=== PATIENT | male | born 1950 | race Caucasian/White ===

== ENCOUNTER 2022-06-19 08:26 | Outpatient (CLI) | payer OTHER, SELFPAY ==
[2022-06-19 09:09] LABS: Alanine Aminotransferase 31 U/L (6-50); Albumin Level 4.5 g/dL (3.5-5.1); Alkaline Phosphatase 69 U/L (38-126); Anion Gap 14 mmol/L (8-16); Aspartate Amino Transferase 33 U/L (17-59); Bilirubin,Total 0.8 mg/dL (0.2-1.3); Blood Urea Nitrogen 14 mg/dL (9-20); Calcium 8.9 mg/dL (8.4-10.2); Carbon Dioxide 23 mmol/L (22-30); Chloride 104 mmol/L (98-107); Estimated Glomerular Filt Rate > 60; Glucose 159 mg/dL (65-110); Potassium 3.8 mmol/L (3.4-5.0); Sodium 141 mmol/L (137-145)
[2022-06-19 10:06] LABS: Cholesterol 286 mg/dL (0-200); LDL Cholesterol Direct 67 mg/dL
[2022-06-19 10:10] LABS: Triglycerides 879 mg/dL (<150)
[2022-06-19 10:37] LABS: Vitamin D 25 Hydroxy 21.8 ng/mL
[2022-06-19 10:47] LABS: Hemoglobin A1C 7.2 % (<5.7)
== END 2022-06-19 08:27 | disposition home or self-care (01) ==
PROVIDERS: PCP Internal Medicine; Referring Provider Nurse Practitioner; Visit Provider Internal Medicine
DX: E78.1 Pure hyperglyceridemia (principal); E78.5 Hyperlipidemia, unspecified; E55.9 Vitamin D deficiency, unspecified; R73.01 Impaired fasting glucose; R97.20 Elevated prostate specific antigen [PSA]
CPT/HCPCS: 36415; 80053; 80061; 82306; 83036; 84153

== ENCOUNTER 2023-01-22 07:14 | Outpatient (CLI) | payer OTHER, SELFPAY ==
[2023-01-22 07:53] LABS: Cholesterol 263 mg/dL (0-200); LDL Cholesterol Direct < 30 mg/dL; Triglycerides 1533 mg/dL (<150)
[2023-01-26 16:39] LABS: Testosterone Free 65.3 pg/mL (30.0-135.0); Testosterone Total 371 ng/dL (250-1100)
== END 2023-01-22 07:15 | disposition home or self-care (01) ==
PROVIDERS: PCP Family Medicine; Visit Provider Family Medicine
DX: E03.9 Hypothyroidism, unspecified (principal); E11.9 Type 2 diabetes mellitus without complications; E55.9 Vitamin D deficiency, unspecified; E78.1 Pure hyperglyceridemia; E78.5 Hyperlipidemia, unspecified; I73.9 Peripheral vascular disease, unspecified; R97.20 Elevated prostate specific antigen [PSA]
CPT/HCPCS: 36415; 80061; 84402; 84403; 84443

== ENCOUNTER 2023-08-01 07:12 | Outpatient (CLI) | payer OTHER, SELFPAY ==
[2023-08-01 08:04] LABS: Basophils Absolute Auto 0.1 K/mm3 (0.0-0.1); Basophils Percent Auto 0.5 % (0.2-1.2); Eosinophils Absolute Auto 0.6 K/mm3 (0-0.3); Eosinophils Percent Auto 5.5 % (0-4.4); Hematocrit 45.9 % (42.0-52.0); Immature Granulocyte Absolute 0.04 K/mm3 (0.00-0.031); Immature Granulocyte Percent A 0.4 % (0-0.5); Lymphocytes Absolute Auto 4.39 K/mm3 (0.9-3.2); Lymphocytes Percent Auto 42.5 % (18.3-44.2); Mean Corpuscular HGB Conc 32.7 g/dl (32-36); Mean Corpuscular Hemoglobin 29.2 pg (26-34); Mean Corpuscular Volume 89.5 fl (80-100); Monocytes Absolute Auto 0.7 K/mm3 (0.1-0.6); Monocytes Percent Auto 6.4 % (2.6-8.5); Neutrophils Absolute Auto 4.6 K/mm3 (1.3-6.7); Neutrophils Percent Auto 44.7 % (45.5-73.1); Platelet Count Result 189 k/mm3 (150-375); Red Blood Count 5.13 M/mm3 (4.6-6.20); Red Cell Distribution Width 13.7 % (11.5-14.5); White Blood Count 10.3 K/mm3 (4.5-10.0)
[2023-08-01 08:36] LABS: LDL Cholesterol Direct 69 mg/dL
[2023-08-01 08:54] LABS: Alanine Aminotransferase 39 U/L (6-50); Albumin Level 4.3 g/dL (3.5-5.1); Alkaline Phosphatase 65 U/L (38-126); Anion Gap 8 mmol/L (8-16); Aspartate Amino Transferase 41 U/L (17-59); Bilirubin,Total 0.6 mg/dL (0.2-1.3); Blood Urea Nitrogen 16 mg/dL (9-20); Carbon Dioxide 28 mmol/L (22-30); Chloride 103 mmol/L (98-107); Cholesterol 213 mg/dL (0-200); Estimated Glomerular Filt Rate > 60; Glucose 196 mg/dL (65-110); Potassium 3.7 mmol/L (3.4-5.0); Sodium 139 mmol/L (137-145)
[2023-08-01 09:08] LABS: Triglycerides 731 mg/dL (<150)
[2023-08-01 12:06] LABS: Hemoglobin A1C 8.1 % (<5.7)
== END 2023-08-01 07:13 | disposition home or self-care (01) ==
PROVIDERS: PCP Family Medicine; Visit Provider Family Medicine
DX: E78.5 Hyperlipidemia, unspecified (principal); I10 Essential (primary) hypertension; E03.9 Hypothyroidism, unspecified; E11.9 Type 2 diabetes mellitus without complications; E55.9 Vitamin D deficiency, unspecified; E78.1 Pure hyperglyceridemia; I73.9 Peripheral vascular disease, unspecified; R53.83 Other fatigue; Z12.11 Encounter for screening for malignant neoplasm of colon
CPT/HCPCS: 36415; 80053; 80061; 83036; 84443; 85025

== ENCOUNTER 2024-08-06 08:59 | Outpatient (CLI) | payer OTHER, SELFPAY ==
[2024-08-06 09:32] LABS: Hematocrit 48.1 % (42.0-52.0); Mean Corpuscular HGB Conc 33.3 g/dl (32-36); Mean Corpuscular Volume 90.1 fl (80-100); Platelet Count Result 195 k/mm3 (150-375); Red Blood Count 5.34 M/mm3 (4.6-6.20); Red Cell Distribution Width 13.3 % (11.5-14.5); White Blood Count 13.6 K/mm3 (4.5-10.0)
[2024-08-06 09:48] LABS: Alanine Aminotransferase 31 U/L (6-50); Albumin Level 4.2 g/dL (3.5-5.1); Alkaline Phosphatase 80 U/L (38-126); Anion Gap 5 mmol/L (4-12); Aspartate Amino Transferase 32 U/L (17-59); Bilirubin,Total 0.7 mg/dL (0.2-1.3); Blood Urea Nitrogen 17 mg/dL (9-20); Calcium 9.8 mg/dL (8.4-10.2); Carbon Dioxide 27 mmol/L (22-30); Chloride 107 mmol/L (98-107); Estimated Glomerular Filt Rate > 60; Glucose 199 mg/dL (65-110); Potassium 4.4 mmol/L (3.4-5.0); Sodium 139 mmol/L (137-145)
[2024-08-06 09:50] LABS: Cholesterol 280 mg/dL (0-200)
[2024-08-06 09:53] LABS: LDL Cholesterol Direct 39 mg/dL
== END 2024-08-06 09:00 | disposition home or self-care (01) ==
PROVIDERS: PCP Family Medicine; Visit Provider Family Medicine
DX: I73.9 Peripheral vascular disease, unspecified (principal); I10 Essential (primary) hypertension; E11.9 Type 2 diabetes mellitus without complications; R97.20 Elevated prostate specific antigen [PSA]; R53.83 Other fatigue; Z79.899 Other long term (current) drug therapy
CPT/HCPCS: 36415; 80053; 80061; 83036; 84443; 85027

== ENCOUNTER 2024-10-09 12:22 | Outpatient (CLI) | payer OTHER, SELFPAY ==
--- NOTE | ~2024-10-09 | MR_ITS ---
EXAMINATION: MR lumbar spine wo con DATE: 10/09/2024 13:03 INDICATION: Radiculopathy, lumbar region. TECHNIQUE: Magnetic resonance imaging (MRI) of the lumbar spine was performed without intravenous con trast. COMPARISON: None FINDINGS: Alignment is normal. There is mild chronic anterior wedging of L1 vertebral body. There is mildly decreased disc height at L2-L3, moderately decreased disc height at L3-L4, and mildly decrease d disc height at L4-L5 and L5-S1. The distal spinal cord signal intensity is normal. The conus medull devaughn is at T12-L1. There is susceptibility artifact posterior to the L4-L5 spinous processes. The fol lowing disc levels are specifically discussed: L1-L2: The disc is bulging and has an annular fissure. There is mild right and moderate left facet gertrude int osteoarthritis. There is mild bilateral neural foraminal stenosis. There is mild central canal st enosis. L2-L3: The disc is bulging. There is mild bilateral facet joint osteoarthritis. There is mild bilater al neural foraminal stenosis. There is mild central canal stenosis. L3-L4: The disc is bulging and has an annular fissure. There is moderate bilateral facet joint osteoa rthritis. There is mild bilateral neural foraminal stenosis. There is mild central canal stenosis. L4-L5: The disc is bulging and has an annular fissure. There is severe bilateral facet joint osteoart hritis. There is moderate right and mild left neural foraminal stenosis. There is mild central canal stenosis. L5-S1: The disc is bulging and has an annular fissure. There is moderate bilateral facet joint osteoa rthritis. There is mild bilateral neural foraminal stenosis. There is mild central canal stenosis. IMPRESSION: 1. Moderate lumbar spondylosis. Reviewed, dictated and finalized at location L.
--- OUTSIDE RECORDS SUMMARY | 2024-10-09 12:30 | XMS_ITS | Encounter Summary ---
Author Name [facility] [place] Organization [facility] [place] Address [address] [place] [address] Care Team Providers Care Lead Ramp Service Man Name Role Phone ALLI CORNELIUS Primary Care Provider Unavailabl e Insurance Providers: All historical and current Section Date Range: From patient's date of to the date document was created. This section includes the names of all active insurance providers for the patient. Insurance Provider Type of Coverage Plan Name Start of Policy Coverage End of Policy Coverage Group Number Member ID Insurance Provider's Telephone Number Policy Meyer's Name Patient's Relationship to Policy Meyer MEDICARE (WNR) MEDICARE (M) PART B Dec 27, 2013 PART B [id number] LINH MERCEDES PATIENT MEDICARE (WNR) MEDICARE (M) PART A Dec 27, 2013 PART A [id number] MERCEDESLINH COLLINS PATIENT MEDICARE (WNR) MEDICARE (M) PART A Dec 27, 2013 PART A [id number] MERCEDESLINH COLLINS MMLewis PATIENT MEDICARE (WNR) MEDICARE (M) PART B Dec 27, 2013 PART B [id number] LINH MERCEDES THOMASLewis PATIENT Selected Encounter This section includes the information on record at [place] for the Encounter. 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 This section includes future appointments and future orders which are active, pending or scheduled. Future Appointments This section includes appointments that were scheduled to occur 6 months from the date of the Encounter, up to a maximum of 20 appointments. The data comes from all [facility]. Appointment Date/Time Appointment Type Appointme nt Facility Name Nov 10, 2024 10:00 AM AMBULATORY - REHAB MEDICIN E [facility] Feb 08, 2025 10:00 AM AMBULATORY - REHAB MEDICIN [facility] Active, Pending, and Scheduled Orders This section includes a listing of several types of active, pending, and scheduled orders, including clinic medications orders, diagnostic test orders, procedure orders and consult orders; where the start date of the order is 45 days before the date of the Encounter or 45 days after the date of theEncounter. The data comes from all [facility]. Test Date/Time Test Type Test Details Facility Name Aug 31, 2024 12:00 AM Laboratory - Chemi stry Order LIPID PANEL (STL) GREEN LI/HEP BLD/PLAS PLASMA SP ONCE [facility] Sep 29, 2024 12:00 AM Laboratory - Chemi stry Order BASIC METABOLIC PANEL GREEN LI/HEP BLD/PLAS PLASMA SP [facility] Sep 29, 2024 12:00 AM Laboratory - Chemi stry Order HGA1C BLOOD SP [facility] Sep 29, 2024 12:00 AM Laboratory - Chemi stry Order MICRAL/CREAT PROFILE (STL) URINE YELLOW SP [facility] Sep 29, 2024 12:00 AM Laboratory - Chemi stry Order LIPID PANEL (STL) GREEN LI/HEP BLD/PLAS PLASMA SP ONCE [facility] Vital Signs: All taken on the encounter date This section contains inpatient and outpatient Vital Signs collected on the date of the Encounter. Date/Time Temperature Pulse Blood Pressure Respiratory Rate SP02 Pain Height Weight Body Mass Index Source Sep 29, 2024 10:19 AM 104 118/74 [facility] Social History: Smoking Status (Most current) and Tobacco Use (All prior to encounter date) This section includes the most current, and the historical, smoking and tobacco- related health factors from the [place] facility where the Encounter took place. Current Smoking Status This section includes the most current smoking, or tobacco-related health factor, from the [place] facility where the Encounter took place. Date/Time Current Smoking Status Comment Alejandro ity Feb 11, 2024 10:00 AM VA-TOBACCO USER EVERY DAY [facility] Tobacco Use History This section includes a history of the smoking, or tobacco-related health factors, that were collected on or before the date of the Encounter. The data comes from the [place] facility where the Encounter took place. Date/Time Smoking Status/Tobacco Use Comment F acility Feb 11, 2024 10:00 AM VA-TOBACCO USE 30 YEARS OR MORE [facility] Feb 11, 2024 10:00 AM VA-TOBACCO USE ADVICE [facility] Feb 11, 2024 10:00 AM VA-TOBACCO USE TOOLROOM HELPER NO [facility] Feb 11, 2024 10:00 AM VA-TOBACCO USE MED NO [facility] Feb 11, 2024 10:00 AM VA-TOBACCO USER EVERY DAY [facility] Sep 26, 2022 09:30 AM VA-TOBACCO DOESNT USE WI 30 MIN WAKEUP [facility] Sep 26, 2022 09:30 AM VA-TOBACCO USE 30 YEARS OR MORE [facility] Sep 26, 2022 09:30 AM VA-TOBACCO USE ADVICE [facility] Sep 26, 2022 09:30 AM VA-TOBACCO USE TOOLROOM HELPER NO [facility] Sep 26, 2022 09:30 AM VA-TOBACCO USE MED NO [facility] Sep 26, 2022 09:30 AM VA-TOBACCO USER EVERY DAY [facility] May 05, 2021 01:00 PM VA-TOBACCO USE 30 YEARS OR MORE [facility] May 05, 2021 01:00 PM VA-TOBACCO USE ADVICE [facility] May 05, 2021 01:00 PM VA-TOBACCO USE TOOLROOM HELPER NO [facility] May 05, 2021 01:00 PM VA-TOBACCO USE MED NO [facility] May 05, 2021 01:00 PM VA-TOBACCO USE WI 30 MIN OF WAKEUP [facility] May 05, 2021 01:00 PM VA-TOBACCO USER EVERY DAY [facility] Mar 05, 2018 09:42 AM CURRENT TOBACCO USER [facility] Mar 05, 2018 09:42 AM CURRENT TOBACCO US ER (NOT READY TO QUIT) [facility] Mar 05, 2018 09:42 AM TOBACCO CESSATION REFERRAL DECLINED [facility] Mar 05, 2018 09:42 AM TOBACCO MEDS OFFER ED BUT DECLINED [facility] Mar 05, 2018 09:42 AM TOBACCO USER OFFERED MEDS [facility] Mar 05, 2017 08:56 AM CURRENT TOBACCO USER [facility] Mar 05, 2017 08:56 AM TOBACCO MEDS OFFER ED BUT DECLINED [facility] Encounter Notes: All associated encounter notes This section contains the clinical notes associated to the Encounter. Date/Time Encounter Note(s) Provider Source Sep 29, 2024 10:36 AM ADDENDUM: LOCAL TITLE: Addendum STANDARD TITLE: ADDENDUM DATE OF NOTE: SEP 29, 2024@10:36:36 ENTRY DATE: SEP 29, 2024@10:36:37 AUTHOR: HAGENHOFF,ELOISE R EXP COSIGNER: URGENCY: STATUS: COMPLETED Dr. Cornelius - pt requesting renewal on wixela, finasteride, tiotropium, and albuterol if appropriate. /judie/ ELOISE ROJAS, JESSICAD, BCACP CLINICAL MAGNETIZER Signed: 09/29/2024 10:37 Receipt Acknowledged By: 09/29/2024 13:28 /judie/ ALLI CORNELIUS M.D. STAFF PHYSICIAN [facility] --- Original Document --- 09/29/24 CLINICAL PHARMACIST NOTE STL: CLINICAL PHARMACY FOLLOW-UP Subjective: TAN MERCEDES is a 74 MALE who presents to clinic for follow up on DM/HLD/HTN. Verified pts full name and PMH: 1) Essential hypertension 2) Mixed hyperlipidemia 3) Nicotine dependence 4) Hearing loss 5) Vitamin D Deficiency (SCT [id number]) 6) Impaired Fasting Glucose (SCT [id number]) 7) Peripheral vascular disease 8) Critical lower limb ischaemia 9) Chronic obstructive lung disease 10) Diabetes mellitus 11) Malignant melanoma of skin of face 12) Hypothyroidism 13) Exposure to potentially hazardous substance During the last contact with vet (08/25/24), the following changes were made: DM: - bring glucometer to clinic to download - INCREASE empagliflozin 25mg daily HLD: - labs: FLP next week HTN: - check home BP and bring machine to next visit - Ensure adequate hydration and change positions slowly - Call if SBP<100 or HoTN sxs. During current visit: - Pt presented to clinic today with med bottles but did not have home readings to review. - Stated he completed course of steroids last week for pinched nerve. He was inactive for about 3 weeks so did not test SMBGs and home BP during that time. Dietary/Lifestyle/Social History modifications made: - tob: 1/2 ppd - EtOH: denies - no set meals, snacks all day long ROS: DM: (-) hypoglycemia symptoms or values <80 mg/dL (-) hyperglycemia symptoms (-) tingling/numbness HLD:(-) CP (-) muscle pain/cramps HTN:(-) hypotension symptoms or value <90/60 mmHg (+) orthostasis - rare dizzy on standing (-) edema (-) cough Objective: Allergies: EGGS, SHELLFISH Medications: Active and Recently Outpatient Medications (excluding Supplies): Active Outpatient Medications Status -1) AMLODIPINE BESYLATE 10MG TAB TAKE ONE TABLET BY MOUTH ONCE A ACTIVE DAY Indication: FOR HIGH BLOOD PRESSURE - AM -2) ASPIRIN 81MG EC TAB TAKE ONE TABLET BY MOUTH ONCE A DAY ACTIVE TAKE WITH FOOD. Indication: FOR CARDIOVASCULAR DISEASE - AM -3) CHLORTHALIDONE 25MG TAB TAKE ONE-HALF TABLET BY MOUTH ONCE A ACTIVE DAY Indication: FOR HIGH BLOOD PRESSURE - AM -4) CHOLECALCIF 50MCG (D3-2,000UNIT) TAB TAKE ONE TABLET BY ACTIVE MOUTH ONCE A DAY Indication: FOR VITAMIN D DEFICIENCY - AM -5) CYANOCOBALAMIN 500MCG TAB TAKE ONE TABLET BY MOUTH ONCE A ACTIVE DAY FOR B12 SUPPLEMENTATION - AM -6) EMPAGLIFLOZIN 25MG TAB TAKE ONE TABLET BY MOUTH ONCE A DAY ACTIVE Indication: FOR DIABETES - AM -7) FLUOROURACIL 5% CREAM APPLY THIN FILM TO AFFECTED AREA(S) ACTIVE TWICE A DAY AVOID SUN EXPOSURE. FOLLOW DIRECTIONS CAREFULLY FOR PROPER HANDLING/DISPOSAL.USE FOR 10 DAYS AT A TIME Indication: FOR FOREARMS AND FACE -8) FLUTICAS 250/SALMETEROL 50 INHL DISK 60 INHALE 1 INHALATION ACTIVE BY ORAL INHALATION TWICE A DAY (OPEN DISKUS; CLICK ONLY ONCE; MAY INHALE TWICE TO COMPLETE DOSE; CLOSE WHEN FINISHED) RINSE MOUTH AND SPIT AFTER EACH USE. Indication: FOR COPD -9) KETOCONAZOLE 2% SHAMPOO USE SHAMPOO TO AFFECTED AREA(S) ONCE ACTIVE A DAY (EXTERNAL USE ONLY) (SHAKE WELL) FOR HEAD AND NECK. LATHER FOR 3 MINUTES PRIOR TO RINSING Indication: FOR SEBORRHEIC DERMATITIS - stated he never received, refilled today -10) LEVOTHYROXINE NA 25MCG TAB TAKE ONE TABLET BY MOUTH EVERY ACTIVE MORNING BEFORE A MEAL TAKE 30 MINUTES BEFORE FOOD. TAKE SEPARATELY FROM ALL OTHER MEDICATIONS. Indication: FOR HYPOTHYROIDISM -11) LISINOPRIL 40MG TAB TAKE ONE TABLET BY MOUTH ONCE A DAY ACTIVE Indication: FOR HIGH BLOOD PRESSURE - PM - 2 bottles -12) METFORMIN HCL 1000MG TAB TAKE ONE TABLET BY MOUTH TWICE A ACTIVE DAY WITH MEALS TAKE WITH FOOD. AVOID ALCOHOL. DISCONTINUE BEFORE GETTING XRAY DYE. Indication: FOR DIABETES - BID -13) ROSUVASTATIN CA 40MG TAB TAKE ONE TABLET BY MOUTH EVERY ACTIVE EVENING Indication: FOR HIGH CHOLESTEROL - PM Inactive Outpatient Medications Status -1) FENOFIBRATE 145MG TAB TAKE ONE TABLET BY MOUTH ONCE A DAY - TAKE WITH FOOD Indication: FOR HIGH TRIGLYCERIDES - AM -2) ICOSAPENT ETHYL CAP,ORAL 1GM TAKE TWO CAPSULES BY MOUTH TWICE A DAY WITH MEALS FOR HIGH TRIGLYCERIDES - BID -3) FINASTERIDE TAB 5MG TAKE ONE TABLET BY MOUTH ONCE A DAY SWALLOW WHOLE, DO NOT CRUSH, SPLIT, OR CHEW. - PM 4) TIOTROPIUM INHL,ORAL TIOTROPIUM 2.5MCG/ACTUAT 60D ORAL INHL INHALE 2 INHALATIONS BY ORAL INHALATION ONCE A DAY (ADMINISTER AT SAME TIME EACH DAY) FOR BREATHING. 5) ALBUTEROL (CFC-F) INHL,ORAL 90MCG/INHL INHALE 1 PUFF ORAL INHALATION FOUR TIMES A DAY NEEDED FOR BREATHING. SHAKE WELL. RINSE MOUTHPIECE FREQUENTLY TO PREVENT CLOGGING. Medication reconciliation completed: YES Adherence to above medications: good per pt (1-2 missed dose in 5 weeks) Labs: HGA1C 7.5 H % 04/29/2024 10:32 SODIUM 139 mEq/L 04/29/2024 10:32 POTASSIUM 3.9 mEq/L 04/29/2024 10:32 CHLORIDE 107 mEq/L 04/29/2024 10:32 CALCIUM 10.0 mg/dL 04/29/2024 10:32 PROTEIN 8.2 g/dL 08/27/2023 13:57 ALBUMIN 4.7 g/dL 08/27/2023 13:57 CARBON DIOXIDE 23 mEq/L 04/29/2024 10:32 GLUCOSE 118 H mg/dL 04/29/2024 10:32 UREA NITROGEN 11.3 mg/dL 04/29/2024 10:32 CREATININE 0.79 mg/dL 04/29/2024 10:32 EGFR (CKD-EPI 2020) 92.1 04/29/2024 10:32 est CrCl:87.3mL/min ALKALINE PHOSPHATASE 57 U/L 08/27/2023 13:57 ALT/SGPT 34 U/L 08/27/2023 13:57 AST/SGOT 26 U/L 08/27/2023 13:57 TOTAL BILIRUBIN 0.7 mg/dL 08/27/2023 13:57 TRIGLYCERIDE 361 H mg/dL 04/29/2024 10:32 CHOLESTEROL 169 mg/dL 04/29/2024 10:32 HDL(New) 40 mg/dL 04/29/2024 10:32 DIRECT LDL 60 L mg/dL 04/29/2024 10:32 MICRAL/CR PROFILE: CREATuF: 48.1 (08/15/23 13:26) M/CREAT: 168 (08/15/23 13:26) MICRAL: 81 (08/15/23 13:26) TSH 2.116 uIU/mL 08/27/2023 13:57 VITAMIN D, 25-HYDROXY 63.9 ng/mL 04/29/2024 10:32 B12 595 pg/mL 04/29/2024 10:32 NonVA Labs (08/06/24): Na 139 K 4.4 Cl 107 CO2 27 Ca 9.8 glu 199 BUN 17 SCr 0.59 eGFR >60 tbili 0.7 AST 32 ALT 31 LDL 39 (direct) TGs unavailable, 2+ lipemic HDL not performed chol 280 H TSH 2.420 A1c 8% SMBGs: - has not checked since last visit BP last visit: 165/91 (08/10/2024 10:01) Pulse last visit: 83 (08/10/2024 09:58) Home Readings: 09/29 138/73 ?? Automatic BP seated, rested: 118/74 mmHg Pulse: 104 bpm Assessment/Plan: 1) Diabetes - Goal A1c <8%, FPG 80-160, PPG <210 d/t PVD, albuminuria, neuropathy per VA/DoD guidelines NonVA A1c and serum glu elevated. SCr wnl. eGFR appropriate for empagliflozin. SMBGs unavailable. Not checking at home d/t recent pinched nerve but agreed to resume. Requested pt bring glucometer to download. Reported med compliance... Denied ADRs and diet/lifestyle changes. Discussed SGLT2i use in PVD and concern for amputation risk with pt and Dr. Cornelius (okay to continue). Pt verbalized understanding of risks and requested to continue SGLT2i. Previously avoiding GLP1 d/t pancreatitis risk with elevated TGs but may reconsider if TGs continue to improve and glu uncontrolled. Will CCT and obtain updated labs. - bring glucometer to clinic to download - metformin IR 1000mg BID - empagliflozin 25mg daily - check SMBGs 2x/wk alternating before meals and bedtime!!! - educated vet on hypoglycemia symptoms and appropriate treatment and when to contact clinic or go to emergency room - labs: A1c, BMP, micral/cr today -- DM med SOC: (+)ASA (-)ACEi (+ albuminuria) (+)Statin (-)flu vaccine - declined 08/10/24 (+)pneumo vaccine - 08/15/23 and 09/26/22 (+)Podiatry - 08/15/23 abnormal monofilament (+)Optho - 11/11/23 NIDDM s Ocular Complications OU 2) Lipids - Goal is treatment with moderate-intensity statin per VADoD and ACC/AHA guidelines d/t secondary prevention. Controlled to statin tx goal. LDL 39 (goal<70). TGs 361 but unavailable from recent nonVA labs (h/o TGs>1400). TSH, vit D, and LFTs wnl. Reported med compliance. Denied ADRs. Denied alcohol intake. Has not made meaningful diet changes. Repeatedly edu to limit sweets to help lower TGs and reduce pancreatitis risk. Declined PCSK9i as pt hesitant to use injections. Staffed with Dr. Cornelius - continue fenofibrate until TGs <500 then consider discontinuation. Monitor for rhadbo and pancreatitis. Will CCT for now and obtain updated labs. Revisit decreasing/stopping fenofibrate after next labs. Pt agreeable. - cholecalciferol 2000 units daily (copay exempt) - icosapent ethyl 2000mg BID - rosuvastatin 40mg daily - fenofibrate 145mg daily - monitor for myalgias and report to CP or PCP if occurs - labs: FLP today 3) HTN - Goal BP <130/80 mmHg per ACC/AHA; <140/90 (age>60 with DM) per [place]/[facility] BP controlled to goal. Na, K, and SCr wnl. Home BP readings unavailable but at [place]D goal this morning per recall. Agreed to bring home BP machine to next appt. Reported med compliance. Denied ADRs except rare dizziness. Negative for orthostasis. Denied diet/lifestyle changes. Not limiting caffeine. Not interested in smoking cessation. Will CCT. Call if SBP<100 or HoTN sxs. - chlorthalidone 12.5mg daily (AM) - amlodipine 10mg daily (AM) - lisinopril 40mg daily (PM) - check BP every other day and record - call CP if SBP >160 or DBP >100 sustained - present to ER if SBP >180 or DBP >120 sustained and/or if sxs present 4) Med Rec Pt filling own pillboxes. Brought all pill bottles to review today. Did not bring topicals and inhalers but reported using them except ketoconazole shampoo. Refilled at pt request. Rare missed doses but many meds are repeatedly past due for refill. Spouse reminds him to take meds. Renewed multiple meds. - continue to monitor compliance -Education provided on nonpharmacologic ways to improve DM/HLD/HTN (including lifestyle management/dietary/physical activity) specific for the vet's needs. - verbalized understanding to all plans discussed today. Questions were answered to vet's satisfaction. Time spent with vet: 25 min RTC: 6 weeks f2f per pt request - The Patient Priorities Care (PPC) approach was used to ask and identify What Matters. Diabetes: Kidney Health Evaluation - N,P,PH: Last eGFR: Most recent eGFR within past 12 months No data available for: uACR (PB-MA) URINE ALBUMIN (MA) URINE ALBUMIN (PB-STL) MICROALBUMIN-RU (PB-sendout) Collection DT Specimen Test Name Result Units Ref Range 04/29/2024 10:32 PLASMA EGFR (CKD-EPI 202 92.1 Ref: >=60 Comment: LDL calculation invalid when Triglyceride exceeds 250 mg/dl Last uACR: Most recent uACR/MicroAlbumin within past 12 months No data available for: uACR (PB-MA) URINE ALBUMIN (MA) URINE ALBUMIN (PB-STL) MICROALBUMIN-RU (PB-sendout) Collection DT Specimen Test Name Result Units Ref Range 04/29/2024 10:32 PLASMA EGFR (CKD-EPI 202 92.1 Ref: >=60 Comment: LDL calculation invalid when Triglyceride exceeds 250 mg/dl uACR (Urine Albumin-Creatinine Ratio) Quantitative urine creatinine and quantitative urine albumin lab tests were ordered. PBM PharmD Pharmacotherapy Rem V12: PHARMACIST INTERVENTIONS: HYPERTENSION Medication monitoring, no dosage change required, continue to monitor and assess LIPID MANAGEMENT Medication monitoring, no dosage change required, continue to monitor and assess TYPE 2 DIABETES MELLITUS Medication monitoring, no dosage change required, continue to monitor and assess Address adherence Medication reconciliation (changes to active VA and non-VA medication lists to reconcile differences) Changes to medication lists made Add or renew medication /es/ ELOISE ROJAS, PHARMD, BCACP CLINICAL MAGNETIZER Signed: 09/29/2024 10:36 ELOISE ROJAS [facility] Sep 29, 2024 07:51 AM INTERNAL MEDICINE CLINICAL PHARMACIST MEDICATION MGT NOTE: LOCAL TITLE: CLINICAL PHARMACIST NOTE [facility] STANDARD TITLE: INTERNAL MEDICINE CLINICAL PHARMACIST MEDICATION DATE OF NOTE: SEP 29, 2024@07:51 ENTRY DATE: SEP 29, 2024@07:51:53 AUTHOR: ELOISE ROJAS EXP COSIGNER: URGENCY: STATUS: COMPLETED CLINICAL PHARMACIST NOTE STL Has ADDENDA CLINICAL PHARMACY FOLLOW-UP Subjective: TAN MERCEDES is a 74 MALE who presents to clinic for follow up on DM/HLD/HTN. Verified pts full name and PMH: 1) Essential hypertension 2) Mixed hyperlipidemia 3) Nicotine dependence 4) Hearing loss 5) Vitamin D Deficiency (SCT [id number]) 6) Impaired Fasting Glucose ([facility] [id number]) 7) Peripheral vascular disease 8) Critical lower limb ischaemia 9) Chronic obstructive lung disease 10) Diabetes mellitus 11) Malignant melanoma of skin of face 12) Hypothyroidism 13) Exposure to potentially hazardous substance During the last contact with vet (08/25/24), the following changes were made: DM: - bring glucometer to clinic to download - INCREASE empagliflozin 25mg daily HLD: - labs: FLP next week HTN: - check home BP and bring machine to next visit - Ensure adequate hydration and change positions slowly - Call if SBP<100 or HoTN sxs. During current visit: - Pt presented to clinic today with med bottles but did not have home readings to review. - Stated he completed course of steroids last week for pinched nerve. He was inactive for about 3 weeks so did not test SMBGs and home BP during that time. Dietary/Lifestyle/Social History modifications made: - tob: 07/30 ppd - EtOH: denies - no set meals, snacks all day long ROS: DM: (-) hypoglycemia symptoms or values <80 mg/dL (-) hyperglycemia symptoms (-) tingling/numbness HLD:(-) CP (-) muscle pain/cramps HTN:(-) hypotension symptoms or value <90/60 mmHg (+) orthostasis - rare dizzy on standing (-) edema (-) cough Objective: Allergies: EGGS, SHELLFISH Medications: Active and Recently Outpatient Medications (excluding Supplies): Active Outpatient Medications Status -1) AMLODIPINE BESYLATE 10MG TAB TAKE ONE TABLET BY MOUTH ONCE A ACTIVE DAY Indication: FOR HIGH BLOOD PRESSURE - AM -2) ASPIRIN 81MG EC TAB TAKE ONE TABLET BY MOUTH ONCE A DAY ACTIVE TAKE WITH FOOD. Indication: FOR CARDIOVASCULAR DISEASE - AM -3) CHLORTHALIDONE 25MG TAB TAKE ONE-HALF TABLET BY MOUTH ONCE A ACTIVE DAY Indication: FOR HIGH BLOOD PRESSURE - AM -4) CHOLECALCIF 50MCG (D3-2,000UNIT) TAB TAKE ONE TABLET BY ACTIVE MOUTH ONCE A DAY Indication: FOR VITAMIN D DEFICIENCY - AM -5) CYANOCOBALAMIN 500MCG TAB TAKE ONE TABLET BY MOUTH ONCE A ACTIVE DAY FOR B12 SUPPLEMENTATION - AM -6) EMPAGLIFLOZIN 25MG TAB TAKE ONE TABLET BY MOUTH ONCE A DAY ACTIVE Indication: FOR DIABETES - AM -7) FLUOROURACIL 5% CREAM APPLY THIN FILM TO AFFECTED AREA(S) ACTIVE TWICE A DAY AVOID SUN EXPOSURE. FOLLOW DIRECTIONS CAREFULLY FOR PROPER HANDLING/DISPOSAL.USE FOR 10 DAYS AT A TIME Indication: FOR FOREARMS AND FACE -8) FLUTICAS 250/SALMETEROL 50 INHL DISK 60 INHALE 1 INHALATION ACTIVE BY ORAL INHALATION TWICE A DAY (OPEN DISKUS; CLICK ONLY ONCE; MAY INHALE TWICE TO COMPLETE DOSE; CLOSE WHEN FINISHED) RINSE MOUTH AND SPIT AFTER EACH USE. Indication: FOR COPD -9) KETOCONAZOLE 2% SHAMPOO USE SHAMPOO TO AFFECTED AREA(S) ONCE ACTIVE A DAY (EXTERNAL USE ONLY) (SHAKE WELL) FOR HEAD AND NECK. LATHER FOR 3 MINUTES PRIOR TO RINSING Indication: FOR SEBORRHEIC DERMATITIS - stated he never received, refilled today -10) LEVOTHYROXINE NA 25MCG TAB TAKE ONE TABLET BY MOUTH EVERY ACTIVE MORNING BEFORE A MEAL TAKE 30 MINUTES BEFORE FOOD. TAKE SEPARATELY FROM ALL OTHER MEDICATIONS. Indication: FOR HYPOTHYROIDISM -11) LISINOPRIL 40MG TAB TAKE ONE TABLET BY MOUTH ONCE A DAY ACTIVE Indication: FOR HIGH BLOOD PRESSURE - PM - 2 bottles -12) METFORMIN HCL 1000MG TAB TAKE ONE TABLET BY MOUTH TWICE A ACTIVE DAY WITH MEALS TAKE WITH FOOD. AVOID ALCOHOL. DISCONTINUE BEFORE GETTING XRAY DYE. Indication: FOR DIABETES - BID -13) ROSUVASTATIN CA 40MG TAB TAKE ONE TABLET BY MOUTH EVERY ACTIVE EVENING Indication: FOR HIGH CHOLESTEROL - PM Inactive Outpatient Medications Status -1) FENOFIBRATE 145MG TAB TAKE ONE TABLET BY MOUTH ONCE A DAY - TAKE WITH FOOD Indication: FOR HIGH TRIGLYCERIDES - AM -2) ICOSAPENT ETHYL CAP,ORAL 1GM TAKE TWO CAPSULES BY MOUTH TWICE A DAY WITH MEALS FOR HIGH TRIGLYCERIDES - BID -3) FINASTERIDE TAB 5MG TAKE ONE TABLET BY MOUTH ONCE A DAY SWALLOW WHOLE, DO NOT CRUSH, SPLIT, OR CHEW. - PM 4) TIOTROPIUM INHL,ORAL TIOTROPIUM 2.5MCG/ACTUAT 60D ORAL INHL INHALE 2 INHALATIONS BY ORAL INHALATION ONCE A DAY (ADMINISTER AT SAME TIME EACH DAY) FOR BREATHING. 5) ALBUTEROL (CFC-F) INHL,ORAL 90MCG/INHL INHALE 1 PUFF ORAL INHALATION FOUR TIMES A DAY NEEDED FOR BREATHING. SHAKE WELL. RINSE MOUTHPIECE FREQUENTLY TO PREVENT CLOGGING. Medication reconciliation completed: YES Adherence to above medications: good per pt (1-2 missed dose in 5 weeks) Labs: HGA1C 7.5 H % 04/29/2024 10:32 SODIUM 139 mEq/L 04/29/2024 10:32 POTASSIUM 3.9 mEq/L 04/29/2024 10:32 CHLORIDE 107 mEq/L 04/29/2024 10:32 CALCIUM 10.0 mg/dL 04/29/2024 10:32 PROTEIN 8.2 g/dL 08/27/2023 13:57 ALBUMIN 4.7 g/dL 08/27/2023 13:57 CARBON DIOXIDE 23 mEq/L 04/29/2024 10:32 GLUCOSE 118 H mg/dL 04/29/2024 10:32 UREA NITROGEN 11.3 mg/dL 04/29/2024 10:32 CREATININE 0.79 mg/dL 04/29/2024 10:32 EGFR (CKD-EPI 2020) 92.1 04/29/2024 10:32 est CrCl:87.3mL/min ALKALINE PHOSPHATASE 57 U/L 08/27/2023 13:57 ALT/SGPT 34 U/L 08/27/2023 13:57 AST/SGOT 26 U/L 08/27/2023 13:57 TOTAL BILIRUBIN 0.7 mg/dL 08/27/2023 13:57 TRIGLYCERIDE 361 H mg/dL 04/29/2024 10:32 CHOLESTEROL 169 mg/dL 04/29/2024 10:32 HDL(New) 40 mg/dL 04/29/2024 10:32 DIRECT LDL 60 L mg/dL 04/29/2024 10:32 MICRAL/CR PROFILE: CREATuF: 48.1 (08/15/23 13:26) M/CREAT: 168 (08/15/23 13:26) MICRAL: 81 (08/15/23 13:26) TSH 2.116 uIU/mL 08/27/2023 13:57 VITAMIN D, 25-HYDROXY 63.9 ng/mL 04/29/2024 10:32 B12 595 pg/mL 04/29/2024 10:32 NonVA Labs (08/06/24): Na 139 K 4.4 Cl 107 CO2 27 Ca 9.8 glu 199 BUN 17 SCr 0.59 eGFR >60 tbili 0.7 AST 32 ALT 31 LDL 39 (direct) TGs unavailable, 2+ lipemic HDL not performed chol 280 H TSH 2.420 A1c 8% SMBGs: - has not checked since last visit BP last visit: 165/91 (08/10/2024 10:01) Pulse last visit: 83 (08/10/2024 09:58) Home Readings: 09/29 138/73 ?? Automatic BP seated, rested: 118/74 mmHg Pulse: 104 bpm Assessment/Plan: 1) Diabetes - Goal A1c <8%, FPG 80-160, PPG <210 d/t PVD, albuminuria, neuropathy per VA/DoD guidelines NonVA A1c and serum glu elevated. SCr wnl. eGFR appropriate for empagliflozin. SMBGs unavailable. Not checking at home d/t recent pinched nerve but agreed to resume. Requested pt bring glucometer to download. Reported med compliance... Denied ADRs and diet/lifestyle changes. Discussed SGLT2i use in PVD and concern for amputation risk with pt and Dr. Cornelius (okay to continue). Pt verbalized understanding of risks and requested to continue SGLT2i. Previously avoiding GLP1 d/t pancreatitis risk with elevated TGs but may reconsider if TGs continue to improve and glu uncontrolled. Will CCT and obtain updated labs. - bring glucometer to clinic to download - metformin IR 1000mg BID - empagliflozin 25mg daily - check SMBGs 2x/wk alternating before meals and bedtime!!! - educated vet on hypoglycemia symptoms and appropriate treatment and when to contact clinic or go to emergency room - labs: A1c, BMP, micral/cr today -- DM med SOC: (+)ASA (-)ACEi (+ albuminuria) (+)Statin (-)flu vaccine - declined 08/10/24 (+)pneumo vaccine - 08/15/23 and 09/26/22 (+)Podiatry - 08/15/23 abnormal monofilament (+)Optho - 11/11/23 NIDDM s Ocular Complications OU 2) Lipids - Goal is treatment with moderate-intensity statin per VADoD and ACC/AHA guidelines d/t secondary prevention. Controlled to statin tx goal. LDL 39 (goal<70). TGs 361 but unavailable from recent nonVA labs (h/o TGs>1400). TSH, vit D, and LFTs wnl. Reported med compliance. Denied ADRs. Denied alcohol intake. Has not made meaningful diet changes. Repeatedly edu to limit sweets to help lower TGs and reduce pancreatitis risk. Declined PCSK9i as pt hesitant to use injections. Staffed with Dr. Cornelius - continue fenofibrate until TGs <500 then consider discontinuation. Monitor for rhadbo and pancreatitis. Will CCT for now and obtain updated labs. Revisit decreasing/stopping fenofibrate after next labs. Pt agreeable. - cholecalciferol 2000 units daily (copay exempt) - icosapent ethyl 2000mg BID - rosuvastatin 40mg daily - fenofibrate 145mg daily - monitor for myalgias and report to CP or PCP if occurs - labs: FLP today 3) HTN - Goal BP <130/80 mmHg per ACC/AHA; <140/90 (age>60 with DM) per [place] BP controlled to goal. Na, K, and SCr wnl. Home BP readings unavailable but at [place] goal this morning per recall. Agreed to bring home BP machine to next appt. Reported med compliance. Denied ADRs except rare dizziness. Negative for orthostasis. Denied diet/lifestyle changes. Not limiting caffeine. Not interested in smoking cessation. Will CCT. Call if SBP<100 or HoTN sxs. - chlorthalidone 12.5mg daily (AM) - amlodipine 10mg daily (AM) - lisinopril 40mg daily (PM) - check BP every other day and record - call CP if SBP >160 or DBP >100 sustained - present to ER if SBP >180 or DBP >120 sustained and/or if sxs present 4) Med Rec Pt filling own pillboxes. Brought all pill bottles to review today. Did not bring topicals and inhalers but reported using them except ketoconazole shampoo. Refilled at pt request. Rare missed doses but many meds are repeatedly past due for refill. Spouse reminds him to take meds. Renewed multiple meds. - continue to monitor compliance -Education provided on nonpharmacologic ways to improve DM/HLD/HTN (including lifestyle management/dietary/physical activity) specific for the vet's needs. - verbalized understanding to all plans discussed today. Questions were answered to vet's satisfaction. Time spent with vet: 25 min RTC: 6 weeks f2f per pt request - The Patient Priorities Care (PPC) approach was used to ask and identify What Matters. Diabetes: Kidney Health Evaluation - N,P,PH: Last eGFR: Most recent eGFR within past 12 months No data available for: uACR (PB-MA) URINE ALBUMIN (MA) URINE ALBUMIN (PB-STL) MICROALBUMIN-RU (PB-sendout) Collection DT Specimen Test Name Result Units Ref Range 04/29/2024 10:32 PLASMA EGFR (CKD-EPI 202 92.1 Ref: >=60 Comment: LDL calculation invalid when Triglyceride exceeds 250 mg/dl Last uACR: Most recent uACR/MicroAlbumin within past 12 months No data available for: uACR (PB-MA) URINE ALBUMIN (MA) URINE ALBUMIN (PB-STL) MICROALBUMIN-RU (PB-sendout) Collection DT Specimen Test Name Result Units Ref Range 04/29/2024 10:32 PLASMA EGFR (CKD-EPI 202 92.1 Ref: >=60 Comment: LDL calculation invalid when Triglyceride exceeds 250 mg/dl uACR (Urine Albumin-Creatinine Ratio) Quantitative urine creatinine and quantitative urine albumin lab tests were ordered. PBM PharmD Pharmacotherapy Rem V12: PHARMACIST INTERVENTIONS: HYPERTENSION Medication monitoring, no dosage change required, continue to monitor and assess LIPID MANAGEMENT Medication monitoring, no dosage change required, continue to monitor and assess TYPE 2 DIABETES MELLITUS Medication monitoring, no dosage change required, continue to monitor and assess Address adherence Medication reconciliation (changes to active VA and non-VA medication lists to reconcile differences) Changes to medication lists made Add or renew medication /judie/ ELOISE ROJAS PHARMD, LI CLINICAL MAGNETIZER Signed: 09/29/2024 10:36 09/29/2024 ADDENDUM STATUS: COMPLETED Dr. Cornelius - pt requesting renewal on wixela, finasteride, tiotropium, and albuterol if appropriate. /judie/ ELOISE ROJAS PHARMD, LI CLINICAL MAGNETIZER Signed: 09/29/2024 10:37 Receipt Acknowledged By: * AWAITING SIGNATURE * ALLI CORNELIUS ALEXIS R [facility]
--- OUTSIDE RECORDS SUMMARY | 2024-10-09 12:30 | XMS_ITS | Encounter Summary ---
Author Name [facility] [place] Organization [facility] [place] Address [address] [place] [address] Care Team Providers [employer] Supervisor Name Role Phone ALLI CORNELIUS Primary Care [...] PART B Dec 27, 2013 PART B [id number] LINH DONATO PATIENT MEDICARE (WNR) MEDICARE (M) PART A Dec 27, 2013 PART A [id number] DONATOLINH COLLINS PATIENT MEDICARE (WNR) MEDICARE (M) PART A Dec 27, 2013 PART A [id number] DONATOLINH GUZMANLewis PATIENT MEDICARE (WNR) MEDICARE (M) PART B Dec 27, 2013 PART B [id number] LINH DONATO THOMASLewis PATIENT Selected Encounter This section includes the information on record at [place] for the Encounter. Date/Time Encounter Type Encounter Description Reason Provider Source Feb 11, 2024 10:00 AM OFFICE O/P EST HI 40 MIN GERIPACT ICD-10-CM I10 Essential (primary) hypertension ALLI CORNELIUS Luciano Encounter Template Text not used by [place] Assessments - Encounter Diagnoses This section includes the primary and secondary diagnoses documented for the Encounter. Date/Time Primary/Secondary Diagnosis Diagnosis Name Provider Source Feb 11, 2024 11:51 AM PRIMARY Essential (primary) hypertension [facility] Feb 11, 2024 11:51 AM SECONDARY Actinic keratosis [facility] Feb 11, 2024 11:51 AM SECONDARY Chronic obstructive pulmonary disease, unspecified [facility] Feb 11, 2024 11:51 AM SECONDARY Hypothyroidism, unspecified [facility] Feb 11, 2024 11:51 AM SECONDARY Mixed hyperlipidemia [facility] Feb 11, 2024 11:51 AM SECONDARY Nicotine dependence, cigarettes, uncomplicated [facility] Feb 11, 2024 11:51 AM SECONDARY Patient's other noncompl with meds regimen for other reason [facility] Feb 11, 2024 11:51 AM SECONDARY Peripheral vascular disease, unspecified [facility] Feb 11, 2024 11:51 AM SECONDARY 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 This section includes future appointments and future orders which are active, pending or scheduled. Future Appointments This section includes appointments that were scheduled to occur 6 months from the date of the Encounter, up to a maximum of 20 appointments. The data comes from all [place] treatment facilities. Appointment Date/Time Appointment Type Appointme nt Facility Name Mar 06, 2024 01:45 PM AMBULATORY - MEDICINE [facility] Mar 25, 2024 11:30 AM AMBULATORY - NONE [facility] Apr 20, 2024 11:00 AM AMBULATORY - REHAB MEDICIN E [facility] Apr 29, 2024 09:15 AM AMBULATORY - MEDICINE [facility] May 26, 2024 10:00 AM AMBULATORY - REHAB MEDICIN E [facility] Jun 09, 2024 10:15 AM AMBULATORY - MEDICINE [facility] Jul 07, 2024 11:00 AM AMBULATORY - REHAB [facility] Jul 15, 2024 10:00 AM AMBULATORY - NONE [facility] Aug 05, 2024 02:00 PM AMBULATORY - MEDICINE [facility] Aug 10, 2024 10:00 AM [facility] Active, Pending, and Scheduled Orders This section includes a listing of several types of active, pending, and scheduled orders, including clinic medications orders, diagnostic test orders, procedure orders and consult orders; where the start date of the order is 45 days before the date of the Encounter or 45 days after the date of theEncounter. The data comes from all [place] treatment facilities. Test Date/Time Test Type Test Details Facility Name Feb 11, 2024 12:00 AM Laboratory - Chemi stry Order CBC BLOOD [facility] Feb 11, 2024 12:00 AM Laboratory - Chemi stry Order AST/SGOT GREEN LI/HEP BLD/PLAS PLASMA SP [facility] Feb 11, 2024 12:00 AM Laboratory - Chemi stry Order ALT/SGPT GREEN LI/HEP BLD/PLAS PLASMA [facility] Lab Results: +/- 30 days of the encounter This section includes the Chemistry and Hematology Lab Results on record with [place] for the patient. Radiology Reports and Pathology Reports are provided separately, in subsequent sections. Lab Results This section contains the Chemistry/Hematology Results that were resulted 30 days before or 30 daysafter the date of the Encounter. Date/Time Source Result Type Result - Unit Interpretation Reference Range Comment Feb 11, 2024 12:00 PM [facility] OCCULT BLOOD FIT X1 SCREEN Specimen Type: FECES No comment entered. Ordering Provider: RAHUL CORNELIUS Report Released Date/Time: Feb 11, 2024 10:54 AM Reporting Lab: [facility] [address] [address] Performing Lab: [facility] [address] [place] [address] OCCULT BLOOD (FIT) #1 OF 1 Negative Negative Vital Signs: All taken on the encounter date This section contains inpatient and outpatient Vital Signs collected on the date of the Encounter. Date/Time Temperature Pulse Blood Pressure Respiratory Rate SP02 Pain Height Weight Body Mass Index Source Feb 11, 2024 10:02 AM 133/73 [facility] Feb 11, 2024 09:53 AM 97.6 79 151/73 16 95 0 191 26 [facility] Social History: Smoking Status (Most current) and Tobacco Use (All prior to encounter date) This section includes the most current, and the historical, smoking and tobacco- related health factors from the [place] facility where the Encounter took place. Current Smoking Status This section includes the most current smoking, or tobacco-related health factor, from the [place] facility where the Encounter took place. Date/Time Current Smoking Status Comment Alejandro agudelo Feb 11, 2024 10:00 AM VA-TOBACCO USER EVERY DAY [facility] Tobacco Use History This section includes a history of the smoking, or tobacco-related health factors, that were collected on or before the date of the Encounter. The data comes from the [place] facility where the Encounter took place. Date/Time Smoking Status/Tobacco Use Comment F acility Feb 11, 2024 10:00 AM VA-TOBACCO USE 30 YEARS OR MORE [facility] Feb 11, 2024 10:00 AM VA-TOBACCO USE ADVICE [facility] Feb 11, 2024 10:00 AM VA-TOBACCO USE [employer] MANAGER NO [facility] Feb 11, 2024 10:00 AM VA-TOBACCO USE MED NO [facility] Feb 11, 2024 10:00 AM VA-TOBACCO USER EVERY DAY [facility] Sep 26, 2022 09:30 AM VA-TOBACCO DOESNT USE WI 30 MIN WAKEUP [facility] Sep 26, 2022 09:30 AM VA-TOBACCO USE 30 YEARS OR MORE [facility] Sep 26, 2022 09:30 AM VA-TOBACCO USE ADVICE [facility] Sep 26, 2022 09:30 AM VA-TOBACCO USE [employer] 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 NO [facility] Sep 26, 2022 09:30 AM VA-TOBACCO USE MED NO [facility] Sep 26, 2022 09:30 AM VA-TOBACCO USER EVERY DAY [facility] May 05, 2021 01:00 PM VA-TOBACCO USE 30 YEARS OR MORE [facility] May 05, 2021 01:00 PM VA-TOBACCO USE ADVICE [facility] May 05, 2021 01:00 PM VA-TOBACCO USE [employer] MANAGER NO [facility] May 05, 2021 01:00 PM VA-TOBACCO USE MED NO [facility] May 05, 2021 01:00 PM VA-TOBACCO USE WI 30 MIN OF WAKEUP [facility] May 05, 2021 01:00 PM VA-TOBACCO USER EVERY DAY [facility] Mar 05, 2018 09:42 AM CURRENT TOBACCO USER [facility] Mar 05, 2018 09:42 AM CURRENT TOBACCO US ER (NOT READY TO QUIT) [facility] Mar 05, 2018 09:42 AM TOBACCO CESSATION REFERRAL DECLINED [facility] Mar 05, 2018 09:42 AM TOBACCO MEDS OFFER ED BUT DECLINED [facility] Mar 05, 2018 09:42 AM TOBACCO USER OFFERED MEDS [facility] Mar 05, 2017 08:56 AM CURRENT TOBACCO USER [facility] Mar 05, 2017 08:56 AM TOBACCO MEDS OFFER ED BUT DECLINED [facility] Encounter Notes: All associated encounter notes This section contains the clinical notes associated to the Encounter. Date/Time Encounter Note(s) Provider Source Feb 25, 2024 09:27 AM LETTERS: LOCAL TITLE: TEST RESULT GERIATRIC LETTER [facility] STANDARD TITLE: LETTERS DATE OF NOTE: FEB 25, 2024@09:27 ENTRY DATE: FEB 25, 2024@09:27:11 AUTHOR: ALLI CORNELIUS EXP COSIGNER: URGENCY: STATUS: COMPLETED [facility] [address] [place] [address] FEB 25, 2024 TAN DONATO [address] [place] [place] [address] Dear Mr. Tan Donato, I would like to update you on your recent test results from your last geriatric clinic visit. OCCULT BLOOD - Occult blood cards are a screening test for colon cancer. A negative (0) is a good result and means we found no blood in your stool samples. A positive result (1) is abnormal and you should have further testing. Occult Blood Collection DT Specimen Test Name Result Units Ref Range 02/11/2024 12:00 FECES FIT1/1 Negative Ref: Negative Stool test is negative for occult blood. PLAN Please call the [facility] Geriatrics clinic at [phone] if you have any questions. Thank you for choosing the [facility] for your healthcare. FUTURE APPOINTMENTS: 03/06/2024 13:45 [facility] 03/23/2024 10:00 [facility] 08/10/2024 10:00 [facility] 2 PCP Sincerely, ALLI CORNELIUS M.D. STAFF PHYSICIAN [facility] Feb 11, 2024 10:13 AM GERIATRIC MEDICINE NOTE: LOCAL TITLE: GERIATRIC PACT CLINIC [facility] STANDARD TITLE: GERIATRIC MEDICINE NOTE DATE OF NOTE: FEB 11, 2024@10:13 ENTRY DATE: FEB 11, 2024@10:13:10 AUTHOR: RYLEE AVILA COSIGNER: ALLI CORNELIUS URGENCY: STATUS: COMPLETED Type of Evaluation: Geriatric Follow-up Date of Visit: 02/11/24 10:00 Patient's SSN:[id number] TAN DONATO is a 73 year old WHITE MALE. : Feb CC: Follow up HPI: Mr. Donato is a 73 year old male with a medical history of HTN, HLD, T2DM with peripheral neuropathy, PVD with claudication s/p RLE stent with a L femoral popliteal bypass graft on 09/2020, melanoma s/p excision 11/2022, BPH, COPD, hypothyroidism, cataracts, tobacco dependence, B12 deficiency, here for a follow up. Since his previous visit, he has continued to follow with his clinical pharmacist and has managed his medications. On 08/27/23, started empagliflozin 12.5mg daily, for diabetes, started cholecalciferol 2000 units daily for hyperlipidemia. On 01/07/24, increased his metformin to 1000 BID due to persistently elevated A1C. Most recently 8.4%. He has also made dietary changes, slowly eliminating sugars and sweets from his diet, and eating more vegetables and fruits. He also stays relatively active, exercising indoors and outside by performing yard work. Continues to manage medications by himself. Had compliance concerns in the past, but since meeting with clinical pharmacist states he takes medications as directed. Denies any hyperglycemic episodes, fainting, or hypertensive episodes. No concerns with medications today. Has not suffered any falls and currently takes care of his , who had suffered a stroke about 6 years ago. Adherence to Medications & Managed by: Self GERIATRIC REVIEW OF SYSTEMS: Change in weight: Lost 14 lbs. Unaware of this before weighed in office today. Eating healthier Appetite: Intermittent snacks throughout the day. Greens, vegetables, fruits. Cut down on sweets Dysphagia (specify with or without CVA): No Dentition: Full upper and lower dentures Sleep: 8 hours of sleep a night. With a nap in the afternoon Vision: New glasses three months ago Hearing: No concerns Wounds/Ulcers: Occaisional soresw on upper extremities. Does not wear sunscreen Peripheral neuropathy (specify with or without DM): No Constipation: Occaisionally. Manages with OTC stool softener. No concerns Incontinence: No Nocturia: 2x/night Fear of falling: No Assistive devices: No Recent Hospitalizations: No Recent ER Visits: No Complete ROS: Constitutional: No night sweats Eyes: CV: No chest pain, palpatations Resp: When outside, allergies. Uses inhaler for this GI: No : No Musculoskeletal: Skin: Mild sun-blisters over upper extremities. Not painful Neuro: Psych: Level of Education The 's level of education is 9-12th grade. Living Situation The [place] lives with their spouse/significant other. When they need help, the contacts their child who lives within a 30 minute distance. The does not have any concerns about their living situation. Pain The does not have pain that interferes with their quality of life. Falls The [place] has not fallen in the last 12 months. IADL ([place] Instrumental Activities of Daily Living Scale) Scoring range 0-8. A lower score indicates a higher level of dependence. This patient's score is 8. 1. Ability to use telephone Operates telephone on own initiative; looks up and dials numbers, etc. 2. Shopping Takes care of all shopping needs independently. 3. Food Preparation Plans, prepares and serves adequate meals independently. 4. Housekeeping Maintains house alone or with occasional assistance (e.g. heavy work domestic help). 5. Laundry Does personal laundry completely. 6. Mode of Transportation Travels independently on public transportation or drives own car. 7. Responsibility for own medications Is responsible for taking medication in correct dosages at correct time. 8. Ability to Handle Finances Manages financial matters independently (budgets, writes checks, goes to bank). STOUT Index of [place] in ADL STOUT score: 6 1. BATHING Bathes self completely or needs help in bathing only a single part of the body such as the back, genital area or disabled extremity. (1 pt) 2. DRESSING Gets clothes from closets and drawers and puts on clothes and outer garments complete with fasteners. May have help tying shoes. (1 pt) 3. TOILETING Goes to toilet, gets on and off, arranges clothes, cleans genital area without help. (1 pt) 4. TRANSFER Moves in and out of bed or chair unassisted. Mechanical transferring aides are acceptable. (1 pt) 5. CONTINENCE Exercises complete self control over urination and defecation. (1 pt) 6. FEEDING Gets food from plate into mouth without help. Preparation of food may be done by another person. (1 pt) COGNITIVE SCREENING: AD8: Score: 0 1. Problems with judgement (e.g., problems making decisions, bad financial decisions, problems with thinking) NO, no change 2. Less interest in hobbies/activities NO, no change 3. Repeats the same things over and over (questions, stories, or statements) NO, no change 4. Trouble learning how to use a tool, appliance, or gadget (e.g., VCR, computer, microwave, remote control) NO, no change 5. Forgets correct month or year NO, no change 6. Trouble handling complicated financial affairs (e.g., balancing checkbook, income taxes, paying bills) NO, no change 7. Trouble remembering appointments NO, no change 8. Daily problems with thinking and/or memory NO, no change DEPRESSION SCREENING: PHQ9: A PHQ-9 screen was performed. The score was 0 which is suggestive of no depression. 1. Little interest or pleasure in doing things Not at all 2. Feeling down, depressed, or hopeless Not at all 3. Trouble falling or staying asleep, or sleeping too much Not at all 4. Feeling tired or having little energy Not at all 5. Poor appetite or overeating Not at all 6. Feeling bad about yourself or that you are a failure or have let yourself or your family down Not at all 7. Trouble concentrating on things, such as reading the newspaper or watching television Not at all 8. Moving or speaking so slowly that other people could have noticed. Or the opposite being so fidgety or restless that you have been moving around a lot more than usual Not at all 9. Thoughts that you would be better off or of hurting yourself in some way Not at all 10. If you checked off any problems, how DIFFICULT have these problems made it for you to do your work, take care of things at home or get along with other people? Not difficult at all PMH: 1) Essential hypertension 2) Mixed hyperlipidemia 3) Nicotine dependence 4) Hearing loss 5) Vitamin D Deficiency ([facility] [id number]) 6) Impaired Fasting Glucose ([facility] [id number]) 7) Peripheral vascular disease 8) Critical lower limb ischaemia 9) Chronic obstructive lung disease 10) Diabetes mellitus 11) Malignant melanoma of skin of face 12) Hypothyroidism 13) Exposure to potentially hazardous substance OUTPATIENT MEDICATION RECONCILIATION: Review of the essential medication list for review at the time of this encounter included: Remote and local facility patient allergies, and active and pending prescriptions dispensed from this [facility] (local) and dispensed from another [place] or [facility] facility (remote) as well as local inpatient and clinic medication, locally documented non-VA medications and local prescriptions that have or been discontinued in the past 90 days. With the exception of Allergies, if a category is not listed below, it means there were no relevant medications for the patient. The medication list was reviewed with the patient/caregiver: Yes Active Outpatient Medications (including Supplies): Active Outpatient Medications Status 1) ALBUTEROL 90MCG (CFC-F) 200D ORAL INHL INHALE 1 PUFF ACTIVE ORAL INHALATION FOUR TIMES A DAY NEEDED FOR BREATHING. SHAKE WELL. RINSE MOUTHPIECE FREQUENTLY TO PREVENT CLOGGING. 2) ALCOHOL PREP PAD USE/APPLY PAD TO AFFECTED AREA(S) ACTIVE ONCE A DAY NEEDED FOR SKIN CLEANSING 3) AMLODIPINE BESYLATE 10MG TAB TAKE ONE TABLET BY MOUTH ACTIVE ONCE A DAY FOR HIGH BLOOD PRESSURE 4) ASPIRIN 81MG EC TAB TAKE ONE TABLET BY MOUTH ONCE A ACTIVE DAY FOR CARDIOVASCULAR DISEASE TAKE WITH FOOD. 5) CHOLECALCIF 50MCG (D3-2,000UNIT) TAB TAKE ONE TABLET ACTIVE BY MOUTH ONCE A DAY FOR VITAMIN D DEFICIENCY 6) CYANOCOBALAMIN 500MCG TAB TAKE ONE TABLET BY MOUTH ACTIVE ONCE A DAY FOR B12 SUPPLEMENTATION 7) EMPAGLIFLOZIN 25MG TAB TAKE ONE-HALF TABLET BY MOUTH ACTIVE ONCE A DAY FOR DIABETES 8) FENOFIBRATE 145MG TAB TAKE ONE TABLET BY MOUTH ONCE A ACTIVE DAY FOR HIGH TRIGLYCERIDES - TAKE WITH FOOD 9) FINASTERIDE 5MG TAB TAKE ONE TABLET BY MOUTH ONCE A ACTIVE DAY FOR BENIGN PROSTATIC HYPERPLASIA SWALLOW WHOLE, DO NOT CRUSH, SPLIT, OR CHEW. 10) HYDROPHILIC (EQV EUCERIN) TOP CREAM APPLY LIBERALLY ACTIVE TO AFFECTED AREA(S) ONCE A DAY NEEDED FOR DRY SKIN (EXTERNAL USE ONLY) 11) ICOSAPENT ETHYL 1GM CAP TAKE TWO CAPSULES BY MOUTH ACTIVE TWICE A DAY WITH MEALS FOR HIGH TRIGLYCERIDES 12) LANCET,SOFTCLIX USE LANCET FOR BLOOD TEST ONCE A DAY ACTIVE FOR BLOOD SUGAR MONITORING USE DIRECTED. 13) LEVOTHYROXINE NA (SYNTHROID) 25MCG TAB TAKE ONE ACTIVE TABLET BY MOUTH EVERY MORNING BEFORE A MEAL FOR HYPOTHYROIDISM TAKE 30 MINUTES BEFORE FOOD. TAKE SEPARATELY FROM ALL OTHER MEDICATIONS. 14) LISINOPRIL 40MG TAB TAKE ONE-HALF TABLET BY MOUTH ACTIVE ONCE A DAY FOR HIGH BLOOD PRESSURE 15) METFORMIN HCL 1000MG TAB TAKE ONE TABLET BY MOUTH ACTIVE (S) TWICE A DAY WITH MEALS FOR DIABETES TAKE WITH FOOD. AVOID ALCOHOL. DISCONTINUE BEFORE GETTING XRAY DYE. 16) ROSUVASTATIN CA 40MG TAB TAKE ONE TABLET BY MOUTH ACTIVE EVERY EVENING FOR HIGH CHOLESTEROL 17) TIOTROPIUM 2.5MCG/ACTUAT 60D ORAL INHL INHALE 2 ACTIVE INHALATIONS ORAL INHALATION ONCE A DAY (ADMINISTER AT SAME TIME EACH DAY) FOR BREATHING. Active Non-VA Medications Status 1) Non-VA ERGOCALCIF 1,250MCG (D2-50,000UNIT) CAP ACTIVE 1250MCG BY MOUTH EVERY WEEK 18 Total Medications Medication List was provided to the patient/caregiver at the end of the visit. ALLERGIES/ADR: EGGS, SHELLFISH VITALS: BP: 133/73 (02/11/2024 10:02) Pulse: 79 (02/11/2024 09:53) Temp: 97.6 F [36.4 C] (02/11/2024 09:53) RR: 16 (02/11/2024 09:53) Pain: 0 (02/11/2024 09:53) Weight: Measurement DT WEIGHT LB(KG)[BMI] 02/11/2024 09:53 191(86.64)[26] 08/15/2023 11:01 205.6(93.26)[28*] 02/20/2023 10:11 202(91.63)[27] Height: 72 in [182.9 cm] (02/20/2023 10:11) PE: General: well appearing. Not in acute stress HEENT: Atraumatic, PERRLA. Moist mucous membranes. TM intact. CV: RRR. No m/r/g Pulm: lungs clear to auscultation bilaterally, no wheezing or crackles Ext: Dry skin. Pedal pulses equal and present bilaterally Neuro: Equal tone and strength, bilaterally. CN II-XII intact. Gait: non-antalgic, non-ataxic. Psych: Euthymic mood. Denies SI/HI. Skin: Multiple actinic keratosis on left ear and bilateral upper extremities. Diffusely dry skin LABS: CMP: CREATININE 0.83 mg/dL 01/07/2024 13:40 GLUCOSE 129 H mg/dL 01/07/2024 13:40 SODIUM 140 mEq/L 01/07/2024 13:40 POTASSIUM 3.9 mEq/L 01/07/2024 13:40 CHLORIDE 104 mEq/L (01/07/24 13:40) CARBON DIOXIDE 24 mEq/L 01/07/2024 13:40 CALCIUM 9.9 mg/dL (01/07/24 13:40) PROTEIN 8.2 g/dL 08/27/2023 13:57 ALBUMIN 4.7 g/dL 08/27/2023 13:57 TOTAL BILIRUBIN 0.7 mg/dL 08/27/2023 13:57 ALKALINE PHOSPHATASE 57 U/L 08/27/2023 13:57 AST/SGOT 26 U/L 08/27/2023 13:57 ALT/SGPT 34 U/L 08/27/2023 13:57 CBC: WBC 10.0 10*3/uL (11/19/22 10:49) RBC 5.06 10*6/uL (11/19/22 10:49) HCT 45.5 % (11/19/22 10:49) MCV 89.9 fL (11/19/22 10:49) HGB 15.3 g/dL 11/19/2022 10:49 HGB A1C Collection DT Specimen Test Name Result Units Ref Range 01/07/2024 13:40 BLOOD HGA1C 8.4 H % 4.0 - 6.0 08/15/2023 13:17 BLOOD HGA1C 8.4 H % 4.0 - 6.0 09/26/2022 10:17 BLOOD HGA1C 7.7 H % 4.0 - 6.0 PLT 193 10*3/uL 11/19/2022 10:49 PSA: No PSA EO data found CHOLESTEROL 217 H mg/dL 01/07/2024 13:40 HDL: 32 mg/dL L (01/07/24 13:40) LDL: DIRECT LDL 87 mg/dL 01/07/2024 13:40 CALCULATED LDL comment mg/dL 01/07/2024 13:40 Trigs: 537 mg/dL H (01/07/24 13:40) No MICRAL data found VITAMIN D, 25-HYDROXY 48.2 ng/mL 08/27/2023 13:57 B12 344 pg/mL 09/26/2022 10:17 No FOLATE (STL-MA);FOLATE (PB);FOLATE (DC 05-05);FOLATE (DC 05/05) data found TSH 2.116 uIU/mL 08/27/2023 13:57 CHEST X-RAY: Impression for CHEST X-RAY, 2 VIEWS, 11/19/22, case [id number] No evidence of pulmonary consolidation, tumor mass or lymphadenopathy. No interval change since the previous examination dated 03/16/2020. ASSESSMENT AND PLAN: Age Friendly 4M's Mr. Donato is a 73 year old male with a medical history of HTN, HLD, T2DM with peripheral neuropathy, PVD with claudication s/p RLE stent with a L femoral popliteal bypass graft on 09/2020, melanoma s/p excision 11/2022, BPH, COPD, hypothyroidism, cataracts, and tobacco use. He is here for 6 months follow up with persistent elevated blood pressures and noncompliance #HTN -Does not check blood pressure at home. BP 150/60s in office today -No hypertensive symptoms PLAN: -Lisinopril 20mg 1x/day -Amlodipine 10mg 1x/day -Continue to follow clinical pharmacist recommendations #HLD -Triglycerides persistently elevated. Most recently 607 mg/dL. -No concerns today PLAN: -Fenofibrate 145 mg 1x/day -Rosuvastatin 40 mg once daily -Continue to follow clinical pharmacist recommendations #T2DM -Most recent A1C is 8.4%. Denies polydypsia, polyuria. 01/07/2024. PLAN: -Empagliflozin 25mg once daily -Metformin 1000mg BID -Educated patient on management of diabetes, including dietary changes, exercise -Continue to follow clinical pharmacist recommendations #Melanoma s/p removal #Actinic keratosis on left ear and bilateral arms -S/P cheek excision on 11/2022. Complicated by ~50% graft loss -Multiple actinic keratoses on left ear and arms bilaterally. Skin is very dry. Patient does not use suncreen PLAN: -Educated on correct sunscreen use. -Consult for outpatient dermatology written today for removal of skin lesions #BPH -No concerns today PLAN: -Continue to follow outside [place] urology recommendations -Finasteride 5mg once daily #Smoking history #COPD -No concerns with worsening cough or shortness of breath -Not interested in quitting smoking currently PLAN: -Use spiriva inhaler twice daily and albuterol inhaler 3-4 times per week and as needed pt denies worsening dyspnea or cough. -low dose CT scheduled for 02/2024 #BPH -No concerns today PLAN: -Continue to follow outside [place] urology recommendations -Finasteride 5mg once daily #Hypothyroidism -No hypothyroidism signs today. No cold intolerance, hair changes, or difficulty eating -Previous TSH 2.116 08/27/23 -Patient has lost 14 lbs. No weight gain PLAN: -Levothyroxine 25 mcg 1x/day. #Cataracts -Continued difficulties with vision. Stable since last visit PLAN: -Encouraged to make appointment with opthomology #PVD -No concerns with claudication today PLAN: - Aspirin 81 mg once daily - LE duplex on 06/25/2023 showed RBI of 0.99 and LBI of 1.05, showing normal flow. WHAT MATTERS What Matters was addressed at this visit. Comment: and taking care of her after her stroke MEDICATION Medications were addressed at this visit. MENTATION Depression was addressed at this visit. MENTATION Dementia was addressed at this visit. MOBILITY -------- Mobility was addressed at this visit. PREVENTION & HEALTH MAINTENANCE: -CBC Life Sustaining Treatment Orders RTC: 6 months /judie/ CONRADO AVILA Medical Student Signed: 02/11/2024 16:14 /judie/ ALLI CORNELIUS M.D. STAFF PHYSICIAN ECRS Cosigned: 02/11/2024 16:38 RYLEE AVILA [facility] Feb 11, 2024 09:59 AM NURSING NOTE: LOCAL TITLE: V15 PACT FACE TO FACE NOTE STL STANDARD TITLE: NURSING NOTE DATE OF NOTE: FEB 11, 2024@09:59 ENTRY DATE: FEB 11, 2024@09:59:20 AUTHOR: KRYSTAL JACKSON COSIGNER: URGENCY: STATUS: COMPLETED Provider Visit: Patient Identifiers : Full Name Date of Reason for visit: Routine visit Established Follow-Up Mode of Arrival: Ambulatory Allergy Review: EGGS, SHELLFISH Allergy list reviewed and remains current. Recent Vital Signs: Temperature: 97.6 F [36.4 C] (02/11/2024 09:53) Pulse: 79 (02/11/2024 09:53) Respiration: 16 (02/11/2024 09:53) B/P: 151/73 (02/11/2024 09:53) Pain: 0 (02/11/2024 09:53) Wt: 191 lb [86.64 kg] (02/11/2024 09:53) Ht: 72 in [182.9 cm] (02/20/2023 10:11) BMI: 26.0 POX: 95% (02/11/2024 09:53) Blood sugar glucometer reading: n/a Would you like to discuss any personal problem, family problem, alcohol use, drug use, or a mental or emotional illness? No Contact provided Primary Care phone number and encouraged to call if any questions or concerns. Review that after hours nurse line [phone] and emergency room are available 18/02 for patient use. Contact verbalized good understanding. Cigarette Pack Year History: The patient smokes cigarettes. How many years have you smoked cigarettes? # of years: 55 Average number of packs/day over the entire time patient smoked: Packs/day: 0.5 Suicide Screen: C-SSRS Screening [place]-Suicide Severity Rating Scale (C-SSRS Screener) 1. Over the past month, have you wished you were or wished you could go to sleep and not wake up? No 2. Over the past month, have you had any actual thoughts of killing yourself? No 3. Over the past month, have you been thinking about how you might do this? Response not required due to responses to other questions. 4. Over the past month, have you had these thoughts and had some intention of acting on them? Response not required due to responses to other questions. 5. Over the past month, have you started to work out or worked out the details of how to kill yourself? Response not required due to responses to other questions. 6. If yes, at any time in the past month did you intend to carry out this plan? Response not required due to responses to other questions. 7. In your lifetime, have you ever done anything, started to do anything, or prepared to do anything to end your life (for example, collected pills, obtained a gun, gave away valuables, went to the roof but didn't jump)? No 8. If YES, was this within the past 3 months? Response not required due to responses to other questions. Alcohol Use Screen (AUDIT-C): Alcohol Screen: SCREEN FOR ALCOHOL (AUDIT-C) An alcohol screening test (AUDIT-C) was negative (score=1). 1. How often did you have a drink containing alcohol in the past year? Consider a drink to be a 12 ounce can or bottle of regular beer, 8 ounces of malt liquor, a 5 ounce glass of table wine, or a 1.5 ounce shot of liquor (like scotch, gin, or vodka). Monthly or less 2. How many drinks containing alcohol did you have on a typical day when you were drinking in the past year? One or two drinks 3. How often did you have six or more drinks on one occasion in the past year? Never Depression Screening: Perform PHQ-2 A PHQ-2 screen was performed. The score was 0 which is a negative screen for depression. Over the past two weeks, how often have you been bothered by the following problems? 1. Little interest or pleasure in doing things Not at all 2. Feeling down, depressed, or hopeless Not at all Tobacco Use Screening: The patient uses tobacco every day. The patient does not use tobacco within 30 minutes of waking up. The patient has been smoking or using tobacco for thirty years or more. Patient was advised to quit smoking and/or using tobacco. Discussion with patient included: - Quitting smoking or tobacco use is one of the most important things you can do to protect and improve your health and [place] has the resources to support you. - Set a quit date when you are ready to quit. - Get support from your family and friends. - Review any past quit attempts- What helped? What didn't? - On the day you plan to quit, get rid of all cigarettes and tobacco products from your home, car or work. - Using a combination of behavioral counseling or other support strategies and FDA-approved cessation medications is the most effective way to ensure success in quitting. Patient was offered Behavioral Counseling and other support strategies to assist with quitting. Discussion with patient included: - Behavioral counseling or other support strategies greatly increases your chances of successfully quitting smoking or tobacco use by helping you develop a quit plan and providing support and other strategies to make behavioral changes to help you quit. - [place] has a number of behavioral counseling options to help you with quitting, including: * Provide information about the facility smoking or tobacco use treatment options or clinics * [place]'s national quitline, 0-096-MROK-VET, with counseling available Saturday-Saturday The patient was not interested in receiving additional information about how to use the treatment options discussed. Patient was offered FDA-approved cessation medications. Discussion with patient included: - Medications for Nicotine replacement therapy such as the patch, gum or lozenge, and other medications such as varenicline or bupropion, can play an important role in the initial weeks and months after you quit smoking or tobacco use. - Medications help with cravings and withdrawal symptoms and they greatly increase your chances of successfully quitting. The patient was not interested in a prescription for tobacco cessation medications. /judie/ KRYSTAL JACKSON LPN LICENSED PRACTICAL NURSE Signed: 02/11/2024 10:02 KRYSTAL JACKSON [facility] Feb 11, 2024 09:55 AM GERIATRIC MEDICINE NOTE: LOCAL TITLE: GERIATRIC PACT CLINIC [facility] STANDARD TITLE: GERIATRIC MEDICINE NOTE DATE OF NOTE: FEB 11, 2024@09:55 ENTRY DATE: FEB 11, 2024@09:55:16 AUTHOR: ALLI CORNELIUS EXP COSIGNER: URGENCY: STATUS: COMPLETED Date of Visit: 02/11/24 10:00 Patient's SSN:[id number] TAN DONATO is a 73 year old WHITE MALE. : Feb CC:73 MALE with chronic tobacco use hyperlipidemia, hypertension, COPD, type 2 diabetes, malignant melanoma of the face, hypothyroidism who presents today for his scheduled follow-up. [place] [facility]. lost 14 pounds since his visit in July. states that he is eating healthier and has cut back on sweets. No ED visits. No complaint voiced. Smokes half a pack of cigarettes per day and has no interest in quitting. Aware of consequences of tobacco use. No falls. Bowels move regularly. Nocturia x2. No incontinence. [place] had a lower extremity arterial duplex on June 19, 2023 at [facility] which showed normal bilateral ankle-brachial index. Left common femoral artery to popliteal artery bypass is patent. No claudication. PMH/Problem list: 1) Essential hypertension 2) Mixed hyperlipidemia 3) Nicotine dependence 4) Hearing loss 5) Vitamin D Deficiency ([facility] [id number]) 6) Impaired Fasting Glucose ([facility] [id number]) 7) Peripheral vascular disease history of femoral arterypopliteal artery bypass graft right October 04, 2020 8) Critical lower limb ischaemia 9) Chronic obstructive lung disease 10) Diabetes mellitus 11) Malignant melanoma of skin of face 12) Hypothyroidism 13) Exposure to potentially hazardous substance Mobility: Independent without assistive device. PFSH, medications, ROS: Agree with medical student's note. Medication Reconciliation Opt STL: I have reviewed the patient's medication list (including active outpatient prescriptions dispensed from this [facility] (local) and dispensed from another [place] or [facility] facility (remote) as well as inpatient orders (local pending and active), local clinic medications, locally documented non-VA medications, and local prescriptions that have or been discontinued in the past 90 days.) with the patient and/or his/her care-caregivers homecare. Handwritten corrections, additions and/or deletions were made to the list, as appropriate. Corrected Outpatient Medication List was provided to the patient/caregiver. Active Outpatient Medications (including Supplies): Active Outpatient Medications Status 1) ALBUTEROL 90MCG (CFC-F) 200D ORAL INHL INHALE 1 PUFF ACTIVE ORAL INHALATION FOUR TIMES A DAY NEEDED FOR BREATHING. SHAKE WELL. RINSE MOUTHPIECE FREQUENTLY TO PREVENT CLOGGING. 2) ALCOHOL PREP PAD USE/APPLY PAD TO AFFECTED AREA(S) ACTIVE ONCE A DAY NEEDED FOR SKIN CLEANSING 3) AMLODIPINE BESYLATE 10MG TAB TAKE ONE TABLET BY MOUTH ACTIVE ONCE A DAY FOR HIGH BLOOD PRESSURE 4) ASPIRIN 81MG EC TAB TAKE ONE TABLET BY MOUTH ONCE A ACTIVE DAY FOR CARDIOVASCULAR DISEASE TAKE WITH FOOD. 5) CHOLECALCIF 50MCG (D3-2,000UNIT) TAB TAKE ONE TABLET ACTIVE BY MOUTH ONCE A DAY FOR VITAMIN D DEFICIENCY 6) CYANOCOBALAMIN 500MCG TAB TAKE ONE TABLET BY MOUTH ACTIVE ONCE A DAY FOR B12 SUPPLEMENTATION 7) EMPAGLIFLOZIN 25MG TAB TAKE ONE-HALF TABLET BY MOUTH ACTIVE ONCE A DAY FOR DIABETES 8) FENOFIBRATE 145MG TAB TAKE ONE TABLET BY MOUTH ONCE A ACTIVE DAY FOR HIGH TRIGLYCERIDES - TAKE WITH FOOD 9) FINASTERIDE 5MG TAB TAKE ONE TABLET BY MOUTH ONCE A ACTIVE DAY FOR BENIGN PROSTATIC HYPERPLASIA SWALLOW WHOLE, DO NOT CRUSH, SPLIT, OR CHEW. 10) HYDROPHILIC (EQV EUCERIN) TOP CREAM APPLY LIBERALLY ACTIVE TO AFFECTED AREA(S) ONCE A DAY NEEDED FOR DRY SKIN (EXTERNAL USE ONLY) 11) ICOSAPENT ETHYL 1GM CAP TAKE TWO CAPSULES BY MOUTH ACTIVE TWICE A DAY WITH MEALS FOR HIGH TRIGLYCERIDES 12) LANCET,SOFTCLIX USE LANCET FOR BLOOD TEST ONCE A DAY ACTIVE FOR BLOOD SUGAR MONITORING USE DIRECTED. 13) LEVOTHYROXINE NA (SYNTHROID) 25MCG TAB TAKE ONE ACTIVE TABLET BY MOUTH EVERY MORNING BEFORE A MEAL FOR HYPOTHYROIDISM TAKE 30 MINUTES BEFORE FOOD. TAKE SEPARATELY FROM ALL OTHER MEDICATIONS. 14) LISINOPRIL 40MG TAB TAKE ONE-HALF TABLET BY MOUTH ACTIVE ONCE A DAY FOR HIGH BLOOD PRESSURE 15) METFORMIN HCL 1000MG TAB TAKE ONE TABLET BY MOUTH ACTIVE (S) TWICE A DAY WITH MEALS FOR DIABETES TAKE WITH FOOD. AVOID ALCOHOL. DISCONTINUE BEFORE GETTING XRAY DYE. 16) ROSUVASTATIN CA 40MG TAB TAKE ONE TABLET BY MOUTH ACTIVE EVERY EVENING FOR HIGH CHOLESTEROL 17) TIOTROPIUM 2.5MCG/ACTUAT 60D ORAL INHL INHALE 2 ACTIVE INHALATIONS ORAL INHALATION ONCE A DAY (ADMINISTER AT SAME TIME EACH DAY) FOR BREATHING. Active Non-VA Medications Status 1) Non-VA ERGOCALCIF 1,250MCG (D2-50,000UNIT) CAP ACTIVE 1250MCG BY MOUTH EVERY WEEK 18 Total Medications-review of medication list shows that has multiple overdue prescriptions. Many of his prescriptions were last filled in August 2023. Allergies: EGGS, SHELLFISH Physical Exam: VS:VITAL SIGNS DETAILED DISPLAY Date Vital Measurement Qualifiers 02/11/2024 10:02 BP 133/73 R Arm, Standing, Adult Cuff, Cuff-Automated 02/11/2024 09:53 Temp F (C) 97.6 (36.4) Pulse 79 Respir 16 BP 151/73 Wt lbs (kg)[BMI] 191 (86.64)[26] Pain 0 POx (L/Min)(%) 95 VITAL SIGNS SELECTED No selection items chosen for this component. 133/73 (02/11/2024 10:02)79 (02/11/2024 09:53)95% (02/11/2024 09:53)16 (02/11/2024 09:53)97.6 F [36.4 C] (02/11/2024 09:53) Measurement DT WEIGHT LB(KG)[BMI] 02/11/2024 09:53 191(86.64)[26] 08/15/2023 11:01 205.6(93.26)[28*] 02/20/2023 10:11 202(91.63)[27] Measurement DT BP 02/11/2024 10:02 133/73 02/11/2024 09:53 151/73--> manual recheck right arm sitting 148/60 08/15/2023 12:45 151/78GS:alert, oriented, not in distress. HEENT:pinkish conjunctivae,no scleral icterus. TMs intact, multiple scaly papules noted on the left helix. Scaly papules also noted on the forehead and cheek. Neck:no JVD, no bruit. Heart:regular, no gallops. Lungs: Occasional rhonchi, nonlabored breathing. No crackles or wheezes. Abdomen:soft, non distended, non tender. Extremities:no ankle edema. FROM hips and knees. Muscle strength symmetric. No plantar callus or ulcers. Mild hammertoe deformities. Pedal pulse 1+. Scaly papules noted on the extensor surface of both arms. No sign of irritation, redness or infection. Gait:non ataxic, non antalgic. Neuro:grossly non focal. No rigidity or tremors. Labs: Chem 7:SODIUM 140 mEq/L 01/07/2024 13:40 POTASSIUM 3.9 mEq/L 01/07/2024 13:40 CHLORIDE 104 mEq/L 01/07/2024 13:40 UREA NITROGEN 11.5 mg/dL 01/07/2024 13:40 CREATININE 0.83 mg/dL 01/07/2024 13:40 CALCIUM 9.9 mg/dL 01/07/2024 13:40 CARBON DIOXIDE 24 mEq/L 01/07/2024 13:40 GLUCOSE 129 H mg/dL 01/07/2024 13:40 EGFR (CKD-EPI 2020) 91.27 01/07/2024 13:40 CBC: WBC 10.0 10*3/uL 11/19/2022 10:49 RBC 5.06 10*6/uL 11/19/2022 10:49 HGB 15.3 g/dL 11/19/2022 10:49 HCT 45.5 % 11/19/2022 10:49 MCV 89.9 fL 11/19/2022 10:49 MCH 30.2 pg 11/19/2022 10:49 MCHC 33.6 g/dL 11/19/2022 10:49 RDW 13.2 % 11/19/2022 10:49 PLT 193 10*3/uL 11/19/2022 10:49 MPV 11.7 H fL 11/19/2022 10:49 NEUTROPHILS, AUTO % 48 % 11/19/2022 10:49 LYMPHOCYTES, AUTO % 40 % 11/19/2022 10:49 MONOCYTES, AUTO % 4 % 11/19/2022 10:49 EOSINOPHILS, AUTO % 6 % 11/19/2022 10:49 BASOPHILS, AUTO % 1 % 11/19/2022 10:49 NEUTROPHILS, ABSOLUTE 4.83 10*3/uL 11/19/2022 10:49 LYMPHOCYTES, ABSOLUTE 3.98 10*3/uL 11/19/2022 10:49 MONOCYTES, ABSOLUTE 0.41 10*3/uL 11/19/2022 10:49 EOSINOPHILS, ABSOLUTE 0.61 H 10*3/uL 11/19/2022 10:49 BASOPHILS, ABSOLUTE 0.07 10*3/uL 11/19/2022 10:49 Cholesterol: CHOLESTEROL 217 H mg/dL 01/07/2024 13:40 HDL: 32 mg/dL L (01/07/24 13:40) LDL: CALCULATED LDL comment mg/dL 01/07/2024 13:40 Trigs: 537 mg/dL H (01/07/24 13:40) HBA1C: HGA1C 8.4 H % 01/07/2024 13:40 CREATuF: 48.1 (08/15/23 13:26) M/CREAT: 168 (08/15/23 13:26) MICRAL: 81 (08/15/23 13:26) TSH 2.116 uIU/mL 08/27/2023 13:57 B12 344 pg/mL 09/26/2022 10:17 Chest X-ray: Impression for CHEST X-RAY, 2 VIEWS, 11/19/22, case 401 No evidence of pulmonary consolidation, tumor mass or lymphadenopathy. No interval change since the previous examination dated 03/16/2020. Assessment: Essential hypertension ([facility] [id number]) - Essential (primary) hypertension (ICD-10-CM I10.) (Primary)-office BP reading not at goal partly due to nonadherence. Mixed hyperlipidemia (SCT [id number]) - Mixed hyperlipidemia (ICD-10-CM E78.2) Nicotine dependence ([facility] [id number]) - Nicotine dependence, cigarettes, uncomplicated (ICD-10-CM F17.210) Peripheral vascular disease (SCT [id number]) - Peripheral vascular disease, unspecified (ICD-10-CM I73.9) Chronic obstructive lung disease ([facility] [id number]) - Chronic obstructive pulmonary disease, unspecified (ICD-10-CM J44.9) Diabetes mellitus ([facility] [id number]) - Type 2 diabetes mellitus with other circulatory complications (ICD-10-CM E11.59) Hypothyroidism ([facility] [id number]) - Hypothyroidism, unspecified (ICD-10-CM E03.9) Actinic Keratosis (ICD-10-CM L57.0) Patient's other noncompliance with medication regimen for other reason (ICD-10- CM Z91.148) Plan: Advised to monitor blood pressure every morning for the next 2 weeks. Call if average blood pressure reading exceeds 140 mmHg systolic. Medications reconciled and prescriptions renewed. Counseled on importance of medication adherence. Check CBC, ALT, AST. [place] follows with clinical pharmacist for diabetes and lipid management. provided with a FIT card. Offered assistance with tobacco cessation. declined. Refer to dermatology for evaluation and management of actinic keratosis. Use sunscreen. RTC 6 months and as needed. Agree with student's assessment and plan. Type of Evaluation: Geriatric Follow-up WHAT MATTERS What Matters was addressed at this visit. MEDICATION Medications were addressed at this visit. Comment: Medications reconciled MENTATION Depression was addressed at this visit. Comment: PHQ 2: 0 MENTATION Dementia was addressed at this visit. Comment: AD8=0 MOBILITY -------- Mobility was addressed at this visit. Comment: [facility] - PHP MAP: PERSONAL HEALTH PLAN INVENTORY & MAP == 's Response: Family, taking care of his Please note that this dictation was completed with computer voice recognition software. Often, unanticipated grammatical, syntax and other interpretive errors are inadvertently transcribed by the computer software. Please disregard these errors. /es/ ALLI CORNELIUS M.D. STAFF PHYSICIAN ECRS Signed: 02/11/2024 16:39 ALLI CORNELIUS [facility]
--- OUTSIDE RECORDS SUMMARY | 2024-10-09 12:30 | XMS_ITS | Encounter Summary ---
Author Name [facility] [place] [facility] [place] Address [address] [place] [id number] Care Team Providers Care Flow Worker Name Role Phone ALLI CORNELIUS Primary Care [...] PART B Dec 27, 2013 PART B [id number] LINH MERCEDES PATIENT MEDICARE (WNR) MEDICARE (M) PART A Dec 27, 2013 PART A [id number] MERCEDESLINH COLLINS PATIENT MEDICARE (WNR) MEDICARE (M) PART A Dec 27, 2013 PART A [id number] MERCEDESLINH THOMASLewis PATIENT MEDICARE (WNR) MEDICARE (M) PART B Dec 27, 2013 PART B [id number] LINH MERCEDES THOMASLewis PATIENT Selected Encounter This section includes the information on record at [place] for the Encounter. Date/Time Encounter Type Encounter Description Reason Pro vider Source IHE Encounter Template Text not used by [facility]
--- OUTSIDE RECORDS SUMMARY | 2024-10-09 12:30 | XMS_ITS | Encounter Summary ---
Author Name [facility] Organization [facility] [place] Address [address] [place] [address] Care Team Providers Care Deputy Coroner Investigator Name Role Phone ALLI CORNELIUS Primary Care [...] PART B Dec 27, 2013 PART B [id number] LINH DONATO PATIENT MEDICARE (WNR) MEDICARE (M) PART A Dec 27, 2013 PART A [id number] DONATOLINH COLLINS PATIENT MEDICARE (WNR) MEDICARE (M) PART A Dec 27, 2013 PART A [id number] DONATOLINH COLLINS MMLewis PATIENT MEDICARE (WNR) MEDICARE (M) PART B Dec 27, 2013 PART B [id number] LINH DONATO THOMASLewis PATIENT Selected Encounter This section includes the information on record at [place] for the Encounter. Date/Time Encounter Type Encounter Description Reason Provider Source Apr 20, 2024 11:00 AM MTMS BY PHARM ADDL 15 MIN GERIPACT ICD-10-CM I10 Essential (primary) hypertension BLANCA ROJAS IHE Encounter Template Text not used by [place] Assessments - Encounter Diagnoses This section includes the primary and secondary diagnoses documented for the Encounter. 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 This section includes future appointments and future orders which are active, pending or scheduled. Future Appointments This section includes appointments that were scheduled to occur 6 months from the date of the Encounter, up to a maximum of 20 appointments. The data comes from all [place] treatment facilities. Appointment Date/Time Appointment Type Appointme nt Facility Name Apr 29, 2024 09:15 AM AMBULATORY - MEDICINE [facility] May 26, 2024 10:00 AM AMBULATORY - REHAB MEDICIN E [facility] Jun 09, 2024 10:15 AM AMBULATORY - MEDICINE [facility] Jul 07, 2024 11:00 AM AMBULATORY - REHAB MEDICIN E [facility] Jul 15, 2024 10:00 AM AMBULATORY - NONE [facility] Aug 05, 2024 02:00 PM AMBULATORY - MEDICINE [facility] Aug 10, 2024 10:00 AM AMBULATORY - REHAB MEDICIN E [facility] Aug 25, 2024 10:00 AM AMBULATORY - REHAB MEDICIN [facility] Sep 08, 2024 10:15 AM AMBULATORY - MEDICINE [facility] Sep 29, 2024 10:00 AM AMBULATORY - REHAB MEDICIN [facility] Active, Pending, and Scheduled Orders This section includes a listing of several types of active, pending, and scheduled orders, including clinic medications orders, diagnostic test orders, procedure orders and consult orders; where the start date of the order is 45 days before the date of the Encounter or 45 days after the date of theEncounter. The data comes from all [place] treatment facilities. Test Date/Time Test Type Test Details Facility Name Apr 29, 2024 12:00 AM Laboratory - Microbiology Order AFB CULTURE & SMEAR (STL) SPUTUM SP [facility] Lab Results: +/- 30 days of the encounter This section includes the Chemistry and Hematology Lab Results on record with [place] for the patient. Radiology Reports and Pathology Reports are provided separately, in subsequent sections. Lab Results This section contains the Chemistry/Hematology Results that were resulted 30 days before or 30 daysafter the date of the Encounter. Date/Time Source Result Type Result - Unit Interpretation Reference Range Comment Apr 29, 2024 10:39 AM [facility] HISTOPLASMA AG URINE(STL) Specimen Type: URINE No comment entered. Ordering Provider: MIKE MORRIS Report Released Date/Time: Apr 29, 2024 10:16 AM Reporting Lab: [facility] [address] [address] Performing Lab: [facility] [address] [facility] [address] HISTOPLASMA AG URINE(STL) NEGATIVE Apr 29, 2024 10:32 AM [facility] FUNGAL GROUP (STL) Specimen Type: SERUM Comment: Complement Fixation (CF) starting dilutions for serum specimens are 1:2 for C. immitis and 1:8 for all other antibodies. Starting dilutions for CSF are undiluted unless otherwise indicated. Immunodiffusion (ID) Presence of precipitin bands is specific for previous or current infection. Complement fixation (CF) Serum titers =>1:16 are suggestive of systemic infection; titers 1:2 - 1:8 are possibly significant of localized disease for C. immitis. In CSF samples any titer is potentially significant. Latex Agglutination - Positive in early primary cocci infection. Anticomplementary (AC): Result is indeterminate as there is a substance in the patient's specimen interfering with the reading of the test. Neg. at indicates that there is a low level, less than a significant CF titer, of anti-complementary activity in the patient's sample. The value reported is the lowest dilution showing no anti-complementary activity. Ordering Provider: MIKE MORRIS Report Released Date/Time: Apr 29, 2024 10:16 AM Reporting Lab: [facility] [address] [address] Performing Lab: [facility] [address] [facility] [address] ASPERGILLUS-C F NEGATIVE NEGATIVE ASPERGILLUS-I D NOTINDICATED NEGATIVE BLASTOMYCES-C F NEGATIVE NEGATIVE BLASTOMYCES-I D NOTINDICATED NEGATIVE COCC.IMMITIS- CF NEGATIVE NEGATIVE COCC.IMMITIS- LATEX NOTINDICATED NEGATIVE COCC.IMMITIS- ID NOTINDICATED NEGATIVE HISTO CAP.YEAST-CF NEGATIVE NEGATIVE HISTO MYCELIAL-CF NEGATIVE NEGATIVE HISTO CAPSULATION ID NEGATIVE NEGATIVE Apr 29, 2024 10:32 AM [facility] QUANTIFERON-TB,4 TUBE Specimen Type: BLOOD Comment: Negative test result. M. tuberculosis complex infection unlikely. The Nil tube value reflects the background interferon gamma immune response of the patient's blood sample. This value has been subtracted from the patient's displayed TB and Mitogen results. Lower than expected results with the Mitogen tube prevent false-negative Quantiferon readings by detect- ing a patient with a potential immune suppressive condition and/or suboptimal pre-analytical specimen handling. The TB1 Antigen tube is coated with the M. tuberculosis-speci fic antigens designed to elicit responses from TB antigen primed CD4+ helper T-lymphocytes. The TB2 Antigen tube is coated with the M. tuberculosis-speci fic antigens designed to elicit responses from TB antigen primed CD4+ helper and CD8+ cytotoxic T-lymphocytes. For additional information, please refer to http://education.Q uestDiagnostics.co m/faq/EDA508 (This link is being provided for information/ educational purposes only.) Test Performed by [employer], [employer] [facility], [address] [place] [address] Denny Llamas M.D., Ph.D., Director of Laboratories , [place] [id number] Ordering Provider: MIKE MORRIS Report Released Date/Time: Apr 29, 2024 10:16 AM Reporting Lab: [address] [address] Performing Lab: [facility] [id number] [place] [address] .NIL - QUANTIFERON 0.03 [IU]/mL .MITOGEN-NIL 9.69 [IU]/mL .QUANTIFERON NEGATIVE NEGATIVE .TB1-NIL <0.00 [IU]/mL .TB2-NIL 0.00 [IU]/mL Apr 29, 2024 10:32 AM [facility] HGA1C Specimen Type: BLOOD No comment entered. Ordering Provider: ELOISE ROJAS Report Released Date/Time: Apr 20, 2024 11:38 AM Reporting Lab: [address] [address] Performing Lab: [address] [address] HGA1C 7.5 H 4.0-6.0 Apr 29, 2024 10:32 AM [facility] BASIC METABOLIC PANEL Specimen Type: PLASMA Comment: LDL calculation invalid when Triglyceride exceeds 250 mg/dl Ordering Provider: ELOISE ROJAS Report Released Date/Time: Apr 20, 2024 11:38 AM Reporting Lab: [address] [address] Performing Lab: [address] [address] CREATININE 0.79 mg/dL 0.7-1.3 UREA NITROGEN 11.3 mg/dL 9.0-25.0 GLUCOSE 118 mg/dL H 72-99 SODIUM 139 meq/L 136-145 POTASSIUM 3.9 meq/L 3.5-5 CHLORIDE 107 meq/L 98-107 CARBON DIOXIDE 23 meq/L 22-31 CALCIUM 10.0 mg/dL 8.4-10.4 EGFR (CKD-EPI 2020) 92.1 >60 Apr 29, 2024 10:32 AM [facility] LIPID PANEL (STL) Specimen Type: PLASMA Comment: LDL calculation invalid when Triglyceride exceeds 250 mg/dl Ordering Provider: ELOISE ROJAS Report Released Date/Time: Apr 20, 2024 11:38 AM Reporting Lab: [facility] [address] [address] Performing Lab: [address] [address] CHOLESTEROL 169 mg/dL 0-200 TRIGLYCERIDE 361 mg/dL H 0-150 DIRECT LDL 60 mg/dL L >100 CALCULATED LDL comment mg/dL HDL(New) 40 mg/dL >40 Apr 29, 2024 10:32 AM [facility] VITAMIN D, 25-HYDROXY Specimen Type: SERUM No comment entered. Ordering Provider: ELOISE ROJAS Report Released Date/Time: Apr 20, 2024 11:38 AM Reporting Lab: [facility] [address] [address] Performing Lab: [address] [address] VITAMIN D, 25-HYDROXY 63.9 ng/mL 30-96 Apr 29, 2024 10:32 AM [facility] B12 Specimen Type: SERUM No comment entered. Ordering Provider: ELOISE ROJAS Report Released Date/Time: Apr 20, 2024 11:38 AM Reporting Lab: [facility] [address] [address] Performing Lab: [address] [address] B12 595 pg/mL 213-816 Social History: Smoking Status (Most current) and Tobacco Use (All prior to encounter date) This section includes the most current, and the historical, smoking and tobacco- related health factors from the [place] facility where the Encounter took place. Current Smoking Status This section includes the most current smoking, or tobacco-related health factor, from the [place] facility where the Encounter took place. Date/Time Current Smoking Status Comment Facil ity Feb 11, 2024 10:00 AM VA-TOBACCO USER EVERY DAY [facility] Tobacco Use History This section includes a history of the smoking, or tobacco-related health factors, that were collected on or before the date of the Encounter. The data comes from the [place] facility where the Encounter took place. 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 [facility] Feb 11, 2024 10:00 AM VA-TOBACCO USE MED NO [facility] Feb 11, 2024 10:00 AM VA-TOBACCO USER EVERY DAY [facility] Sep 26, 2022 09:30 AM VA-TOBACCO DOESNT USE WI 30 MIN WAKEUP [facility] Sep 26, 2022 09:30 AM VA-TOBACCO USE 30 YEARS OR MORE [facility] Sep 26, 2022 09:30 AM VA-TOBACCO USE ADVICE [facility] Sep 26, 2022 09:30 AM 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 [facility] Sep 26, 2022 09:30 AM VA-TOBACCO USE MED NO [facility] Sep 26, 2022 09:30 AM VA-TOBACCO USER EVERY DAY [facility] May 05, 2021 01:00 PM VA-TOBACCO USE 30 YEARS OR MORE [facility] May 05, 2021 01:00 PM VA-TOBACCO USE ADVICE [facility] May 05, 2021 01:00 PM 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 [facility] May 05, 2021 01:00 PM VA-TOBACCO USE MED NO [facility] May 05, 2021 01:00 PM VA-TOBACCO USE WI 30 MIN OF WAKEUP [facility] May 05, 2021 01:00 PM VA-TOBACCO USER EVERY DAY [facility] Mar 05, 2018 09:42 AM CURRENT TOBACCO USER [facility] Mar 05, 2018 09:42 AM CURRENT TOBACCO US ER (NOT READY TO QUIT) [facility] Mar 05, 2018 09:42 AM TOBACCO CESSATION REFERRAL DECLINED [facility] Mar 05, 2018 09:42 AM TOBACCO MEDS OFFER ED BUT DECLINED [facility] Mar 05, 2018 09:42 AM TOBACCO USER OFFERED MEDS [facility] Mar 05, 2017 08:56 AM CURRENT TOBACCO USER [facility] Mar 05, 2017 08:56 AM TOBACCO MEDS OFFER ED BUT DECLINED [facility] Radiology Reports: +/- 30 days of the encounter Radiology Reports For cases when an order for radiology services may have been completed prior to the date of the Encounter, the report list includes the Radiology Reports that were completed up to 30 days before dateof the Encounter. For cases when an order for radiology services may have been completed after the date of the Encounter, the report list also includes the Radiology Reports that were completed up to30 days after date of the Encounter. The data comes from all [facility]] facilities. Date/Time Radiology Report Provider Source Mar 25, 2024 10:50 AM LDCT LUNG CANCER SCREENING: TAN DONATO [id number] -[id number] Exm Date: MAR 25, 2024@10:50 Req Phys: EFRAÍN EDEN Loc: [facility]-LUNG CANCER SCREENING (Req' Img Loc: [facility]-CT IMAGING [facility] Service: [address] [address] (Case [id number] COMPLETE) LDCT LUNG CANCER SCREENING (CT Detailed) CPT:62254 Reason for Study: lcs Clinical History: Responsible Attending: radha Attending Contact Number: [phone] Resident Contact Number: Patient is age 50-80? True Patient has 20+ pack-year smoking history? True Patient is current smoker, or has quit within the past 15 years. True Patient does not have a health problem the substantially limits life expectancy, or the ability or willingness to have curative treatment. True Shared decision-making has occurred regarding the benefits and risks of a screening program. True Report Status: Verified Date Reported: MAR 25, 2024 Date Verified: MAR 25, 2024 Set Up Person E-Sig:/ES/MARGRET AGUIAR MD Report: EXAM: LDCT LUNG CANCER SCREENING COMPARISON: 03/23/2023, 03/19/2022 PROTOCOL: Screening protocol, low dose, non-contrast CT chest was performed at the local [place] facility in accordance with Lung-Rads 2021. Additional coronal and sagittal reconstructions. MIP reconstructions were reviewed. Secondary computer-aided detection post-processing used. INDEX NODULE: OTHER NODULES: None. LUNG/AIRWAY FINDINGS: Multifocal and somewhat nodular right upper lobe airspace opacities suspicious for pneumonia have developed since the prior examination. TB should be considered and excluded clinically. MEDIASTINUM: No significant mediastinal adenopathy VISUAL CORONARY ARTERY CALCIFICATIONS: Yes UPPER ABDOMEN: Unremarkable.. This examination has been performed using a low-dose technique which limits the ability to detect nonpulmonary pathology BONES, SOFT TISSUES, AND ADDITIONAL FINDINGS: Unremarkable.. (The term unremarkable may include mild or even moderate spondylotic changes not unusual for patient age.) Impression: LUNG-RADS: 0: Incomplete. RECOMMENDATION: Clinical evaluation for pneumonia including TB and fungal pneumonias. Timing of any follow-up imaging depends on the outcome of the clinical evaluation LUNG-RADS MODIFIER: N/A. Primary Interpreting Staff: MARGRET AGUIAR MD, Radiologist (Set Up Person) /MARGRET FLOWERS [facility] Encounter Notes: All associated encounter notes This section contains the clinical notes associated to the Encounter. Date/Time Encounter Note(s) Provider Source Apr 30, 2024 03:28 PM LETTERS: LOCAL TITLE: TEST RESULT GERIATRIC LETTER STL STANDARD TITLE: LETTERS DATE OF NOTE: APR 30, 2024@15:28 ENTRY DATE: APR 30, 2024@15:28:09 AUTHOR: JONH CARIAS COSIGNER: URGENCY: STATUS: COMPLETED [facility] [address] [place] [address] APR 30, 2024 TAN DONATO [address] [place], [place] [address] Dear Mr. Tan Donato, I would like to update you on your recent test results from your last geriatric clinic visit. LIPID PROFILE - High cholesterol and triglycerides (lipids) are risk factors for heart disease. Your cholesterol should fall between 140 and 200, and your triglycerides levels should be less than or equal to 150. HDL is the good cholesterol and should ideally be greater than 40. LDL is the bad cholesterol and optimal levels should be less than 70. TRIGLYCERIDE 361 H mg/dL 04/29/2024 10:32 CHOLESTEROL 169 mg/dL 04/29/2024 10:32 HDL(New) 40 mg/dL 04/29/2024 10:32 DIRECT LDL 60 L mg/dL 04/29/2024 10:32 These results are abnormal. Please start taking icosapent ethyl 2 grams (2 capsules) twice a day as prescribed at visit on 04/20 for your high triglycerides. HEMOGLOBIN A1C - Gives us information about your diabetes (sugar or glucose) control over the past 3 months. Your target is to keep your A1C below 8 %. HGA1C 7.5 H % 04/29/2024 10:32 These readings are within normal limits; improved from last check! Congrats! B12 - Helps maintain healthy nerve cells, red blood cells, and is also needed to make DNA. B12 595 pg/mL 04/29/2024 10:32 These readings are within normal limits. CHEM 7 - This is important information about the current status of your kidneys, liver, and electrolyte and acid/base balance as well as of your blood sugar and blood proteins. SODIUM 139 mEq/L 04/29/2024 10:32 POTASSIUM 3.9 mEq/L 04/29/2024 10:32 CHLORIDE 107 mEq/L 04/29/2024 10:32 UREA NITROGEN 11.3 mg/dL 04/29/2024 10:32 CREATININE 0.79 mg/dL 04/29/2024 10:32 CALCIUM 10.0 mg/dL 04/29/2024 10:32 CARBON DIOXIDE 23 mEq/L 04/29/2024 10:32 GLUCOSE 118 H mg/dL 04/29/2024 10:32 EGFR (CKD-EPI 2020) 92.1 04/29/2024 10:32 These readings are within normal limits. VITAMIN D - Helps promote the proper utilization of calcium and phosphorus, thereby producing proper bone maintenance. VITAMIN D, 25-HYDROXY 63.9 ng/mL 04/29/2024 10:32 These readings are within normal limits. FUTURE APPOINTMENTS: 05/26/2024 10:00 [facility] 06/09/2024 10:15 [facility] 08/05/2024 14:00 [facility]PULMONARY MD 1 08/10/2024 10:00 [facility] OLSENI TM 2 PCP Sincerely, JONH CARIAS Pharm D., TAN SPEARS [facility] Apr 20, 2024 08:10 AM INTERNAL MEDICINE CLINICAL PHARMACIST MEDICATION MGT NOTE: LOCAL TITLE: CLINICAL PHARMACIST NOTE STL STANDARD TITLE: INTERNAL MEDICINE CLINICAL PHARMACIST MEDICATION DATE OF NOTE: APR 20, 2024@08:10 ENTRY DATE: APR 20, 2024@08:10:56 AUTHOR: ELOISE ROJAS COSIGNER: URGENCY: STATUS: COMPLETED CLINICAL PHARMACY FOLLOW-UP Subjective: TAN DONATO is a 74 MALE who presents to clinic for follow up on DM/HTN/HLD/med rec. Verified pts full name and PMH: 1) Essential hypertension 2) Mixed hyperlipidemia 3) Nicotine dependence 4) Hearing loss 5) Vitamin D Deficiency (RUST [id number]) 6) Impaired Fasting Glucose (RUST [id number]) 7) Peripheral vascular disease 8) Critical lower limb ischaemia 9) Chronic obstructive lung disease 10) Diabetes mellitus 11) Malignant melanoma of skin of face 12) Hypothyroidism 13) Exposure to potentially hazardous substance During the last contact with vet (02/10/24), the following changes were made: - INCREASE metformin IR 1000mg BID - set goal to start walking in his pool - limit high glycemic foods and sweets - declined [id number] - bring home BP machine to next appt - continue to monitor compliance Pt cancelled pharmD appt 03/23/24. Since last visit, pt completed lung cancer screening with right upper lobe opacities suspicious for pneumonia. Repeat screen in 3 months. During current visit: - Pt presented to clinic with outdated med list and no home readings. 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 SHAKE WELL. RINSE MOUTHPIECE FREQUENTLY TO PREVENT CLOGGING. -2) AMLODIPINE BESYLATE 10MG TAB TAKE ONE TABLET BY MOUTH ACTIVE ONCE A DAY FOR HIGH BLOOD PRESSURE - AM -3) ASPIRIN 81MG EC TAB TAKE ONE TABLET BY MOUTH ONCE A ACTIVE DAY FOR CARDIOVASCULAR DISEASE TAKE WITH FOOD. -4) CHOLECALCIF 50MCG (D3-2,000UNIT) TAB TAKE ONE TABLET ACTIVE BY MOUTH ONCE A DAY FOR VITAMIN D DEFICIENCY -5) CYANOCOBALAMIN 500MCG TAB TAKE ONE TABLET BY MOUTH ACTIVE ONCE A DAY FOR B12 SUPPLEMENTATION -6) EMPAGLIFLOZIN 25MG TAB TAKE ONE-HALF TABLET BY MOUTH ACTIVE ONCE A DAY FOR DIABETES -7) FENOFIBRATE 145MG TAB TAKE ONE TABLET BY MOUTH ONCE A ACTIVE DAY FOR HIGH TRIGLYCERIDES - TAKE WITH FOOD -8) FINASTERIDE 5MG TAB TAKE ONE TABLET BY MOUTH ONCE A ACTIVE DAY FOR BENIGN PROSTATIC HYPERPLASIA SWALLOW WHOLE, DO NOT CRUSH, SPLIT, OR CHEW. 9) HYDROPHILIC (EQV EUCERIN) TOP CREAM APPLY LIBERALLY ACTIVE TO AFFECTED AREA(S) ONCE A DAY NEEDED FOR DRY SKIN (EXTERNAL USE ONLY) -10) ICOSAPENT ETHYL 1GM CAP TAKE TWO CAPSULES BY MOUTH ACTIVE TWICE A DAY WITH MEALS FOR HIGH TRIGLYCERIDES - taking OTC fish oil, will switch -11) LEVOTHYROXINE NA (SYNTHROID) 25MCG TAB TAKE ONE ACTIVE TABLET BY MOUTH EVERY MORNING BEFORE A MEAL FOR HYPOTHYROIDISM TAKE 30 MINUTES BEFORE FOOD. TAKE SEPARATELY FROM ALL OTHER MEDICATIONS. -12) LISINOPRIL 40MG TAB TAKE ONE-HALF TABLET BY MOUTH ACTIVE ONCE A DAY FOR HIGH BLOOD PRESSURE - PM -13) METFORMIN HCL 1000MG TAB TAKE ONE TABLET BY MOUTH ACTIVE TWICE A DAY WITH MEALS FOR DIABETES TAKE WITH FOOD. AVOID ALCOHOL. DISCONTINUE BEFORE GETTING XRAY DYE. -14) ROSUVASTATIN CA 40MG TAB TAKE ONE TABLET BY MOUTH ACTIVE EVERY EVENING FOR HIGH CHOLESTEROL -15) TIOTROPIUM 2.5MCG/ACTUAT 60D ORAL INHL INHALE 2 ACTIVE INHALATIONS ORAL INHALATION ONCE A DAY (ADMINISTER AT SAME TIME EACH DAY) FOR BREATHING. Active Non-VA Medications Status 1) Non-VA ERGOCALCIF 1,250MCG (D2-50,000UNIT) CAP ACTIVE 1250MCG BY MOUTH EVERY WEEK - has 4-5 capsules left Medication reconciliation completed: YES Adherence to above medications: - pt filling pillbox - misses dose once every 3 weeks - brought outdated med list but [facility] so taking [facility] doses - accidentally taking otc fish oil instead of icosapent ethyl Labs: HGA1C 8.4 H % 01/07/2024 13:40 SODIUM 140 mEq/L 01/07/2024 13:40 POTASSIUM 3.9 mEq/L 01/07/2024 13:40 CHLORIDE 104 mEq/L 01/07/2024 13:40 CALCIUM 9.9 mg/dL 01/07/2024 13:40 PROTEIN 8.2 g/dL 08/27/2023 13:57 ALBUMIN 4.7 g/dL 08/27/2023 13:57 CARBON DIOXIDE 24 mEq/L 01/07/2024 13:40 GLUCOSE 129 H mg/dL 01/07/2024 13:40 UREA NITROGEN 11.5 mg/dL 01/07/2024 13:40 CREATININE 0.83 mg/dL 01/07/2024 13:40 EGFR (CKD-EPI 2020) 91.27 01/07/2024 13:40 est CrCl:83.1mL/min ALKALINE PHOSPHATASE 57 U/L 08/27/2023 13:57 ALT/SGPT 34 U/L 08/27/2023 13:57 AST/SGOT 26 U/L 08/27/2023 13:57 TOTAL BILIRUBIN 0.7 mg/dL 08/27/2023 13:57 TRIGLYCERIDE 537 H mg/dL 01/07/2024 13:40 CHOLESTEROL 217 H mg/dL 01/07/2024 13:40 HDL(New) 32 L mg/dL 01/07/2024 13:40 DIRECT LDL 87 mg/dL 01/07/2024 13:40 MICRAL/CR PROFILE: CREATuF: 48.1 (08/15/23 13:26) M/CREAT: 168 (08/15/23 13:26) MICRAL: 81 (08/15/23 13:26) TSH 2.116 uIU/mL 08/27/2023 13:57 VITAMIN D, 25-HYDROXY 48.2 ng/mL 08/27/2023 13:57 B12 344 pg/mL 09/26/2022 10:17 SMBGs: - checks once a week before breakfast - per recall, BG 120s BP last visit: 133/73 (02/11/2024 10:02) Pulse last visit: 79 (02/11/2024 09:53) Home Readings: - checking once a week when he wakes up - per recall, BP 140-150s/70s and P 90s Automatic BP seated, rested: 156/74 mmHg Pulse: 77 bpm Repeat: 149/75 mmHg Assessment/Plan: 1) Diabetes - Goal A1c <8%, FPG 80-160, PPG <210 d/t PVD, albuminuria, neuropathy per [facility]D guidelines A1c elevated. Serum glu at goal. SCr wnl. eGFR appropriate for empagliflozin. SMBGs at goal before breakfast per recall. Requested again that pt bring glucometer to download for next visit (written reminder provided). Reported med compliance. Denied ADRs. Not following diabetic diet. Edu deferred d/t time constraints. Discussed SGLT2i use in PVD and concern for amputation risk with pt and Dr. Cornelius (okay to continue). Pt verbalized understanding of risks and requested to continue SGLT2i. Avoiding GLP1 d/t TGs>700 and pancreatitis risk. Will CCT and obtain updated labs. May consider increasing empagliflozin if needed. - metformin IR 1000mg BID - empagliflozin 12.5mg daily - check SMBGs every other day alternating before meals and bedtime - educated vet on hypoglycemia symptoms and appropriate treatment and when to contact clinic or go to emergency room - labs: A1c and B12 04/29/24 -- DM med SOC: (+)ASA (-)ACEi (+ albuminuria) (+)Statin (-)flu vaccine - declined (+)pneumo vaccine - 08/15/23 and 09/26/22 (+)Podiatry - 08/15/23 abnormal monofilament (+)Optho - 11/11/23 NIDDM s Ocular Complications OU 2) Lipids - Goal is treatment with moderate-intensity statin per VADoD and ACC/AHA guidelines d/t secondary prevention. Controlled to statin tx goal. LDL 77 --> 87 (goal<70). TGs>500 but improved since last check (h/o TGs>1400). TSH, vit D, and LFTs wnl. Accidentally taking otc fish oil instead of icosapent ethyl. Agreed to start using icosapent ethyl for CV benefit. Denied missed doses of other meds. Denied ADRs. Stated he is not drinking alcohol (prev reported <1 drink/week). Not actively working on diet. Prev edu to limit sweets to help lower TGs and reduce pancreatitis risk. Stated he stays active but did not provide specifics. Previously declined PCSK9i to target LDL but pt hesitant to use injections. Staffed with Dr. Cornelius - continue fenofibrate until TGs <500 then consider discontinuation. Monitor for rhadbo and pancreatitis. Will CCT for now and obtain updated labs. Consider PCSK9i if labs still elevated despite med and lifestyle compliance. - cholecalciferol 2000 units daily (copay exempt) -- taking nonVA ergocalciferol 50,000 units weekly x 4 more wks - START icosapent ethyl 2000mg BID - STOP otc fish oil - rosuvastatin 40mg daily - fenofibrate 145mg daily - monitor for myalgias and report to CP or PCP if occurs - labs: vit D and FLP 04/29/24 3) HTN - Goal BP <130/80 mmHg per ACC/AHA; <140/90 (age>60 with DM) per [place] BP repeatedly elevated. Na, K, and SCr wnl. Home BP readings elevated per recall. Reviewed proper home BP technique and timing. Pt agreed to bring home BP machine to next visit (provided written reminder as well). Denied ADRs. Not interested in smoking cessation. Denied diet/lifestyle changes. Will increase lisinopril to target elevated BP. - amlodipine 10mg daily (AM) - INCREASE lisinopril 40mg daily (PM) - check BP every other day and record - call CP if SBP >160 or DBP >100 sustained - present to ER if SBP >180 or DBP >120 sustained and/or if sxs present - labs: BMP 04/29/24 4) Med Rec Pt filling own pillboxes. Accidentally taking otc fish oil instead of icosapent ethyl. Less missed doses compared to past reports. A few dose discrepancies on med list that pt brought and [facility] rx. Stated he is using [facility] rx so is taking correct dose. Updated med list provided. - continue to monitor compliance -Education provided on nonpharmacologic ways to improve DM/HLD/HTN/med rec (including lifestyle management/dietary/physical activity) specific for the vet's needs. -[place] verbalized understanding to all plans discussed today. Questions were answered to vet's satisfaction. Time spent with vet: 28 min RTC: 4 weeks f2f PBM PharmD Pharmacotherapy Rem V12: PHARMACIST INTERVENTIONS: HYPERTENSION Medication Intervention(s) Adjust dose or frequency of current medication LIPID MANAGEMENT Medication Intervention(s) Discontinue and/or change to different medication TYPE 2 DIABETES MELLITUS Medication monitoring, no dosage change required, continue to monitor and assess Address adherence Medication reconciliation (changes to active VA and non-VA medication lists to reconcile differences) No changes to medication lists made (medication review completed, no discrepancies identified) MEDICATION Medications were addressed at this visit. /judie/ ELOISE ROJAS, PHARMD, BCACP CLINICAL SERVICES DELIVERY DRIVER Signed: 04/20/2024 11:38 ELOISE ROJAS [facility]
--- OUTSIDE RECORDS SUMMARY | 2024-10-09 12:31 | XMS_ITS | Encounter Summary ---
Author Name [facility] (MD) Organization [facility] Address [address] [place] [address] Care Team Providers Care Roller Printer Name Role Phone ALLI CORNELIUS Primary Care [...] PART B Dec 27, 2013 PART B [id number] LINH MERCEDES PATIENT MEDICARE (WNR) MEDICARE (M) PART A Dec 27, 2013 PART A [id number] MERCEDESLINH CRUM PATIENT MEDICARE (WNR) MEDICARE (M) PART A Dec 27, 2013 PART A [id number] LINH MERCEDES THOMASLewis PATIENT MEDICARE (WNR) MEDICARE (M) PART B Dec 27, 2013 PART B [id number] LINH MERCEDES THOMASLewis PATIENT Selected Encounter This section includes the information on record at MD for the Encounter. 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 Plan of Treatment: Future Appointments (+ 6 months) and Future Tests (+/- 45 days) The Plan of Treatment section includes future care activities for the patient from all MD treatmentfacilities. This section includes future appointments and future orders which are active, pending or scheduled. Future Appointments This section includes appointments that were scheduled to occur 6 months from the date of the Encounter, up to a maximum of 20 appointments. The data comes from all MD treatment facilities. Appointment Date/Time Appointment Type Appointme nt Facility Name Feb 10, 2024 11:00 AM AMBULATORY - REHAB MEDICIN E [facility] Feb 11, 2024 10:00 [facility] Mar 06, 2024 01:45 PM [facility]INE [facility] Mar 25, 2024 11:30 AM AMBULATORY - NONE [facility] Apr 20, 2024 11:00 AM AMBULATORY - REHAB MEDICIN E [facility] Apr 29, 2024 09:15 AM AMBULATORY - MEDICINE [facility] May 26, 2024 10:00 AM AMBULATORY - REHAB MEDICIN [facility] Jun 09, 2024 10:15 AM AM[facility]ULATORY - MEDICINE [facility] Jul 07, 2024 11:00 [facility] Active, Pending, and Scheduled Orders This section includes a listing of several types of active, pending, and scheduled orders, including clinic medications orders, diagnostic test orders, procedure orders and consult orders; where the start date of the order is 45 days before the date of the Encounter or 45 days after the date of theEncounter. The data comes from all [facility] facilities. Test Date/Time Test Type Test Details Facility Name Feb 11, 2024 12:00 AM Laboratory - Chemi stry Order CBC BLOOD SP [facility] Feb 11, 2024 12:00 AM Laboratory - Chemi stry Order AST/SGOT GREEN LI/HEP BLD/PLAS PLASMA SP [facility] Feb 11, 2024 12:00 AM Laboratory - Chemi stry Order ALT/SGPT GREEN LI/HEP BLD/PLAS PLASMA SP [facility] Lab Results: +/- 30 days of the encounter This section includes the Chemistry and Hematology Lab Results on record with [facility] for the patient. Radiology Reports and Pathology Reports are provided separately, in subsequent sections. Lab Results This section contains the Chemistry/Hematology Results that were resulted 30 days before or 30 daysafter the date of the Encounter. Date/Time Source Result Type Result - Unit Interpretation Reference Range Comment Jan 07, 2024 01:40 PM [facility] HGA1C Specimen Type: BLOOD No comment entered. Ordering Provider: ROSALINE ROJAS Report Released Date/Time: Jan 07, 2024 09:42 AM Reporting Lab: [facility] [id number] Performing Lab: [facility] [id number] HGA1C 8.4 H 4.0-6.0 Jan 07, 2024 01:40 PM [facility] LIPID PANEL (STL) Specimen Type: PLASMA Comment: No hemolysis noted. LDL calculation invalid when Triglyceride exceeds 250 mg/dl Ordering Provider: ROSALINE ROJAS Report Released Date/Time: Jan 07, 2024 09:42 AM Reporting Lab: [facility] [id number] Performing Lab: [facility] [address] CHOLESTEROL 217 mg/dL H 0-200 TRIGLYCERIDE 537 mg/dL H 0-150 DIRECT LDL 87 mg/dL <100 CALCULATED LDL comment mg/dL See Interp HDL(New) 32 mg/dL L > 40 Jan 07, 2024 01:40 PM [facility] BASIC METABOLIC PANEL Specimen Type: PLASMA Comment: No hemolysis noted. LDL calculation invalid when Triglyceride exceeds 250 mg/dl Ordering Provider: ROSALINE ROJAS Report Released Date/Time: Jan 07, 2024 09:42 AM Reporting Lab: [facility] [id number] Performing Lab: [facility] [address] CREATININE 0.83 mg/dL 0.70-1.30 UREA NITROGEN 11.5 mg/dL 9.0-25.0 GLUCOSE 129 mg/dL H 72-99 SODIUM 140 meq/L 136-145 POTASSIUM 3.9 meq/L 3.5-5.0 CHLORIDE 104 meq/L 98-107 CARBON DIOXIDE 24 meq/L 22-31 CALCIUM 9.9 mg/dL 8.4-10.4 EGFR (CKD-EPI 2020) 91.27 >60 Social History: Smoking Status (Most current) and Tobacco Use (All prior to encounter date) This section includes the most current, and the historical, smoking and tobacco- related health factors from the MD facility where the Encounter took place. Current Smoking Status This section includes the most current smoking, or tobacco-related health factor, from the MD facility where the Encounter took place. Date/Time Current Smoking Status Comment Alejandro agudelo Sep 26, 2022 09:30 AM VA-TOBACCO USER EVERY DAY [facility] Tobacco Use History This section includes a history of the smoking, or tobacco-related health factors, that were collected on or before the date of the Encounter. The data comes from the MD facility where the Encounter took place. Date/Time Smoking Status/Tobacco Use Comment F acility Sep 26, 2022 09:30 AM VA-TOBACCO USE 30 YEARS OR MORE [facility] Sep 26, 2022 09:30 AM VA-TOBACCO USE ADVICE [facility] Sep 26, 2022 09:30 AM VA-TOBACCO USE ENVIRONMENTAL TECHNICAL OFFICER NO [facility] Sep 26, 2022 09:30 AM VA-TOBACCO USE MED NO [facility] Sep 26, 2022 09:30 AM VA-TOBACCO USER EVERY DAY [facility] May 05, 2021 01:00 PM VA-TOBACCO USE 30 YEARS OR MORE [facility] May 05, 2021 01:00 PM VA-TOBACCO USE ADVICE [facility] May 05, 2021 01:00 PM VA-TOBACCO USE ENVIRONMENTAL TECHNICAL OFFICER NO [facility] May 05, 2021 01:00 PM VA-TOBACCO USE MED NO [facility] May 05, 2021 01:00 PM VA-TOBACCO USE WI 30 MIN OF WAKEUP [facility] May 05, 2021 01:00 PM VA-TOBACCO USER EVERY DAY [facility] Mar 05, 2018 09:42 AM CURRENT TOBACCO USER [facility] Mar 05, 2018 09:42 AM CURRENT TOBACCO US ER (NOT READY TO QUIT) [facility] Mar 05, 2018 09:42 AM TOBACCO CESSATION REFERRAL DECLINED [facility] Mar 05, 2018 09:42 AM TOBACCO MEDS OFFER ED BUT DECLINED [facility] Mar 05, 2018 09:42 AM TOBACCO USER OFFERED MEDS [facility] Mar 05, 2017 08:56 AM CURRENT TOBACCO USER [facility] Mar 05, 2017 08:56 AM TOBACCO MEDS OFFER ED BUT DECLINED [facility] Encounter Notes: All associated encounter notes This section contains the clinical notes associated to the Encounter. Date/Time Encounter Note(s) Provider Source Jan 13, 2024 03:05 PM LETTERS: LOCAL TITLE: TEST RESULT GERIATRIC LETTER STL STANDARD TITLE: LETTERS DATE OF NOTE: JAN 13, 2024@15:05 ENTRY DATE: JAN 13, 2024@15:05:27 AUTHOR: ELOISE ROAJS COSIGNER: URGENCY: STATUS: COMPLETED [facility] [address] [place] [address] JAN 13, 2024 TAN MERCEDES [address], [place] [address] Dear Tan Mercedes, I would like to update you on [...] and optimal levels should be less than 100 (near optimal is between 100 and 129). TRIGLYCERIDE 537 H mg/dL 01/07/2024 13:40 CHOLESTEROL 217 H mg/dL 01/07/2024 13:40 HDL(New) 32 L mg/dL 01/07/2024 13:40 DIRECT LDL 87 mg/dL 01/07/2024 13:40 These results are abnormal. Your LDL increased since last check. Your triglycerides improved from 607 to 537 but are still moderately to severely high. This can put you at risk for pancreatitis. Please make sure you are taking all of your medicines without missing doses. Please limit high glycemic and high fructose foods and drinks like potatoes, white bread, orange juice, pizza, patsta, pancakes, austrian fries, jam, candy, white rice, etc). Weight loss can also help lower triglycerides. Please let me know if you would like to meet with a bag shaker. HEMOGLOBIN A1C - Gives us information about your diabetes (sugar or glucose) control over the past 3 months. Your target is to keep your A1C below 8 %. HGA1C 8.4 H % 01/07/2024 13:40 These results are abnormal. Your A1c is too high and has stayed the same since last check. Please check your blood sugar every other day. Alternate before meals and bedtime. Bring your blood sugar machine to your next pharmacy appointment so medicine adjustments can be made. CHEM 7 - This is important information about the current status of your kidneys, liver, and electrolyte and acid/base balance as well as of your blood sugar and blood proteins. SODIUM 140 mEq/L 01/07/2024 13:40 POTASSIUM 3.9 mEq/L 01/07/2024 13:40 CHLORIDE 104 mEq/L 01/07/2024 13:40 UREA NITROGEN 11.5 mg/dL 01/07/2024 13:40 CREATININE 0.83 mg/dL 01/07/2024 13:40 CALCIUM 9.9 mg/dL 01/07/2024 13:40 CARBON DIOXIDE 24 mEq/L 01/07/2024 13:40 GLUCOSE 129 H mg/dL 01/07/2024 13:40 EGFR (CKD-EPI 2020) 91.27 01/07/2024 13:40 These readings are within normal limits. PLAN Please continue your treatment as we discussed during your visit. If you have any questions please call your gearcase assembler. I look forward to seeing you at your next clinic appointment. Thank you for choosing the [facility] for your healthcare. FUTURE APPOINTMENTS: 02/10/2024 11:00 [facility] PHARM MED MG 02/11/2024 10:00 [facility] TM 2 PCP Sincerely, ELOISE ROJAS, PHARMD, BCACP CLINICAL MEDICAL NURSE TAN MERCEDES ALEXIS R [facility] Jan 07, 2024 09:38 AM INTERNAL MEDICINE CLINICAL PHARMACIST MEDICATION MGT NOTE: LOCAL TITLE: CLINICAL PHARMACIST NOTE STL STANDARD TITLE: INTERNAL MEDICINE CLINICAL PHARMACIST MEDICATION DATE OF NOTE: JAN 07, 2024@09:38 ENTRY DATE: JAN 07, 2024@09:38:57 AUTHOR: ELOISE ROJAS COSIGNER: URGENCY: STATUS: COMPLETED CLINICAL PHARMACY FOLLOW-UP Subjective: TAN MERCEDES is a 73 MALE who presents to clinic for follow up on DM/HTN/HLD/med rec. Verified pts full name and PMH: 1) Essential hypertension 2) Mixed hyperlipidemia 3) Nicotine dependence 4) Hearing loss 5) Vitamin D Deficiency (SCT 70283687) 6) Impaired Fasting Glucose (SCT 393161828) 7) Peripheral vascular disease 8) Critical lower limb ischaemia 9) Chronic obstructive lung disease 10) Diabetes mellitus 11) Malignant melanoma of skin of face 12) Hypothyroidism 13) Exposure to potentially hazardous substance During the last contact with vet (10/08/23), the following changes were made: - bring glucometer, home BP machine, and med list to next clinic visit - call to schedule diabetic eye exam - INCREASE cholecalciferol 2000 units daily (copay exempt) Pt no showed for 11/05/23 pharmD appt. During current visit: - Pt presented to clinic to review home readings and meds. Dietary/Lifestyle/Social History modifications made: - tobacco: 1/2 ppd - caffeine: 1-2 c coffee in morning - EtOH: denies ROS: DM: (-) hypoglycemia symptoms or values [...] DAY FOR CARDIOVASCULAR DISEASE TAKE WITH FOOD. - AM -4) CHOLECALCIF 50MCG (D3-2,000UNIT) TAB TAKE ONE TABLET ACTIVE BY MOUTH ONCE A DAY FOR VITAMIN D DEFICIENCY - HS -5) CYANOCOBALAMIN 500MCG TAB TAKE ONE TABLET BY MOUTH ACTIVE ONCE A DAY FOR B12 SUPPLEMENTATION - AM -6) EMPAGLIFLOZIN 25MG TAB TAKE ONE-HALF TABLET BY MOUTH ACTIVE ONCE A DAY FOR DIABETES - AM -7) FENOFIBRATE 145MG TAB TAKE ONE TABLET BY MOUTH ONCE A ACTIVE DAY FOR HIGH TRIGLYCERIDES - TAKE WITH FOOD - AM, has 3 bottles at home -8) FINASTERIDE 5MG TAB TAKE ONE TABLET BY MOUTH ONCE A ACTIVE DAY FOR BENIGN PROSTATIC HYPERPLASIA SWALLOW WHOLE, DO NOT CRUSH, SPLIT, OR CHEW. - HS 9) HYDROPHILIC (EQV EUCERIN) TOP CREAM APPLY LIBERALLY ACTIVE TO AFFECTED AREA(S) ONCE A DAY NEEDED FOR DRY SKIN (EXTERNAL USE ONLY) -10) ICOSAPENT ETHYL 1GM CAP TAKE TWO CAPSULES BY MOUTH ACTIVE TWICE A DAY WITH MEALS FOR HIGH TRIGLYCERIDES -11) LEVOTHYROXINE NA (SYNTHROID) 25MCG TAB TAKE ONE ACTIVE TABLET BY MOUTH EVERY MORNING BEFORE A MEAL FOR HYPOTHYROIDISM TAKE 30 MINUTES BEFORE FOOD. TAKE SEPARATELY FROM ALL OTHER MEDICATIONS. - taking at night -12) LISINOPRIL 40MG TAB TAKE ONE-HALF TABLET BY MOUTH ACTIVE ONCE A DAY FOR HIGH BLOOD PRESSURE - AM -13) METFORMIN HCL 1000MG TAB TAKE ONE-HALF TABLET BY ACTIVE MOUTH TWICE A DAY WITH MEALS FOR DIABETES TAKE WITH FOOD. AVOID ALCOHOL. DISCONTINUE BEFORE GETTING XRAY DYE. - BID -14) ROSUVASTATIN CA 40MG TAB TAKE ONE TABLET BY MOUTH ACTIVE EVERY EVENING FOR HIGH CHOLESTEROL - HS -15) TIOTROPIUM 2.5MCG/ACTUAT 60D ORAL INHL INHALE 2 ACTIVE INHALATIONS ORAL INHALATION ONCE A DAY (ADMINISTER AT SAME TIME EACH DAY) FOR BREATHING. NonVA Meds: - ergocalciferol 50,000 units once weekly (Sundays) --> 14 weeks remaining Medication reconciliation completed: YES Adherence to above medications: - pt fills weekly pillbox - forgets meds 1-2x/wk (most meds last filled 08/29/23 but does not need refills yet) Labs: HGA1C 8.4 H % 08/15/2023 13:17 SODIUM 135 L mEq/L 08/15/2023 13:17 POTASSIUM 3.9 mEq/L 08/15/2023 13:17 CHLORIDE 104 mEq/L 08/15/2023 13:17 CALCIUM 9.7 mg/dL 08/15/2023 13:17 PROTEIN 8.2 g/dL 08/27/2023 13:57 ALBUMIN 4.7 g/dL 08/27/2023 13:57 CARBON DIOXIDE 15 L mEq/L 08/15/2023 13:17 GLUCOSE 209 H mg/dL 08/15/2023 13:17 UREA NITROGEN 10.7 mg/dL 08/15/2023 13:17 CREATININE 0.86 mg/dL 08/15/2023 13:17 EGFR (CKD-EPI 2020) 90.30 08/15/2023 13:17 est CrCl:81.5mL/min ALKALINE PHOSPHATASE 57 U/L 08/27/2023 13:57 ALT/SGPT 34 U/L 08/27/2023 13:57 AST/SGOT 26 U/L 08/27/2023 13:57 TOTAL BILIRUBIN 0.7 mg/dL 08/27/2023 13:57 TRIGLYCERIDE 607 H mg/dL 08/27/2023 13:57 CHOLESTEROL 178 mg/dL 08/27/2023 13:57 HDL(New) 32 L mg/dL 08/27/2023 13:57 DIRECT LDL 53 mg/dL 08/27/2023 13:57 MICRAL/CR PROFILE: CREATuF: 48.1 (08/15/23 13:26) M/CREAT: 168 (08/15/23 13:26) MICRAL: 81 (08/15/23 13:26) TSH 2.116 uIU/mL 08/27/2023 13:57 VITAMIN D, 25-HYDROXY 48.2 ng/mL 08/27/2023 13:57 B12 344 pg/mL 09/26/2022 10:17 SMBGs: - not checking at home - edu provided today BP last visit: 151/78 (08/15/2023 12:45) Pulse last visit: 89 (08/15/2023 11:01) Home Readings: - not checking at home Automatic BP seated, rested: 154/75 mmHg Pulse: 77 bpm Assessment/Plan: 1) Diabetes - Goal A1c <8%, FPG 80-160, PPG <210 d/t PVD, albuminuria, neuropathy per VA/DoD guidelines A1c and serum glu elevated. SCr wnl. eGFR appropriate for empagliflozin. SMBGs unavailable. Edu on how to use glucometer in clinic today. BG 126 when pt tested on his home machine. Reported missing 1-2 doses/week. Agreed to set phone alarm to remind him to take meds. Denied ADRs. Diet deferred d/t time constraints but previously having high carb meals/snacks. Discussed SGLT2i use in PVD and concern for amputation risk with pt and Dr. Cornelius (okay to continue). Pt verbalized understanding of risks and requested to continue SGLT2i. Avoiding GLP1 d/t TGs>700 and pancreatitis risk. May consider increasing metformin and/or empagliflozine dose depending on SMBGs and updated labs. - metformin IR 500mg BID - empagliflozin 12.5mg daily - check SMBGs every other day alternating before meals and bedtime - educated vet on hypoglycemia symptoms and appropriate treatment and when to contact clinic or go to emergency room - labs: A1c and BMP today -- DM med SOC: (+)ASA (-)ACEi (+ albuminuria) (+)Statin (-)flu vaccine - declined (+)pneumo vaccine - 08/15/23 and 09/26/22 (+)Podiatry - 08/15/23 abnormal monofilament (+)Optho - 11/11/23 NIDDM s Ocular Complications OU 2) Lipids - Goal is treatment with moderate-intensity statin per VADoD and ACC/AHA guidelines d/t secondary prevention. Controlled to statin tx goal. LDL 77 (goal<70). TGs>600 (h/o TGs>1400). TSH, vit D, and LFTs wnl. Reported 1-2 missed doses/week. Denied ADRs. Edu to limit concencrated sweets to help lower TGs. Denies alcohol use. Staffed with Dr. Cornelius - continue fenofibrate until TGs <500 then consider discontinuation. Monitor for rhadbo and pancreatitis. Repeat labs today. - cholecalciferol 2000 units daily (copay exempt) -- also taking nonVA ergocalciferol 50,000 units weekly x 14 wks - icosapent ethyl 2000mg BID - rosuvastatin 40mg daily - fenofibrate 145mg daily - monitor for myalgias and report to CP or PCP if occurs - labs: FLP today; vit D after ergocalciferol completed 3) HTN - Goal BP <130/80 mmHg per ACC/AHA; <140/90 (age>60 with DM) per [facility]/DoD Clinic BP elevated today. Na low but wnl when corrected for hyperglycemia. K and SCr wnl. Home BP readings unavailable. Agreed to start checking at home. Reviewed proper technique and timing. Pt plans to test at same time as SMBGs. Log provided. Reported 1-2 missed doses/week. Denied ADRs. Advised that caffeine and tobacco can raise blood pressure. Will switch lisinopril to evening administration and start checking home BP readings. - amlodipine 10mg daily (AM) - lisinopril 20mg daily (switch to PM) - check BP every other day and record - call CP if SBP >160 or DBP >100 sustained - present to ER if SBP >180 or DBP >120 sustained and/or if sxs present 4) Med Rec - Pt took over filling pillboxes from dtr Nik. Stated he is missing 1-2 doses/week but most meds last refilled early Aug 2023. Pt stated he may be missing more often. Agreed to set alarm on phone to remind him to take meds consistently. Spouse has helped remind pt in the past as well. - Switch levothyroxine to AM before other meds and food - Set reminder on phone to take meds - Switch lisinopril to PM; p/u at pharm today - Refilled inhalers and eurcerin cream for mail -Education provided on nonpharmacologic ways to improve DM/HLD/HTN (including lifestyle management/dietary/physical activity) specific for the vet's needs. -[place] verbalized understanding to all plans discussed today. Questions were answered to vet's satisfaction. Time spent with vet: 30 min RTC: 5 weeks f2f (bring med list and home readings) PBM PharmD Pharmacotherapy Rem V12: PHARMACIST INTERVENTIONS: [...] or renew medication /es/ ELOISE ROJAS, PHARMD, [facility] CLINICAL MEDICAL NURSE Signed: 01/07/2024 13:34 ELOISE ROJAS [facility]
--- OUTSIDE RECORDS SUMMARY | 2024-10-09 12:31 | XMS_ITS | Encounter Summary ---
Author Name [facility] Organization [facility] Address [address] [place] [address] Care Team Providers Care Slip Cover Sewer Name Role Phone ALLI CORNELIUS Primary Care [...] PART B Dec 27, 2013 PART B [id number] LINH MERCEDES PATIENT MEDICARE (WNR) MEDICARE (M) PART A Dec 27, 2013 PART A [id number] LINH MERCEDES PATIENT MEDICARE (WNR) MEDICARE (M) PART B Dec 27, 2013 PART B [id number] LINH MERCEDES PATIENT MEDICARE (WNR) MEDICARE (M) PART A Dec 27, 2013 PART A [id number] LINH MERCEDES PATIENT Selected Encounter This section includes the information on record at [place] for the Encounter. Date/Time Encounter Type Encounter Description Reason Provider Source May 26, 2024 10:00 AM MTMS BY PHARM ADDL 15 MIN GERIPACT ICD-10-CM I10 Essential (primary) hypertension BLANCA ROJAS IHE Encounter Template Text not used by [place] Assessments - Encounter Diagnoses This section includes the primary and secondary diagnoses documented for the Encounter. 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. This section includes future appointments and future orders which are active, pending or scheduled. Future Appointments This section includes appointments that were scheduled to occur 6 months from the date of the Encounter, up to a maximum of 20 appointments. The data comes from all [place] treatment facilities. Appointment Date/Time Appointment Type Appointme nt Facility Name Jun 09, 2024 10:15 AM AMBULATORY - MEDICINE [facility] Jul 07, 2024 11:00 [facility] Jul 15, 2024 10:00 AM AMBULATORY - NONE [facility] Aug 05, 2024 02:00 PM AMBULATORY - MEDICINE [facility] Aug 10, 2024 10:00 AM AMBULATORY - [facility]AB [facility]ICIN [facility] Aug 25, 2024 10:00 AM AMBULATORY - REHAB MEDICIN [facility] Sep 08, 2024 10:15 AM AMBULATORY - MEDICINE [facility] Sep 29, 2024 10:00 AM AMBULATORY - REHAB MEDICIN [facility] Nov 10, 2024 10:00 AM [facility] Active, Pending, and Scheduled Orders This section includes a listing of several types of active, pending, and scheduled orders, including clinic medications orders, diagnostic test orders, procedure orders and consult orders; where the start date of the order is 45 days before the date of the Encounter or 45 days after the date of theEncounter. The data comes from all [place] treatment facilities. Test Date/Time Test Type Test Details Facility Name Apr 29, 2024 12:00 AM Laboratory - Microbiology Order AFB CULTURE & SMEAR (STL) SPUTUM SP [facility] Lab Results: +/- 30 days of the encounter This section includes the Chemistry and Hematology Lab Results on record with [place] for the patient. Radiology Reports and Pathology Reports are provided separately, in subsequent sections. Lab Results This section contains the Chemistry/Hematology Results that were resulted 30 days before or 30 daysafter the date of the Encounter. Date/Time Source Result Type Result - Unit Interpretation Reference Range Comment Apr 29, 2024 10:39 AM [facility] HISTOPLASMA AG URINE(STL) Specimen Type: URINE No comment entered. Ordering Provider: MIKE MORRIS Report Released Date/Time: Apr 29, 2024 10:16 AM Reporting Lab: [facility] [address] [phone] Performing Lab: [facility] [address] [facility] [address] HISTOPLASMA AG URINE(STL) NEGATIVE Apr 29, 2024 10:32 AM [facility] FUNGAL GROUP (STL) Specimen Type: SERUM Comment: [...] Apr 29, 2024 10:16 AM Reporting Lab: [facility] [address] [address] Performing Lab: [facility] [address] [address] ASPERGILLUS-C F NEGATIVE NEGATIVE ASPERGILLUS-I D NOTINDICATED NEGATIVE BLASTOMYCES-C F NEGATIVE NEGATIVE BLASTOMYCES-I D NOTINDICATED NEGATIVE COCC.IMMITIS- CF NEGATIVE NEGATIVE COCC.IMMITIS- LATEX NOTINDICATED NEGATIVE COCC.IMMITIS- ID NOTINDICATED NEGATIVE HISTO CAP.YEAST-CF NEGATIVE NEGATIVE HISTO MYCELIAL-CF NEGATIVE NEGATIVE HISTO CAPSULATION ID NEGATIVE NEGATIVE Apr 29, 2024 10:32 AM [facility] QUANTIFERON-TB,4 TUBE Specimen Type: BLOOD Comment: [...] additional information, please refer to http://education.Q uestDiagnostics.co m/faq/RNL044 (This link is being provided for information/ educational purposes only.) Test Performed by Robson Castro, [employer] [facility], [address] [place] [address] Denny Llamas M.D., Ph.D., Director of Laboratories , [place] [id number] Ordering Provider: MIKE MORRIS Report Released Date/Time: Apr 29, 2024 10:16 AM Reporting Lab: [address] [address] Performing Lab: [facility] [address] [facility] .NIL - QUANTIFERON 0.03 [IU]/mL .MITOGEN-NIL 9.69 [IU]/mL .QUANTIFERON NEGATIVE NEGATIVE .TB1-NIL <0.00 [IU]/mL .TB2-NIL 0.00 [IU]/mL Apr 29, 2024 10:32 AM [facility] HGA1C Specimen Type: BLOOD No comment entered. Ordering Provider: ELOISE ROJAS Report Released Date/Time: Apr 20, 2024 11:38 AM Reporting Lab: [address] [address] Performing Lab: [address] [address] HGA1C 7.5 H 4.0-6.0 Apr 29, 2024 10:32 AM [facility] BASIC METABOLIC PANEL Specimen Type: PLASMA Comment: LDL calculation invalid when Triglyceride exceeds 250 mg/dl Ordering Provider: ELOISE ROJAS Report Released Date/Time: Apr 20, 2024 11:38 AM Reporting Lab: [address] [address] Performing Lab: [address] [address] CREATININE 0.79 mg/dL 0.7-1.3 UREA NITROGEN 11.3 mg/dL 9.0-25.0 GLUCOSE 118 mg/dL H 72-99 SODIUM 139 meq/L 136-145 POTASSIUM 3.9 meq/L 3.5-5 CHLORIDE 107 meq/L 98-107 CARBON DIOXIDE 23 meq/L 22-31 CALCIUM 10.0 mg/dL 8.4-10.4 EGFR (CKD-EPI 2020) 92.1 >60 Apr 29, 2024 10:32 AM [facility] VITAMIN D, 25-HYDROXY Specimen Type: SERUM No comment entered. Ordering Provider: ELOISE ROJAS Report Released Date/Time: Apr 20, 2024 11:38 AM Reporting Lab: [facility] [address] [address] Performing Lab: [facility] [address] [place] [address] VITAMIN D, 25-HYDROXY 63.9 ng/mL 30-96 Apr 29, 2024 10:32 AM [facility] LIPID PANEL (STL) Specimen Type: PLASMA Comment: LDL calculation invalid when Triglyceride exceeds 250 mg/dl Ordering Provider: ELOISE ROJAS Report Released Date/Time: Apr 20, 2024 11:38 AM Reporting Lab: [facility] [address] [place] [id number] Performing Lab: [address] [address] CHOLESTEROL 169 mg/dL 0-200 TRIGLYCERIDE 361 mg/dL H 0-150 DIRECT LDL 60 mg/dL L >100 CALCULATED LDL comment mg/dL HDL(New) 40 mg/dL >40 Apr 29, 2024 10:32 AM [facility] B12 Specimen Type: SERUM No comment entered. Ordering Provider: ELOISE ROJAS Report Released Date/Time: Apr 20, 2024 11:38 AM Reporting Lab: [facility] [address] [address] Performing Lab: [address] [address] B12 595 pg/mL 213-816 Vital Signs: All taken on the encounter date This section contains inpatient and outpatient Vital Signs collected on the date of the Encounter. Date/Time Temperature Pulse Blood Pressure Respiratory Rate SP02 Pain Height Weight Body Mass Index Source May 26, 2024 10:23 AM 148/76 [facility] Social History: Smoking Status (Most current) and Tobacco Use (All prior to encounter date) This section includes the most current, and the historical, smoking and tobacco- related health factors from the [place] facility where the Encounter took place. Current Smoking Status This section includes the most current smoking, or tobacco-related health factor, from the [place] facility where the Encounter took place. Date/Time Current Smoking Status Comment Facil ity Feb 11, 2024 10:00 AM VA-TOBACCO DOESNT USE WI 30 MIN WAKEUP [facility] Tobacco Use History This section includes a history of the smoking, or tobacco-related health factors, that were collected on or before the date of the Encounter. The data comes from the [place] facility where the Encounter took place. Date/Time Smoking Status/Tobacco Use Comment F acility Feb 11, 2024 10:00 AM VA-TOBACCO USE 30 YEARS OR MORE [facility] Feb 11, 2024 10:00 AM VA-TOBACCO USE ADVICE [facility] Feb 11, 2024 10:00 AM VA-TOBACCO USE MEDICINE TECH NO [facility] Feb 11, 2024 10:00 AM VA-TOBACCO USE MED NO [facility] Feb 11, 2024 10:00 AM VA-TOBACCO USER EVERY DAY [facility] Sep 26, 2022 09:30 AM VA-TOBACCO DOESNT USE WI 30 MIN WAKEUP [facility] Sep 26, 2022 09:30 AM VA-TOBACCO USE 30 YEARS OR MORE [facility] Sep 26, 2022 09:30 AM VA-TOBACCO USE ADVICE [facility] Sep 26, 2022 09:30 AM VA-TOBACCO USE MEDICINE TECH NO [facility] Sep 26, 2022 09:30 AM VA-TOBACCO USE MED NO [facility] Sep 26, 2022 09:30 AM VA-TOBACCO USER EVERY DAY [facility] May 05, 2021 01:00 PM VA-TOBACCO USE 30 YEARS OR MORE [facility] May 05, 2021 01:00 PM VA-TOBACCO USE ADVICE [facility] May 05, 2021 01:00 PM VA-TOBACCO USE MEDICINE TECH NO [facility] May 05, 2021 01:00 PM VA-TOBACCO USE MED NO [facility] May 05, 2021 01:00 PM VA-TOBACCO USE WI 30 MIN OF WAKEUP [facility] May 05, 2021 01:00 PM VA-TOBACCO USER EVERY DAY [facility] Mar 05, 2018 09:42 AM CURRENT TOBACCO USER [facility] Mar 05, 2018 09:42 AM CURRENT TOBACCO US ER (NOT READY TO QUIT) [facility] Mar 05, 2018 09:42 AM TOBACCO CESSATION REFERRAL DECLINED [facility] Mar 05, 2018 09:42 AM TOBACCO MEDS OFFER ED BUT DECLINED [facility] Mar 05, 2018 09:42 AM TOBACCO USER OFFERED MEDS [facility] Mar 05, 2017 08:56 AM CURRENT TOBACCO USER [facility] Mar 05, 2017 08:56 AM TOBACCO MEDS OFFER ED BUT DECLINED [facility] Encounter Notes: All associated encounter notes This section contains the clinical notes associated to the Encounter. Date/Time Encounter Note(s) Provider Source May 26, 2024 07:58 AM INTERNAL MEDICINE CLINICAL PHARMACIST MEDICATION MGT NOTE: LOCAL TITLE: CLINICAL PHARMACIST NOTE [facility] STANDARD TITLE: INTERNAL MEDICINE CLINICAL PHARMACIST MEDICATION DATE OF NOTE: MAY 26, 2024@07:58 ENTRY DATE: MAY 26, 2024@07:58:53 AUTHOR: ELOISE ROJAS COSIGNER: URGENCY: STATUS: COMPLETED CLINICAL PHARMACY FOLLOW-UP Subjective: TAN MERECDES is a 74 MALE who presents to clinic for follow up on DM/HTN/HLD/med rec. Verified pts full name and PMH: 1) Essential hypertension 2) Mixed hyperlipidemia 3) Nicotine dependence 4) Hearing loss 5) Vitamin D Deficiency ([facility] [id number]) 6) Impaired Fasting Glucose ([facility] [id number]) 7) Peripheral vascular disease 8) Critical lower limb ischaemia 9) Chronic obstructive lung disease 10) Diabetes mellitus 11) Malignant melanoma of skin of face 12) Hypothyroidism 13) Exposure to potentially hazardous substance During the last contact with vet (04/20/24), the following changes were made: DM: - labs: A1c and B12 04/29/24 HLD: - START icosapent ethyl 2000mg BID - STOP otc fish oil - labs: vit D and FLP 04/29/24 HTN: - INCREASE lisinopril 40mg daily (PM) - labs: BMP 04/29/24 Med Rec: - continue to monitor compliance During current visit: - Pt presented to clinic without meds or home readings. Dietary/Lifestyle/Social History modifications made: denied changes - I eat everything I want - salt: adds to foods, limited salty snacks, eats spam - caffeine: 1 c coffee daily, crystal light sweet tea (10mg/serv) - EtOH: denies - tob: 1/2 ppd (not interested in quitting) ROS: DM: (-) hypoglycemia symptoms or values [...] ONCE A DAY FOR HIGH BLOOD PRESSURE -3) ASPIRIN 81MG EC TAB TAKE ONE [...] WHOLE, DO NOT CRUSH, SPLIT, OR CHEW. -9) FLUTICAS 250/SALMETEROL 50 INHL DISK 60 INHALE 1 ACTIVE INHALATION BY ORAL INHALATION TWICE A DAY FOR COPD (OPEN DISKUS; CLICK ONLY ONCE; MAY INHALE TWICE TO COMPLETE DOSE; CLOSE WHEN FINISHED) RINSE MOUTH AND SPIT AFTER EACH USE. -10) HYDROPHILIC (EQV EUCERIN) TOP CREAM APPLY LIBERALLY ACTIVE TO AFFECTED AREA(S) ONCE A DAY NEEDED FOR DRY SKIN (EXTERNAL USE ONLY) -11) ICOSAPENT ETHYL 1GM CAP TAKE TWO CAPSULES BY MOUTH ACTIVE TWICE A DAY WITH MEALS FOR HIGH TRIGLYCERIDES -12) LEVOTHYROXINE NA (SYNTHROID) 25MCG TAB TAKE ONE ACTIVE TABLET BY MOUTH EVERY MORNING BEFORE A MEAL FOR HYPOTHYROIDISM TAKE 30 MINUTES BEFORE FOOD. TAKE SEPARATELY FROM ALL OTHER MEDICATIONS. -13) LISINOPRIL 40MG TAB TAKE ONE TABLET BY MOUTH ONCE A ACTIVE DAY FOR HIGH BLOOD PRESSURE -14) METFORMIN HCL 1000MG TAB TAKE ONE TABLET BY MOUTH ACTIVE TWICE A DAY WITH MEALS FOR DIABETES TAKE WITH FOOD. AVOID ALCOHOL. DISCONTINUE BEFORE GETTING XRAY DYE. -15) ROSUVASTATIN CA 40MG TAB TAKE ONE TABLET BY MOUTH ACTIVE EVERY EVENING FOR HIGH CHOLESTEROL -16) TIOTROPIUM 2.5MCG/ACTUAT 60D ORAL INHL INHALE 2 ACTIVE INHALATIONS ORAL INHALATION ONCE A DAY (ADMINISTER AT SAME TIME EACH DAY) FOR BREATHING. Active Non-VA Medications Status 1) Non-VA ERGOCALCIF 1,250MCG (D2-50,000UNIT) CAP ACTIVE 1250MCG BY MOUTH EVERY WEEK - tx completed Medication reconciliation completed: YES Adherence to above medications: - 1-2 missed doses since last visit - declined refills Labs: HGA1C 7.5 H % 04/29/2024 10:32 [...] 04/29/2024 10:32 B12 595 pg/mL 04/29/2024 10:32 SMBGs: - checks 1-2x/week - per recall, within the limit BP last visit: 146/77 (04/29/2024 08:48) Pulse last visit: 77 (04/29/2024 08:48) Home Readings: - per recall, BP 135/70 Automatic BP seated, rested: 152/73 mmHg Pulse: 79 bpm Repeat BP 148/76 mmHg Assessment/Plan: 1) Diabetes - Goal A1c <8%, FPG 80-160, PPG <210 d/t PVD, albuminuria, neuropathy per VA/DoD guidelines A1c and serum glu at goal. SCr wnl. eGFR appropriate for empagliflozin. SMBGs controlled to goal per recall. Reported med compliance. Denied ADRs and diet/lifestyle changes. Discussed SGLT2i use in PVD and concern for amputation risk with pt and Dr. Cornelius (okay to continue). Pt verbalized understanding of risks and requested to continue SGLT2i. Previously avoiding GLP1 d/t pancreatitis risk with elevated TGs but may reconsider if TGs continue to improve and glu uncontrolled. Will CCT. - bring glucometer to clinic to download - metformin IR 1000mg BID - empagliflozin 12.5mg daily - DECREASE check SMBGs 2x/wk alternating before meals and bedtime - educated vet on hypoglycemia symptoms and appropriate treatment and when to contact clinic or go to emergency room - labs: A1c Aug 2024 -- DM med SOC: (+)ASA (-)ACEi (+ albuminuria) (+)Statin (-)flu vaccine - declined (+)pneumo vaccine - 08/15/23 and 09/26/22 (+)Podiatry - 08/15/23 abnormal monofilament (+)Optho - 11/11/23 NIDDM s Ocular Complications OU 2) Lipids - Goal is treatment with moderate-intensity statin per VADoD and ACC/AHA guidelines d/t secondary prevention. Controlled to statin tx goal. LDL 60 (goal<70). TGs 361 but improved since last check (h/o TGs>1400). TSH, vit D, and LFTs wnl. Confirmed pt stopped OTC fish oil and started icosapent ethyl after last visit. Finished ergocalciferol; taking cholecalciferol for maintenance. Reported med compliance. Denied ADRs and alcohol intake. I'm a chocoholic. Repeatedly edu to limit sweets to help [...] or PCP if occurs - labs: FLP Aug 2024 3) HTN - Goal BP <130/80 mmHg per ACC/AHA; <140/90 (age>60 with DM) per [facility]/DoD Clinic BP repeatedly elevated. Na, K, and SCr wnl. Home BP readings controlled per recall but still need to confirm accuracy of home BP machine. Denied ADRs. Not interested in smoking cessation. Discussed changing salt to no salt or Mrs. Marcelo to help lower BP. Will CCT while pt works on diet changes. - switch to no salt and/or Mrs. Marcelo - bring home BP machine to next visit (provided written reminder) - amlodipine 10mg daily (AM) - lisinopril 40mg daily (PM) - check BP every other day and record - call CP if SBP >160 or DBP >100 sustained - present to ER if SBP >180 or DBP >120 sustained and/or if sxs present 4) Med Rec Pt filling own pillboxes. Reported improved med compliance. No discrepancies noted today. Stopped ergocalciferol as planned. Updated med list provided. - continue to monitor compliance -Education provided on nonpharmacologic ways to improve DM/HLD/HTN (including lifestyle management/dietary/physical activity) specific for the vet's needs. -Vet advised of recent labs from 04/29/24 -[place] verbalized understanding to all plans discussed today. Questions were answered to vet's satisfaction. Time spent with vet: 21 min RTC: 6 weeks f2f MEDICATION Medications were addressed at this visit. HTN Assess for Elevated BP>=140/90 - N,P,PH: Repeat blood pressure: 148/76 The patient declines the recommended changes in medications to improve blood pressure control. The patient was counseled on the importance of regular exercise and/or physical activity in the control of blood pressure. The patient has a limited ability to exercise but was encouraged to increase physical activity as much as possible since any increase in activity may be beneficial in improving blood pressure control. The patient was counseled on the importance of diet and weight loss/ control in the regulation of blood pressure. The contribution of dietary sodium to elevated blood pressure was reviewed. The patient was counseled to have a goal sodium intake of 1500mg per day, with no more than 2300mg per day. Specific recommendations for lifestyle modifications were made to the patient to improve blood pressure control. Comment: smoking cessation PBM PharmD Pharmacotherapy Rem V12: PHARMACIST INTERVENTIONS: [...] reconcile differences) Changes to medication lists made Discontinue or remove medication /es/ ELOISE ROJAS, JESSICAD, BCACP CLINICAL PIG CASTER Signed: 05/26/2024 10:25 ELOISE ROJAS [facility]
--- OUTSIDE RECORDS SUMMARY | 2024-10-09 12:31 | XMS_ITS | Referral Summary ---
Author Organization [facility] Address [address] [place] [id number] Care Team Providers Care Rn Outpatient Surgery Name Role Phone Ajay Guzman MD Primary Care Provider [phone] Encounters Date Type Department Care Team Description 08/11/[address] [facility] Medical [facility] Vascular and Vein Surgery [address] [place] [address] [place] [phone] Ismael Jennings MD Atherosclerosis of [place] artery of both lower extremities with intermittent claudication (Primary Dx) 08/10/2024 1:15 PM MERRY GO ROUND OPERATOR Office Visit [facility] Vascular and Vein Surgery [address] [place] [phone] Elvia Jamison NP Atherosclerosis of [place] artery of both lower extremities with intermittent claudication (Primary Dx); Mixed hyperlipidemia; Essential hypertension from Last 3 Months Allergies Active Allergy Reactions Criticality Noted Date Comments Eggshell Membrane Unknown 12/12/2021 Other Hives Medium 11/04/2020 Hives Medications lisinopriL (PRINIVIL,ZESTRIL) 20 mg tablet Take 1 tablet (20 mg total) by mouth daily Active aspirin 325 mg tablet Take 1 tablet (325 mg total) by mouth daily Active atorvastatin (LIPITOR) 40 mg tablet Take 0.5 tablets (20 mg total) by mouth daily Active gabapentin (NEURONTIN) 100 mg capsule Take 2 capsules (200 mg total) by mouth 3 (three) times a day Active amLODIPine (NORVASC) 5 mg tablet Take 1 tablet (5 mg total) by mouth daily Active omega 5-kol-ogk-fish oil 1,000 mg (120 mg-180 mg) capsule Take 1 capsule (1,000 mg total) by mouth 2 (two) times a day Active bisacodyl EC (DULCOLAX EC) 5 mg EC tablet TAKE TWO TABLETS BY MOUTH EVERY 12 HOURS NEEDED FOR CONSTIPATION 10/07/19 21 Active DOK 100 mg capsule TAKE 1 CAPSULE BY MOUTH EVERY 12 HOURS 10/07/19 21 Active rosuvastatin (CRESTOR) 20 mg tablet 03/23/20 21 Active finasteride (PROSCAR) 5 mg tablet Take 1 tablet (5 mg total) by mouth daily 02/08/20 22 Active fenofibrate nanocrystallized (TRICOR) 145 mg tablet 06/23/20 23 Active dapagliflozin propanediol (FARXIGA) 5 mg tablet Take 1 tablet (5 mg total) by mouth daily 02/09/20 23 Active cholecalciferol (VITAMIN D-3) 50,000 unit capsule Take 1 capsule (50,000 Units total) by mouth 04/11/20 23 Active Active Problems Problem Noted Date Diagnosed Date Tobacco abuse 06/13/2022 Assessment & Plan (06/25/2023 11:42 AM MERRY GO ROUND OPERATOR): Impression: Patient is a current everyday smoker smoking 1/2 pack daily. Plan: Discussed with the patient greater than 3 minutes about the importance of smoking cessation and its benefits to the cardiovascular health and to recent vascular intervention. Patient has no interest in quitting quitting at this time. Assessment & Plan (06/13/2022 5:21 PM MERRY GO ROUND OPERATOR): Impression: Patient is a current everyday smoker, smoking half pack daily. With no interest in quitting. Plan: Discussed with the patient greater than 3 minutes about the importance of smoking cessation and its health benefits to the cardiovascular health. Discussed treatment modalities. Patient continues to report he is not interested in quitting at this time. COPD (chronic obstructive pulmonary disease) Assessment & Plan (06/13/2021 2:33 PM MERRY GO ROUND OPERATOR): Followed by his PCP and controlled at this time. Assessment & Plan (09/20/2020 9:49 AM MERRY GO ROUND OPERATOR): Long history of smoking. Recently quit smoking. Dyspnea on exertion 09/20/2020 Assessment & Plan (09/20/2020 9:50 AM MERRY GO ROUND OPERATOR): Will get an echo Doppler study to assess the left ventricular systolic function. Lexiscan stress test to look for myocardial ischemia. He will not be able to do a walking stress test because of his poor exercise capacity from the peripheral vascular disease. Peripheral vascular disease, unspecified 021 Assessment & Plan (12/13/2021 10:42 AM CDT): Patient has a widely patent fem-pop bypass with good blood flow down to his foot. We will have him follow up in 6 months with repeat imaging for graft surveillance. He can call sooner if there are any questions or concerns. Assessment & Plan (06/13/2021 2:32 PM MERRY GO ROUND OPERATOR): Patient is doing well since his left lower extremity fem-pop bypass. He is able to do the things he would like to do but he is having some leg swelling. Plan will be to put him in compression stockings for the left leg. I will have him follow up in 6 months with repeat imaging. He can call sooner if there are any questions or concerns. Assessment & Plan (12/14/2020 3:25 PM CDT): Patient is status post left femoral popliteal bypass with vein. He is doing well and has no complaints at this time. Plan will be to see him in 6 months with repeat imaging for surveillance of the graft. He is to call sooner if there are any issues. Assessment & Plan (10/26/2020 1:22 PM CDT): Impression: Patient with postop seroma of his left groin. His bypass remains patent. The seroma was decompressed in office in I obtained approximately 50 cc of clear yellow serous fluid. Plan: Recommend daily dressing changes with dry gauze, ABD and Coban wrap. Patient follow-up in 1-2 weeks for already scheduled appointment with lower extremity arterial duplex surveillance of his recent lower extremity bypass. Atherosclerosis of [place] ar [place]imi of both lower extremities with intermittent claudication 09/08/2020 Assessment & Plan (08/10/2024 1:32 PM MERRY GO ROUND OPERATOR): Impression: Patient is status post left femoral popliteal bypass graft. Patient denies any symptoms of claudication, ischemic rest pain or ulcerations to his lower extremity. Patient does complain of radiating pain from the left hip down to the left foot with prolong standing that is relieved when he bends his knees and hunches forward. Patient does have a history of lumbar stenosis requiring surgical intervention several years ago. Lower extremity arterial duplex reveals a patent bypass graft to the left lower extremity. Plan: Reassured patient radiating discomfort to his left lower extremity is unlikely related 2 blood flow issues. Bypass graft is patent. -Patient to follow-up in 1 year for re-evaluation with repeat lower extremity arterial duplex. Encouraged patient make a sooner appointment if he develops any symptoms of claudication, ischemic rest pain or ulcerations to his lower extremity. Assessment & Plan (06/25/2023 11:40 AM MERRY GO ROUND OPERATOR): Impression: Patient has stable non disabling claudication and denies any ischemic rest pain or ulcerations. Left femoral popliteal bypass graft is patent as seen on lower extremity arterial duplex. Plan: Continue ongoing risk factor modifications. -patient to follow-up in 1 year for re-evaluation with repeat lower extremity arterial duplex. Assessment & Plan (06/13/2022 5:22 PM MERRY GO ROUND OPERATOR): Impression: Patient is status post left femoral popliteal bypass graft. Patient denies any symptoms of claudication, ischemic rest pain or ulcerations to his lower extremity. Arterial duplex reveals a patent bypass graft to the left lower extremity. Plan: Continue ongoing risk factor modifications. Patient to follow-up in 1 year for re-evaluation with repeat lower extremity arterial duplex. Assessment & Plan (10/23/2020 3:47 PM CDT): Impression: Patient recovering well status post autogenous left fem below-knee pop artery bypass. Surgical incisions healed well, zaira removed in office in which patient tolerated well. Plan: Patient follow-up in 1 month for re-evaluation and also to have interim baseline lower extremity arterial duplex studies performed to evaluate his open vascular reconstruction. Assessment & Plan (09/20/2020 9:49 AM MERRY GO ROUND OPERATOR): Significant claudication. Dr. Merida evaluating. Surgical revascularization planned for the next few weeks. EKG today shows normal sinus rhythm, normal QRS morphology. Atherosclerosis of [place] ar yeimi of left lower extremity with rest pain 09/08/2020 Assessment & Plan (11/18/2020 10:16 AM CDT): Patient is status post left lower extremity fem-pop bypass and right lower extremity angiogram with intervention. He is doing well at this time just with some swelling of his left leg which is likely from the vein harvest. He also has 2 small areas of dehiscence on the lower leg incision and groin incision which were treated with silver nitrate and a bandage over the top. I will have him follow up in 1 month to make sure these healed up well. Assessment & Plan (09/08/2020 2:58 PM MERRY GO ROUND OPERATOR): Patient has atherosclerosis and decreased ABIs with rest pain. Plan will be for angiograms starting with the left leg. I discussed this procedure including the risks, benefits and alternatives with him and his daughter which include but are not limited to: Bleeding, infection, damage to the vein, artery or nerve, risk with contrast and kidney injury, need for further surgery to repair any of the aforementioned structures, risk for limb loss, risk with anesthesia and possible . They understand and are willing to proceed. He is allergic to contrast dyes it gives him hives. We will order the contrast allergy protocol. Mixed hyperlipidemia 09/08/2020 Assessment & Plan (08/10/2024 1:32 PM MERRY GO ROUND OPERATOR): Impression: Chronic and stable. Plan: Continue atorvastatin and rosuvastatin. Assessment & Plan (06/25/2023 11:42 AM MERRY GO ROUND OPERATOR): Impression: Chronic and stable. Plan: Continue atorvastatin and rosuvastatin Assessment & Plan (06/13/2022 5:20 PM MERRY GO ROUND OPERATOR): Impression: Chronic stable hyperlipidemia, controlled with statin therapy. Plan: Continue statin therapy as per primary care provider. Assessment & Plan (12/13/2021 10:42 AM CDT): Followed by his PCP and chronic and stable. I recommend he continue his Lipitor for lipid lowering medication. Assessment & Plan (06/13/2021 2:32 PM MERRY GO ROUND OPERATOR): Followed by his PCP and on a statin. Assessment & Plan (09/20/2020 9:51 AM MERRY GO ROUND OPERATOR): Low-fat low-cholesterol diet. Fish oil. Atorvastatin. Assessment & Plan (09/08/2020 2:55 PM MERRY GO ROUND OPERATOR): Followed by his PCP and controlled on a statin at this time. Essential hypertension 09/08/2020 Assessment & Plan (08/10/2024 1:32 PM MERRY GO ROUND OPERATOR): Chronic and stable. Plan: Continue amlodipine and lisinopril Assessment & Plan (06/25/2023 11:41 AM MERRY GO ROUND OPERATOR): Impression: Chronic and stable. Plan: Continue amlodipine and lisinopril. Assessment & Plan (06/13/2022 5:20 PM MERRY GO ROUND OPERATOR): Impression: Chronic hypertension, controlled medications. Blood pressure stable. Plan: Continue blood pressure management as per primary care provider. Assessment & Plan (12/13/2021 10:43 AM CDT): Followed by his PCP and chronic and stable. I recommend he continue his amlodipine and lisinopril for blood pressure control as per his PCP. 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 Assessment & Plan (09/20/2020 9:50 AM MERRY GO ROUND OPERATOR): Salt restriction. Amlodipine. Lisinopril. Blood pressure 146/80. Assessment & Plan (09/08/2020 2:55 PM MERRY GO ROUND OPERATOR): Followed by his PCP and controlled on his current medication at this time. Social History Tobacco Use Types Packs/Day Years Used Date Smoking Tobacco: Every Day Smokeless Tobacco: Never Sex and Gender Information Value Date Recorded Sex Assigned at Not on file Legal Sex Male 7:34 PM MERRY GO ROUND OPERATOR Gender Identity Not on file Sexual Orientation Not on file Last Filed Vital Signs Vital Sign Reading Time Taken Comments Blood Pressure 175/80 08/10/2024 1:05 PM MERRY GO ROUND OPERATOR Pulse 90 08/10/2024 1:05 PM MERRY GO ROUND OPERATOR Temperature 36.8 C (98.2 F) 11/07/2020 12:00 PM CDT Respiratory Rate - - Oxygen Saturation 96% 11/07/2020 12:00 PM CDT Inhaled Oxygen Concentration - - Weight 88.5 kg (195 lb) 08/10/2024 1:05 PM MERRY GO ROUND OPERATOR Height 182.9 cm (6') 08/10/2024 1:05 PM MERRY GO ROUND OPERATOR Body Mass Index 26.45 08/10/2024 1:05 PM MERRY GO ROUND OPERATOR Plan of Treatment Not on file Insurance [facility] Care Teams Rn Outpatient Surgery Relationship Specialty Start Date End Date Ajay Guzman MD PCP - General Family Practice 06/24/23
--- OUTSIDE RECORDS SUMMARY | 2024-10-09 12:31 | XMS_ITS | Clinical Summary ---
Author Organization [facility] Address [address] [place] [address] Care Team Providers Care Art Consultant Name Role Phone Ajay Guzman MD Primary Care Provider [phone] Allergies Active Allergy Reactions Criticality Noted Date [...] mg total) by mouth daily Active omega 1-kgq-bpo-fish oil 1,000 mg (120 mg-180 mg) capsule [...] 06/13/2022 Assessment & Plan (06/25/2023 11:42 AM FOUNTAIN CLERK): Impression: Patient is a current everyday smoker smoking 1/2 pack daily. Plan: Discussed with the patient greater than 3 minutes about the importance of smoking cessation and its benefits to the cardiovascular health and to recent vascular intervention. Patient has no interest in quitting quitting at this time. Assessment & Plan (06/13/2022 5:21 PM FOUNTAIN CLERK): Impression: Patient is a current everyday smoker, [...] disease) Assessment & Plan (06/13/2021 2:33 PM FOUNTAIN CLERK): Followed by his PCP and controlled at this time. Assessment & Plan (09/20/2020 9:49 AM FOUNTAIN CLERK): Long history of smoking. Recently quit smoking. Dyspnea on exertion 09/20/2020 Assessment & Plan (09/20/2020 9:50 AM FOUNTAIN CLERK): Will get an echo Doppler study to [...] concerns. Assessment & Plan (06/13/2021 2:32 PM FOUNTAIN CLERK): Patient is doing well since his left [...] his recent lower extremity bypass. Atherosclerosis of [place] ar yeimi of both lower extremities with intermittent claudication 09/08/2020 Assessment & Plan (08/10/2024 1:32 PM FOUNTAIN CLERK): Impression: Patient is status post left femoral [...] extremity. Assessment & Plan (06/25/2023 11:40 AM FOUNTAIN CLERK): Impression: Patient has stable non disabling claudication and denies any ischemic rest pain or ulcerations. Left femoral popliteal bypass graft is patent as seen on lower extremity arterial duplex. Plan: Continue ongoing risk factor modifications. -patient to follow-up in 1 year for re-evaluation with repeat lower extremity arterial duplex. Assessment & Plan (06/13/2022 5:22 PM FOUNTAIN CLERK): Impression: Patient is status post left femoral [...] reconstruction. Assessment & Plan (09/20/2020 9:49 AM FOUNTAIN CLERK): Significant claudication. Dr. Merida evaluating. Surgical revascularization planned for the next few weeks. EKG today shows normal sinus rhythm, normal QRS morphology. Atherosclerosis of [place] ye[place] of left lower extremity with [...] well. Assessment & Plan (09/08/2020 2:58 PM FOUNTAIN CLERK): Patient has atherosclerosis and decreased ABIs with [...] 09/08/2020 Assessment & Plan (08/10/2024 1:32 PM FOUNTAIN CLERK): Impression: Chronic and stable. Plan: Continue atorvastatin and rosuvastatin. Assessment & Plan (06/25/2023 11:42 AM FOUNTAIN CLERK): Impression: Chronic and stable. Plan: Continue atorvastatin and rosuvastatin Assessment & Plan (06/13/2022 5:20 PM FOUNTAIN CLERK): Impression: Chronic stable hyperlipidemia, controlled with statin therapy. Plan: Continue statin therapy as per primary care provider. Assessment & Plan (12/13/2021 10:42 AM CDT): Followed by his PCP and chronic and stable. I recommend he continue his Lipitor for lipid lowering medication. Assessment & Plan (06/13/2021 2:32 PM FOUNTAIN CLERK): Followed by his PCP and on a statin. Assessment & Plan (09/20/2020 9:51 AM FOUNTAIN CLERK): Low-fat low-cholesterol diet. Fish oil. Atorvastatin. Assessment & Plan (09/08/2020 2:55 PM FOUNTAIN CLERK): Followed by his PCP and controlled on a statin at this time. Essential hypertension 09/08/2020 Assessment & Plan (08/10/2024 1:32 PM FOUNTAIN CLERK): Chronic and stable. Plan: Continue amlodipine and lisinopril Assessment & Plan (06/25/2023 11:41 AM FOUNTAIN CLERK): Impression: Chronic and stable. Plan: Continue amlodipine and lisinopril. Assessment & Plan (06/13/2022 5:20 PM FOUNTAIN CLERK): Impression: Chronic hypertension, controlled medications. Blood pressure stable. Plan: Continue blood pressure management as per primary care provider. Assessment & Plan (12/13/2021 10:43 AM CDT): Followed by his PCP and chronic and stable. I recommend he continue his amlodipine and lisinopril for blood pressure control as per his PCP. 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 Assessment & Plan (09/20/2020 9:50 AM FOUNTAIN CLERK): Salt restriction. Amlodipine. Lisinopril. Blood pressure 146/80. Assessment & Plan (09/08/2020 2:55 PM FOUNTAIN CLERK): Followed by his PCP and controlled on his current medication at this time. Encounters Date Type Department Care Team Description 08/11/2024 Orders Only [facility] Medical [facility] Vascular and Vein Surgery [address] [place] [phone] Ismael Jennings MD Atherosclerosis of [place] artery of both lower extremities with intermittent claudication (Primary Dx) 08/10/2024 1:15 PM FOUNTAIN CLERK Office Visit [facility] Medical [facility] Vascular and Vein Surgery [address] [place] [phone] Elvia Jamison NP Atherosclerosis of [place] artery of both lower extremities with intermittent claudication (Primary Dx); Mixed hyperlipidemia; Essential hypertension from Last 3 Months Surgical History Surgery Date Site/Laterality Comments FEMORAL ARTERY - POPLITEAL ARTERY BYPASS GRAFT 021 Right Medical History Medical History Date Comments HTN (hypertension) Prostatic hyperplasia Hypertriglyceridemia Family History Medical History Relation Name Comments Malignant neoplasm Father Maligant neoplasm Mother Relation Name Status Comments Father Mother Social History Tobacco Use Types Packs/Day Years Used Date Smoking Tobacco: Every Day Smokeless Tobacco: Never Sex and Gender Information Value Date Recorded Sex Assigned at Not on file Legal Sex Male 7:34 PM FOUNTAIN CLERK Gender Identity Not on file Sexual Orientation Not on file Obstetrics History Last Filed Vital Signs Vital Sign Reading Time Taken Comments Blood Pressure 175/80 08/10/2024 1:05 PM FOUNTAIN CLERK Pulse 90 08/10/2024 1:05 PM FOUNTAIN CLERK Temperature 36.8 C (98.2 F) 11/07/2020 12:00 PM CDT Respiratory Rate - - Oxygen Saturation 96% 11/07/2020 12:00 PM CDT Inhaled Oxygen Concentration - - Weight 88.5 kg (195 lb) 08/10/2024 1:05 PM FOUNTAIN CLERK Height 182.9 cm (6') 08/10/2024 1:05 PM FOUNTAIN CLERK Body Mass Index 26.45 08/10/2024 1:05 PM FOUNTAIN CLERK Plan of Treatment Health Maintenance Due Date Last Done Comments Depression Screening 1948 Fall Risk Assessment 1948 Hepatitis C Screening 1948 DTaP/Tdap/Td Vaccine (1 - Tdap) 1959 Hepatitis B Screening 1966 Pneumococcal vaccine 65+ (1 of 2 - PCV) 1967 Zoster Vaccine (1 of 2) 1998 Abdominal Aortic Aneurysm (AAA) Screen 2013 Well Visit 65+ 2013 Influenza Vaccine (#1) 2024 Insurance [facility] [id number] Care Teams Art Consultant Relationship Specialty Start Date End Date Ajay Guzman MD PCP - General Family Practice 06/24/23
--- OUTSIDE RECORDS SUMMARY | 2024-10-09 12:32 | XMS_ITS | Encounter Summary ---
Author Name [facility] [place] Address [address] [place] [address] Care Team Providers Care Sticker Operator Name Role Phone ALLI CORNELIUS Primary Care [...] PART B Dec 27, 2013 PART B [id number] 33A LINH MERCEDES PATIENT MEDICARE (WNR) MEDICARE (M) PART A Dec 27, 2013 PART A [id number] 33A LINH MERCEDES PATIENT MEDICARE (WNR) MEDICARE (M) PART A Dec 27, 2013 PART A [id number] LINH MERCEDES PATIENT MEDICARE (WNR) MEDICARE (M) PART B Dec 27, 2013 PART B [id number] MERCEDES,LINH THOMASLewis PATIENT Selected Encounter This section includes the information on record at [place] for the Encounter. Date/Time Encounter Type Encounter Description Reason Provider Source Nov 11, 2023 10:30 AM OFFICE O/P EST MOD 30 MIN OPTOMETRY ICD-10-CM E11.9 Type 2 diabetes mellitus without complications MARKO MCKINNON [facility] Encounter Template Text not used by [place] Assessments - Encounter Diagnoses This section includes the primary and secondary diagnoses documented for the Encounter. Date/Time Primary/Secondary Diagnosis Diagnosis Name Provider Source Nov 11, 2023 11:25 AM PRIMARY Type 2 diabetes mellitus without complications MARISEL MCKINNON [facility] Nov 11, 2023 11:25 AM SECONDARY Combined forms of age-related cataract, bilateral MARISEL MCKINNON [facility] Nov 11, 2023 11:25 AM SECONDARY Presbyopia MARISEL MCKINNON [facility] Plan of Treatment: Future Appointments (+ 6 months) and Future Tests (+/- 45 days) The Plan of Treatment section includes future care activities for the patient from all [place] treatmentfacilities. This section includes future appointments and future orders which are active, pending or scheduled. Future Appointments This section includes appointments that were scheduled to occur 6 months from the date of the Encounter, up to a maximum of 20 appointments. The data comes from all [place] treatment facilities. Appointment Date/Time Appointment Type Appointme nt Facility Name December 10, 2023 12:30 PM AMBULATORY - REHAB MEDICIN [facility] Jan 07, 2024 01:00 PM AMBULATORY - REHAB MEDICIN [facility] Feb 10, 2024 11:00 [facility] Feb 11, 2024 10:00 AM AMBULATORY - REHAB MEDICIN [facility] Mar 06, 2024 01:45 PM AMBULATORY - MEDICINE [facility] Mar 25, 2024 11:30 AM AMBULATORY - NONE [facility] Apr 20, 2024 11:00 AM AMBULATORY - REHAB MEDICIN [facility] Apr 29, 2024 09:15 AM AMBULATORY - MEDICINE [facility] Active, Pending, and Scheduled Orders This section includes a listing of several types of active, pending, and scheduled orders, including clinic medications orders, diagnostic test orders, procedure orders and consult orders; where the start date of the order is 45 days before the date of the Encounter or 45 days after the date of theEncounter. The data comes from all [place] treatment facilities. Test Date/Time Test Type Test Details Facility Name Nov 20, 2023 12:00 AM Laboratory - Chemi stry Order OCCULT BLOOD FIT X1 SCREEN STOOL FECES SP [facility] Social History: Smoking Status (Most current) and Tobacco Use (All prior to encounter date) This section includes the most current, and the historical, smoking and tobacco- related health factors from the [place] facility where the Encounter took place. Current Smoking Status This section includes the most current smoking, or tobacco-related health factor, from the [place] facility where the Encounter took place. Date/Time Current Smoking Status Comment Facil ity Sep 26, 2022 09:30 AM VA-TOBACCO USER EVERY DAY [facility] Tobacco Use History This section includes a history of the smoking, or tobacco-related health factors, that were collected on or before the date of the Encounter. The data comes from the [place] facility where the Encounter took place. Date/Time Smoking Status/Tobacco Use Comment F acility Sep 26, 2022 09:30 AM VA-TOBACCO USE 30 YEARS OR MORE [facility] Sep 26, 2022 09:30 AM VA-TOBACCO USE ADVICE [facility] Sep 26, 2022 09:30 AM VA-TOBACCO USE FOUNDATION MAKER NO [facility] Sep 26, 2022 09:30 AM VA-TOBACCO USE MED NO [facility] Sep 26, 2022 09:30 AM VA-TOBACCO USER EVERY DAY [facility] May 05, 2021 01:00 PM VA-TOBACCO USE 30 YEARS OR MORE [facility] May 05, 2021 01:00 PM VA-TOBACCO USE ADVICE [facility] May 05, 2021 01:00 PM VA-TOBACCO USE FOUNDATION MAKER NO [facility] May 05, 2021 01:00 PM VA-TOBACCO USE MED NO [facility] May 05, 2021 01:00 PM VA-TOBACCO USE WI 30 MIN OF WAKEUP [facility] May 05, 2021 01:00 PM VA-TOBACCO USER EVERY DAY [facility] Mar 05, 2018 09:42 AM CURRENT TOBACCO USER [facility] Mar 05, 2018 09:42 AM CURRENT TOBACCO US ER (NOT READY TO QUIT) [facility] Mar 05, 2018 09:42 AM TOBACCO CESSATION REFERRAL DECLINED [facility] Mar 05, 2018 09:42 AM TOBACCO MEDS OFFER ED BUT DECLINED [facility] Mar 05, 2018 09:42 AM TOBACCO USER OFFERED MEDS [facility] Mar 05, 2017 08:56 AM CURRENT TOBACCO USER [facility] Mar 05, 2017 08:56 AM TOBACCO MEDS OFFER ED BUT DECLINED [facility] Encounter Notes: All associated encounter notes This section contains the clinical notes associated to the Encounter. Date/Time Encounter Note(s) Provider Source Nov 11, 2023 10:39 AM OPTOMETRY CONSULT: LOCAL TITLE: OPTOMETRY CONSULT [facility] STANDARD TITLE: OPTOMETRY CONSULT DATE OF NOTE: NOV 11, 2023@10:39 ENTRY DATE: NOV 11, 2023@10:39:43 AUTHOR: MARISEL MCKINNON COSIGNER: URGENCY: STATUS: COMPLETED Last seen: 10/09/2021 Reason for visit: CEE (pt accompanied by his daughter) CC: 1. Stable vision - Distance and near - OU - While wearing PALs for driving or watching television. - Constant. - Denies ocular irritation/pain, double vision, flashes/new floaters. 2. NIDDM - Last A1C 8.4 (08/21). - Pt not checking BGL at home. He reports having meter/strips and knowing how to use them. - No h/o ocular injections or laser tx. - Denies any fluctuations to vision. Ocular meds: none Ocular ROS: (-) injuries (-) surgeries (-) glaucoma (-) macular degeneration (+) DM without retinopathy OU (+) cataracts OU Family OcHX: (-) blindness (-) glaucoma (-) AMD (-) RD Cardiovascular ROS: no change from problem & medication lists CPRS Problem list, medications and allergies reviewed: CPRS Serology for Diabetes GLUCOSE 209 H mg/dL 08/15/2023 13:17 HGA1C 8.4 H % 08/15/2023 13:17 Cardiovascular BP: 151/78 (08/15/2023 12:45) Pulse: 89 (08/15/2023 11:01) Neuro: Orientation: Normal Psych: Mood/Affect: Normal Depression/suicide ideation: NO VISUAL ACUITY Distance Visual Acuity () cc, (x) sc OD: 20/40 OS: 20/30 Pupils ERRL, (-) APD OU Confrontation: FTFC OD/OS Extra-Ocular Muscles Full, (-) pain/DV OU Refraction 10/09/2021 OD +2.00 -3.25 x107 20/20 OS +1.25 -1.25 x090 20/20 Add: +2.50 (Pt prefers DVO) Refraction 11/11/2023 OD: +1.75 -3.50 x 109 20/20-2 OS: +1.25 -1.50 x 093 20/20-2 ADD: +2.50 20/20 NVA OU (slow, PBU at 40cm) SLIT LAMP EXAMINATION: L/L: 1+ MGD OU; 2 large papillomas mid-medial RLL, Conj/Sclera: white/quiet, (-) papillae/follicles OU K: all layers clear OU AC: deep/quiet OU Angles: 3x3 VH OU Iris: unremarkable, (-) NVI OU Lens: 1+ NSC OU, 1+ IN ACC nearing LOS OD, tr PSC OS Intraocular Pressures (Goldmann) 1 gtt fluress OD/OS: Date: O.D. O.S. Time Meds 04/14/19 23 23 854 10/09/2021 21 21 0823 none 11/11/2023 19 18 10:54A none, holding lids Dilated c 2 gtts Tropicamide 1% OU @ 10:55 AM Pt educated on temporary effects of dilation drops such as light sensitivity and blurry vision. PostPole: C/D: OD: 0.40 (s=i) OS: 0.45 (s=i) ONH: pink and perfuse tissue, (-) NVD OU MAC: flat c even pigmentation, (-) hemes/exudate/DME/CNVM OU BKGRND: unremarkable, (-) hemes, exudate, CWS, NVE OU VESSELS: unremarkable, 2/3 OU PERIPH: OD: flat and intact, (-) holes,tears,breaks 360 OS: flat and intact, focal hyperpigment INF, (-) holes,tears,breaks 360 VIT: syneresis OU ASSESSEMENT/PLAN: 11/11/2023 1. Refractive error/Presbyopia OU - BCVA 20/20-2 OD and OS. - SRx released today for updating. - Add AR coating. 2. NIDDM s Ocular Complications OU - (-) CSME/DME upon clinical examination OU. - Educated pt on importance of blood glucose control with medications as prescribed as well as continual care with PCP as scheduled to decrease risk of retinopathy and blindness. 3. Combined Cataracts OU - At end of exam, pt reported some difficulties with night driving (wears glasses). Ed it could be 2/2 cataract growth. - Obtain baseline BAT at follow-up. - Risk/benefit analysis suggests surgical intervention is not warranted at this time given status of BCVA a/o lack of sx; monitor. FINAL SRx: OD: +1.75 -3.50 x 109 OS: +1.25 -1.50 x 093 ADD: +2.50 DISCUSSED ALL ABOVE FINDINGS W/PT; PT EXPRESSED FULL UNDERSTANDING. RTO 12mo/PRN: SALLY lobato DFE, BAT OU /es/ Marisel Mckinnon, OD Staff Physician, Optometry Signed: 11/11/2023 11:25 MARISEL MCKINNON [facility]
--- OUTSIDE RECORDS SUMMARY | 2024-10-09 12:32 | XMS_ITS | Encounter Summary ---
Author Name [facility] [place] Address [address] [place] [address] Care Team Providers Care Real Estate Agency Principal Name Role Phone ALLI CORNELIUS Primary Care [...] PART B Dec 27, 2013 PART B [id number] 33A LINH MERCEDES PATIENT MEDICARE (WNR) MEDICARE (M) PART A Dec 27, 2013 PART A [id number] 33A LINH MERCEDES PATIENT MEDICARE (WNR) MEDICARE (M) PART A Dec 27, 2013 PART A [id number] MERCEDESLINH COLLINS PATIENT MEDICARE (WNR) MEDICARE (M) PART B Dec 27, 2013 PART B [id number] LINH MERCEDES THOMASLewis PATIENT Selected Encounter This section includes the information on record at [place] for the Encounter. Date/Time Encounter Type Encounter Description Reason Provider Source Mar 09, 2024 03:07 PM Outpatient Encounter PULMONARY/CHEST ICD-10-CM Z12.2 Encntr screen for malignant neoplasm of respiratory organs EFRAÍN EDEN Luciano Encounter Template Text not used by [place] Assessments - Encounter Diagnoses This section includes the primary and secondary diagnoses documented for the Encounter. Date/Time Primary/Secondary Diagnosis Diagnosis Name Provider Source Mar 09, 2024 03:11 PM PRIMARY Encntr screen for malignant neoplasm of respiratory organs EFRAÍN EDEN [facility] Plan of Treatment: Future Appointments (+ 6 months) and Future Tests (+/- 45 days) The Plan of Treatment section includes future care activities for the patient [facility] [place] [facility] This section includes future appointments and future orders which are active, pending or scheduled. Future Appointments This section includes appointments that were scheduled to occur 6 months from the date of the Encounter, up to a maximum of 20 appointments. The data comes from all [place] treatment facilities. Appointment Date/Time Appointment Type Appointme nt Facility Name Mar 25, 2024 11:30 AM AMBULATORY - NONE [facility] Apr 20, 2024 11:00 AM AMBULATORY - [facility] Apr 29, 2024 09:15 AM AMBULATORY - MEDICINE [facility] May 26, 2024 10:00 AM AMBULATORY - RE[facility]AB MEDICIN [facility] Jun 09, 2024 10:15 AM AMBULATORY - MEDICINE [facility] Jul 07, 2024 11:00 AM [facility] Jul 15, 2024 10:00 AM AMBULATORY - NONE [facility] Aug 05, 2024 02:00 PM AMBULATORY - MEDICINE [facility] Aug 10, 2024 10:00 AM AMBULATORY - [facility] Aug 25, 2024 10:00 AM [facility] Sep 08, 2024 10:15 AM AMBULATORY - MEDICINE [facility] Active, Pending, and Scheduled Orders This section includes a listing of several types of active, pending, and scheduled orders, including clinic medications orders, diagnostic test orders, procedure orders and consult orders; where the start date of the order is 45 days before the date of the Encounter or 45 days after the date of theEncounter. The data comes from all [place] treatment facilities. Test Date/Time Test Type Test Details Facility Name Feb 11, 2024 12:00 AM Laboratory - Chemi stry Order CBC BLOOD SP [facility] Feb 11, 2024 12:00 AM Laboratory - Chemi stry Order AST/SGOT GREEN LI/HEP BLD/PLAS PLASMA SP [facility] Feb 11, 2024 12:00 AM Laboratory - Chemi stry Order ALT/SGPT GREEN LI/HEP BLD/PLAS PLASMA [facility] Lab Results: +/- 30 days of the encounter This section includes the Chemistry and Hematology Lab Results on record with [place] for the patient. Radiology Reports and Pathology Reports are provided separately, in subsequent sections. Lab Results This section contains the Chemistry/Hematology Results that were resulted 30 days before or 30 daysafter the date of the Encounter. Date/Time Source Result Type Result - Unit Interpretation Reference Range Comment Feb 11, 2024 12:00 PM [facility] OCCULT BLOOD FIT X1 SCREEN Specimen Type: FECES No comment entered. Ordering Provider: RAHUL CORNELIUS Report Released Date/Time: Feb 11, 2024 10:54 AM Reporting Lab: [facility] [address] [facility] [address] Performing Lab: [place] [address] [facility] [id number] OCCULT BLOOD (FIT) #1 OF 1 Negative Negative Social History: Smoking Status (Most current) and Tobacco Use (All prior to encounter date) This section includes the most current, and the historical, smoking and tobacco- related health factors from the [place] facility where the Encounter took place. Current Smoking Status This section includes the most current smoking, or tobacco-related health factor, from the [place] facility where the Encounter took place. Date/Time Current Smoking Status Comment Alejandro [email or web address] Feb 04, 2020 02:21 PM VA-TOBACCO USE MANAGER APPLE NO [facility] Tobacco Use History This section includes a history of the smoking, or tobacco-related health factors, that were collected on or before the date of the Encounter. The data comes from the [place] facility where the Encounter took place. Date/Time Smoking Status/Tobacco Use Comment F acility Feb 04, 2020 02:21 PM VA-TOBACCO USE 30 YEARS OR MORE [facility] Feb 04, 2020 02:21 PM VA-TOBACCO USE ADVICE [facility] Feb 04, 2020 02:21 PM VA-TOBACCO USE MANAGER APPLE NO [facility] Feb 04, 2020 02:21 PM VA-TOBACCO USE MED NO [facility] Feb 04, 2020 02:21 PM VA-TOBACCO USER EVERY DAY [facility] Radiology Reports: +/- 30 days of the [...] the Encounter. The data comes from all [place] treatment facilities. Date/Time Radiology Report Provider Source Mar 25, 2024 10:50 AM LDCT LUNG CANCER SCREENING: TAN MERCEDES [id number] -[id number] M Exm Date: MAR 25, 2024@10:50 Req Phys: EFRAÍN EDEN Loc: [facility]-LUNG CANCER SCREENING (Req' Img Loc: [facility]-CT IMAGING [facility] Service: [address] [address] (Case [id number] COMPLETE) LDCT LUNG CANCER SCREENING (CT Detailed) CPT:37232 Reason for Study: lcs Clinical History: Responsible Attending: radha Attending Contact Number: [phone] Resident Contact Number: Patient is age 50-80? [...] 25, 2024 Date Verified: MAR 25, 2024 Rig Supervisor E-Sig:/ES/MARGRET AGUIAR MD Report: EXAM: LDCT LUNG CANCER SCREENING COMPARISON: 03/23/2023, 03/19/2022 PROTOCOL: Screening protocol, low dose, non-contrast CT chest was performed at the local [place] facility in accordance with Lung-Rads 2021. Additional [...] Primary Interpreting Staff: MARGRET AGUIAR MD, Radiologist (Rig Supervisor) /CPG MARGRET AGUIAR [facility] Encounter Notes: All associated encounter notes This section contains the clinical notes associated to the Encounter. Date/Time Encounter Note(s) Provider Source Mar 09, 2024 03:07 PM INTERNAL MEDICINE NOTE: LOCAL TITLE: LUNG CANCER SCREENING TELEPHONE ST STANDARD TITLE: INTERNAL MEDICINE NOTE DATE OF NOTE: MAR 09, 2024@15:07 ENTRY DATE: MAR 09, 2024@15:07:18 AUTHOR: EFRAÍN EDEN EXP COSIGNER: URGENCY: STATUS: COMPLETED Notified Vet unable to reached to schedule LDCT. I called him and he agrees to come in. Will place order. /judie/ EFRAÍN EDEN MSN, ANP- Adult Nurse Practitioner Signed: 03/09/2024 15:11 EFRAÍN EDEN [facility]
--- OUTSIDE RECORDS SUMMARY | 2024-10-09 12:32 | XMS_ITS | Encounter Summary ---
Author Name [facility] [place] Organization [facility] Address [address] [place] [address] Care Team Providers Care Bicycle Messenger Name Role Phone ALLI CORNELIUS Primary Care [...] Policy Meyer MEDICARE (WNR) MEDICARE (M) PART A Dec 27, 2013 PART A [id number] LINH MERCEDES PATIENT MEDICARE (WNR) MEDICARE (M) PART B Dec 27, 2013 PART B [id number] LINH MERECDES PATIENT MEDICARE (WNR) MEDICARE (M) PART A Dec 27, 2013 PART A [id number] LINH MERCEDES PATIENT MEDICARE (WNR) MEDICARE (M) PART B Dec 27, 2013 PART B [id number] LINH MERCEDES PATIENT Selected Encounter This section includes the information on record at [place] for the Encounter. Date/Time Encounter Type Encounter Description Reason Provider Source Jun 09, 2024 10:15 AM OFFICE O/P EST LOW 20 MIN DERMATOLOGY ICD-10-CM L57.0 Actinic keratosis NELLIE SHOOK Luciano Encounter Template Text not used by [place] Assessments - Encounter Diagnoses This section includes the primary and secondary diagnoses documented for the Encounter. Date/Time Primary/Secondary Diagnosis Diagnosis Name Provider Source Jun 09, 2024 10:10 AM PRIMARY Actinic keratosis ROGERIOYAKOV [facility]YN[facility] Jun 09, 2024 10:10 AM SECONDARY Other melanin hyperpigmentation [facility] Jun 09, 2024 10:10 AM SECONDARY Other seborrheic dermatitis ROGERIOYAKOV LYN[facility] Jun 09, 2024 10:10 AM SECONDARY Other seborrheic keratosis [facility] Jun 09, 2024 10:10 AM SECONDARY Personal history of malignant melanoma of skin [facility] Jun 09, 2024 10:10 AM SECONDARY Personal history of other malignant neoplasm of [facility] Plan of Treatment: Future Appointments (+ 6 months) and Future Tests (+/- 45 days) The Plan of Treatment section includes future care activities for the patient from all [place] [facility]. This section includes future appointments and future orders which are active, pending or scheduled. Future Appointments This section includes appointments that were scheduled to occur 6 months from the date of the Encounter, up to a maximum of 20 appointments. The data comes from all [place] treatment facilities. Appointment Date/Time Appointment Type Appointme nt Facility Name Jul 07, 2024 11:00 AM AMBULATORY - REHAB MEDICIN [facility] Jul 15, 2024 10:00 AM AMBULATORY - NONE [facility] Aug 05, 2024 02:00 PM AMBULATORY - MEDICINE [facility] Aug 10, 2024 10:00 AM AMBULATORY - REHAB MEDICIN [facility] Aug 25, 2024 10:00 AM AMBULATORY - REHAB MEDICIN E [facility] Sep 08, 2024 10:15 AM [facility] Sep 29, 2024 10:00 AM [facility] Nov 10, 2024 10:00 AM AMBULATORY - [facility] MED[facility] E [facility] Active, Pending, and Scheduled Orders This section includes a listing of several types of active, pending, and scheduled orders, including clinic medications orders, diagnostic test orders, procedure orders and consult orders; where the start date of the order is 45 days before the date of the Encounter or 45 days after the date of theEncounter. The data comes from all [place] treatment facilities. Test Date/Time Test Type Test Details Facility Name Apr 29, 2024 12:00 AM Laboratory - Microbiology Order AFB CULTURE & SMEAR (STL) SPUTUM SP [facility] Lab Results: +/- 30 days of the encounter This section includes the Chemistry and Hematology Lab Results on record with [place] for the patient. Radiology Reports and Pathology Reports are provided separately, in subsequent sections. Lab Results This section contains the Chemistry/Hematology Results that were resulted 30 days before or 30 daysafter the date of the Encounter. Date/Time Source Result Type Result - Unit Interpretation Reference Range Comment Jul 07, 2024 11:24 AM [facility] GLUCOSE,BLOOD-poct (STL) Specimen Type: BLOOD Comment: Test Performed by: [id number] Meter #: [id number] Ordering Provider: ALLI CORNELIUS Report Released Date/Time: Jul 07, 2024 11:27 AM Reporting Lab: [facility] [id number] Performing Lab: [facility] [id number] GLUCOSE,BL OOD-poct (STL) 188 mg/dL H 72-99 Encounter Notes: All associated encounter notes This section contains the clinical notes associated to the Encounter. Date/Time Encounter Note(s) Provider Source Jun 09, 2024 09:51 AM DERMATOLOGY NOTE: LOCAL TITLE: DERMATOLOGY NOTE STANDARD TITLE: DERMATOLOGY NOTE DATE OF NOTE: JUN 09, 2024@09:51 ENTRY DATE: JUN 09, 2024@09:52:05 AUTHOR: YAKOV BERNABE COSIGNER: NELLIE SHOOK URGENCY: STATUS: COMPLETED DERMATOLOGY NOTE Has ADDENDA DERMATOLOGY NOTE TAN MERCEDES is a 74 year old WHITE MALE with a PMH significant for MM on left cheek (BD 0.8 mm) s/p surgical excision & negative SLNB 11/2022; BCC Forehead s/p EDC 10/2022; BCC, left distal calf s/p MOHS 02/2023; BCC, left proximal calf s/p EDC 02/2023 who presents for evaluation of bumps on forehead, cheeks and arms. Patient last seen in office 03/2023. Today: - Health has been alright - Scaly areas on the arms and ears Accompanied by daughter. Allergies: EGGS, SHELLFISH PE: General Appearance: Well-developed and well-nourished. No acute distress. Neuro/Psych: Alert and cooperative. Appropriate affect. Skin: bilateral helices, forehead, cheeks, nose, dorsal arms with diffuse pink scaly papules [place] erythematous plaques with platelike scale ears, forehead, nose, scalp Scattered homogenous jama/brown macules on trunk, extremities Scattered jama/brown stuck on appearing papules on face, trunk WHSS at previous NMSC sites WHSS Left cheek; no axillary, cervical, supraclavicular LAD OTHERWISE: Face: WNL Ears: WNL Scalp, Hair: WNL Neck: WNL Chest: WNL Abd: WNL Back: WNL Upper Extremities: WNL Lower Extremities: WNL Nails: WNL A/P: Actinic keratoses - Premalignant nature & risk of transformation to SCC reviewed. - Reviewed diagnosis and risk factors (sun exposure) - Treatment plan: - LN2 applied to x5 lesions on bilateral forearms, for 5-8 secs today; blister care reviewed - Start 5-fluorouracil (Efudex) 5% cream BID x2 weeks to bilateral forearms and face (forehead, temples, nose); SER including redness, irritation, and photosensitivity; - Counseled on and reviewed sun protection strategies and skin cancer warning signs Seborrheic Dermatitis - Reviewed anti-dandruff shampoo recommendations with patient - Start ketoconazole 2% shampoo to scalp, can use as body wash as well (lather and let it sit for 5 min before rinsing off); SER including irritation - Discussed washing hair more frequently and drying hair completely after showering - Discussed how this can be a chronic condition and how it may recur once stopping above treatment Multiple benign nevi Lentigines - Benign reassurance provided - Recommend sunscreen with SPF30 or greater and sun protective clothing. - Reviewed sun protection strategies and skin cancer warning signs - Continue monthly self-skin exams and regular MD skin exams History of BCC, left distal calf s/p MOHS 02/2023 History of BCC, left proximal calf s/p EDC 02/2023 - Surgical sites healing appropriately without signs of recurrence or infection - No new primaries today - Reviewed sun protection strategies and skin cancer warning signs - Recommend sunscreen with SPF30 or greater and sun protective clothing. - Continue monthly self-skin exams and regular MD skin exams History of malignant melanoma with epidermal ulceration present, left cheek (Provisional Breslow depth 0.8mm) s/p excision 11/2022 History of non-melanoma skin cancer - No evidence of recurrence or new primaries today - Reviewed sun protection strategies and skin cancer warning signs - Recommend sunscreen with SPF30 or greater and sun protective clothing. - Continue monthly self-skin exams and regular MD skin exams Return to clinic 3 months /aislinn Bernabe MD Resident Physician Signed: 06/09/2024 10:10 /judie/ NELLIE SHOOK MD DERMATOLOGY & DERMATOPATHOLOGY Cosigned: 06/09/2024 10:20 06/09/2024 ADDENDUM STATUS: COMPLETED Reviewed documented history and physical examination and agree with assessment and plan. I was immediately available during entire visit and procedures. /aislinn SHOOK MD DERMATOLOGY & DERMATOPATHOLOGY Signed: 06/09/2024 10:20 YAKOV BERNABE [facility]
--- OUTSIDE RECORDS SUMMARY | 2024-10-09 12:32 | XMS_ITS | Continuity of Care Document ---
Author Name [facility] Organization [facility] Care Team Providers Care Night Custodian Name Role Phone [facility] Unavailable Unavailable Problems Combined list of problems from Department of Defense and Veterans Affairs facilities. It does not include entries that were removed or entered in error. Problem Status Onset Date Problem Type Date of Resolution Comments Source Chronic obstructive lung disease Active Condition [facility] Critical lower limb ischaemia Active Condition Feb 11, 2024 Entered By: ALLI CORNELIUS Comment: Femoral arterypopliteal artery bypass graft right October 04, 2020Jul 2023 Entered By: ALLI CORNELIUS Comment: Lower extremity arterial duplex on June 19, 2023 at [facility]: Left ankle-brachial index and right ankle-brachial index is normal. Left common femoral artery to popliteal artery bypass is patent. [facility] Diabetes mellitus Active Condition [facility] Essential hypertension Active Condition [facility] Exposure to potentially hazardous substance Active Condition [facility] Hearing loss Active Condition [facility] Hypothyroidism Active Condition [facility] Impaired Fasting Glucose ([facility] [id number]) Active Condition [facility] Malignant melanoma of skin of face Active Condition [facility] Mixed hyperlipidemia Active Condition [facility] Nicotine dependence Active Condition [facility] Peripheral vascular disease Active Condition [facility] Vitamin D Deficiency (SCT [id number]) Active Condition [facility] Diagnosis: ICD-10-CM E78.2 Mixed hyperlipidemia Active Diagnosis [facility] Diagnosis: ICD-10-CM 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 [facility] Diagnosis: ICD-10-CM M25.552 Pain in left hip Active Diagnosis [facility] Diagnosis: ICD-10-CM R91.8 Other nonspecific abnormal finding of lung field Active Diagnosis [facility] Diagnosis: ICD-10-CM Z12.2 Encntr screen for malignant neoplasm of respiratory organs Active Diagnosis [facility] Diagnosis: ICD-10-CM I10 Essential (primary) hypertension Active Diagnosis [facility] Diagnosis: ICD-10-CM L57.0 Actinic keratosis Active Diagnosis [facility] Diagnosis: ICD-10-CM E11.9 Type 2 diabetes mellitus without complications Active Diagnosis [facility] Medications Combined list of outpatient medications from Department of Defense and [facility] Affairs facilities.Medications provided include 1) outpatient medications from the last 15 months, and 2) patient-reported medications. Medication Details Route Status Patient Instructions Prescription Expires Prescription Number Last Dispense Date Ordering Provider Order Date Order Qty Source ALBUTEROL SO4 90MCG/ACTUA T (CFC-F) INHL,ORAL,8 .5GM INHALE 1 PUFF ORAL INHALATI ON FOUR TIMES A DAY NEEDED FOR BREATHIN G. SHAKE WELL. RINSE MOUTHPIE CE FREQUENT LY TO PREVENT CLOGGING . RESPIR ATORY (INHAL ATION) ACTIVE 09/30/2025 [id number] 5 ISAIAS CORNELIUS 2024 2 [facility] ALBUTEROL SO4 90MCG/ACTUA T (CFC-F) INHL,ORAL,8 .5GM INHALE 1 PUFF ORAL INHALATI ON FOUR TIMES A DAY NEEDED FOR BREATHIN G. SHAKE WELL. RINSE MOUTHPIE CE FREQUENT LY TO PREVENT CLOGGING . RESPIR ATORY (INHAL ATION) DISCONT INUED 08/28/2024 [id number] ISAIAS CORNELIUS 2023 1 [facility] AMLODIPINE BESYLATE 10MG TAB TAKE ONE TABLET BY MOUTH ONCE A DAY FOR HIGH BLOOD PRESSURE ORAL ACTIVE 02/11/2025 [id number] 4 ISAIAS CORNELIUS 2023 90 [facility] AMLODIPINE BESYLATE 10MG TAB TAKE ONE TABLET BY MOUTH ONCE A DAY FOR HIGH BLOOD PRESSURE ORAL DISCONT INUED 08/27/2024 [id number] 4 ELOISE ROJAS 2023 90 [facility] ASPIRIN 81MG TAB,EC TAKE ONE TABLET BY MOUTH ONCE A DAY FOR CARDIOVA SCULAR DISEASE TAKE WITH FOOD. ORAL ACTIVE 02/11/2025 [id number] 4 ISAIAS CORNELIUS AMAN 2023 120 [facility] ASPIRIN 81MG TAB,EC TAKE ONE TABLET BY MOUTH ONCE A DAY FOR CARDIOVA SCULAR DISEASE TAKE WITH FOOD. ORAL DISCONT INUED 08/27/2024 [id number] ELOISE ROJAS 2023 120 [facility] CHLORTHALID ONE 25MG TAB TAKE ONE-HALF TABLET BY MOUTH ONCE A DAY ORAL ACTIVE 07/08/2025 [id number] ELOISE ROJAS 2023 45 [facility] CHOLECALCIF MEMO 50MCG (2,000UNIT) TAB TAKE ONE TABLET BY MOUTH ONCE A DAY FOR VITAMIN D DEFICIEN CY ORAL ACTIVE 02/11/2025 [id number] 4 ISAIAS CORNELIUS AMAN 2023 100 [facility] CHOLECALCIF MEMO 50MCG (2,000UNIT) TAB TAKE ONE TABLET BY MOUTH ONCE A DAY FOR VITAMIN D DEFICIEN CY ORAL DISCONT INUED 08/27/2024 [id number] ELOISE ROJAS 2023 100 [facility] CYANOCOBALA MIN 500MCG TAB TAKE ONE TABLET BY MOUTH ONCE A DAY FOR B12 SUPPLEME NTATION ORAL DISCONT INUED 09/27/2023 [id number] Noe GOODE 2022 100 [facility] CYANOCOBALA MIN 500MCG TAB TAKE ONE TABLET BY MOUTH ONCE A DAY FOR B12 SUPPLEME NTATION ORAL 10/08/2024 [id number] 4 ELOISE ROJAS 2023 100 [facility] EMPAGLIFLOZ IN 25MG TAB TAKE ONE TABLET BY MOUTH ONCE A DAY FOR DIABETES ORAL ACTIVE 08/26/2025 [id number] 5 ELOISE ROJAS R 2024 90 [facility] EMPAGLIFLOZ IN 25MG TAB TAKE ONE-HALF TABLET BY MOUTH ONCE A DAY FOR DIABETES ORAL DISCONT INUED (EDIT) 02/11/2025 [id number] 4 ISAIAS CORNELIUS 2023 45 [facility] EMPAGLIFLOZ IN 25MG TAB TAKE ONE-HALF TABLET BY MOUTH ONCE A DAY FOR DIABETES ORAL DISCONT INUED 08/27/2024 [id number] ELOISE ROJAS R 2023 45 [facility] FENOFIBRATE 145MG TAB TAKE ONE TABLET BY MOUTH ONCE A DAY FOR HIGH TRIGLYCE RIDES - TAKE WITH FOOD ORAL ACTIVE 09/30/2025 [id number] 5 [facility] 90 [facility] FENOFIBRATE 145MG TAB TAKE ONE TABLET BY MOUTH ONCE A DAY FOR HIGH TRIGLYCE RIDES - TAKE WITH FOOD ORAL DISCONT INUED 08/30/2024 [id number] GREGORY CASTILLO 2023 90 [facility] FINASTERIDE 5MG TAB TAKE ONE TABLET BY MOUTH ONCE A DAY FOR BENIGN PROSTATI C HYPERPLA JAMEY SWALLOW WHOLE, DO NOT CRUSH, SPLIT, OR CHEW. ORAL ACTIVE 09/30/2025 [id number] 5 ISAIAS CORNELIUS 2024 90 [facility] FINASTERIDE 5MG TAB TAKE ONE TABLET BY MOUTH ONCE A DAY FOR BENIGN PROSTATI C HYPERPLA JAMEY SWALLOW WHOLE, DO NOT CRUSH, SPLIT, OR CHEW. ORAL DISCONT INUED 08/28/2024 [id number] 4 ISAIAS CORNELIUS 2023 90 [facility] FLUOROURACI L 5% CREAM,TOP APPLY THIN FILM TO AFFECTED AREA(S) TWICE A DAY FOR FOREARMS AND FACE AVOID SUN EXPOSURE . FOLLOW DIRECTIO NS CAREFULL Y FOR PROPER HANDLING /DISPOSA L.USE FOR 10 DAYS AT A TIME TOPICA L ACTIVE 06/10/2025 [id number] 4 YASSINE BEATTY NCAsael U 2023 40 [facility] FLUTICASONE 250MCG/SALM ETEROL 50MCG INHL,ORAL,D ISKUS,60 INHALE 1 INHALATI ON BY ORAL INHALATI ON TWICE A DAY (OPEN DISKUS; CLICK ONLY ONCE; MAY INHALE TWICE TO COMPLETE DOSE; CLOSE WHEN FINISHED ) RINSE MOUTH AND SPIT AFTER EACH USE. RESPIR ATORY (INHAL ATION) ACTIVE 09/30/2025 [id number] 5 ADRYANHOODROJAS 2024 1 [facility] FLUTICASONE 250MCG/SALM ETEROL 50MCG INHL,ORAL,D ISKUS,60 INHALE 1 INHALATI ON BY ORAL INHALATI ON TWICE A DAY FOR COPD (OPEN DISKUS; CLICK ONLY ONCE; MAY INHALE TWICE TO COMPLETE DOSE; CLOSE WHEN FINISHED ) RINSE MOUTH AND SPIT AFTER EACH USE. RESPIR ATORY (INHAL ATION) DISCONT INUED 04/30/2025 [id number] GABBY MORRIS ICENT L 2023 1 [facility] HYDROPHILIC (EQV EUCERIN) CREAM,TOP APPLY LIBERALL Y TO AFFECTED AREA(S) ONCE A DAY NEEDED FOR DRY SKIN (EXTERNA L USE ONLY) TOPICA L 08/15/2024 [id number] 4 ADRYANHOODROJAS 2023 454 [facility] ICOSAPENT ETHYL 1GM CAP TAKE TWO CAPSULES BY MOUTH TWICE A DAY WITH MEALS FOR HIGH TRIGLYCE RIDES ORAL ACTIVE 09/30/2025 [id number] 5 ELOISE ROJAS 2024 360 [facility] ICOSAPENT ETHYL 1GM CAP TAKE TWO CAPSULES BY MOUTH TWICE A DAY WITH MEALS FOR HIGH TRIGLYCE RIDES ORAL 08/28/2024 [id number] ELOISE ROJAS 2023 360 [facility] KETOCONAZOL E 2% SHAMPOO USE SHAMPOO TO AFFECTED AREA(S) ONCE A DAY (EXTERNA L USE ONLY) (SHAKE WELL) FOR HEAD AND NECK. LATHER FOR 3 MINUTES PRIOR TO RINSING TOPICA L ACTIVE 06/10/2025 [id number] 5 YASSINE BEATTY NCAsael U 2023 120 [facility] LEVOTHYROXI NE NA 25MCG TAB (SYNTHROID) TAKE ONE TABLET BY MOUTH EVERY MORNING BEFORE A MEAL FOR HYPOTHYR OIDISM TAKE 30 MINUTES BEFORE FOOD. TAKE SEPARATE LY FROM ALL OTHER MEDICATI ONS. ORAL ACTIVE 02/11/2025 [id number] 4 ISAIAS CORNELIUS 2023 90 [facility] LEVOTHYROXI NE NA 25MCG TAB (SYNTHROID) TAKE ONE TABLET BY MOUTH EVERY MORNING BEFORE A MEAL FOR HYPOTHYR OIDISM TAKE 30 MINUTES BEFORE FOOD. TAKE SEPARATE LY FROM ALL OTHER MEDICATI ONS. ORAL DISCONT INUED 08/27/2024 [id number] ELOISE ROJAS 2023 90 [facility] LISINOPRIL 40MG TAB TAKE ONE TABLET BY MOUTH ONCE A DAY FOR HIGH BLOOD PRESSURE ORAL ACTIVE 09/30/2025 [id number] 5 ELOISE ROJAS 2024 90 [facility] LISINOPRIL 40MG TAB TAKE ONE TABLET BY MOUTH ONCE A DAY FOR HIGH BLOOD PRESSURE ORAL DISCONT INUED 04/21/2025 [id number] 4 ELOISE ROJAS 2023 90 [facility] LISINOPRIL 40MG TAB TAKE ONE-HALF TABLET BY MOUTH ONCE A DAY FOR HIGH BLOOD PRESSURE ORAL DISCONT INUED (EDIT) 02/11/2025 [id number] 4 ISAIAS CORNELIUS 2023 45 [facility] LISINOPRIL 40MG TAB TAKE ONE-HALF TABLET BY MOUTH ONCE A DAY FOR HIGH BLOOD PRESSURE ORAL DISCONT INUED 08/27/2024 [id number] ELOISE ROJAS 2023 45 [facility] METFORMIN HCL 1000MG TAB TAKE ONE TABLET BY MOUTH TWICE A DAY WITH MEALS FOR DIABETES TAKE WITH FOOD. AVOID ALCOHOL. DISCONTI NUE BEFORE GETTING XRAY DYE. ORAL SUSPEND ED 09/30/2025 [id number] 5 ELOISE ROJAS 2024 180 [facility] METFORMIN HCL 1000MG TAB TAKE ONE TABLET BY MOUTH TWICE A DAY WITH MEALS FOR DIABETES TAKE WITH FOOD. AVOID ALCOHOL. DISCONTI NUE BEFORE GETTING XRAY DYE. ORAL DISCONT INUED 02/10/2025 [id number] 5 ELOISE ROJAS 2023 180 [facility] METFORMIN HCL 1000MG TAB TAKE ONE-HALF TABLET BY MOUTH TWICE A DAY WITH MEALS FOR DIABETES TAKE WITH FOOD. AVOID ALCOHOL. DISCONTI NUE BEFORE GETTING XRAY DYE. ORAL DISCONT INUED (EDIT) 08/27/2024 [id number] 4 ELOISE ROJAS 2023 90 [facility] ROSUVASTATI N CA 40MG TAB TAKE ONE TABLET BY MOUTH EVERY EVENING FOR HIGH CHOLESTE ROL ORAL ACTIVE 02/11/2025 [id number] 4 ISAIAS CORNELIUS 2023 90 [facility] ROSUVASTATI N CA 40MG TAB TAKE ONE TABLET BY MOUTH EVERY EVENING FOR HIGH CHOLESTE ROL ORAL DISCONT INUED 08/27/2024 [id number] ELOISE ROJAS 2023 90 [facility] TIOTROPIUM 2.5MCG/ACTU AT INHL,ORAL,6 0D,4GM INHALE 2 INHALATI ONS ORAL INHALATI ON ONCE A DAY (ADMINIS TER AT SAME TIME EACH DAY) FOR BREATHIN G. RESPIR ATORY (INHAL ATION) ACTIVE 09/30/2025 [id number] 5 ISAIAS CORNELIUS 2024 3 [facility] TIOTROPIUM 2.5MCG/ACTU AT INHL,ORAL,6 0D,4GM INHALE 2 INHALATI ONS ORAL INHALATI ON ONCE A DAY (ADMINIS TER AT SAME TIME EACH DAY) FOR BREATHIN G. RESPIR ATORY (INHAL ATION) DISCONT INUED 08/28/2024 [id number] 4 ISAIAS CORNELIUS 2023 3 [facility] Allergies, Adverse Reactions, Alerts Combined list of allergies from Department of Defense and Veterans Affairs facilities. It does not include entries that were removed or entered in error. Substance Category Reaction Severity Reaction type Status Date Reported Comments Source EGGS Propensity to adverse reactions to substance (finding) Urticaria active 7 [facility] [place] Propensity to adverse reactions to food (finding) Urticaria active 3 [facility] Results Combined list of recent chemistry, hematology and other laboratory results from Department of Defense and Veterans Affairs, ranging from 15 months to all on record, depending upon the facility. Order Name Results Value Reference Range Date Interpretation Specimen Comments Source GLUCOSE, BLOOD-po ct (STL) GLUCOSE [MASS/VOLU ME] IN BLOOD BY AUTOMATED TEST STRIP 188 mg/dL 72 - 99 07/07 H Specimen Type: BLOOD Comment: Test Performed by: [id number] Meter #: [id number] Ordering Provider: JAIME CORNELIUS Report Released Date/Time: Jul 07, 2024 11:27 AM Reporting Lab: [facility] [address] [facility] [phone] Performing Lab: [facility] [phone] [facility] HISTOPLA SMA AG URINE(ST L) HISTOPLASM A CAPSULATUM AG [PRESENCE] IN URINE NEGATIVE 04/29 Specimen Type: URINE No comment entered. Ordering Provider: MANDEEP MORRIS Report Released Date/Time: Apr 29, 2024 10:16 AM Reporting Lab: [facility] [address] [facility] [phone] Performing Lab: [facility] [address] [place] [address] [facility] ([facility]) ASPERGILLU S SP AB [TITER] IN SERUM BY COMPLEMENT FIXATION NEGATIVE 04/29 Specimen Type: SERUM Comment: Complement Fixation (CF) starting dilutions for serum specimens are 1:2 for C. immitis and 1:8 for all other antibodies. Starting dilutions for CSF are undiluted unless otherwise indicated. Immunodiffu bernardino (ID) Presence of precipitin bands is specific for previous or current infection. Complement fixation (CF) Serum titers =>1:16 are suggestive of systemic infection; titers 1:2 - 1:8 are possibly significant of localized disease for C. immitis. In CSF samples any titer is potentially significant . Latex Agglutinati on - Positive in early primary cocci infection. Anticomplem entary (AC): Result is indetermina te as there is a substance in the patient's specimen interfering with the reading of the test. Neg. at indicates that there is a low level, less than a significant CF titer, of anti-comple mentary activity in the patient's sample. The value reported is the lowest dilution showing no anti-comple mentary activity. Ordering Provider: MANDEEP MORRIS Report Released Date/Time: Apr 29, 2024 10:16 AM Reporting Lab: [facility] [address] [facility] [address] Performing Lab: [facility] [address] [facility] [address] [facility] ([facility]) ASPERGILLU S FUMIGATUS AB [PRESENCE] IN SERUM BY IMMUNE DIFFUSION (ID) NOTINDIC ATED 04/29 Specimen Type: SERUM Comment: Complement Fixation (CF) starting dilutions for serum specimens are 1:2 for C. immitis and 1:8 for all other antibodies. Starting dilutions for CSF are undiluted unless otherwise indicated. Immunodiffu bernardino (ID) Presence of precipitin bands is specific for previous or current infection. Complement fixation (CF) Serum titers =>1:16 are suggestive of systemic infection; titers 1:2 - 1:8 are possibly significant of localized disease for C. immitis. In CSF samples any titer is potentially significant . Latex Agglutinati on - Positive in early primary cocci infection. Anticomplem entary (AC): Result is indetermina te as there is a substance in the patient's specimen interfering with the reading of the test. Neg. at indicates that there is a low level, less than a significant CF titer, of anti-comple mentary activity in the patient's sample. The value reported is the lowest dilution showing no anti-comple mentary activity. Ordering Provider: MANDEEP MORRIS Report Released Date/Time: Apr 29, 2024 10:16 AM Reporting Lab: [facility] [address] [facility] [phone] Performing Lab: [facility] [address] [facility] [address] [facility] ([facility]) BLASTOMYCE S DERMATITID IS AB [TITER] IN SERUM BY COMPLEMENT FIXATION NEGATIVE 04/29 Specimen Type: SERUM Comment: Complement Fixation (CF) starting dilutions for serum specimens are 1:2 for C. immitis and 1:8 for all other antibodies. Starting dilutions for CSF are undiluted unless otherwise indicated. Immunodiffu bernardino (ID) Presence of precipitin bands is specific for previous or current infection. Complement fixation (CF) Serum titers =>1:16 are suggestive of systemic infection; titers 1:2 - 1:8 are possibly significant of localized disease for C. immitis. In CSF samples any titer is potentially significant . Latex Agglutinati on - Positive in early primary cocci infection. Anticomplem entary (AC): Result is indetermina te as there is a substance in the patient's specimen interfering with the reading of the test. Neg. at indicates that there is a low level, less than a significant CF titer, of anti-comple mentary activity in the patient's sample. The value reported is the lowest dilution showing no anti-comple mentary activity. Ordering Provider: MANDEEP MORRIS Report Released Date/Time: Apr 29, 2024 10:16 AM Reporting Lab: [facility] [address] [facility] [phone] Performing Lab: [facility] [address] [place], [place] [id number] [facility] ([facility]) BLASTOMYCE S DERMATITID IS AB [PRESENCE] IN SERUM BY IMMUNE DIFFUSION (ID) NOTINDIC ATED 04/29 Specimen Type: SERUM Comment: Complement Fixation (CF) starting dilutions for serum specimens are 1:2 for C. immitis and 1:8 for all other antibodies. Starting dilutions for CSF are undiluted unless otherwise indicated. Immunodiffu bernardino (ID) Presence of precipitin bands is specific for previous or current infection. Complement fixation (CF) Serum titers =>1:16 are suggestive of systemic infection; titers 1:2 - 1:8 are possibly significant of localized disease for C. immitis. In CSF samples any titer is potentially significant . Latex Agglutinati on - Positive in early primary cocci infection. Anticomplem entary (AC): Result is indetermina te as there is a substance in the patient's specimen interfering with the reading of the test. Neg. at indicates that there is a low level, less than a significant CF titer, of anti-comple mentary activity in the patient's sample. The value reported is the lowest dilution showing no anti-comple mentary activity. Ordering Provider: MANDEEP MORRIS Report Released Date/Time: Apr 29, 2024 10:16 AM Reporting Lab: [facility] [address] [facility] [address] Performing Lab: [facility] [address] [place] [phone] [facility] ([facility]) COCCIDIOID ES IMMITIS AB [TITER] IN SERUM BY COMPLEMENT FIXATION NEGATIVE 04/29 Specimen Type: SERUM Comment: Complement Fixation (CF) starting dilutions for serum specimens are 1:2 for C. immitis and 1:8 for all other antibodies. Starting dilutions for CSF are undiluted unless otherwise indicated. Immunodiffu bernardino (ID) Presence of precipitin bands is specific for previous or current infection. Complement fixation (CF) Serum titers =>1:16 are suggestive of systemic infection; titers 1:2 - 1:8 are possibly significant of localized disease for C. immitis. In CSF samples any titer is potentially significant . Latex Agglutinati on - Positive in early primary cocci infection. Anticomplem entary (AC): Result is indetermina te as there is a substance in the patient's specimen interfering with the reading of the test. Neg. at indicates that there is a low level, less than a significant CF titer, of anti-comple mentary activity in the patient's sample. The value reported is the lowest dilution showing no anti-comple mentary activity. Ordering Provider: MANDEEP MORRIS Report Released Date/Time: Apr 29, 2024 10:16 AM Reporting Lab: [facility] [address] [facility] [address] Performing Lab: [facility] [address] [facility] [phone] [facility] ([facility]) COCCIDIOID ES IMMITIS AB [PRESENCE] IN SERUM NOTINDIC ATED 04/29 Specimen Type: SERUM Comment: Complement Fixation (CF) starting dilutions for serum specimens are 1:2 for C. immitis and 1:8 for all other antibodies. Starting dilutions for CSF are undiluted unless otherwise indicated. Immunodiffu bernardino (ID) Presence of precipitin bands is specific for previous or current infection. Complement fixation (CF) Serum titers =>1:16 are suggestive of systemic infection; titers 1:2 - 1:8 are possibly significant of localized disease for C. immitis. In CSF samples any titer is potentially significant . Latex Agglutinati on - Positive in early primary cocci infection. Anticomplem entary (AC): Result is indetermina te as there is a substance in the patient's specimen interfering with the reading of the test. Neg. at indicates that there is a low level, less than a significant CF titer, of anti-comple mentary activity in the patient's sample. The value reported is the lowest dilution showing no anti-comple mentary activity. Ordering Provider: MANDEEP MORRIS Report Released Date/Time: Apr 29, 2024 10:16 AM Reporting Lab: [facility] [address] [facility] [phone] Performing Lab: [address] [address] [facility]) COCCIDIOID ES IMMITIS AB [PRESENCE] IN SERUM BY IMMUNE DIFFUSION (ID) NOTINDIC ATED 04/29 Specimen Type: SERUM Comment: Complement Fixation (CF) starting dilutions for serum specimens are 1:2 for C. immitis and 1:8 for all other antibodies. Starting dilutions for CSF are undiluted unless otherwise indicated. Immunodiffu bernardino (ID) Presence of precipitin bands is specific for previous or current infection. Complement fixation (CF) Serum titers =>1:16 are suggestive of systemic infection; titers 1:2 - 1:8 are possibly significant of localized disease for C. immitis. In CSF samples any titer is potentially significant . Latex Agglutinati on - Positive in early primary cocci infection. Anticomplem entary (AC): Result is indetermina te as there is a substance in the patient's specimen interfering with the reading of the test. Neg. at indicates that there is a low level, less than a significant CF titer, of anti-comple mentary activity in the patient's sample. The value reported is the lowest dilution showing no anti-comple mentary activity. Ordering Provider: MANDEEP MORRIS Report Released Date/Time: Apr 29, 2024 10:16 AM Reporting Lab: [facility] [address] [facility] [phone] Performing Lab: [address] [address] [facility]) HISTOPLASM A CAPSULATUM YEAST PHASE AB [TITER] IN SERUM BY COMPLEMENT FIXATION NEGATIVE 04/29 Specimen Type: SERUM Comment: Complement Fixation (CF) starting dilutions for serum specimens are 1:2 for C. immitis and 1:8 for all other antibodies. Starting dilutions for CSF are undiluted unless otherwise indicated. Immunodiffu bernardino (ID) Presence of precipitin bands is specific for previous or current infection. Complement fixation (CF) Serum titers =>1:16 are suggestive of systemic infection; titers 1:2 - 1:8 are possibly significant of localized disease for C. immitis. In CSF samples any titer is potentially significant . Latex Agglutinati on - Positive in early primary cocci infection. Anticomplem entary (AC): Result is indetermina te as there is a substance in the patient's specimen interfering with the reading of the test. Neg. at indicates that there is a low level, less than a significant CF titer, of anti-comple mentary activity in the patient's sample. The value reported is the lowest dilution showing no anti-comple mentary activity. Ordering Provider: MANDEEP MORRIS Report Released Date/Time: Apr 29, 2024 10:16 AM Reporting Lab: [facility] [address] [facility] [phone] Performing Lab: [facility] [address] [facility] [address] [facility] ([facility]) HISTOPLASM A CAPSULATUM MYCELIAL PHASE AB [TITER] IN SERUM BY COMPLEMENT FIXATION NEGATIVE 04/29 Specimen Type: SERUM Comment: Complement Fixation (CF) starting dilutions for serum specimens are 1:2 for C. immitis and 1:8 for all other antibodies. Starting dilutions for CSF are undiluted unless otherwise indicated. Immunodiffu bernardino (ID) Presence of precipitin bands is specific for previous or current infection. Complement fixation (CF) Serum titers =>1:16 are suggestive of systemic infection; titers 1:2 - 1:8 are possibly significant of localized disease for C. immitis. In CSF samples any titer is potentially significant . Latex Agglutinati on - Positive in early primary cocci infection. Anticomplem entary (AC): Result is indetermina te as there is a substance in the patient's specimen interfering with the reading of the test. Neg. at indicates that there is a low level, less than a significant CF titer, of anti-comple mentary activity in the patient's sample. The value reported is the lowest dilution showing no anti-comple mentary activity. Ordering Provider: MANDEEP MORRIS Report Released Date/Time: Apr 29, 2024 10:16 AM Reporting Lab: [facility] [address] [place] [phone] Performing Lab: [facility] [address] [place] [id number] [place] [address] [facility] [employer] ([facility]) HISTOPLASM A CAPSULATUM AB [PRESENCE] IN SERUM BY IMMUNE DIFFUSION (ID) NEGATIVE 04/29 Specimen Type: SERUM Comment: Complement Fixation (CF) starting dilutions for serum specimens are 1:2 for C. immitis and 1:8 for all other antibodies. Starting dilutions for CSF are undiluted unless otherwise indicated. Immunodiffu bernardino (ID) Presence of precipitin bands is specific for previous or current infection. Complement fixation (CF) Serum titers =>1:16 are suggestive of systemic infection; titers 1:2 - 1:8 are possibly significant of localized disease for C. immitis. In CSF samples any titer is potentially significant . Latex Agglutinati on - Positive in early primary cocci infection. Anticomplem entary (AC): Result is indetermina te as there is a substance in the patient's specimen interfering with the reading of the test. Neg. at indicates that there is a low level, less than a significant CF titer, of anti-comple mentary activity in the patient's sample. The value reported is the lowest dilution showing no anti-comple mentary activity. Ordering Provider: MANDEEP MORRIS Report Released Date/Time: Apr 29, 2024 10:16 AM Reporting Lab: [address] [address] Performing Lab: [address] [address] [facility] QUANTIFE LOVELY-TB,4 TUBE MYCOBACTER IUM TUBERCULOS IS STIMULATED GAMMA INTERFERON RELEASE BY CD4+ T-CELLS [UNITS/VOL UME] IN BLOOD 0.03 [IU]/mL 04/29 Specimen Type: BLOOD Comment: Negative test result. M. tuberculosi s complex infection unlikely. The Nil tube value reflects the background interferon gamma immune response of the patient's blood sample. This value has been subtracted from the patient's displayed TB and Mitogen results. Lower than expected results with the Mitogen tube prevent false-negat tee Quantiferon readings by detect- ing a patient with a potential immune suppressive condition and/or suboptimal pre-analyti toni specimen handling. The TB1 Antigen tube is coated with the M. tuberculosi s-specific antigens designed to elicit responses from TB antigen primed CD4+ helper T-lymphocyt es. The TB2 Antigen tube is coated with the M. tuberculosi s-specific antigens designed to elicit responses from TB antigen primed CD4+ helper and CD8+ cytotoxic T-lymphocyt es. For additional information , please refer to [email or web address] ation.[employer] .com/faq/FA Q204 (This link is being provided for information / educational purposes only.) Test Performed by [employer] [place], [employer] [facility], [address] [place] [address] Denny Llamas M.D., Ph.D., Director of Laboratorie s , CLIA [id number] Ordering Provider: MANDEEP MORRIS Report Released Date/Time: Apr 29, 2024 10:16 AM Reporting Lab: [facility] [address] [facility] [phone] Performing Lab: [facility] [address] [place] [address] [facility] QUANTIFE LOVELY-TB,4 TUBE MYCOBACTER IUM TUBERCULOS IS TUBERCULIN STIMULATED GAMMA INTERFERON /MITOGEN STIMULATED GAMMA INTERFERON [UNITS/VOL UME] IN CONTROL BLOOD 9.69 [IU]/mL 04/29 Specimen Type: BLOOD Comment: Negative test result. M. tuberculosi s complex infection unlikely. The Nil tube value reflects the background interferon gamma immune response of the patient's blood sample. This value has been subtracted from the patient's displayed TB and Mitogen results. Lower than expected results with the Mitogen tube prevent false-negat tee Quantiferon readings by detect- ing a patient with a potential immune suppressive condition and/or suboptimal pre-analyti toni specimen handling. The TB1 Antigen tube is coated with the M. tuberculosi s-specific antigens designed to elicit responses from TB antigen primed CD4+ helper T-lymphocyt es. The TB2 Antigen tube is coated with the M. tuberculosi s-specific antigens designed to elicit responses from TB antigen primed CD4+ helper and CD8+ cytotoxic T-lymphocyt es. For additional information , please refer to http://[email or web address].M[employer]/faq/FA Q204 (This link is being provided for information / educational purposes only.) Test Performed by [employer], [employer] [facility], [address] [place] [address] Denny Llamas M.D., Ph.D., Director of Laboratorie s , [place] [id number] Ordering Provider: MANDEEP MORRIS Report Released Date/Time: Apr 29, 2024 10:16 AM Reporting Lab: [facility] [address] [facility] [phone] Performing Lab: [facility] [address] [place] [address] [facility] QUANTIFE LOVELY-TB,4 TUBE MYCOBACTER IUM TUBERCULOS IS STIMULATED GAMMA INTERFERON RELEASE BY CD4+ AND CD8+ T-CELLS [UNITS/VOL UME] CORRECTED FOR BACKGROUND IN BLOOD NEGATIVE 04/29 Specimen Type: BLOOD Comment: Negative test result. M. tuberculosi s complex infection unlikely. The Nil tube value reflects the background interferon gamma immune response of the patient's blood sample. This value has been subtracted from the patient's displayed TB and Mitogen results. Lower than expected results with the Mitogen tube prevent false-negat tee Quantiferon readings by detect- ing a patient with a potential immune suppressive condition and/or suboptimal pre-analyti toni specimen handling. The TB1 Antigen tube is coated with the M. tuberculosi s-specific antigens designed to elicit responses from TB antigen primed CD4+ helper T-lymphocyt es. The TB2 Antigen tube is coated with the M. tuberculosi s-specific antigens designed to elicit responses from TB antigen primed CD4+ helper and CD8+ cytotoxic T-lymphocyt es. For additional information , please refer to http://educ Sixteen [employer] Design/faq/FA Q204 (This link is being provided for information / educational purposes only.) Test Performed by [employer], [address] [place] [address] Denny Llamas M.D., Ph.D., Director of Laboratorie s , CLIA [id number] Ordering Provider: MANDEEP MORRIS Report Released Date/Time: Apr 29, 2024 10:16 AM Reporting Lab: [facility] [address] [place] [phone] Performing Lab: [facility] [address] [place] [address] [facility] QUANTIFE LOVELY-TB,4 TUBE MYCOBACTER IUM TUBERCULOS IS STIMULATED GAMMA INTERFERON RELEASE BY CD4+ T-CELLS [UNITS/VOL UME] CORRECTED FOR BACKGROUND IN BLOOD <0.00[IU ]/mL 04/29 Specimen Type: BLOOD Comment: Negative test result. M. tuberculosi s complex infection unlikely. The Nil tube value reflects the background interferon gamma immune response of the patient's blood sample. This value has been subtracted from the patient's displayed TB and Mitogen results. Lower than expected results with the Mitogen tube prevent false-negat tee Quantiferon readings by detect- ing a patient with a potential immune suppressive condition and/or suboptimal pre-analyti toni specimen handling. The TB1 Antigen tube is coated with the M. tuberculosi s-specific antigens designed to elicit responses from TB antigen primed CD4+ helper T-lymphocyt es. The TB2 Antigen tube is coated with the M. tuberculosi s-specific antigens designed to elicit responses from TB antigen primed CD4+ helper and CD8+ cytotoxic T-lymphocyt es. For additional information , please refer to http://educ ation.[employer] .com/faq/FA Q204 (This link is being provided for information / educational purposes only.) Test Performed by [employer], [employer] [facility], [address] [place] [address] Denny Llamas M.D., Ph.D., Director of Laboratorie s , CLIA [id number] Ordering Provider: MANDEEP MORRIS Report Released Date/Time: Apr 29, 2024 10:16 AM Reporting Lab: [facility] [address] [place] [phone] Performing Lab: [facility] [id number] [place] [address] [facility] QUANTIFE LOVELY-TB,4 TUBE MYCOBACTER IUM TUBERCULOS IS STIMULATED GAMMA INTERFERON RELEASE BY CD4+ AND CD8+ T-CELLS [UNITS/VOL UME] CORRECTED FOR BACKGROUND IN BLOOD 0.00 [IU]/mL 04/29 Specimen Type: BLOOD Comment: Negative test result. M. tuberculosi s complex infection unlikely. The Nil tube value reflects the background interferon gamma immune response of the patient's blood sample. This value has been subtracted from the patient's displayed TB and Mitogen results. Lower than expected results with the Mitogen tube prevent false-negat tee Quantiferon readings by detect- ing a patient with a potential immune suppressive condition and/or suboptimal pre-analyti toni specimen handling. The TB1 Antigen tube is coated with the M. tuberculosi s-specific antigens designed to elicit responses from TB antigen primed CD4+ helper T-lymphocyt es. The TB2 Antigen tube is coated with the M. tuberculosi s-specific antigens designed to elicit responses from TB antigen primed CD4+ helper and CD8+ cytotoxic T-lymphocyt es. For additional information , please refer to http://educ ation.[employer] .com/faq/FA Q204 (This link is being provided for information / educational purposes only.) Test Performed by [employer], [employer] [facility], [address] [place] [address] Denny Llamas M.D., Ph.D., Director of Laboratorie s , [place] [id number] Ordering Provider: MANDEEP MORRIS Report Released Date/Time: Apr 29, 2024 10:16 AM Reporting Lab: [facility] [address] [facility] [address] Performing Lab: [facility] [id number] [place] [address] [facility] HGA1C HEMOGLOBIN A1C/HEMOGL OBIN.TOTAL IN BLOOD 7.5 4.0 - 6.0 04/29 H Specimen Type: BLOOD No comment entered. Ordering Provider: Asael ROJAS Report Released Date/Time: Apr 20, 2024 11:38 AM Reporting Lab: [address] [address] Performing Lab: [address] [address] [facility] BASIC METABOLI C PANEL CREATININE [MASS/VOLU ME] IN SERUM OR PLASMA 0.79 mg/dL 0.7 - 1.3 04/29 Specimen Type: PLASMA Comment: LDL calculation invalid when Triglycerid e exceeds 250 mg/dl Ordering Provider: Asael ROJAS Report Released Date/Time: Apr 20, 2024 11:38 AM Reporting Lab: [address] [address] Performing Lab: [address] [address] [facility] BASIC METABOLI C PANEL UREA NITROGEN [MASS/VOLU ME] IN SERUM OR PLASMA 11.3 mg/dL 9.0 - 25.0 04/29 Specimen Type: PLASMA Comment: LDL calculation invalid when Triglycerid e exceeds 250 mg/dl Ordering Provider: Asael ROJAS Report Released Date/Time: Apr 20, 2024 11:38 AM Reporting Lab: [address] [address] Performing Lab: [address] [address] [facility] BASIC METABOLI C PANEL GLUCOSE [MASS/VOLU ME] IN SERUM OR PLASMA 118 mg/dL 72 - 99 04/29 H Specimen Type: PLASMA Comment: LDL calculation invalid when Triglycerid e exceeds 250 mg/dl Ordering Provider: Asael ROJAS Report Released Date/Time: Apr 20, 2024 11:38 AM Reporting Lab: [address] [address] Performing Lab: [address] [address] [facility] BASIC METABOLI C PANEL SODIUM [MOLES/VOL UME] IN SERUM OR PLASMA 139 meq/L 136 - 145 04/29 Specimen Type: PLASMA Comment: LDL calculation invalid when Triglycerid e exceeds 250 mg/dl Ordering Provider: Asael ROJAS Report Released Date/Time: Apr 20, 2024 11:38 AM Reporting Lab: [address] [address] Performing Lab: [address] [address] [facility] BASIC METABOLI C PANEL POTASSIUM [MOLES/VOL UME] IN SERUM OR PLASMA 3.9 meq/L 3.5 - 5 04/29 Specimen Type: PLASMA Comment: LDL calculation invalid when Triglycerid e exceeds 250 mg/dl Ordering Provider: Asael ROJAS Report Released Date/Time: Apr 20, 2024 11:38 AM Reporting Lab: [address] [address] Performing Lab: [address] [address] [facility] BASIC METABOLI C PANEL CHLORIDE [MOLES/VOL UME] IN SERUM OR PLASMA 107 meq/L 98 - 107 04/29 Specimen Type: PLASMA Comment: LDL calculation invalid when Triglycerid e exceeds 250 mg/dl Ordering Provider: Asael ROJAS Report Released Date/Time: Apr 20, 2024 11:38 AM Reporting Lab: [address] [address] Performing Lab: [address] [address] [facility] BASIC METABOLI C PANEL CARBON DIOXIDE, TOTAL [MOLES/VOL UME] IN SERUM OR PLASMA 23 meq/L 22 - 31 04/29 Specimen Type: PLASMA Comment: LDL calculation invalid when Triglycerid e exceeds 250 mg/dl Ordering Provider: Asael ROJAS Report Released Date/Time: Apr 20, 2024 11:38 AM Reporting Lab: [address] [address] Performing Lab: [address] [address] [facility] BASIC METABOLI C PANEL CALCIUM [MASS/VOLU ME] IN SERUM OR PLASMA 10.0 mg/dL 8.4 - 10.4 04/29 Specimen Type: PLASMA Comment: LDL calculation invalid when Triglycerid e exceeds 250 mg/dl Ordering Provider: Asael ROJAS Report Released Date/Time: Apr 20, 2024 11:38 AM Reporting Lab: [address] [address] Performing Lab: [address] [address] [facility] BASIC METABOLI C PANEL GLOMERULAR FILTRATION RATE/1.73 SQ M.PREDICTE D [VOLUME RATE/AREA] IN SERUM, PLASMA OR BLOOD BY CREATININE -BASED FORMULA (CKD-EPI 2020) 92.1 60 04/29 Specimen Type: PLASMA Comment: LDL calculation invalid when Triglycerid e exceeds 250 mg/dl Ordering Provider: Asael ROJAS Report Released Date/Time: Apr 20, 2024 11:38 AM Reporting Lab: [address] [address] Performing Lab: [address] [address] [facility] VITAMIN D, 25-HYDRO XY 25-HYDROXY VITAMIN D3 [MASS/VOLU ME] IN SERUM OR PLASMA 63.9 ng/mL 30 - 96 04/29 Specimen Type: SERUM No comment entered. Ordering Provider: Asael ROJAS Report Released Date/Time: Apr 20, 2024 11:38 AM Reporting Lab: [address] [address] Performing Lab: [address] [address] [facility] LIPID PANEL (STL) CHOLESTERO L [MASS/VOLU ME] IN SERUM OR PLASMA 169 mg/dL 0 - 200 04/29 Specimen Type: PLASMA Comment: LDL calculation invalid when Triglycerid e exceeds 250 mg/dl Ordering Provider: Asael ROJAS R Report Released Date/Time: Apr 20, 2024 11:38 AM Reporting Lab: [address] [address] Performing Lab: [address] [address] [facility] LIPID PANEL (STL) TRIGLYCERI DE [MASS/VOLU ME] IN SERUM OR PLASMA 361 mg/dL 0 - 150 04/29 H Specimen Type: PLASMA Comment: LDL calculation invalid when Triglycerid e exceeds 250 mg/dl Ordering Provider: Asael ROJAS Report Released Date/Time: Apr 20, 2024 11:38 AM Reporting Lab: [address] [address] Performing Lab: [address] [address] [facility] LIPID PANEL (STL) CHOLESTERO L IN LDL [MASS/VOLU ME] IN SERUM OR PLASMA BY DIRECT ASSAY 60 mg/dL 100 04/29 L Specimen Type: PLASMA Comment: LDL calculation invalid when Triglycerid e exceeds 250 mg/dl Ordering Provider: Asael ROJAS Report Released Date/Time: Apr 20, 2024 11:38 AM Reporting Lab: [address] [address] Performing Lab: [address] [address] [facility] LIPID PANEL (STL) CHOLESTERO L IN LDL [MASS/VOLU ME] IN SERUM OR PLASMA BY CALCULATIO N commentm g/dL 04/29 Specimen Type: PLASMA Comment: LDL calculation invalid when Triglycerid e exceeds 250 mg/dl Ordering Provider: Asael ROJAS R Report Released Date/Time: Apr 20, 2024 11:38 AM Reporting Lab: [address] [address] Performing Lab: [address] [address] [facility] LIPID PANEL (STL) CHOLESTERO L IN HDL [MASS/VOLU ME] IN SERUM OR PLASMA 40 mg/dL 40 04/29 Specimen Type: PLASMA Comment: LDL calculation invalid when Triglycerid e exceeds 250 mg/dl Ordering Provider: Asael ROJAS Report Released Date/Time: Apr 20, 2024 11:38 AM Reporting Lab: [address] [address] Performing Lab: [address] [address] [facility] B12 COBALAMIN (VITAMIN B12) [MASS/VOLU ME] IN SERUM OR PLASMA 595 pg/mL 213 - 816 04/29 Specimen Type: SERUM No comment entered. Ordering Provider: Asael ROJAS Report Released Date/Time: Apr 20, 2024 11:38 AM Reporting Lab: [address] [address] Performing Lab: [address] [address] [facility] OCCULT BLOOD FIT X1 SCREEN HEMOGLOBIN .GASTROINT ESTINAL.LO WER [PRESENCE] IN STOOL BY IMMUNOASSA Y Negative 02/10 Specimen Type: FECES No comment entered. Ordering Provider: JAIME CORNELIUS Report Released Date/Time: Feb 11, 2024 10:54 AM Reporting Lab: [address] [address] Performing Lab: [address] [address] [facility] Vital Signs Combined list of inpatient and outpatient Vital Signs from Department of Defense and Veterans Affairs, ranging from 12 months to all on record, depending upon the facility. Vital Sign Value Date Comments Source SYSTOLIC BLOOD PRESSURE 118 09/29/2024 10:19:38 [facility] DIASTOLIC BLOOD PRESSURE 74 09/29/2024 10:19:38 [facility] PULSE 104 09/29/2024 10:19:38 [facility] SYSTOLIC BLOOD PRESSURE 174 08/10/2024 09:58:29 [facility] DIASTOLIC BLOOD PRESSURE 85 08/10/2024 09:58:29 [facility] PULSE OXIMETRY 95 08/10/2024 09:58:29 [facility] WEIGHT 199.9 08/10/2024 09:58:29 [facility] BMI 27 kg/m2 08/10/2024 09:58:29 [facility] PAIN 10 08/10/2024 09:58:29 [facility] TEMPERATURE 98.2 08/10/2024 09:58:29 [facility] PULSE 83 08/10/2024 09:58:29 [facility] RESPIRATION 16 08/10/2024 09:58:29 [facility] SYSTOLIC BLOOD PRESSURE 159 08/05/2024 13:26:57 [facility] DIASTOLIC BLOOD PRESSURE 76 08/05/2024 13:26:57 [facility] PULSE OXIMETRY 95 08/05/2024 13:26:57 [facility] WEIGHT 198.4 08/05/2024 13:26:57 [facility] BMI 27 kg/m2 08/05/2024 13:26:57 [facility] PAIN 0 08/05/2024 13:26:57 [facility] TEMPERATURE 98.2 08/05/2024 13:26:57 [facility] PULSE 96 08/05/2024 13:26:57 [facility] RESPIRATION 18 08/05/2024 13:26:57 [facility] SYSTOLIC BLOOD PRESSURE 153 07/07/2024 11:23:47 [facility] DIASTOLIC BLOOD PRESSURE 78 07/07/2024 11:23:47 [facility] PULSE 81 07/07/2024 11:23:47 [facility] SYSTOLIC BLOOD PRESSURE 148 05/26/2024 10:23:00 [facility] DIASTOLIC BLOOD PRESSURE 76 05/26/2024 10:23:00 [facility] Encounters Combined list of: 1) Encounters from Department of [facility] Affairs facilities going backup to the last 18 months, not all [facility] inpatient encounters are included; 2) Encounters from the Department of [facility] facilities going backup to 280 months. Location Location Details Encounter Type Encounter Number Reason For Visit Attending Provider ADM Date DC Date Status Disposition Source [facility] Outpatient Encounter [id number] 04/11 [facility] Outpatient Encounter [id number] 04/29 [facility] Outpatient Encounter [id number] 06/19 [facility] Outpatient Encounter [id number] SHAKA JACKSONENIA A 08/06 [facility] OFFICE O/P [place] 60 MIN [id number] Diagnos is: ICD-10- CM I10 Essenti al (primar y) hyperte nsQUOC Spicer ICK 08/15 [facility] Outpatient Encounter [id number] 08/16 [facility] Outpatient Encounter [id number] BENEDICT BRASWELL 08/16 [facility] Outpatient Encounter [id number] BRAIN REYNOSO 08/16 [facility] Outpatient Encounter [id number] 08/20 [facility] Outpatient Encounter [id number] 08/20 [facility] MTMS BY PHARM ADDL 15 MIN [id number] Diagnos is: ICD-10- CM 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 PABLOELOISE IVY 08/27 [facility] QNHP OL DIG ASSMT&MGMT 5-10 [id number] Diagnos is: ICD-10- CM E78.2 Mixed hyperli pidemia CARROLLKIRSTEN GARDINER 08/28 [facility] OFF/OP CNSLTJ NEW/EST MOD 40 [id number] Diagnos is: ICD-10- CM Z12.2 Encntr screen for maligna nt neoplas m of respira tory organs DEBBIELMADELIA Gupta Y 09/05 [facility] OFF/OP EST MAY X REQ PHY/QHP [id number] Diagnos is: ICD-10- CM 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 Wisam MALIN A 09/10 [facility] MTMS BY PHARM ADDL 15 MIN [id number] Diagnos is: ICD-10- CM 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 ELOISE ROJAS R 09/10 [facility] Outpatient Encounter [id number] [facility] [id number] Diagnos is: ICD-10- CM 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 ELOISE ROJAS R 10/07 [facility] Outpatient Encounter [id number] ELOISE ROJAS R 11/04 [facility] OFFICE O/P EST MOD 30 MIN [id number] Diagnos is: ICD-10- CM E11.9 Type 2 diabete s mellitu s without complic ations ANURAG DURON R 11/10 [facility] Outpatient Encounter [id number] JONH CARIAS 12/15 [facility] MTMS BY PHARM ADDL 15 MIN [id number] Diagnos is: ICD-10- CM 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 ELOISE ROJAS R 01/06 [facility] Outpatient Encounter [id number] SHAKA JACKSON A 01/30 [facility] MTMS BY PHARM ADDL 15 MIN [id number] Diagnos is: ICD-10- CM 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 ROSALINE ROJASIS R 02/09 [facility] OFFICE O/P EST HI 40 MIN [id number] Diagnos is: ICD-10- CM I10 Essenti al (primar y) hyperte nsjackie ADRYANQUOC ICK 02/[address] [facility] OFF/OP CNSLTJ NEW/EST LOW 30 [id number] Diagnos is: ICD-10- CM L57.0 Actinic keratos is Alicia CROWE 03/06 [facility] Outpatient Encounter [id number] Diagnos is: ICD-10- CM Z12.2 Encntr screen for maligna nt neoplas m of respira tory organs ADELIA EDEN Y 03/09 [facility] Outpatient Encounter [id number] 03/25 [facility] Outpatient Encounter [id number] Diagnos is: ICD-10- CM Z12.2 Encntr screen for maligna nt neoplas m of respira tory organs Chela DOUGLAS JR 03/25 [facility] Outpatient Encounter [id number] Diagnos is: ICD-10- CM R91.8 Other nonspec ific abnorma l finding of lung field Asael ROSE NDREA 03/25 [facility] MTFL BY PHARM ADDL 15 MIN [id number] Diagnos is: ICD-10- CM I10 Essenti al (primar y) hyperte ELOISE Jaimes R 04/20 [facility] OFF/OP CNSLTJ NEW/EST MOD 40 [id number] Diagnos is: ICD-10- CM R91.8 Other nonspec ific abnorma l finding of lung field CHANDU DENSON DT T 04/29 [facility] MTMS BY PHARM ADDL 15 MIN [id number] Diagnos is: ICD-10- CM I10 Essenti al (primar y) hyperte ELOISE Jaimes R 05/[address] [facility] OFFICE O/P EST LOW 20 MIN [id number] Diagnos is: ICD-10- CM L57.0 Actinic keratos is JOSE SHOOKA R 06/09 [facility] BY PHARM ADDL 15 MIN [id number] Diagnos is: ICD-10- CM I10 Essenti al (primar y) hyperte ELOISE Jaimes R 07/07 [facility] Outpatient Encounter [id number] 07/15 [facility] Outpatient Encounter [id number] Diagnos is: ICD-10- CM Z12.2 Encntr screen for maligna nt neoplas m of respira tory organs Chela DOUGLAS JR 07/20 [facility] Outpatient Encounter [id number] Diagnos is: ICD-10- CM Z12.2 Encntr screen for maligna nt neoplas m of respira tory organs ERNESTO WHEATLEY Erika 07/21 [facility] Outpatient Encounter [id number] SHAKA JACKSON RVENIA A 08/04 [facility] OFFICE O/P EST MOD 30 MIN [id number] Diagnos is: ICD-10- CM R91.8 Other nonspec ific abnorma l finding of lung field JANIYACHANDU DT T 08/05 [facility] OFFICE O/P EST HI 40 MIN [id number] Diagnos is: ICD-10- CM M25.552 Pain in left hip ADRYANHOODTIEN ICK 08/10 [facility] Outpatient Encounter [id number] 08/11 [facility] MTMS BY PHARM ADDL 15 MIN [id number] Diagnos is: ICD-10- CM 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 ELOISE ROJAS 08/25 [facility] Outpatient Encounter [id number] 09/08 [facility] MTMS BY PHARM ADDL 15 MIN [id number] Diagnos is: ICD-10- CM E11.59 Type 2 diabete s mellitu s with oth circula tory complic atELOISE Pina Ko 09/29 [facility] NQHP OL DIG ASSMT&MGMT 5-10 [id number] Diagnos is: ICD-10- CM E78.2 Mixed hyperli pidemia KIRSTEN HODGES 09/29 [facility] N Social History Combined list of available smoking, tobacco, and other social history from Department of Defense and Veterans Affairs facilities. Social History Type Response Date Comment Sourc e Tobacco smoking status NHIS VA-TOBACCO DOESNT USE WI 30 MIN WAKEUP 02/11/2024 [facility] History of tobacco use VA-TOBACCO USE 30 YEARS OR MORE 02/11/2024 [facility] History of tobacco use VA-TOBACCO DOESNT USE WI 30 MIN WAKEUP 09/26/2022 [facility] History of tobacco use VA-TOBACCO USER E VERY DAY 05/05/2021 [facility] History of tobacco use VA-TOBACCO USE CO UNSEL NO 02/04/2020 [facility] History of tobacco use TOBACCO USER OFFE RED MEDS 03/05/2018 [facility] History of tobacco use CURRENT TOBACCO USER 03/05/2017 [facility] Plan of Care List of future care activities from Department of [facility] Affairs facilities. Additional future care activities may be listed in the Assessment and Plan section. Date/Time Care Activity Care Activity Detail Facili ty 11/10/2024 AMBULATORY - REHAB MEDICINE AMBULATORY - REHAB MEDICINE [facility] 02/08/2025 AMBULATORY - REHAB MEDICINE AMBULATORY - REHAB MEDICINE [facility] 08/31/2024 Laboratory - [facility] Order LIPID PANEL (STL) GREEN LI/HEP BLD/PLAS PLASMA SP ONCE [facility] 09/29/2024 Laboratory - [facility] Order BASIC METABOLIC PANEL GREEN LI/HEP BLD/PLAS PLASMA SP [facility] 09/29/2024 Laboratory - [facility] Order MICRAL/CREAT PROFILE (STL) URINE YELLOW SP [facility] 09/29/2024 Laboratory - [facility] Order HGA1C BLOOD SP [facility] 09/29/2024 Laboratory - [facility] Order LIPID PANEL (STL) GREEN LI/HEP BLD/PLAS PLASMA SP ONCE [facility]
--- OUTSIDE RECORDS SUMMARY | 2024-10-09 12:32 | XMS_ITS | Clinical Summary ---
Author Organization [facility] Address [facility] [place] [address] Care Team Providers Care Assembler Clip On Sunglasses Name Role Phone Unavailable Primary Care Provider Unavailabl e Social History Tobacco Use Types Packs/Day Years Used Date Smoking Tobacco: Never Assessed Sex and Gender Information Value Date Recorded Sex Assigned at Not on file Legal Sex Male 6:27 PM CDT Gender Identity Not on file Sexual Orientation Not on file Plan of Treatment Health Maintenance Due Date Last Done Comments Hepatitis C 1966 DTaP, Tdap and Td Vaccines ( 1 - Tdap) 1967 Zoster Vaccines (1 of 2) 1998 Pneumococcal Vaccine: 65+ Ye ars (1 of 1 - PCV) 2013 RSV Immunization or 60+ Years (1 - 1-dose 75+ series) 2023 COVID-19 Vaccine ( - 2023-2 5 season) 2024 Influenza Adult (#1) 2024 Meningococcal B Vaccine Aged Out No l onger eligible based on patient's age to complete this topic Meningococcal Vaccine Aged Out No vanna stanley eligible based on patient's age to complete this topic RSV Immunizations Under 20 Months Aged Out No longer eligible based on patient's age to complete this topic
--- OUTSIDE RECORDS SUMMARY | 2024-10-09 12:32 | XMS_ITS | Encounter Summary ---
Author Name [facility] Organization [facility] Address [address] [place] [address] Care Team Providers Care Staff Air Defense Officer Name Role Phone ALLI CORNELIUS Primary Care [...] PART B Dec 27, 2013 PART B [id number] LINH MERCEDES PATIENT MEDICARE (WNR) MEDICARE (M) PART A Dec 27, 2013 PART A [id number] MERCEDESLINH COLLINS PATIENT MEDICARE (WNR) MEDICARE (M) PART A Dec 27, 2013 PART A [id number] MERCEDESLINH HTOMASLewis PATIENT MEDICARE (WNR) MEDICARE (M) PART B Dec 27, 2013 PART B [id number] LINH MERCEDES THOMASLewis PATIENT Selected Encounter This section includes the information on record at [place] for the Encounter. Date/Time Encounter Type Encounter Description Reason Pro vider Source IHE Encounter Template Text not used by [facility]
--- OUTSIDE RECORDS SUMMARY | 2024-10-09 12:32 | XMS_ITS | Encounter Summary ---
Author Name [facility] [place] [facility] [place] [facility] [place] [facility] [place] Address [address] [place] [address] Care Team Providers Care Senior Benefits Specialist Name Role Phone ALLI CORNELIUS Primary Care [...] PART A Dec 27, 2013 PART A [id number] LINH MERCEDES THOMASLewis PATIENT MEDICARE (WNR) MEDICARE (M) PART B Dec 27, 2013 PART B [id number] 33A LINH MERCEDES THOMASLewis PATIENT MEDICARE (WNR) MEDICARE (M) PART A Dec 27, 2013 PART A [id number] LINH MERCEDES THOMASLewis PATIENT MEDICARE (WNR) MEDICARE (M) PART B Dec 27, 2013 PART B [id number] LINH MERCEDES PATIENT Selected Encounter This section includes the information on record at [place] for the Encounter. Date/Time Encounter Type Encounter Description Reason Provider Source Apr 29, 2024 09:15 AM OFF/OP CNSLTJ NEW/EST MOD 40 PULMONARY/CHEST ICD-10-CM R91.8 Other nonspecific abnormal finding of lung field MIGUELITO PARKINSON IH Encounter Template Text not used by [place] Assessments - Encounter Diagnoses This section includes the primary and secondary diagnoses documented for the Encounter. Date/Time Primary/Secondary Diagnosis Diagnosis Name Provider Source Apr 29, 2024 05:09 PM PRIMARY Other nonspecific abnormal finding of lung field MIGUELITO PARKINSON Sara [facility] Apr 29, 2024 05:09 PM SECONDARY Chronic obstructive pulmonary disease, unspecified JANIYAMEGHAN GANNONSara Ruiz [facility] Apr 29, 2024 05:09 PM SECONDARY Nicotine dependence, cigarettes, [facility]complicated [facility] Plan of Treatment: Future Appointments (+ 6 months) and Future Tests (+/- 45 days) The Plan of Treatment section includes future care activities for the patient [facility] This section includes future appointments and future orders which are active, pending or scheduled. Future Appointments This section includes appointments that were scheduled to occur 6 months from the date of the Encounter, up to a maximum of 20 appointments. The data comes from all [place] treatment facilities. Appointment Date/Time Appointment Type Appointme nt Facility Name May 26, 2024 10:00 AM AMBULATORY - [facility] Jun 09, 2024 10:15 AM AMBULATORY - MEDICINE [facility] Jul 07, 2024 11:00 AM AMBULATORY - REHAB MEDICIN [facility] Jul 15, 2024 10:00 AM AMBULATORY - NONE [facility] Aug 05, 2024 02:00 PM AMBULATORY - MEDICINE [facility] Aug 10, 2024 10:00 AM [facility]ORY - [facility] Aug 25, 2024 10:00 AM AMBULATORY - REHAB MEDICIN [facility] Sep 08, 2024 10:15 AM AMBULATORY - MEDICINE [facility] Sep 29, 2024 10:00 AM AMBULATORY - REHAB MEDICIN [facility] Active, Pending, and Scheduled Orders This section includes a listing of several types of active, pending, and scheduled orders, including clinic medications orders, diagnostic test orders, procedure orders and consult orders; where the start date of the order is 45 days before the date of the Encounter or 45 days after the date of theEncounter. The data comes from all [place] treatment facilities. Test Date/Time Test Type Test Details Facility Name Apr 29, 2024 12:00 AM Laboratory - Microbiology Order AFB CULTURE & SMEAR (STL) SPUTUM SP [facility] Lab Results: +/- 30 days of the encounter This section includes the Chemistry and Hematology Lab Results on record with [place] for the patient. Radiology Reports and Pathology Reports are provided separately, in subsequent sections. Lab Results This section contains the Chemistry/Hematology Results that were resulted 30 days before or 30 daysafter the date of the Encounter. Date/Time Source Result Type Result - Unit Interpretation Reference Range Comment Apr 29, 2024 10:39 AM [facility] HISTOPLASMA AG URINE(STL) Specimen Type: URINE No comment entered. Ordering Provider: MIKE MORRIS Report Released Date/Time: Apr 29, 2024 10:16 AM Reporting Lab: [facility] [address] [facility] [address] Performing Lab: [facility] [address] [facility] [facility] [address] HISTOPLASMA AG URINE(STL) NEGATIVE Apr 29, 2024 10:32 AM [facility] FUNGAL GROUP (STL) Specimen Type: SERUM Comment: [...] 29, 2024 10:16 AM Reporting Lab: [facility] [address] [facility] [address] Performing Lab: [facility] [address] [facility] [address] ASPERGILLUS-C F NEGATIVE NEGATIVE ASPERGILLUS-I D NOTINDICATED NEGATIVE BLASTOMYCES-C F NEGATIVE NEGATIVE BLASTOMYCES-I D NOTINDICATED NEGATIVE COCC.IMMITIS- CF NEGATIVE NEGATIVE COCC.IMMITIS- LATEX NOTINDICATED NEGATIVE COCC.IMMITIS- ID NOTINDICATED NEGATIVE HISTO CAP.YEAST-CF NEGATIVE NEGATIVE HISTO MYCELIAL-CF NEGATIVE NEGATIVE HISTO CAPSULATION ID NEGATIVE NEGATIVE Apr 29, 2024 10:32 AM [facility] QUANTIFERON-TB,4 TUBE Specimen Type: BLOOD Comment: [...] additional information, please refer to http://education.Q uestDiagnostics.co m/faq/TEB669 (This link is being provided for information/ educational purposes only.) Test Performed by [facility] [employer] [facility], [address] [place] [address] Denny Llamas M.D., Ph.D., Director of Laboratories , CLIA [id number] Ordering Provider: MIKE MORRIS Report Released Date/Time: Apr 29, 2024 10:16 AM Reporting Lab: [address] [address] Performing Lab: [facility] [address] [facility] .NIL - QUANTIFERON 0.03 [IU]/mL .MITOGEN-NIL 9.69 [IU]/mL .QUANTIFERON NEGATIVE NEGATIVE .TB1-NIL <0.00 [IU]/mL .TB2-NIL 0.00 [IU]/mL Apr 29, 2024 10:32 AM [facility] HGA1C Specimen Type: BLOOD No comment entered. Ordering Provider: ELOISE ROJAS Report Released Date/Time: Apr 20, 2024 11:38 AM Reporting Lab: [address] [address] Performing Lab: [address] [address] HGA1C 7.5 H 4.0-6.0 Apr 29, 2024 10:32 AM [facility] BASIC METABOLIC PANEL Specimen Type: PLASMA Comment: LDL calculation invalid when Triglyceride exceeds 250 mg/dl Ordering Provider: ELOISE ROJAS Report Released Date/Time: Apr 20, 2024 11:38 AM Reporting Lab: [address] [address] Performing Lab: [address] [address] CREATININE 0.79 mg/dL 0.7-1.3 UREA NITROGEN 11.3 mg/dL 9.0-25.0 GLUCOSE 118 mg/dL H 72-99 SODIUM 139 meq/L 136-145 POTASSIUM 3.9 meq/L 3.5-5 CHLORIDE 107 meq/L 98-107 CARBON DIOXIDE 23 meq/L 22-31 CALCIUM 10.0 mg/dL 8.4-10.4 EGFR (CKD-EPI 2020) 92.1 >60 Apr 29, 2024 10:32 AM [facility] VITAMIN D, 25-HYDROXY Specimen Type: SERUM No comment entered. Ordering Provider: ELOISE ROJAS Report Released Date/Time: Apr 20, 2024 11:38 AM Reporting Lab: [facility] [address] [facility] [address] Performing Lab: [facility] [address] [place] [address] VITAMIN D, 25-HYDROXY 63.9 ng/mL 30-96 Apr 29, 2024 10:32 AM [facility] B12 Specimen Type: SERUM No comment entered. Ordering Provider: ELOISE ROJAS Report Released Date/Time: Apr 20, 2024 11:38 AM Reporting Lab: [place] [id number] [facility] [address] Performing Lab: [address] [address] B12 595 pg/mL 213-816 Apr 29, 2024 10:32 AM [facility] LIPID PANEL (STL) Specimen Type: PLASMA Comment: LDL calculation invalid when Triglyceride exceeds 250 mg/dl Ordering Provider: ELOISE ROJAS Report Released Date/Time: Apr 20, 2024 11:38 AM Reporting Lab: [facility] [address] [place] [phone] Performing Lab: [address] [address] CHOLESTEROL 169 mg/dL 0-200 TRIGLYCERIDE 361 mg/dL H 0-150 DIRECT LDL 60 mg/dL L >100 CALCULATED LDL comment mg/dL HDL(New) 40 mg/dL >40 Vital Signs: All taken on the encounter date This section contains inpatient and outpatient Vital Signs collected on the date of the Encounter. Date/Time Temperature Pulse Blood Pressure Respiratory Rate SP02 Pain Height Weight Body Mass Index Source Apr 29, 2024 08:48 AM 97.3 77 146/77 16 97 7 190.9 26 [facility] Social History: Smoking Status (Most current) and Tobacco Use (All prior to encounter date) This section includes the most current, and the historical, smoking and tobacco- related health factors from the [place] facility where the Encounter took place. Current Smoking Status This section includes the most current smoking, or tobacco-related health factor, from the [place] facility where the Encounter took place. 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 The data comes from the [facility] where the Encounter took place. 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 Date/Time Encounter Note(s) Provider Source Apr 29, 2024 09:17 AM PULMONARY CONSULT: LOCAL TITLE: PULMONARY OUTPATIENT CONSULT NOTE [facility] STANDARD TITLE: PULMONARY CONSULT DATE OF NOTE: APR 29, 2024@09:17 ENTRY DATE: APR 29, 2024@09:23:07 AUTHOR: MIKE MORRIS EXP COSIGNER: MIGUELITO PARKINSON URGENCY: STATUS: COMPLETED PULMONARY OUTPATIENT CONSULT NOTE [facility] Has [facility] HISTORY AND PHYSICAL CC: RUL nodular opacities HPI: Pt. is a 74 y/o WHITE MALE with PHM of HTN, HLD, COPD, and tobacco use who presents due to RUL nodular opacities seen on imaging. The patient has a histoy of tobacco use and has smoked for 55 years. He currently smokes 1/2 PPD, but previously smoked as much as 1.5 PPD. He has been undergoing LDCT for lung cancer screening. His last LDCT in 02/2024 noted multifocal nodular opacities in the RUL concerning for pneumonia that was new from prior. The patient states that he has had shortness of breath for 2-3 years. His breathing is worse in the morning. His current inhaler therapy includes Spiriva and albuterol PRN. He uses albuterol 1-2 times per day which helps his breathing. He has a chronic cough productive of green sputum. He is able to produce around 1 tablespoon of sputum per day. He denies hemoptysis. He was in the [employer] and had exposure to [place]. He was incarcerated from 5294-9600. He has no history of IV drug use. He denies recent travel. He has only lived in [place] or [place]. He is not immunocompromised. He has 2 pet dogs at home. He denies fevers, chills, night sweats, and weight loss. ROS: Review of systems is as per HPI and additionally notable for Constitutional: No fever, No weakness/ fatigue Cardiovascular: No chest pain, No palpitations Respiratory: + shortness of breath, + cough Genitourinary: No dysuria, No polyuria Neurology: No headache, No tremors Musculoskeletal: No joint pain, No back pain Skin: No rash, No itching Psychiatric: No anxiety, No depression 10-point ROS is otherwise negative. PMHx: Reviewed. Notable for Spiriva and albuterol. MEDS: Reviewed and notable as below. 1) Essential hypertension 2) Mixed hyperlipidemia 3) Nicotine dependence 4) Hearing loss 5) Vitamin D Deficiency ([facility] [id number]) 6) Impaired Fasting Glucose ([facility] [id number]) 7) Peripheral vascular disease 8) Critical lower limb ischaemia 9) Chronic obstructive lung disease 10) Diabetes mellitus 11) Malignant melanoma of skin of face 12) Hypothyroidism 13) Exposure to potentially hazardous substance Active Outpatient Medications (excluding Supplies): Issue Date Status Last Fill Active Outpatient Medications Refills Expiration 1) ALBUTEROL 90MCG (CFC-F) 200D ORAL INHL ACTIVE Issu:08-28-23 Qty: 1 for 50 days Sig: INHALE 1 PUFF Refills: 4 Last:04-20-24 ORAL INHALATION FOUR TIMES A DAY Expr:08-28-24 NEEDED FOR BREATHING. SHAKE WELL. RINSE MOUTHPIECE FREQUENTLY TO PREVENT CLOGGING. 2) AMLODIPINE BESYLATE 10MG TAB Qty: 90 ACTIVE Issu:02-11-24 for 90 days Sig: TAKE ONE TABLET BY Refills: 3 Last:05-01-24 MOUTH ONCE A DAY FOR HIGH BLOOD Expr:02-11-25 PRESSURE 3) ASPIRIN 81MG EC TAB Qty: 120 for 90 ACTIVE Issu:02-11-24 days Sig: TAKE ONE TABLET BY MOUTH Refills: 2 Last:05-01-24 ONCE A DAY FOR CARDIOVASCULAR DISEASE Expr:02-11-25 TAKE WITH FOOD. 4) CHOLECALCIF 50MCG (D3-2,000UNIT) TAB ACTIVE Issu:02-11-24 Qty: 100 for 90 days Sig: TAKE ONE Refills: 3 Last:05-01-24 TABLET BY MOUTH ONCE A DAY FOR VITAMIN Expr:02-11-25 D DEFICIENCY 5) CYANOCOBALAMIN 500MCG TAB Qty: 100 for ACTIVE Issu:10-08-23 90 days Sig: TAKE ONE TABLET BY MOUTH Refills: 2 Last:04-20-24 ONCE A DAY FOR B12 SUPPLEMENTATION Expr:10-08-24 6) EMPAGLIFLOZIN 25MG TAB Qty: 45 for 90 ACTIVE Issu:02-11-24 days Sig: TAKE ONE-HALF TABLET BY Refills: 1 Last:05-01-24 MOUTH ONCE A DAY FOR DIABETES Expr:02-11-25 7) FENOFIBRATE 145MG TAB Qty: 90 for 90 ACTIVE Issu:08-30-23 days Sig: TAKE ONE TABLET BY MOUTH Refills: 2 Last:04-20-24 ONCE A DAY FOR HIGH TRIGLYCERIDES - Expr:08-30-24 TAKE WITH FOOD 8) FINASTERIDE 5MG TAB Qty: 90 for 90 days ACTIVE Issu:08-28-23 Sig: TAKE ONE TABLET BY MOUTH ONCE A Refills: 2 Last:04-20-24 DAY FOR BENIGN PROSTATIC HYPERPLASIA Expr:08-28-24 SWALLOW WHOLE, DO NOT CRUSH, SPLIT, OR CHEW. 9) HYDROPHILIC (EQV EUCERIN) TOP CREAM ACTIVE Issu:08-15-23 Qty: 454 for 30 days Sig: APPLY Refills: 2 Last:01-07-24 LIBERALLY TO AFFECTED AREA(S) ONCE A Expr:08-15-24 DAY NEEDED FOR DRY SKIN (EXTERNAL USE ONLY) 10) ICOSAPENT ETHYL 1GM CAP Qty: 360 for 90 ACTIVE Issu:08-28-23 days Sig: TAKE TWO CAPSULES BY MOUTH Refills: 2 Last:04-20-24 TWICE A DAY WITH MEALS FOR HIGH Expr:08-28-24 TRIGLYCERIDES 11) LEVOTHYROXINE NA (SYNTHROID) 25MCG TAB ACTIVE Issu:02-11-24 Qty: 90 for 90 days Sig: TAKE ONE Refills: 3 Last:05-01-24 TABLET BY MOUTH EVERY MORNING BEFORE A Expr:02-11-25 MEAL FOR HYPOTHYROIDISM TAKE 30 MINUTES BEFORE FOOD. TAKE SEPARATELY FROM ALL OTHER MEDICATIONS. 12) LISINOPRIL 40MG TAB Qty: 90 for 90 days ACTIVE Issu:04-20-24 Sig: TAKE ONE TABLET BY MOUTH ONCE A Refills: 1 Last:04-20-24 DAY FOR HIGH BLOOD PRESSURE Expr:04-21-25 13) METFORMIN HCL 1000MG TAB Qty: 180 for ACTIVE Issu:02-10-24 90 days Sig: TAKE ONE TABLET BY MOUTH Refills: 1 Last:02-10-24 TWICE A DAY WITH MEALS FOR DIABETES Expr:02-10-25 TAKE WITH FOOD. AVOID ALCOHOL. DISCONTINUE BEFORE GETTING XRAY DYE. 14) ROSUVASTATIN CA 40MG TAB Qty: 90 for 90 ACTIVE Issu:02-11-24 days Sig: TAKE ONE TABLET BY MOUTH Refills: 1 Last:05-01-24 EVERY EVENING FOR HIGH CHOLESTEROL Expr:02-11-25 15) TIOTROPIUM 2.5MCG/ACTUAT 60D ORAL INHL ACTIVE Issu:08-28-23 Qty: 3 for 90 days Sig: INHALE 2 Refills: 1 Last:04-20-24 INHALATIONS ORAL INHALATION ONCE A DAY Expr:08-28-24 (ADMINISTER AT SAME TIME EACH DAY) FOR BREATHING. Start Date Active Non-VA Medications Refills Expiration 1) Non-VA ERGOCALCIF 1,250MCG ACTIVE (D2-50,000UNIT) CAP SiMCG BY MOUTH EVERY WEEK 16 Total Medications FHx: Non-contributory. SHx: Smoking- Smokes 1/2 PPD EtOH- Denies Drugs- Denies [employer] - [employer] Vitals-97.3 F [36.3 C] (04/29/2024 08:48)77 (04/29/2024 08:48)146/77 (04/29/2024 08:48)16 (04/29/2024 08:48) Measurement DT POx (L/MIN)(%) 04/29/2024 08:48 97 02/11/2024 09:53 95 08/15/2023 11:01 94 02/20/2023 10:11 93 General- NAD, well-nourished HEENT- MMM CV- RRR Lung- expiratory wheezing in all lung de oliveira Abd- non-tender Ext-no TRINA Skin-no rashes, nodules, or jaundice Psych-A&O x 3, normal mood 02/11/2024 12:00 LABS: Hgb HGB 15.3 g/dL 11/19/2022 10:49 Hct 45.5 % (11/19/22 10:49) MCV 89.9 fL (11/19/22 10:49) Plt PLT 193 10*3/uL 11/19/2022 10:49 Iron, TIBC No IRON & TIBC EO data found Derek No FERRITIN EO data found BUN 11.5 mg/dL (01/07/24 13:40) Cr CREATININE 0.83 mg/dL 01/07/2024 13:40 Alb ALBUMIN 4.7 g/dL 08/27/2023 13:57 Ca 9.9 mg/dL (01/07/24 13:40) TSH TSH 2.116 uIU/mL 08/27/2023 13:57 Vit D VITAMIN D, 25-HYDROXY 48.2 ng/mL 08/27/2023 13:57 ALT 34 U/L (08/27/23 13:57) AST 26 U/L (08/27/23 13:57) TB TOTAL BILIRUBIN 0.7 mg/dL 08/27/2023 13:57 AP ALKALINE PHOSPHATASE 57 U/L 08/27/2023 13:57 INR No INR EO data found IMAGING: No Impressions found Impression for US ABDOMEN AORTA (AAA), LIMITED, 03/19/22, case 354 No evidence of abdominal aortic aneurysm. No Impressions found Assessment/Plan: Pt. is a 74 y/o WHITE MALE with PHM of HTN, HLD, COPD, and tobacco use who presents due to RUL nodular opacities seen on imaging. The nodular opacities seen on the CT chest likely represent infectious etiology. The patient has risk factors for TB given incarceration history. He denies known worsening symptoms at the time of the prior CT. He is not immunocompromised. He has daily symptoms of shortness of breath with evidence of obstructive lung disease on last PFTs. 1. We will order a fungal panel, urine histo, and TB quantiferon given CT findings. 2. We will order an AFB sputum sample. 3. We will start the patient on Wixela in addition to current inhaler therapy of Spiriva and albuterol PRN. 4. We will repeat a CT chest in 2 months to re-assess RUL nodular opacities. 5. The patient will return to clinic in 3 months for follow-up. /judie/ MIKE MORRIS MD REGIONAL PRODUCTION MANAGER Signed: 04/29/2024 11:38 /judie/ Miguelito Parkinson MD Pulmonary and Critical Care Physician Cosigned: 04/29/2024 17:09 04/29/2024 ADDENDUM STATUS: COMPLETED Patient seen and examined with the fellow. I agree with the assessment and plan as documented above. /judie/ Miguelito Parkinson MD Pulmonary and Critical Care Physician Signed: 04/29/2024 17:10 MIKE MORRIS [facility]
--- OUTSIDE RECORDS SUMMARY | 2024-10-09 12:32 | XMS_ITS | Encounter Summary ---
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 Date/Time Encounter Type Encounter Description Reason Pro vider Source IHE Encounter Template Text not used by VA
--- OUTSIDE RECORDS SUMMARY | 2024-10-09 12:32 | XMS_ITS | Encounter Summary ---
Author Name [facility] [facility] Address [address] [place] [address] Care Team Providers Care Sap Grc Security Name Role Phone ALLI CORNELIUS Primary Care [...] PART A Dec 27, 2013 PART A [id number] LINH DONATO PATIENT MEDICARE (WNR) MEDICARE (M) PART B Dec 27, 2013 PART B [id number] 33A DONATOLINH COLLINS PATIENT MEDICARE (WNR) MEDICARE (M) PART A Dec 27, 2013 PART A [id number] DONATOLINH COLLINS PATIENT MEDICARE (WNR) MEDICARE (M) PART B Dec 27, 2013 PART B [id number] LINH DONATO THOMASLewis PATIENT Selected Encounter This section includes the information on record at [place] for the Encounter. Date/Time Encounter Type Encounter Description Reason Provider Source Mar 25, 2024 01:55 PM Outpatient Encounter PULMONARY/CHEST ICD-10-CM Z12.2 Encntr screen for malignant neoplasm of respiratory organs MAME DOUGLAS JR IHE Encounter Template Text not used by [place] Assessments - Encounter Diagnoses This section includes the primary and secondary diagnoses documented for the Encounter. Date/Time Primary/Secondary Diagnosis Diagnosis Name Provider Source Mar 25, 2024 02:05 PM PRIMARY Encntr screen for malignant neoplasm of respiratory organs FRANCESCO DOUGLAS JR [facility] Plan of Treatment: Future Appointments (+ 6 months) and Future Tests (+/- 45 days) The Plan of Treatment section includes future care activities for the patient from all [place] treatmentfacilities. This section includes future appointments and future orders which are active, pending or scheduled. Future Appointments This section includes appointments that were scheduled to occur 6 months from the date of the Encounter, up to a maximum of 20 appointments. The data comes from all [place] treatment facilities. Appointment Date/Time Appointment Type Appointme nt Facility Name Apr 20, 2024 11:00 AM AMBULATORY - REHAB MEDICIN E [facility] Apr 29, 2024 09:15 AM AMBULATORY - MEDICINE [facility] May 26, 2024 10:00 AM AMBULATORY - REHAB MEDICIN E [facility] Jun 09, 2024 10:15 AM AMBULATORY - MEDICINE [facility] Jul 07, 2024 11:00 AM AMBULATORY - RE[facility]AB MEDICIN [facility] Jul 15, 2024 10:00 AM AMBULATORY - NONE [facility] Aug 05, 2024 02:00 PM AMBULATORY - MEDICINE [facility] Aug 10, 2024 10:00 AM AMBULATORY - REHAB MEDICIN [facility] Aug 25, 2024 10:00 AM AMBULATORY - REHAB MEDICIN [facility] Sep 08, 2024 10:15 AM AMBULATORY - MEDICINE [facility] Active, Pending, and Scheduled Orders This section includes a listing of several types of active, pending, and scheduled orders, including clinic medications orders, diagnostic test orders, procedure orders and consult orders; where the start date of the order is 45 days before the date of the Encounter or 45 days after the date of theEncounter. The data comes from all [place] treatment facilities. Test Date/Time Test Type Test Details Facility Name Feb 11, 2024 12:00 AM Laboratory - Chemi stry Order CBC BLOOD SP [facility] Feb 11, 2024 12:00 AM Laboratory - Chemi stry Order AST/SGOT GREEN LI/HEP BLD/PLAS PLASMA SP [facility] Feb 11, 2024 12:00 AM Laboratory - Chemi stry Order ALT/SGPT GREEN LI/HEP BLD/PLAS PLASMA SP [facility] Apr 29, 2024 12:00 AM Laboratory - Microbiology Order AFB CULTURE & SMEAR (STL) SPUTUM SP [facility] Social History: Smoking Status (Most current) and Tobacco Use (All prior to encounter date) This section includes the most current, and the historical, smoking and tobacco- related health factors from the [place] facility where the Encounter took place. Current Smoking Status This section includes the most current smoking, or tobacco-related health factor, from the [place] facility where the Encounter took place. Date/Time Current Smoking Status Comment Facil ity Feb 04, 2020 02:21 PM VA-TOBACCO USE INFORMATION AND DATA ARCHITECT ANALYST NO [facility] Tobacco Use History This section includes a history of the smoking, or tobacco-related health factors, that were collected on or before the date of the Encounter. The data comes from the [place] facility where the Encounter took place. Date/Time Smoking Status/Tobacco Use Comment F acility Feb 04, 2020 02:21 PM VA-TOBACCO USE 30 YEARS OR MORE [facility] Feb 04, 2020 02:21 PM VA-TOBACCO USE ADVICE [facility] Feb 04, 2020 02:21 PM VA-TOBACCO USE INFORMATION AND DATA ARCHITECT ANALYST NO [facility] Feb 04, 2020 02:21 PM VA-TOBACCO USE MED NO [facility] Feb 04, 2020 02:21 PM VA-TOBACCO USER EVERY DAY [facility] Radiology Reports: +/- 30 days of the [...] the Encounter. The data comes from all [place] treatment facilities. Date/Time Radiology Report Provider Source Mar 25, 2024 10:50 AM LDCT LUNG CANCER SCREENING: TAN DONATO [id number] -[id number] M Exm Date: MAR 25, 2024@10:50 Req Phys: EFRAÍN EDEN Loc: [facility]-LUNG CANCER SCREENING (Req' Img Loc: [facility]-CT IMAGING [facility] Service: Unknown [facility] [address] [place] [address] (Case [id number] COMPLETE) LDCT LUNG CANCER SCREENING (CT Detailed) CPT:59154 Reason for Study: lcs Clinical History: Responsible Attending: radha Attending Contact Number: [phone] Resident Contact Number: Patient is age 50-80? [...] 25, 2024 Date Verified: MAR 25, 2024 Paving And Surfacing Labourer E-Sig:/ES/MARGRET AGUIAR MD Report: EXAM: LDCT LUNG CANCER SCREENING COMPARISON: 03/23/2023, 03/19/2022 PROTOCOL: Screening protocol, low dose, non-contrast CT chest was performed at the local [place] facility in accordance with Lung-Rads 2. Additional coronal and sagittal reconstructions. MIP reconstructions [...] Primary Interpreting Staff: MARGRET AGUIAR MD, Radiologist (Paving And Surfacing Labourer) /MARGRET FLOWERS [facility] Encounter Notes: All associated encounter notes This section contains the clinical notes associated to the Encounter. Date/Time Encounter Note(s) Provider Source Mar 26, 2024 09:48 AM ADDENDUM: LOCAL TITLE: Addendum STANDARD TITLE: ADDENDUM DATE OF NOTE: MAR 26, 2024@09:48:14 ENTRY DATE: MAR 26, 2024@09:48:15 AUTHOR: FRANCESCO DOUGLAS JR EXP COSIGNER: URGENCY: STATUS: COMPLETED This provider called and left message with to discuss recent imaging, inquire of possible symptoms and clarify information. Follow up LDCT has been ordered for 3 months. PCP has ordered a pulm consult. /judie/ SWAPNIL DOUGLAS MSN, EXPERIENCE PLANNING STRATEGIST, GROUNDS MAINTENANCE SUPERVISOR- Lung Cancer Screening [address] [employer]. Signed: 03/26/2024 09:48 Receipt Acknowledged By: 03/26/2024 10:07 /judie/ EFRAÍN EDEN MSN, ANP-BC Adult Nurse Practitioner === --- Original Document --- 03/25/24 LUNG CANCER SCREENING TELEPHONE STL: This provider called and left message with to discuss recent imaging, inquire of possible symptoms and clarify information. Follow up LDCT has been ordered for 3 months. will need a pulm consult entered by the PCP. Contact information for Lung Cancer Screening program given to . Was advised to follow up in the ER should there be development of CP, SOB, Distress or become febrile. 11 to 20 minutes were utilized by this provider in telephone contact. Dr Cornelius: Will you be following up with this on treatment of the pulmonary symptoms? If not, we would recommend ordering an outpatient pulmonary consult. Thank you. /MATILDE Rowley, EXPERIENCE PLANNING STRATEGIST, [facility] Lung Cancer Screening [address] [employer]. Signed: 03/25/2024 14:43 Receipt Acknowledged By: 03/25/2024 14:53 /aislinn CORNELIUS M.D. STAFF PHYSICIAN ECRS FRANCESCO DOUGLAS JR [facility] Mar 25, 2024 02:39 PM INTERNAL MEDICINE NOTE: LOCAL TITLE: LUNG CANCER SCREENING TELEPHONE STL STANDARD TITLE: INTERNAL MEDICINE NOTE DATE OF NOTE: MAR 25, 2024@14:39 ENTRY DATE: MAR 25, 2024@14:39:39 AUTHOR: FRANCESCO DOUGLAS JR EXP COSIGNER: URGENCY: STATUS: COMPLETED LUNG CANCER SCREENING TELEPHONE STL Has ADDENDA This provider called and left message with to discuss recent imaging, inquire of possible symptoms and clarify information. Follow up LDCT has been ordered for 3 months. Pablo will need a pulm consult entered by the PCP. Contact information for Lung Cancer Screening program given to . Was advised to follow up in the ER should there be development of CP, SOB, Distress or become febrile. 11 to 20 minutes were utilized by this provider in telephone contact. Dr Cornelius: Will you be following up with this on treatment of the pulmonary symptoms? If not, we would recommend ordering an outpatient pulmonary consult. Thank you. /MATILDE Rowley, GIRISH, [facility] Lung Cancer Screening [address] [employer]. Signed: 03/25/2024 14:43 Receipt Acknowledged By: 03/25/2024 14:53 /aislinn CORNELIUS M.D. STAFF PHYSICIAN MATTHEW 03/26/2024 ADDENDUM STATUS: COMPLETED This provider called and left message with to discuss recent imaging, inquire of possible symptoms and clarify information. Follow up LDCT has been ordered for 3 months. PCP has ordered a pulm consult. /MATILDE Rowley, GIRISH, [facility] Lung Cancer Screening [address] [employer]. Signed: 03/26/2024 09:48 Receipt Acknowledged By: 03/26/2024 10:07 /judie/ EFRAÍN CLAYTON, ALEXX- Adult Nurse Practitioner 03/26/2024 ADDENDUM STATUS: COMPLETED I have also tried to call the Pablo to discuss results. I have left a message asking him to call me back. Additional number provided in CPRS has been discontinued. I will send a letter as well. /aislinn CLAYTON, ALEXX- Adult Nurse Practitioner Signed: 03/26/2024 10:10 03/26/2024 ADDENDUM STATUS: COMPLETED Mr. Donato called me back. We discussed the results of the LDCT and the plan to proceed with pulm consult and repeat the scan in 3 months. He agrees to this plan. He feels the same . No cough/hemoptysis, unintentional weight loss or night sweats. No SOB with mild to mod activity. He has noticed no fever, myalgias or other symptoms. He denies recent URI. He continues to smoke ~ 1ppd and is not interested in quitting at this time. Extensive counseling was done regarding importance of quitting and we discussed all resources the [place] has to assist. He will think about it . He has my number if further questions arise. /aislinn CLAYTON, ANP- Adult Nurse Practitioner Signed: 03/26/2024 16:10 FRANCESCO DOUGLAS JR [facility] Mar 25, 2024 01:55 PM INTERNAL MEDICINE NOTE: LOCAL TITLE: LUNG CANCER SCREENING ADMIN ST STANDARD TITLE: INTERNAL MEDICINE NOTE DATE OF NOTE: MAR 25, 2024@13:55 ENTRY DATE: MAR 25, 2024@13:55:51 AUTHOR: FRANCESCO DOUGLAS JR EXP COSIGNER: URGENCY: STATUS: COMPLETED LUNGRADS CATEGORY 0: Date of image: Date: March 25, 2024 Lung RADS Score: 0 Part or all of lungs cannot be evaluated or findings suggestive of an inflammatory or infectious process. Additional LCS CT and/or prior comparison exams are needed. S Code: No Incidental Findings: The following *INCIDENTAL FINDINGS* were noted: I am notifying the Primary Care Provider for information, and for follow-up of incidental findings, if indicated. Plan: Interval until next LDCT scan is due: 3 months Patient Notification of results: Communicated to Primary Care Provider. There are incidental findings on this [facility] LDCT dated 03/25/24. Thank you in advance for following up on this. RECOMMENDATION: Clinical evaluation for pneumonia including TB and fungal pneumonias. Timing of any follow-up imaging depends on the outcome of the clinical evaluation If there are any questions please contact the [facility] [address] [employer] JACKY Craig at extension [phone]. 15 minutes spent reviewing this patient's medical records and completing chart review. Tickler/Reminder: remind me on: March 26, 2024@00:00 Tickler/Reminder Text: F/U on Dr Ernie sandra /judie/ SWAPNIL DOUGLAS, MSN, EXPERIENCE PLANNING STRATEGIST, [facility] Lung Cancer Screening [address] [employer]. Signed: 03/25/2024 14:05 Receipt Acknowledged By: 03/25/2024 14:53 /judie/ ALLI CORNELIUS M.D. STAFF PHYSICIAN FRANCESCO SPENCER JR [facility]
--- OUTSIDE RECORDS SUMMARY | 2024-10-09 12:32 | XMS_ITS | Encounter Summary ---
Author Name [facility] [place] Organization [facility] [place] Address [address] [place] [address] Care Team Providers Care Compress Trucker Name Role Phone ALLI CORNELIUS Primary Care [...] PART B Dec 27, 2013 PART B [id number] LINH MERCEDES PATIENT MEDICARE (WNR) MEDICARE (M) PART A Dec 27, 2013 PART A [id number] MERCEDESLINH COLLINS PATIENT MEDICARE (WNR) MEDICARE (M) PART A Dec 27, 2013 PART A [id number] MERCEDESLINH COLLINS MMLewis PATIENT MEDICARE (WNR) MEDICARE (M) PART B Dec 27, 2013 PART B [id number] LINH MERCEDES THOMASLewis PATIENT Selected Encounter This section includes the information on record at [place] for the Encounter. Date/Time Encounter Type Encounter Description Reason Provider Source Jul 07, 2024 11:00 AM MTMS BY PHARM ADDL 15 MIN GERIPACT ICD-10-CM I10 Essential (primary) hypertension BLANCA ROJAS IHE Encounter Template Text not used by [place] Assessments - Encounter Diagnoses This section includes the primary and secondary diagnoses documented for the Encounter. 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. This section includes future appointments and future orders which are active, pending or scheduled. Future Appointments This section includes appointments that were scheduled to occur 6 months from the date of the Encounter, up to a maximum of 20 appointments. The data comes from all [facility]. Appointment Date/Time Appointment Type Appointme nt Facility Name Jul 15, 2024 10:00 AM AMBULATORY - NONE [facility] Aug 05, 2024 02:00 PM AMBULATORY - MEDICINE [facility] Aug 10, 2024 10:00 AM AMBULATORY - REHAB MEDICIN E [facility] Aug 25, 2024 10:00 AM AMBULATORY - REHAB MEDICIN E [facility] Sep 08, 2024 10:15 AM AMBULATORY - MEDICINE [facility] Sep 29, 2024 10:00 AM AMBULATORY - REHAB MEDICIN E [facility] Nov 10, 2024 10:00 AM AMBULATORY - REHAB MEDICIN [facility] Active, Pending, and Scheduled Orders This section includes a listing of several types of active, pending, and scheduled orders, including clinic medications orders, diagnostic test orders, procedure orders and consult orders; where the start date of the order is 45 days before the date of the Encounter or 45 days after the date of theEncounter. The data comes from all [facility] treatment facilities. Test Date/Time Test Type Test Details Facility Name Aug 10, 2024 12:00 AM Laboratory - Chemi stry Order HGA1C BLOOD SP [facility] Aug 10, 2024 12:00 AM Laboratory - Chemi stry Order LIPID PANEL (STL) GREEN LI/HEP BLD/PLAS PLASMA SP ONCE [facility] Aug 10, 2024 12:00 AM Laboratory - Chemi stry Order BASIC METABOLIC PANEL GREEN LI/HEP BLD/PLAS PLASMA SP [facility] Aug 10, 2024 12:00 AM Laboratory - Chemi stry Order CBC BLOOD SP [facility] Aug 10, 2024 12:00 AM Laboratory - Chemi stry Order MICRAL/CREAT PROFILE (STL) URINE SP [facility] Aug 10, 2024 12:00 AM Laboratory - Chemi stry Order TSH W/ REFLEX FT4 (STL) GREEN LI-HEP PLASMA SP [facility] Lab Results: +/- 30 days of the encounter This section includes the Chemistry and Hematology Lab Results on record with [place] for the patient. Radiology Reports and Pathology Reports are provided separately, in subsequent sections. Lab Results This section contains the Chemistry/Hematology Results that were resulted 30 days before or 30 daysafter the date of the Encounter. Date/Time Source Result Type Result - Unit Interpretation Reference Range Comment Jul 07, 2024 11:24 AM [facility] GLUCOSE,BLOOD-poct (STL) Specimen Type: BLOOD Comment: Test Performed by: [id number] Meter #: [id number] Ordering Provider: ALLI CORNELIUS Report Released Date/Time: Jul 07, 2024 11:27 AM Reporting Lab: [facility] [address] [facility] [id number] Performing Lab: [facility] [address] [facility] [id number] GLUCOSE,BL OOD-poct (STL) 188 mg/dL H 72-99 Vital Signs: All taken on the encounter date This section contains inpatient and outpatient Vital Signs collected on the date of the Encounter. Date/Time Temperature Pulse Blood Pressure Respiratory Rate SP02 Pain Height Weight Body Mass Index Source Jul 07, 2024 11:23 AM 81 153/78 [facility] N Social History: Smoking Status (Most current) and Tobacco Use (All prior to encounter date) This section includes the most current, and the historical, smoking and tobacco- related health factors from the [place] facility where the Encounter took place. Current Smoking Status This section includes the most current smoking, or tobacco-related health factor, from the [place] facility where the Encounter took place. Date/Time Current Smoking Status Comment Facil ity Feb 11, 2024 10:00 AM VA-TOBACCO USER EVERY DAY [facility] Tobacco Use History This section includes a history of the smoking, or tobacco-related health factors, that were collected on or before the date of the Encounter. The data comes from the [place] facility where the Encounter took place. Date/Time Smoking Status/Tobacco Use Comment F acility Feb 11, 2024 10:00 AM VA-TOBACCO USE 30 YEARS OR MORE [facility] Feb 11, 2024 10:00 AM VA-TOBACCO USE ADVICE [facility] Feb 11, 2024 10:00 AM VA-TOBACCO USE ANALYST COMPETITIVE INTELLIGENCE NO [facility] Feb 11, 2024 10:00 AM VA-TOBACCO USE MED NO [facility] Feb 11, 2024 10:00 AM VA-TOBACCO USER EVERY DAY [facility] Sep 26, 2022 09:30 AM VA-TOBACCO DOESNT USE WI 30 MIN WAKEUP [facility] Sep 26, 2022 09:30 AM VA-TOBACCO USE 30 YEARS OR MORE [facility] Sep 26, 2022 09:30 AM VA-TOBACCO USE ADVICE [facility] Sep 26, 2022 09:30 AM VA-TOBACCO USE ANALYST COMPETITIVE INTELLIGENCE NO [facility] Sep 26, 2022 09:30 AM VA-TOBACCO USE MED NO [facility] Sep 26, 2022 09:30 AM VA-TOBACCO USER EVERY DAY [facility] May 05, 2021 01:00 PM VA-TOBACCO USE 30 YEARS OR MORE [facility] May 05, 2021 01:00 PM VA-TOBACCO USE ADVICE [facility] May 05, 2021 01:00 PM VA-TOBACCO USE ANALYST COMPETITIVE INTELLIGENCE NO [facility] May 05, 2021 01:00 PM VA-TOBACCO USE MED NO [facility] May 05, 2021 01:00 PM VA-TOBACCO USE WI 30 MIN OF WAKEUP [facility] May 05, 2021 01:00 PM VA-TOBACCO USER EVERY DAY [facility] Mar 05, 2018 09:42 AM CURRENT TOBACCO USER [facility] Mar 05, 2018 09:42 AM CURRENT TOBACCO US ER (NOT READY TO QUIT) [facility] Mar 05, 2018 09:42 AM TOBACCO CESSATION REFERRAL DECLINED [facility] Mar 05, 2018 09:42 AM TOBACCO MEDS OFFER ED BUT DECLINED [facility] Mar 05, 2018 09:42 AM TOBACCO USER OFFERED MEDS [facility] Mar 05, 2017 08:56 AM CURRENT TOBACCO USER [facility] Mar 05, 2017 08:56 AM TOBACCO MEDS OFFER ED BUT DECLINED [facility] Radiology Reports: +/- 30 days of the [...] the Encounter. The data comes from all [facility] facilities. Date/Time Radiology Report Provider Source Jul 15, 2024 09:07 AM LDCT LCS 1, 3 OR 6 MONTH FOLLOW UP: TAN MERCEDES [id number] -[id number] M Ex Date: JUL 15, 2024@09:07 Req Phys: FRANCESCO DOUGLAS JR Loc: [facility]-LUNG CANCER SCREENING (Req' Img Loc: [facility]-CT IMAGING [facility] Service: [facility], [facility] [address] [place] [address] (Case [id number] COMPLETE) LDCT LCS 1, 3 OR 6 MONTH FOLLOW U(CT Detailed) CPT:97005 Reason for Study: FOLLOW UP Clinical History: Responsible Attending: johnny Attending Contact Number: [phone] Resident Contact Number: This order is for a 3 or 6 month lung cancer screening follow-up! Patient is age 55-80: True Patient has 30+ pack-year smoking history? True Patient is current smoker, or has quit within the past 15 years: True Patient does not have a health problem that substantially limits life expectancy or the ability or willingness to have curative treatment? True Shared decision making has occurred regarding the benefits and risks of a screening program? True Report Status: Verified Date Reported: JUL 20, 2024 Date Verified: JUL 20, 2024 Risk Assessment Consultant E-Sig:/ES/MARGRET AGUIAR MD Report: EXAM: LDCT LCS 1, 3 OR 6 MONTH FOLLOW UP COMPARISON: 03/25/2024, 03/23/2023 PROTOCOL: Screening protocol, low dose, non-contrast CT chest was performed at the local [place] facility in accordance with Lung-Rads 2021. Additional coronal and sagittal reconstructions. MIP reconstructions were reviewed. Secondary computer-aided detection post-processing used. INDEX NODULE: OTHER NODULES: None. LUNG/AIRWAY/PLEURA FINDINGS: Minor foci of mucus plugging in both lower lobes. Previous right upper lobe opacities have resolved consistent with resolution of infectious/inflammatory process MEDIASTINUM: No significant mediastinal adenopathy VISUAL CORONARY ARTERY CALCIFICATIONS: Yes UPPER ABDOMEN: No significant pathology requiring further workup or follow-up. This examination has been performed using a low-dose technique which limits the ability to detect nonpulmonary pathology BONES, SOFT TISSUES, AND ADDITIONAL FINDINGS: Unremarkable. (The term unremarkable may include spondylotic changes typical for patient age) Impression: LUNG-RADS: 1: Negative. RECOMMENDATION: One year Low-dose lung cancer screening CT recommended if patient meets criteria LUNG-RADS MODIFIER: N/A. Primary Interpreting Staff: MARGRET AGUIAR MD, Radiologist (Risk Assessment Consultant) /MARGRET FLOWERS [facility] Encounter Notes: All associated encounter notes This section contains the clinical notes associated to the Encounter. Date/Time Encounter Note(s) Provider Source Jul 07, 2024 08:08 AM INTERNAL MEDICINE CLINICAL PHARMACIST MEDICATION MGT NOTE: LOCAL TITLE: CLINICAL PHARMACIST NOTE [facility] STANDARD TITLE: INTERNAL MEDICINE CLINICAL PHARMACIST MEDICATION DATE OF NOTE: JUL 07, 2024@08:08 ENTRY DATE: JUL 07, 2024@08:08:25 AUTHOR: ELOISE ROJAS COSIGNER: URGENCY: STATUS: COMPLETED CLINICAL PHARMACY FOLLOW-UP Subjective: TAN MERCEDES is a 74 MALE who presents to clinic for follow up on DM/HTN/HLD/med rec. Verified pts full name and PMH: 1) Essential hypertension 2) Mixed hyperlipidemia 3) Nicotine dependence 4) Hearing loss 5) Vitamin D Deficiency (SCT 68514707) 6) Impaired Fasting Glucose (SCT [id number]) 7) Peripheral vascular disease 8) Critical lower limb ischaemia 9) Chronic obstructive lung disease 10) Diabetes mellitus 11) Malignant melanoma of skin of face 12) Hypothyroidism 13) Exposure to potentially hazardous substance During the last contact with vet (05/26/24), the following changes were made: DM: - bring glucometer to clinic to download - DECREASE check SMBGs 2x/wk alternating before meals and bedtime HLD: - labs: FLP Aug 2024 HTN: - switch to no salt and/or Mrs. Dash - bring home BP machine to next visit (provided written reminder) Med Rec: - continue to monitor compliance During current visit: - Pt presented to clinic with home BP machine and list of meds that need refills. Did not bring glucometer or full med list to review. Smelled very strongly of cigarette smoke. Dietary/Lifestyle/Social History modifications made: - salt: switched to no salt/Mrs. Dash - caffeine: coffee 1 c/day, crystal light tea - tob: 1 pack a week up to 1/2 ppd - EtOH: denies ROS: DM: (-) hypoglycemia symptoms or values <80 mg/dL (-) hyperglycemia symptoms (-) tingling/numbness - right leg always numb, ongoing HLD:(-) CP (-) muscle pain/cramps HTN:(+) hypotension symptoms or value <90/60 mmHg - when he stands too quickly (-) orthostasis (-) edema (-) cough Objective: [...] A DAY FOR VITAMIN D DEFICIENCY - ran out a few days ago - PM -5) CYANOCOBALAMIN 500MCG TAB TAKE ONE TABLET [...] DO NOT CRUSH, SPLIT, OR CHEW. - AM -9) FLUOROURACIL 5% CREAM APPLY THIN FILM TO AFFECTED ACTIVE AREA(S) TWICE A DAY FOR FOREARMS AND FACE AVOID SUN EXPOSURE. FOLLOW DIRECTIONS CAREFULLY FOR PROPER HANDLING/DISPOSAL.USE FOR 10 DAYS AT A TIME -10) FLUTICAS 250/SALMETEROL 50 INHL DISK 60 INHALE 1 ACTIVE INHALATION BY ORAL INHALATION TWICE A DAY FOR COPD (OPEN DISKUS; CLICK ONLY ONCE; MAY INHALE TWICE TO COMPLETE DOSE; CLOSE WHEN FINISHED) RINSE MOUTH AND SPIT AFTER EACH USE. 11) HYDROPHILIC (EQV EUCERIN) TOP CREAM APPLY LIBERALLY ACTIVE TO AFFECTED AREA(S) ONCE A DAY NEEDED FOR DRY SKIN (EXTERNAL USE ONLY) -12) ICOSAPENT ETHYL 1GM CAP TAKE TWO CAPSULES BY MOUTH ACTIVE TWICE A DAY WITH MEALS FOR HIGH TRIGLYCERIDES -13) KETOCONAZOLE 2% SHAMPOO USE SHAMPOO TO AFFECTED ACTIVE AREA(S) ONCE A DAY (EXTERNAL USE ONLY) (SHAKE WELL) FOR HEAD AND NECK. LATHER FOR 3 MINUTES PRIOR TO RINSING -14) LEVOTHYROXINE NA (SYNTHROID) 25MCG TAB TAKE ONE ACTIVE TABLET BY MOUTH EVERY MORNING BEFORE A MEAL FOR HYPOTHYROIDISM TAKE 30 MINUTES BEFORE FOOD. TAKE SEPARATELY FROM ALL OTHER MEDICATIONS. -15) LISINOPRIL 40MG TAB TAKE ONE TABLET BY MOUTH ONCE A ACTIVE DAY FOR HIGH BLOOD PRESSURE - AM -16) METFORMIN HCL 1000MG TAB TAKE ONE TABLET BY MOUTH ACTIVE TWICE A DAY WITH MEALS FOR DIABETES TAKE WITH FOOD. AVOID ALCOHOL. DISCONTINUE BEFORE GETTING XRAY DYE. - last filled 02/10/24 for 90 days but denies missed doses -17) ROSUVASTATIN CA 40MG TAB TAKE ONE TABLET BY MOUTH ACTIVE EVERY EVENING FOR HIGH CHOLESTEROL -18) TIOTROPIUM 2.5MCG/ACTUAT 60D ORAL INHL INHALE 2 ACTIVE INHALATIONS ORAL INHALATION ONCE A DAY (ADMINISTER AT SAME TIME EACH DAY) FOR BREATHING. Medication reconciliation completed: YES Adherence to above medications: good per pt (maybe 1-2 missed doses) Labs: HGA1C 7.5 H % 04/29/2024 10:32 [...] B12 595 pg/mL 04/29/2024 10:32 SMBGs: - not checking often - per recall, BG 60s? - BG POC in clinic: 188 (fasting per patient) BP last visit: 148/76 (05/26/2024 10:23) Pulse last visit: 77 (04/29/2024 08:48) Home Readings: - only 7 readings total on machine; 4 readings since last pharmD visit Date BP P 06/06 135/73 70 06/10 152/75 72 06/11 136/74 73 06/12 140/69 70 Automatic BP seated, rested: 153/78 mmHg Pulse: 81 bpm Repeat: 153/72 mmHg After standing 2 min: 155/79 Home BP machine in clinic: 164/85 Pulse: 80 Assessment/Plan: 1) Diabetes - Goal A1c <8%, FPG 80-160, PPG <210 d/t PVD, albuminuria, neuropathy per VA/DoD guidelines A1c and serum glu at goal. SCr wnl. eGFR appropriate for empagliflozin. SMBGs unavailable. Pt with poor recall but thought his glu was 60s the past few times he checked it. Then asked is that bad? Fasting POC BG 188 today. Suspect pt not checking SMBGs at home. Requested pt bring glucometer to download. Reported med compliance but has not filled metformin since January 2024. Denied ADRs and diet/lifestyle changes. Discussed SGLT2i use in PVD and concern for amputation risk with pt and Dr. Cornelius (okay to continue). Pt verbalized understanding of risks and requested to continue SGLT2i. Previously avoiding GLP1 d/t pancreatitis risk with elevated TGs but may reconsider if TGs continue to improve and glu uncontrolled. Will CCT until SMBGs and updated labs available. - bring glucometer to clinic to download - metformin IR 1000mg BID - empagliflozin 12.5mg daily - check SMBGs 2x/wk alternating before meals and bedtime!!! - educated vet on hypoglycemia symptoms and appropriate treatment and when to contact clinic or go to emergency room - labs: A1c 08/10/24 -- DM med SOC: (+)ASA (-)ACEi (+ [...] and LFTs wnl. Reported med compliance. Denied ADRs and alcohol intake. Repeatedly edu to limit sweets to help [...] or PCP if occurs - labs: FLP 08/10/24 3) HTN - Goal BP <130/80 mmHg per ACC/AHA; <140/90 (age>60 with DM) per VA/DoD Clinic BP repeatedly elevated. Na, K, and SCr wnl. Home BP readings limited but elevated. Only 7 total BP readings on machine since pt received it Jul 2023. Confirmed accuracy of home BP machine and reviewed proper home BP technique. Reported med compliance. Denied ADRs except dizziness once in a while if he stands too fast. Negative for orthostasis in clinic today. Originally declined diet changes but stated he switched to no salt/Mrs. Dash when specifically questioned. Denied alcohol intake. Not limiting caffeine. Not interested in smoking cessation. Also suspect pt is smoking more than he admits given strong smell of smoke today. Edu on complications of HTN. Pt agreeable to start chlorthalidone since clinic BP and home BP both elevated. - START chlorthalidone 12.5mg daily (AM) - amlodipine 10mg daily (AM) - lisinopril 40mg daily (PM) - check BP every other day and record - call CP if SBP >160 or DBP >100 sustained - present to ER if SBP >180 or DBP >120 sustained and/or if sxs present - labs: BMP 08/10/24 4) Med Rec Pt filling own pillboxes. Brought list of meds that he needed refilled but not full med list or bottles for review. Reported 1-2 missed doses over 6 weeks. - continue to monitor compliance -Educated vet on risks/benefits of new medication - chlorthalidone. -Education provided on nonpharmacologic ways to improve DM/HLD/HTN (including lifestyle management/dietary/physical activity) specific for the vet's needs. -Cum[place] verbalized understanding to all plans discussed today. Questions were answered to vet's satisfaction. Time spent with vet: 30 min RTC: 5 weeks f2f PBM PharmD Pharmacotherapy Rem V12: PHARMACIST INTERVENTIONS: HYPERTENSION Medication Intervention(s) Initiate new medication LIPID MANAGEMENT Medication monitoring, no dosage change required, continue to monitor and assess TYPE 2 DIABETES MELLITUS Medication monitoring, no dosage change required, continue to monitor and assess Address adherence Medication reconciliation (changes to active VA and non-VA medication lists to reconcile differences) No changes to medication lists made (medication review completed, no discrepancies identified) /judie/ ELOISE ROJAS, PHARMD, BCACP CLINICAL PATTERN PAINTER Signed: 07/07/2024 13:09 ELOISE ROJAS [facility]
--- OUTSIDE RECORDS SUMMARY | 2024-10-09 12:32 | XMS_ITS | Continuity of Care Document ---
Author Organization [facility] Address [address] [place] [address] Phone Care Team Providers Care Kaitara Taraka Name Role Phone Domo Carballo MD Unavailable Unavailable Allergies, Adverse Reactions, Alerts Substance Reaction Status Criticality egg Active No Information Medications Medication Instructions Dosage Effective Dates (start - stop) Status Comments Lopid 600 mg tablet take 1 tablet (600MG ) by oral route 2 times every day 30 minutes before morning and evening meal 600 MG - Active lisinopril-hydrochl orothiazide 20 mg-25 mg tablet take 1 tablet by oral route every day 1.00 tablet - Active Procedures Procedure Date OFFICE/OUTPATIENT VISIT, EST OFFICE/OUTPATIENT VISIT, EST OFFICE/OUTPATIENT VISIT, EST Advance Directives Directive Yes / No Effective Date File Name No Information Encounters Encounter Description Practice Location Reason(s) For Visit Diagnoses Date Provider Providers Copied on Encounter OFFICE/OUTPA TIENT VISIT, EST [facility], [address] [place], [id number], [place] tel:[phone] [facility] HLP (chief complaint) HTN (chief complaint) BPH (chief complaint) Mixed HyperlipidemiaBPHHy pertension, Unspecified 2 0201 4 Haris Oliveros. [address], [place], [id number] , [place]. tel:[phone] Referring Provider: Domo Carballo, [address] [place], [place], [id number]. tel:[phone] [facility], [address] [place], [id number], [place] tel:[phone] [facility] No Information 3 Haris Oliveros. [address], [address] [place], [id number] , . tel:[phone] OFFICE/OUTPA TIENT VISIT, [facility], [address], [place], [place], [address], tel:[phone] [facility] HLP (chief complaint) Elevated PSA (chief complaint) Dietary surveillance and counselingOther and unspecified hyperlipidemiaBPHHy pertension, UnspecifiedHEMATURI A NOS 3 Haris Oliveros. [address], [address] [place], [address] , . tel:[phone] Referring Provider: Reid Fink [address] [place], [address]. tel:[phone] OFFICE/OUTPA TIENT VISIT, [facility], [address] [place], [address], tel:[phone] [facility] HTN (chief complaint) HLP (chief complaint) Dietary surveillance and counselingHypertens ion, UnspecifiedOther and unspecified hyperlipidemiaBPH 2 Haris Oliveros. [address], [address], [place], [place], [address] , . tel:[phone] Referring Provider: Reid Fink [address] [facility] [place], [address]. tel:[phone] Family History Family Member Type Diagnosis Age At Onset Brother Problem (finding) Leukemia Father Problem (finding) old age Mother Problem (finding) old age Payers Payer name Insurance type Covered democrat ID Authoriza tion(s) No Information Social History Type Description Quantity Date Captured Comments Alcohol Use Details No Caffeine Use Details Unknown Tobacco Use Status No Information Smoking Status Current every day smoker 2013 Sex Male Vital Signs Date / Time: Height Weight BMI Pulse Rate Blood Pressure Temperature Respiratory Rate Body Surface Area Head Circumference BMI percentile Pulse Ox Inhaled Ox 5:39 PM 72.00 in 196.00 lbs 26.5 8 kg/m eter (2) 68 /min 133/77 mm[Hg] 96.2 F 16 /min Chief Complaint And Reason For Visit From encounter dated '01/15/2014 15:30'. HLP (chief complaint) HTN (chief complaint) BPH (chief complaint) Plan Of Treatment Date Type Action Status Goal Tobacco cessation counseling completed Goal Tobacco cessation counseling completed Goal Tobacco cessation counseling completed Referral Ordered: Urology (related to BPH) ordered Referral Ordered: Urology (related to BPH) ordered Referral Ordered: Urology (related to BPH) ordered Referral Ordered: Referral: Urology. Evaluate and treat. ordered History Of Present Illness Encounter Date Complaint History Of Prese nt Illness No Information Instructions Date Instruction Additional Infor mation Decrease caloric intake Related to Dietary surveillance counseling Dietary counseling Related to Di etary surveillance counseling Dietary counseling provided Rela sanjay to Hypertension, Unspecified Activity counseling provided Rel ated to Hypertension, Unspecified Decrease caloric intake Related to Dietary surveillance counseling Dietary counseling Related to Di etary surveillance counseling Assessments Type Assessment Date No Information Mental Status Date Cognitive Assessment Orientation - [place] ed to time, place, person, situation.
--- OUTSIDE RECORDS SUMMARY | 2024-10-09 12:32 | XMS_ITS | Encounter Summary ---
Author Name [facility] Organization [facility] Address [address] [place] [address] Care Team Providers Care Social Media Marketing Analyst Name Role Phone ALLI CORNELIUS Primary Care [...] PART A Dec 27, 2013 PART A [id number] LINH MERCEDES PATIENT MEDICARE (WNR) MEDICARE (M) PART B Dec 27, 2013 PART B [id number] MERCEDESLINH COLLINS PATIENT MEDICARE (WNR) MEDICARE (M) PART A Dec 27, 2013 PART A [id number] MERCEDESLINH GUZMANLewis PATIENT MEDICARE (WNR) MEDICARE (M) PART B Dec 27, 2013 PART B [id number] LINH MERCEDES THOMASLewis PATIENT Selected Encounter This section includes the information on record at ID for the Encounter. 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 Aug 25, 2024 03:13 PM SECONDARY Essential (primary) hypertension ROSALINE ROJAS IS R [facility] Aug 25, 2024 03:13 PM SECONDARY Mixed hyperlipidemia ROSALINE ROJAS IS [facility] Plan of Treatment: Future Appointments (+ 6 months) and Future Tests (+/- 45 days) The Plan of Treatment section includes future care activities for the patient [facility] This section includes future appointments and future orders which are active, pending or scheduled. Future Appointments This section includes appointments that were scheduled to occur 6 months from the date of the Encounter, up to a maximum of 20 appointments. The data comes from all [facility]. Appointment Date/Time Appointment Type Appointme nt Facility Name Sep 08, 2024 10:15 AM AMBULATORY - MEDICINE [facility] Sep 29, 2024 10:00 AM AMBULATORY - REHAB MEDICIN E [facility] Nov 10, 2024 10:00 AM AMBULATORY - REHAB MEDICIN E [facility] Feb 08, 2025 10:00 AM AMBULATORY - REHAB MEDICIN E [facility] Active, Pending, and Scheduled Orders This section includes a listing of several types of active, pending, and scheduled orders, including clinic medications orders, diagnostic test orders, procedure orders and consult orders; where the start date of the order is 45 days before the date of the Encounter or 45 days after the date of theEncounter. The data comes from all [facility]. Test Date/Time Test Type Test Details Facility Name Aug 10, 2024 12:00 AM Laboratory - Chemi stry Order HGA1C BLOOD SP [facility] Aug 10, 2024 12:00 AM Laboratory - Chemi stry Order BASIC METABOLIC PANEL GREEN LI/HEP BLD/PLAS PLASMA SP [facility] Aug 10, 2024 12:00 AM Laboratory - Chemi stry Order CBC BLOOD SP [facility] Aug 10, 2024 12:00 AM Laboratory - Chemi stry Order LIPID PANEL (STL) GREEN LI/HEP BLD/PLAS PLASMA SP ONCE [facility] Aug 10, 2024 12:00 AM Laboratory - Chemi stry Order MICRAL/CREAT PROFILE (STL) URINE SP [facility] Aug 10, 2024 12:00 AM Laboratory - Chemi stry Order TSH W/ REFLEX FT4 (STL) GREEN LI-HEP PLASMA SP [facility] Aug 31, 2024 12:00 AM Laboratory - Chemi stry Order LIPID PANEL (STL) GREEN LI/HEP BLD/PLAS PLASMA SP ONCE [facility] Sep 29, 2024 12:00 AM Laboratory - Chemi stry Order MICRAL/CREAT PROFILE (STL) URINE YELLOW SP [facility] Sep 29, 2024 12:00 AM Laboratory - Chemi stry Order HGA1C BLOOD SP [facility] Sep 29, 2024 12:00 AM Laboratory - Chemi stry Order BASIC METABOLIC PANEL GREEN LI/HEP BLD/PLAS PLASMA SP [facility] Sep 29, 2024 12:00 AM Laboratory - Chemi stry Order LIPID PANEL (STL) GREEN LI/HEP BLD/PLAS PLASMA SP ONCE [facility] Social History: Smoking Status (Most current) and Tobacco Use (All prior to encounter date) This section includes the most current, and the historical, smoking and tobacco- related health factors from the ID facility where the Encounter took place. Current Smoking Status This section includes the most current smoking, or tobacco-related health factor, from the ID facility where the Encounter took place. Date/Time Current Smoking Status Comment Facil ity Feb 11, 2024 10:00 AM VA-TOBACCO USER EVERY DAY [facility] Tobacco Use History This section includes a history of the smoking, or tobacco-related health factors, that were collected on or before the date of the Encounter. The data comes from the ID facility where the Encounter took place. Date/Time Smoking Status/Tobacco Use Comment F acility Feb 11, 2024 10:00 AM VA-TOBACCO USE 30 YEARS OR MORE [facility] Feb 11, 2024 10:00 AM VA-TOBACCO USE ADVICE [facility] Feb 11, 2024 10:00 AM VA-TOBACCO USE LAB PACK CHEMIST NO [facility] Feb 11, 2024 10:00 AM VA-TOBACCO USE MED NO [facility] Feb 11, 2024 10:00 AM VA-TOBACCO USER EVERY DAY [facility] Sep 26, 2022 09:30 AM VA-TOBACCO DOESNT USE WI 30 MIN WAKEUP [facility] Sep 26, 2022 09:30 AM VA-TOBACCO USE 30 YEARS OR MORE [facility] Sep 26, 2022 09:30 AM VA-TOBACCO USE ADVICE [facility] Sep 26, 2022 09:30 AM VA-TOBACCO USE LAB PACK CHEMIST NO [facility] Sep 26, 2022 09:30 AM VA-TOBACCO USE MED NO [facility] Sep 26, 2022 09:30 AM VA-TOBACCO USER EVERY DAY [facility] May 05, 2021 01:00 PM VA-TOBACCO USE 30 YEARS OR MORE [facility] May 05, 2021 01:00 PM VA-TOBACCO USE ADVICE [facility] May 05, 2021 01:00 PM VA-TOBACCO USE LAB PACK CHEMIST NO [facility] May 05, 2021 01:00 PM VA-TOBACCO USE MED NO [facility] May 05, 2021 01:00 PM VA-TOBACCO USE WI 30 MIN OF WAKEUP [facility] May 05, 2021 01:00 PM VA-TOBACCO USER EVERY DAY [facility] Mar 05, 2018 09:42 AM CURRENT TOBACCO USER [facility] Mar 05, 2018 09:42 AM CURRENT TOBACCO US ER (NOT READY TO QUIT) [facility] Mar 05, 2018 09:42 AM TOBACCO CESSATION REFERRAL DECLINED [facility] Mar 05, 2018 09:42 AM TOBACCO MEDS OFFER ED BUT DECLINED [facility] Mar 05, 2018 09:42 AM TOBACCO USER OFFERED MEDS [facility] Mar 05, 2017 08:56 AM CURRENT TOBACCO USER [facility] Mar 05, 2017 08:56 AM TOBACCO MEDS OFFER ED BUT DECLINED [facility] Encounter Notes: All associated encounter notes This section contains the clinical notes associated to the Encounter. Date/Time Encounter Note(s) Provider Source Aug 25, 2024 07:55 AM INTERNAL MEDICINE CLINICAL PHARMACIST MEDICATION MGT NOTE: LOCAL TITLE: CLINICAL PHARMACIST NOTE ST STANDARD TITLE: INTERNAL MEDICINE CLINICAL PHARMACIST MEDICATION DATE OF NOTE: AUG 25, 2024@07:55 ENTRY DATE: AUG 25, 2024@07:55:39 AUTHOR: ELOISE ROJAS COSIGNER: URGENCY: STATUS: COMPLETED CLINICAL PHARMACY FOLLOW-UP Subjective: MERCEDESTAN BLANCO is a 74 MALE who presents to clinic for follow up on DM/HTN/HLD. Verified pts full name and PMH: 1) Essential hypertension 2) Mixed hyperlipidemia 3) Nicotine dependence 4) Hearing loss 5) Vitamin D Deficiency ([facility] [id number]) 6) Impaired Fasting Glucose ([facility] [id number]) 7) Peripheral vascular disease 8) Critical lower limb ischaemia 9) Chronic obstructive lung disease 10) Diabetes mellitus 11) Malignant melanoma of skin of face 12) Hypothyroidism 13) Exposure to potentially hazardous substance During the last contact with vet (07/07/24), the following changes were made: DM: - bring glucometer to clinic to download - labs: A1c 08/10/24 HLD: - labs: FLP 08/10/24 HTN: - START chlorthalidone 12.5mg daily (AM) - labs: BMP 08/10/24 At PCP visit 08/10/24, clinic BP was elevated but pt smoked a cigarette right before coming to clinic. Pt advised to refrain from smoking within 2 hours of a blood pressure check. Check BP daily for 2 weeks and bring readings pharmD appt. declines assistance with smoking cessation and vaccines. Labs ordered but not completed. Dr. Cornelius recommended diclofenac gel and physical therapy for hip pain but pt declined. During current visit: - Pt presented to clinic but did not bring meds or home readings. - Stated his lab faxed nonVA labs to Dr. Cornelius. Reviewed during visit. - CC: I want pain meds for my hip. Dietary/Lifestyle/Social History modifications made: - not interested in smoking cessation ROS: DM: (-) hypoglycemia symptoms or values <80 mg/dL (-) hyperglycemia symptoms (-) tingling/numbness HLD:(-) CP (-) muscle pain/cramps HTN:(+) hypotension symptoms or value <90/60 mmHg - rarely when standing too fast (-) orthostasis (-) edema (-) cough Objective: Allergies: EGGS, SHELLFISH Medications: Active and Recently Outpatient Medications (excluding Supplies): Active Outpatient Medications Status 1) ALBUTEROL 90MCG (CFC-F) 200D ORAL INHL INHALE 1 PUFF ORAL ACTIVE INHALATION FOUR TIMES A DAY NEEDED FOR BREATHING. SHAKE WELL. RINSE MOUTHPIECE FREQUENTLY TO PREVENT CLOGGING. Indication: FOR COPD 2) AMLODIPINE BESYLATE 10MG TAB TAKE ONE TABLET BY MOUTH ONCE A ACTIVE DAY Indication: FOR HIGH BLOOD PRESSURE 3) ASPIRIN 81MG EC TAB TAKE ONE TABLET BY MOUTH ONCE A DAY ACTIVE TAKE WITH FOOD. Indication: FOR CARDIOVASCULAR DISEASE 4) CHLORTHALIDONE 25MG TAB TAKE ONE-HALF TABLET BY MOUTH ONCE A ACTIVE DAY Indication: FOR HIGH BLOOD PRESSURE 5) CHOLECALCIF 50MCG (D3-2,000UNIT) TAB TAKE ONE TABLET BY ACTIVE MOUTH ONCE A DAY Indication: FOR VITAMIN D DEFICIENCY 6) CYANOCOBALAMIN 500MCG TAB TAKE ONE TABLET BY MOUTH ONCE A ACTIVE DAY FOR B12 SUPPLEMENTATION 7) EMPAGLIFLOZIN 25MG TAB TAKE ONE-HALF TABLET BY MOUTH ONCE A ACTIVE DAY Indication: FOR DIABETES 8) FENOFIBRATE 145MG TAB TAKE ONE TABLET BY MOUTH ONCE A DAY - ACTIVE TAKE WITH FOOD Indication: FOR HIGH TRIGLYCERIDES 9) FINASTERIDE 5MG TAB TAKE ONE TABLET BY MOUTH ONCE A DAY ACTIVE SWALLOW WHOLE, DO NOT CRUSH, SPLIT, OR CHEW. Indication: FOR BENIGN PROSTATIC HYPERPLASIA 10) FLUOROURACIL 5% CREAM APPLY THIN FILM TO AFFECTED AREA(S) ACTIVE TWICE A DAY AVOID SUN EXPOSURE. FOLLOW DIRECTIONS CAREFULLY FOR PROPER HANDLING/DISPOSAL.USE FOR 10 DAYS AT A TIME Indication: FOR FOREARMS AND FACE 11) FLUTICAS 250/SALMETEROL 50 INHL DISK 60 INHALE 1 INHALATION ACTIVE BY ORAL INHALATION TWICE A DAY (OPEN DISKUS; CLICK ONLY ONCE; MAY INHALE TWICE TO COMPLETE DOSE; CLOSE WHEN FINISHED) RINSE MOUTH AND SPIT AFTER EACH USE. Indication: FOR COPD 12) ICOSAPENT ETHYL 1GM CAP TAKE TWO CAPSULES BY MOUTH TWICE A ACTIVE DAY WITH MEALS Indication: FOR HIGH TRIGLYCERIDES 13) KETOCONAZOLE 2% SHAMPOO USE SHAMPOO TO AFFECTED AREA(S) ONCE ACTIVE A DAY (EXTERNAL USE ONLY) (SHAKE WELL) FOR HEAD AND NECK. LATHER FOR 3 MINUTES PRIOR TO RINSING Indication: FOR SEBORRHEIC DERMATITIS 14) LEVOTHYROXINE NA (SYNTHROID) 25MCG TAB TAKE ONE TABLET BY ACTIVE MOUTH EVERY MORNING BEFORE A MEAL TAKE 30 MINUTES BEFORE FOOD. TAKE SEPARATELY FROM ALL OTHER MEDICATIONS. Indication: FOR HYPOTHYROIDISM 15) LISINOPRIL 40MG TAB TAKE ONE TABLET BY MOUTH ONCE A DAY ACTIVE Indication: FOR HIGH BLOOD PRESSURE 16) METFORMIN HCL 1000MG TAB TAKE ONE TABLET BY MOUTH TWICE A ACTIVE DAY WITH MEALS TAKE WITH FOOD. AVOID ALCOHOL. DISCONTINUE BEFORE GETTING XRAY DYE. Indication: FOR DIABETES 17) ROSUVASTATIN CA 40MG TAB TAKE ONE TABLET BY MOUTH EVERY ACTIVE EVENING Indication: FOR HIGH CHOLESTEROL 18) TIOTROPIUM 2.5MCG/ACTUAT 60D ORAL INHL INHALE 2 INHALATIONS ACTIVE ORAL INHALATION ONCE A DAY (ADMINISTER AT SAME TIME EACH DAY) FOR BREATHING. Inactive Outpatient Medications Status 1) HYDROPHILIC (EQV EUCERIN) TOP CREAM APPLY LIBERALLY TO AFFECTED AREA(S) ONCE A DAY NEEDED (EXTERNAL USE ONLY) Indication: FOR DRY SKIN Medication reconciliation completed: YES Adherence to above medications: - manages own meds, fills pillbox - denied missed doses in past month spouse makes sure I don't miss o note: amlodipine, empagliflozin, ASA, metformin, rosuvastatin, and levothyroxine are past due for refill - declined to review each med, stated I take everything that is prescribed Labs: HGA1C 7.5 H % 04/29/2024 10:32 [...] H TSH 2.420 A1c 8% SMBGs: - checks once a week before breakfast - I am thinking 130s BP last visit: 165/91 (08/10/2024 10:01) Pulse last visit: 83 (08/10/2024 09:58) Home Readings: - per recall, BP 134-140/70-75 Automatic BP seated, rested: 100/64 mmHg - last cigarette driving to appt Pulse: 86 bpm Repeat BP: 111/67 mmHg Pulse: 85 bpm BP after 2 min standin/68 mmHg Assessment/Plan: 1) Diabetes - Goal A1c <8%, FPG 80-160, PPG <210 d/t PVD, albuminuria, neuropathy per VA/DoD guidelines NonVA A1c and serum glu elevated. SCr wnl. eGFR appropriate for empagliflozin. SMBGs unavailable. Pt stated he was not checking at home during PCP visit but reported SMBGs in 130s today. Requested pt bring glucometer to download. Reported med compliance but has not filled metformin since January 2024; refilled today. Denied ADRs and diet/lifestyle changes. Discussed SGLT2i use in PVD and concern for amputation risk with pt and Dr. Cornelius (okay to continue). Pt verbalized understanding of risks and requested to continue SGLT2i. Previously avoiding GLP1 d/t pancreatitis risk with elevated TGs but may reconsider if TGs continue to improve and glu uncontrolled. Will increase empagliflozin and obtain updated TGs. - bring glucometer to clinic to download - metformin IR 1000mg BID - INCREASE empagliflozin 25mg daily - check SMBGs 2x/wk alternating before meals and bedtime!!! - educated vet on hypoglycemia symptoms and appropriate treatment and when to contact clinic or go to emergency room - labs: A1c Oct 2024 -- DM med SOC: (+)ASA (-)ACEi [...] LFTs wnl. Reported med compliance. Denied ADRs. Prev denied alcohol intake. Repeatedly edu to limit sweets [...] or PCP if occurs - labs: FLP next week 3) HTN - Goal BP <130/80 mmHg per ACC/AHA; <140/90 (age>60 with DM) per [facility]/DoD Clinic BP controlled to goal. Na, K, and SCr wnl. Home BP readings unavailable. Stated he was not checking at home during PCP visit but today reported home BP at goal. Note: Only 7 total BP readings on machine since pt received it Jul 2023 at last visit. Reported med compliance but refill history suspect. Denied ADRs except dizziness once in a while if he stands too fast. Negative for orthostasis in clinic again today. Not limiting caffeine. Not interested in smoking cessation. Advised to check home BP and bring machine to next visit. Ensure adequate hydration and change positions slowly. Call if SBP<100 or HoTN sxs. - chlorthalidone 12.5mg daily (AM) - amlodipine 10mg daily (AM) - lisinopril 40mg daily (PM) - check BP every other day and record - call CP if SBP >160 or DBP >100 sustained - present to ER if SBP >180 or DBP >120 sustained and/or if sxs present 4) Med Rec Pt filling own pillboxes. Declined to review each medication today. Denied missed doses but many meds past due for refill. Stated spouse reminds him to take meds. Refilled metformin at pt request. - continue to monitor compliance 5) Other Primary concern was obtaining pain medications for hip pain. Staffed with PCP. Pain fully evaluated at 08/10/24 visit. Offered diclofenac gel and physical therapy again today. If still interested in pain meds, can make a new appt with PCP. Pt declined stating he has a nonVA ortho MD on 09/10/23. Written instructions provided -Education provided on nonpharmacologic ways to improve [...] made (medication review completed, no discrepancies identified) PBM PharmHarvinder Pharmacotherapy Rem V12: PHARMACIST INTERVENTIONS: TYPE 2 DIABETES MELLITUS Medication Intervention(s) Adjust dose or frequency of current medication due to other reason /es/ ELOISE ROJAS, PHARMD, BCACP CLINICAL CASH REGISTER BALANCER Signed: 08/25/2024 15:13 ELOISE ROJAS [facility]
--- OUTSIDE RECORDS SUMMARY | 2024-10-09 12:32 | XMS_ITS | Encounter Summary ---
Author Name [facility] [place] Organization [place] Address [address] [place] [address] Care Team Providers Care Maintenance Shop Technician Name Role Phone ALLI CORNELIUS Primary Care [...] PART A Dec 27, 2013 PART A [id number] MAGOLINH CRUM PATIENT MEDICARE (WNR) MEDICARE (M) PART B Dec 27, 2013 PART B [id number] LINH MERCEDES THOMASY PATIENT MEDICARE (WNR) MEDICARE (M) PART A Dec 27, 2013 PART A [id number] LINH MERCEDES THOMASLewis PATIENT MEDICARE (WNR) MEDICARE (M) PART B Dec 27, 2013 PART B [id number] LINH MERCEDES THOMASLweis PATIENT Selected Encounter This section includes the information on record at [place] for the Encounter. Date/Time Encounter Type Encounter Description Reason Provider Source Mar 06, 2024 01:45 PM OFF/OP CNSLTJ NEW/EST LOW 30 DERMATOLOGY ICD-10-CM L57.0 Actinic keratosis ARTUROBRIGIDA SINGHErika Partida Luciano Encounter Template Text not used by [place] Assessments - Encounter Diagnoses This section includes the primary and secondary diagnoses documented for the Encounter. Date/Time Primary/Secondary Diagnosis Diagnosis Name Provider Source Mar 23, 2024 01:56 PM PRIMARY [facility]inic [facility] Mar 23, 2024 01:56 PM SECONDARY Melanocytic nevi, unspecified [facility] Mar 23, 2024 01:56 PM SECONDARY Other seborrheic keratosis [facility] Mar 23, 2024 01:56 PM SECONDARY Personal history of malignant melanoma of skin [facility] Mar 23, 2024 01:56 PM SECONDARY Personal history of other malignant neoplasm of skin [facility] Plan of Treatment: Future Appointments (+ 6 months) and Future Tests (+/- 45 days) The Plan of Treatment section includes future care activities for the [facility] [place] [facility] This section includes future appointments [...] 25, 2024 11:30 AM AMBULATORY - NONE [facility] Apr 20, 2024 11:00 AM AMBULATORY - REHAB MEDICIN [facility] Apr 29, 2024 09:15 AM AMBULATORY - MEDICINE [facility] May 26, 2024 10:00 AM AMBULATORY - REHAB MEDICIN [facility] Jun 09, 2024 10:15 AM AMBULATORY - MEDICINE [facility] Jul 07, 2024 11:00 AM AMBULATORY - REHAB MEDICIN [facility] Jul 15, 2024 10:00 AM AMBULATORY - NONE [facility] Aug 05, 2024 02:00 PM AMBULATORY - MEDICINE [facility] Aug 10, 2024 10:00 AM AMBULATORY - REHAB MEDICIN [facility] Aug 25, 2024 10:00 AM AMBULATORY - REHAB MEDICIN [facility] Active, Pending, and Scheduled Orders This section includes a listing of several types of active, pending, and scheduled orders, including clinic medications orders, diagnostic test orders, procedure orders and consult orders; where the start date of the order is 45 days before the date of the Encounter or 45 days after the date of theEncounter. The data comes from all [facility]. Test Date/Time Test Type Test Details Facility Name Feb 11, 2024 12:00 AM Laboratory - Chemi stry Order CBC BLOOD [facility] Feb 11, 2024 12:00 AM Laboratory - Chemi stry Order AST/SGOT GREEN LI/HEP BLD/PLAS PLASMA [facility] Feb 11, 2024 12:00 AM Laboratory - Chemi stry Order ALT/SGPT GREEN LI/HEP BLD/PLAS PLASMA [facility] Lab Results: +/- 30 days of [...] Range Comment Feb 11, 2024 12:00 PM [facility] OCCULT BLOOD FIT X1 SCREEN Specimen Type: FECES No comment entered. Ordering Provider: RAHUL CORNELIUS Report Released Date/Time: Feb 11, 2024 10:54 AM Reporting Lab: [facility] [address] [facility] [address] Performing Lab: [facility] [address] [facility] [address] OCCULT BLOOD (FIT) #1 OF 1 Negative Negative Radiology Reports: +/- 30 days of the [...] the Encounter. The data comes from all [place] treatment facilities. Date/Time Radiology Report Provider Source Mar 25, 2024 10:50 AM LDCT LUNG CANCER SCREENING: TAN MERCEDES [id number] -[id number] M Exm Date: MAR 25, 2024@10:50 Req Phys: EFRAÍN EDEN Loc: [facility]-LUNG CANCER SCREENING (Req' Img Loc: [facility]-CT IMAGING [facility] Service: Unknown [facility] [address] [place] [address] (Case [id number] COMPLETE) LDCT LUNG CANCER SCREENING (CT Detailed) CPT:53704 Reason for Study: lcs Clinical History: Responsible Attending: radha Attending Contact Number: [phone] Resident Contact Number: Patient is age 50-80? [...] 25, 2024 Date Verified: MAR 25, 2024 Rehab Therapist E-Sig:/ES/MARGRET AGUIAR MD Report: EXAM: LDCT LUNG CANCER SCREENING COMPARISON: 03/23/2023, 03/19/2022 PROTOCOL: Screening protocol, low dose, non-contrast CT chest was performed at the local [place] facility in accordance with Lung-Rads 2. Additional [...] Primary Interpreting Staff: MARGRET AGUIAR MD, Radiologist (Rehab Therapist) /MARGRET FLOWERS [facility] Encounter Notes: All associated encounter notes This section contains the clinical notes associated to the Encounter. Date/Time Encounter Note(s) Provider Source Mar 06, 2024 01:42 PM DERMATOLOGY CONSULT: LOCAL TITLE: DERMATOLOGY CONSULT [facility] STANDARD TITLE: DERMATOLOGY CONSULT DATE OF NOTE: MAR 06, 2024@13:42 ENTRY DATE: MAR 06, 2024@13:42:18 AUTHOR: DANNY DENNIS COSIGNER: NELLIE SHOOK URGENCY: STATUS: COMPLETED DERMATOLOGY CONSULT [facility] Has ADDENDA DERMATOLOGY CONSULT NOTE REFERRAL REASON: Left ear actinic keratoses, multiple scaly papules on extensor surface of both arms, forehead and cheeks. TAN MERCEDES is a 73 year old WHITE MALE with a PMH significant for MM on left cheek (BD 0.8 mm) s/p surgical excision & negative SLNB 11/2022; BCC Forehead s/p EDC 10/2022; BCC, left distal calf s/p MOHS 02/2023; BCC, left proximal calf s/p EDC 02/2023 who presents for evaluation of bumps on forehead, cheeks and arms. Patient last seen in office 03/2023. Today: - Reports concern for rough spots on face. Denies new or changing moles. Accompanied by daughter. Allergies: EGGS, SHELLFISH PE: General Appearance: Well-developed and well-nourished. No acute distress. Neuro/Psych: Alert and cooperative. Appropriate affect. Skin: Left helix, left arm with 2 thick pink scaly gritty papules, dorsal arms with diffuse pink scaly papules Scattered homogenous jama/brown macules on trunk, extremities Scattered jama/brown stuck on appearing papules on face, trunk WHSS on left cheek, right forehead and left posterior calf OTHERWISE: Face: WNL Ears: WNL Scalp, Hair: WNL Neck: WNL Chest: WNL Abd: WNL Back: WNL Upper Extremities: WNL Lower Extremities: WNL Nails: WNL A/P: #Actinic keratosis (es): -Nature of condition reviewed including small risk of transformation into skin cancer -Options of treatment reviewed prior to treatment including monitoring, cryotherapy/LN2, field therapy -Location: left helix, left arm -Number treated: 2 -Patient elected for LN2 today to thicker lesions today; will plan to start Efudex to bilateral forearms +/- face in Fall 2023- will re-evaluate in 3 months. -LN2 x 7sec to all sites. SER including blistering, pain, recurrence, and scarring. -Blister care reviewed #Multiple benign nevi #Lentigines - Benign reassurance provided - Recommend sunscreen with SPF30 or greater and sun protective clothing. - Reviewed sun protection strategies and skin cancer warning signs - Continue monthly self-skin exams and regular MD skin exams #History of BCC, left distal calf s/p MOHS 02/2023 #History of BCC, left proximal calf s/p EDC 02/2023 - Surgical sites healing appropriately without signs of recurrence or infection - No new primaries today - Reviewed sun protection strategies and skin cancer warning signs - Recommend sunscreen with SPF30 or greater and sun protective clothing. - Continue monthly self-skin exams and regular MD skin exams #History of malignant melanoma with epidermal ulceration present, left cheek (Provisional Breslow depth 0.8mm) s/p excision 11/2022 #History of non-melanoma skin cancer - No evidence of recurrence or new primaries today - Reviewed sun protection strategies and skin cancer warning signs - Recommend sunscreen with SPF30 or greater and sun protective clothing. - Continue monthly self-skin exams and regular MD skin exams Return to clinic 3 months /judie/ Danny Dennis MD Dermatology Resident Signed: 03/06/2024 13:54 /judie/ NELLIE SHOOK MD DERMATOLOGY & DERMATOPATHOLOGY Cosigned: 03/06/2024 14:26 03/06/2024 ADDENDUM STATUS: COMPLETED Reviewed documented history and physical examination and agree with assessment and plan. I was immediately available during entire visit and procedures. /judie/ NELLIE SHOOK MD DERMATOLOGY & DERMATOPATHOLOGY Signed: 03/06/2024 14:[address] [facility]
--- OUTSIDE RECORDS SUMMARY | 2024-10-09 12:32 | XMS_ITS | Encounter Summary ---
Author Name [facility] [place] [place] Organization [place] Address [address] [place] [address] Care Team Providers Care Seat Installer Name Role Phone ALLI CORNELIUS Primary Care [...] PART A Dec 27, 2013 PART A [id number] 33A LINH MERCEDES PATIENT MEDICARE (WNR) MEDICARE (M) PART B Dec 27, 2013 PART B [id number] 33A MERCEDESLINH COLLINS PATIENT MEDICARE (WNR) MEDICARE (M) PART A Dec 27, 2013 PART A [id number] MERCEDESLINH GUZMANLewis PATIENT MEDICARE (WNR) MEDICARE (M) PART B Dec 27, 2013 PART B [id number] LINH MERCEDES THOMASLewis PATIENT Selected Encounter This section includes the information on record at [place] for the Encounter. 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 This section includes future appointments and future orders which are active, pending or scheduled. Future Appointments This section includes appointments that were scheduled to occur 6 months from the date of the Encounter, up to a maximum of 20 appointments. The data comes from all [place] treatment facilities. Appointment Date/Time Appointment Type Appointme nt Facility Name Feb 11, 2024 10:00 AM AMBULATORY - REHAB MEDICIN E [facility] Mar 06, 2024 01:45 PM AMBULATORY - MEDICINE [facility] Mar 25, 2024 11:30 AM AMBULATORY - NONE [facility] Apr 20, 2024 11:00 AM AMBULATORY - REHAB MEDICIN E [facility] Apr 29, 2024 09:15 AM AMBULATORY - MEDICINE [facility] May 26, 2024 10:00 AM AMBULATORY - REHAB MEDICIN E [facility] Jun 09, 2024 10:15 AM AMBULATORY - MEDICINE [facility] Jul 07, 2024 11:00 AM AMBULATORY - RE[facility]AB MEDICIN [facility] Jul 15, 2024 10:00 AM AMBULATORY - NONE [facility] Aug 05, 2024 02:00 PM AMBULATORY - MEDICINE [facility] Aug 10, 2024 10:00 AM AMBULATORY - REHAB MEDICIN E [facility] Active, Pending, and Scheduled Orders This section [...] Order ALT/SGPT GREEN LI/HEP BLD/PLAS PLASMA SP [facility] Feb 11, 2024 12:00 AM Laboratory - Chemi stry Order CBC BLOOD SP [facility] Feb 11, 2024 12:00 AM Laboratory - Chemi stry Order AST/SGOT GREEN LI/HEP BLD/PLAS PLASMA SP [facility] Lab Results: +/- 30 days of the [...] Range Comment Feb 11, 2024 12:00 PM [facility] OCCULT BLOOD FIT X1 SCREEN Specimen Type: FECES No comment entered. Ordering Provider: RAHUL CORNELIUS Report Released Date/Time: Feb 11, 2024 10:54 AM Reporting Lab: [facility] [address] [id number] Performing Lab: [facility] [address] [address] OCCULT BLOOD (FIT) #1 OF 1 Negative [...] 2022 09:30 AM VA-TOBACCO USER EVERY DAY [facility] Tobacco Use History This section includes a history of the smoking, or tobacco-related health factors, that were collected on or before the date of the Encounter. The data comes from the [place] facility where the Encounter took place. Date/Time Smoking Status/Tobacco Use Comment F acility Sep 26, 2022 09:30 AM VA-TOBACCO USE 30 YEARS OR MORE [facility] Sep 26, 2022 09:30 AM VA-TOBACCO USE ADVICE [facility] Sep 26, 2022 09:30 AM VA-TOBACCO USE HAND THERMAL CUTTER NO [facility] Sep 26, 2022 09:30 AM VA-TOBACCO USE MED NO [facility] Sep 26, 2022 09:30 AM VA-TOBACCO USER EVERY DAY [facility] May 05, 2021 01:00 PM VA-TOBACCO USE 30 YEARS OR MORE [facility] May 05, 2021 01:00 PM VA-TOBACCO USE ADVICE [facility] May 05, 2021 01:00 PM VA-TOBACCO USE HAND THERMAL CUTTER NO [facility] May 05, 2021 01:00 PM VA-TOBACCO USE MED NO [facility] May 05, 2021 01:00 PM VA-TOBACCO USE WI 30 MIN OF WAKEUP [facility] May 05, 2021 01:00 PM VA-TOBACCO USER EVERY DAY [facility] Mar 05, 2018 09:42 AM CURRENT TOBACCO USER [facility] Mar 05, 2018 09:42 AM CURRENT TOBACCO US ER (NOT READY TO QUIT) [facility] Mar 05, 2018 09:42 AM TOBACCO CESSATION REFERRAL DECLINED [facility] Mar 05, 2018 09:42 AM TOBACCO MEDS OFFER ED BUT DECLINED [facility] Mar 05, 2018 09:42 AM TOBACCO USER OFFERED MEDS [facility] Mar 05, 2017 08:56 AM CURRENT TOBACCO USER [facility] Mar 05, 2017 08:56 AM TOBACCO MEDS OFFER ED BUT DECLINED [facility] Encounter Notes: All associated encounter notes This section contains the clinical notes associated to the Encounter. Date/Time Encounter Note(s) Provider Source Feb 10, 2024 09:34 AM INTERNAL MEDICINE CLINICAL PHARMACIST MEDICATION MGT NOTE: LOCAL TITLE: CLINICAL PHARMACIST NOTE [facility] STANDARD TITLE: INTERNAL MEDICINE CLINICAL PHARMACIST MEDICATION DATE OF NOTE: FEB 10, 2024@09:34 ENTRY DATE: FEB 10, 2024@09:34:42 AUTHOR: ELOISE ROJAS COSIGNER: URGENCY: STATUS: COMPLETED CLINICAL PHARMACY FOLLOW-UP Subjective: TAN MERCEDES is a 73 MALE who presents to clinic for follow up on HTN/HLD/DM. Verified pts full name and PMH: 1) Essential hypertension 2) Mixed hyperlipidemia 3) Nicotine dependence 4) Hearing loss 5) Vitamin D Deficiency ([facility] [id number]) 6) Impaired Fasting Glucose ([facility] [id number]) 7) Peripheral vascular disease 8) Critical lower limb ischaemia 9) Chronic obstructive lung disease 10) Diabetes mellitus 11) Malignant melanoma of skin of face 12) Hypothyroidism 13) Exposure to potentially hazardous substance During the last contact with vet (01/07/24), the following changes were made: - labs today - set phone alarm to remember to take meds - check SMBGs and BP every other day. Alternate before meals and bedtime - limit concencrated sweets to help lower TGs - limit caffeine and tobacco - switch lisinopril to evening administration - Switch levothyroxine to AM before other meds and food During current visit: - Pt presented to clinic to review meds and home readings. Dietary/Lifestyle/Social History modifications made: - intentionally lost about 10 lbs recently (maybe past 6 mo) - loves sweets - EtOH: less than 1 drink/week ROS: DM: (-) hypoglycemia symptoms or values [...] PREVENT CLOGGING. 2) AMLODIPINE BESYLATE 10MG TAB TAKE ONE TABLET BY MOUTH ACTIVE ONCE A DAY FOR HIGH BLOOD PRESSURE 3) ASPIRIN 81MG EC TAB TAKE ONE TABLET BY MOUTH ONCE A ACTIVE DAY FOR CARDIOVASCULAR DISEASE TAKE WITH FOOD. 4) CHOLECALCIF 50MCG (D3-2,000UNIT) TAB TAKE ONE TABLET ACTIVE BY MOUTH ONCE A DAY FOR VITAMIN D DEFICIENCY 5) CYANOCOBALAMIN 500MCG TAB TAKE ONE TABLET BY MOUTH ACTIVE ONCE A DAY FOR B12 SUPPLEMENTATION 6) EMPAGLIFLOZIN 25MG TAB TAKE ONE-HALF TABLET BY MOUTH ACTIVE ONCE A DAY FOR DIABETES 7) FENOFIBRATE 145MG TAB TAKE ONE TABLET BY MOUTH ONCE A ACTIVE DAY FOR HIGH TRIGLYCERIDES - TAKE WITH FOOD 8) FINASTERIDE 5MG TAB TAKE ONE TABLET BY MOUTH ONCE A ACTIVE DAY FOR BENIGN PROSTATIC HYPERPLASIA SWALLOW WHOLE, DO NOT CRUSH, SPLIT, OR CHEW. 9) HYDROPHILIC (EQV EUCERIN) TOP CREAM APPLY LIBERALLY ACTIVE TO AFFECTED AREA(S) ONCE A DAY NEEDED FOR DRY SKIN (EXTERNAL USE ONLY) 10) ICOSAPENT ETHYL 1GM CAP TAKE TWO CAPSULES BY MOUTH ACTIVE TWICE A DAY WITH MEALS FOR HIGH TRIGLYCERIDES 11) LEVOTHYROXINE NA (SYNTHROID) 25MCG TAB TAKE ONE ACTIVE TABLET BY MOUTH EVERY MORNING BEFORE A MEAL FOR HYPOTHYROIDISM TAKE 30 MINUTES BEFORE FOOD. TAKE SEPARATELY FROM ALL OTHER MEDICATIONS. - AM 12) LISINOPRIL 40MG TAB TAKE ONE-HALF TABLET BY MOUTH ACTIVE ONCE A DAY FOR HIGH BLOOD PRESSURE - PM 13) METFORMIN HCL 1000MG TAB TAKE ONE-HALF TABLET BY ACTIVE MOUTH TWICE A DAY WITH MEALS FOR DIABETES TAKE WITH FOOD. AVOID ALCOHOL. DISCONTINUE BEFORE GETTING XRAY DYE. 14) ROSUVASTATIN CA 40MG TAB TAKE ONE TABLET BY MOUTH ACTIVE EVERY EVENING FOR HIGH CHOLESTEROL 15) TIOTROPIUM 2.5MCG/ACTUAT 60D ORAL INHL INHALE 2 ACTIVE INHALATIONS ORAL INHALATION ONCE A DAY (ADMINISTER AT SAME TIME EACH DAY) FOR BREATHING. Active Non-VA Medications Status 1) Non-VA ERGOCALCIF 1,250MCG (D2-50,000UNIT) CAP ACTIVE 1250MCG BY MOUTH EVERY WEEK Medication reconciliation completed: YES Adherence to above medications: - denied missed doses - filling pillbox Labs: HGA1C 8.4 H % 01/07/2024 13:40 [...] EGFR (CKD-EPI 2020) 91.27 01/07/2024 13:40 est CrCl:84.4mL/min ALKALINE PHOSPHATASE 57 U/L 08/27/2023 13:57 ALT/SGPT [...] B12 344 pg/mL 09/26/2022 10:17 SMBGs: - forgot glucometer and log - testing before breakfast a few times weekly - per recall, BG 120-130s BP last visit: 151/78 (08/15/2023 12:45) Pulse last visit: 89 (08/15/2023 11:01) Home Readings: - forgot log - once in a while - per recall, BP 140s/?? Automatic BP seated, rested: deferred to time constraints Assessment/Plan: 1) Diabetes - Goal A1c <8%, FPG 80-160, PPG <210 d/t PVD, albuminuria, neuropathy per VA/DoD guidelines A1c elevated. Serum glu at goal. SCr wnl. eGFR appropriate for empagliflozin. SMBGs controlled before breakfast per recall. Unavailable the rest of the day. Agreed to bring glucometer to download for next visit. Reported improved med compliance. Denied ADRs. Diet deferred d/t time constraints but previously having high carb meals/snacks. Discussed SGLT2i use in PVD and concern for amputation risk with pt and Dr. Cornelius (okay to continue). Pt verbalized understanding of risks and requested to continue SGLT2i. Avoiding GLP1 d/t TGs>700 and pancreatitis risk. Will increase metformin to target elevated A1c. Continue empagliflozin for now. - INCREASE metformin IR 1000mg BID - empagliflozin 12.5mg daily - check SMBGs every other day alternating before meals and bedtime - educated vet on hypoglycemia symptoms and appropriate treatment and when to contact clinic or go to emergency room - labs: A1c and SCr Mar 2024 -- DM med SOC: (+)ASA (-)ACEi [...] TSH, vit D, and LFTs wnl. Reported improved med compliance. Denied ADRs. Limiting alcohol to less than 1 drink/week. Struggling to limit sweets and high glycemic foods. Discussed risks of elevated TGs including pancreatitis and how to lower TGs (limit sweets, exercise, lose weight). Pt stated he has intentionally lost about 10 lbs over the past 6 months. Set goal to start walking in his pool for exercise. Discussed PCSK9i to target LDL but pt hesitant to use injections. Preference to work on diet, exercise, and maintain med compliance first. Staffed with Dr. Cornelius - continue fenofibrate until TGs <500 then consider discontinuation. Monitor for rhadbo and pancreatitis. Consider PCSK9i if labs still elevated despite med and lifestyle compliance. - cholecalciferol 2000 units daily (copay exempt) -- taking nonVA ergocalciferol 50,000 units weekly x 6 more wks - icosapent ethyl 2000mg BID - rosuvastatin 40mg daily - fenofibrate 145mg daily - monitor for myalgias and report to CP or PCP if occurs - labs: vit D and FLP mid Mar 2024 3) HTN - Goal BP <130/80 mmHg per ACC/AHA; <140/90 (age>60 with DM) per VA/DoD Clinic BP elevated last visit; deferred today d/t time constraints with med rec, review of labs, and extensive discussion on HLD mgmt. Na, K, and SCr wnl. Home BP readings at goal per recall but able to provide specific numbers. Agreed to bring home BP machine to next visit. Reported improved med compliance. Denied ADRs. Advised that caffeine and tobacco can raise blood pressure. Will CCT until home BP readings available. - amlodipine 10mg daily (AM) - lisinopril 20mg daily (PM) - check BP every other day and record - call CP if SBP >160 or DBP >100 sustained - present to ER if SBP >180 or DBP >120 sustained and/or if sxs present 4) Med Rec - Pt filling own pillboxes (prev dtr Nik was doing this). Improved med compliance since last visit (1-2 missed/wk to rare missed doses). Using phone alarm to remind him. Confirmed pt switched levothyroxine to AM before other meds and food and that he switch lisinopril to evening. Stated he needs refills on some meds but unable to recall which ones and that he will call them in when he gets home. - continue to monitor compliance -Education provided on nonpharmacologic ways to improve DM/HLD/HTN (including lifestyle management/dietary/physical activity) specific for the vet's needs. -Reviewed recent labs and provided test result letter. - verbalized understanding to all plans discussed today. Questions were answered to vet's satisfaction. Time spent with vet: 30 min RTC: 6 weeks f2f MEDICATION Medications were addressed at this visit. PBM PharmD Pharmacotherapy Rem V12: PHARMACIST INTERVENTIONS: HYPERTENSION Medication monitoring, no dosage change required, continue to monitor and assess LIPID MANAGEMENT Medication monitoring, no dosage change required, continue to monitor and assess TYPE 2 DIABETES MELLITUS Medication Intervention(s) Adjust dose or frequency of current medication due to other reason Address adherence Medication reconciliation (changes to active VA and non-VA medication lists to reconcile differences) No changes to medication lists made (medication review completed, no discrepancies identified) /judie/ ELOISE ROJAS, JESSICAD, BCACP CLINICAL DIESEL SERVICE TECHNICIAN Signed: 02/10/2024 11:31 ELOISE ROJAS [facility]
--- OUTSIDE RECORDS SUMMARY | 2024-10-09 12:32 | XMS_ITS | Encounter Summary ---
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 Date/Time Encounter Type Encounter Description Reason Provider Source Aug 10, 2024 10:00 AM OFFICE O/P EST HI 40 MIN GERIPACT ICD-10-CM M25.552 Pain in left hip ALLI CORNELIUS [facility] Encounter Template Text not used by [place] Assessments - Encounter Diagnoses This section includes the primary and secondary diagnoses documented for the Encounter. Date/Time Primary/Secondary Diagnosis Diagnosis Name Provider Source Aug 10, 2024 04:30 PM PRIMARY [facility] Aug 10, 2024 04:30 PM SECONDARY Chronic obstructive pulmonary disease, unspecified [facility] Aug 10, 2024 04:30 PM SECONDARY Essential (primary) hypertension [facility] Aug 10, 2024 04:30 PM SECONDARY Hypothyroidism, unspecified [facility] Aug 10, 2024 04:30 PM SECONDARY Mixed hyperlipidemia [facility] Aug 10, 2024 04:30 PM SECONDARY Nicotine dependence, cigarettes, uncomplicated [facility] Aug 10, 2024 04:30 PM SECONDARY Peripheral vascular disease, unspecified [facility] Aug 10, 2024 04:30 PM SECONDARY 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 This section includes future appointments and future orders which are active, pending or scheduled. Future Appointments This section includes appointments that were scheduled to occur 6 months from the date of the Encounter, up to a maximum of 20 appointments. The data comes from all [place] treatment [facility]. Appointment Date/Time Appointment Type Appointme nt Facility Name Aug 25, 2024 10:00 AM AMBULATORY - REHAB MEDICIN E [facility] Sep 08, 2024 10:15 AM AMBULATORY - MEDICINE [facility] Sep 29, 2024 10:00 AM AMBULATORY - REHAB MEDICIN [facility] Nov 10, 2024 10:00 [facility] Active, Pending, and Scheduled Orders This section includes a listing of several types of active, pending, and scheduled orders, including clinic medications orders, diagnostic test orders, procedure orders and consult orders; where the start date of the order is 45 days before the date of the Encounter or 45 days after the date of theEncounter. The data comes from all [facility] facilities. Test Date/Time Test Type Test Details Facility Name Aug 10, 2024 12:00 AM Laboratory - Chemi stry Order HGA1C BLOOD SP [facility] Aug 10, 2024 12:00 AM Laboratory - Chemi stry Order BASIC METABOLIC PANEL GREEN LI/HEP BLD/PLAS PLASMA SP [facility] Aug 10, 2024 12:00 AM Laboratory - Chemi stry Order LIPID PANEL (STL) GREEN LI/HEP BLD/PLAS PLASMA SP ONCE [facility] Aug 10, 2024 12:00 AM Laboratory - Chemi stry Order CBC BLOOD SP [facility] Aug 10, 2024 12:00 AM Laboratory - Chemi stry Order TSH W/ REFLEX FT4 (STL) GREEN LI-HEP PLASMA SP [facility] Aug 10, 2024 12:00 AM Laboratory - Chemi stry Order MICRAL/CREAT PROFILE (STL) URINE SP [facility] Aug 31, 2024 12:00 AM Laboratory - Chemi stry Order LIPID PANEL (STL) GREEN LI/HEP BLD/PLAS PLASMA SP ONCE [facility] Vital Signs: All taken on the encounter date This section contains inpatient and outpatient Vital Signs collected on the date of the Encounter. Date/Time Temperature Pulse Blood Pressure Respiratory Rate SP02 Pain Height Weight Body Mass Index Source Aug 10, 2024 10:01 AM 165/91 [facility] Aug 10, 2024 09:58 AM 98.2 83 174/85 16 95 10 199.9 27 [facility] Social History: Smoking Status (Most current) and Tobacco Use (All prior to encounter date) This section includes the most current, and the historical, smoking and tobacco- related health factors from the [place] facility where the Encounter took place. Current Smoking Status This section includes the most current smoking, or tobacco-related health factor, from the [place] facility where the Encounter took place. Date/Time Current Smoking Status Comment Facil ity Feb 11, 2024 10:00 AM VA-TOBACCO USER EVERY DAY [facility] Tobacco Use History This section includes a history of the smoking, or tobacco-related health factors, that were collected on or before the date of the Encounter. The data comes from the [place] facility where the Encounter took place. Date/Time Smoking Status/Tobacco Use Comment F acility Feb 11, 2024 10:00 AM VA-TOBACCO USE 30 YEARS OR MORE [facility] Feb 11, 2024 10:00 AM VA-TOBACCO USE ADVICE 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 Feb 11, 2024 10:00 AM VA-TOBACCO USE MED NO [facility] Feb 11, 2024 10:00 AM VA-TOBACCO USER EVERY DAY [facility] Sep 26, 2022 09:30 AM VA-TOBACCO DOESNT USE WI 30 MIN WAKEUP [facility] Sep 26, 2022 09:30 AM VA-TOBACCO USE 30 YEARS OR MORE [facility] Sep 26, 2022 09:30 AM VA-TOBACCO USE ADVICE [facility] Sep 26, 2022 09:30 AM VA-TOBACCO USE SECURITY GUARDS DISPATCHER NO [facility] Sep 26, 2022 09:30 AM VA-TOBACCO USE MED NO [facility] Sep 26, 2022 09:30 AM VA-TOBACCO USER EVERY DAY [facility] May 05, 2021 01:00 PM VA-TOBACCO USE 30 YEARS OR MORE [facility] May 05, 2021 01:00 PM VA-TOBACCO USE ADVICE [facility] May 05, 2021 01:00 PM VA-TOBACCO USE SECURITY GUARDS DISPATCHER NO [facility] May 05, 2021 01:00 PM VA-TOBACCO USE MED NO [facility] May 05, 2021 01:00 PM VA-TOBACCO USE WI 30 MIN OF WAKEUP [facility] May 05, 2021 01:00 PM VA-TOBACCO USER EVERY DAY [facility] Mar 05, 2018 09:42 AM CURRENT TOBACCO USER [facility] Mar 05, 2018 09:42 AM CURRENT TOBACCO US ER (NOT READY TO QUIT) [facility] Mar 05, 2018 09:42 AM TOBACCO CESSATION REFERRAL DECLINED [facility] Mar 05, 2018 09:42 AM TOBACCO MEDS OFFER ED BUT DECLINED [facility] Mar 05, 2018 09:42 AM TOBACCO USER OFFERED MEDS [facility] Mar 05, 2017 08:56 AM CURRENT TOBACCO USER [facility] Mar 05, 2017 08:56 AM TOBACCO MEDS OFFER ED BUT DECLINED [facility] Radiology Reports: +/- 30 days of the [...] the Encounter. The data comes from all [place] treatment facilities. Date/Time Radiology Report Provider Source Jul 15, 2024 09:07 AM LDCT LCS 1, 3 OR 6 MONTH FOLLOW UP: TAN MERCEDES [id number] -1950 M [facility] Date: JUL 15, 2024@09:07 Req Phys: FRANCESCO DOUGLAS JR Pat Loc: [facility]-LUNG CANCER SCREENING (Req' Img Loc: [facility]-CT IMAGING [facility] Service: [address] [address] (Case [id number] COMPLETE) LDCT LCS 1, 3 OR 6 MONTH FOLLOW U(CT Detailed) CPT:28824 Reason for Study: FOLLOW UP Clinical History: [...] 20, 2024 Date Verified: JUL 20, 2024 Marine Insurance Claim Examiner E-Sig:/ES/MARGRET AGUIAR MD Report: EXAM: LDCT LCS 1, 3 OR 6 MONTH FOLLOW UP COMPARISON: 03/25/2024, 03/23/2023 PROTOCOL: Screening protocol, low dose, non-contrast CT chest was performed at the local [place] facility in accordance with Lung-Rads 2021. Additional [...] Primary Interpreting Staff: MARGRET AGUIAR MD, Radiologist (Marine Insurance Claim Examiner) /MARGRET FLOWERS [facility] Encounter Notes: All associated encounter notes This section contains the clinical notes associated to the Encounter. Date/Time Encounter Note(s) Provider Source Aug 10, 2024 11:06 AM GERIATRIC MEDICINE NOTE: LOCAL TITLE: GERIATRIC PACT CLINIC [facility] STANDARD TITLE: GERIATRIC MEDICINE NOTE DATE OF NOTE: AUG 10, 2024@11:06 ENTRY DATE: AUG 10, 2024@11:08:05 AUTHOR: DEYANIRA DUCKWORTH COSIGNER: ALLI CORNELIUS URGENCY: STATUS: COMPLETED Type of Evaluation: Geriatric Follow-up Date of Visit: 08/10/24 10:00 Patient's SSN:[id number] TAN MERCEDES is a 74 year old WHITE MALE. : Feb CC: follow up HPI: Pt is a 74 yo male pmhx including T2DM, htn, hld, bph, copd, PVD presenting for follow up. For the past week he has had pain in his left hip. This is worse when he stands up and walks. It improves when he bends forward slightly. He has been taking tylenol for his symptoms which have mildly improved symptoms. He denies any trauma to the area. Otherwise he states he has been taking his medications and only has to use his rescue inhaler once or twice a month. He smokes approximately 1/2 ppd. He does not take his blood pressure or measure his surgars at home. Adherence to Medications & Managed by: clinical pharmacist GERIATRIC REVIEW OF SYSTEMS: Change in weight: weight gain Appetite: normal Dysphagia (specify with or without CVA): Dentition: Sleep: denies issues Vision: Hearing: Wounds/Ulcers: no knew wounds Peripheral neuropathy (specify with or without DM): Constipation: denies Incontinence: denies Nocturia: gets up approx 2 times per night Fear of falling: denies Assistive devices: denies Recent Hospitalizations: denies Recent ER Visits: denies Complete ROS: Constitutional: Eyes: ENMT: CV: denies new chest pain Resp: denies sob GI: denies constipation : denies issues urinating Musculoskeletal: deneis new lower extremity pain besides new hip pain Skin: Neuro: Psych: PMH: 1) Essential hypertension 2) Mixed hyperlipidemia 3) Nicotine dependence 4) Hearing loss 5) Vitamin D Deficiency ([facility] [id number]) 6) Impaired Fasting Glucose ([facility] [id number]) 7) Peripheral vascular disease 8) Critical lower [...] this [facility] (local) and dispensed from another [place] or [facility] facility (remote) as well as local inpatient [...] TO PREVENT CLOGGING. Indication: FOR COPD 2) ALCOHOL PREP PAD USE/APPLY PAD TO AFFECTED AREA(S) ONCE A ACTIVE DAY NEEDED Indication: FOR SKIN CLEANSING 3) AMLODIPINE BESYLATE 10MG TAB TAKE ONE TABLET BY MOUTH ONCE A ACTIVE DAY Indication: FOR HIGH BLOOD PRESSURE 4) ASPIRIN 81MG EC TAB TAKE ONE TABLET BY MOUTH ONCE A DAY ACTIVE TAKE WITH FOOD. Indication: FOR CARDIOVASCULAR DISEASE 5) CHLORTHALIDONE 25MG TAB TAKE ONE-HALF TABLET BY MOUTH ONCE A ACTIVE DAY Indication: FOR HIGH BLOOD PRESSURE 6) CHOLECALCIF 50MCG (D3-2,000UNIT) TAB TAKE ONE TABLET BY ACTIVE MOUTH ONCE A DAY Indication: FOR VITAMIN D DEFICIENCY 7) CYANOCOBALAMIN 500MCG TAB TAKE ONE TABLET BY MOUTH ONCE A ACTIVE DAY FOR B12 SUPPLEMENTATION 8) EMPAGLIFLOZIN 25MG TAB TAKE ONE-HALF TABLET BY MOUTH ONCE A ACTIVE DAY Indication: FOR DIABETES 9) FENOFIBRATE 145MG TAB TAKE ONE TABLET BY MOUTH ONCE A DAY - ACTIVE TAKE WITH FOOD Indication: FOR HIGH TRIGLYCERIDES 10) FINASTERIDE 5MG TAB TAKE ONE TABLET BY MOUTH ONCE A DAY ACTIVE SWALLOW WHOLE, DO NOT CRUSH, SPLIT, OR CHEW. Indication: FOR BENIGN PROSTATIC HYPERPLASIA 11) FLUOROURACIL 5% CREAM APPLY THIN FILM TO AFFECTED AREA(S) ACTIVE TWICE A DAY AVOID SUN EXPOSURE. FOLLOW DIRECTIONS CAREFULLY FOR PROPER HANDLING/DISPOSAL.USE FOR 10 DAYS AT A TIME Indication: FOR FOREARMS AND FACE 12) FLUTICAS 250/SALMETEROL 50 INHL DISK 60 INHALE 1 INHALATION ACTIVE BY ORAL INHALATION TWICE A DAY (OPEN DISKUS; CLICK ONLY ONCE; MAY INHALE TWICE TO COMPLETE DOSE; CLOSE WHEN FINISHED) RINSE MOUTH AND SPIT AFTER EACH USE. Indication: FOR COPD 13) HYDROPHILIC (EQV EUCERIN) TOP CREAM APPLY LIBERALLY TO ACTIVE AFFECTED AREA(S) ONCE A DAY NEEDED (EXTERNAL USE ONLY) Indication: FOR DRY SKIN 14) ICOSAPENT ETHYL 1GM CAP TAKE TWO CAPSULES BY MOUTH TWICE A ACTIVE DAY WITH MEALS Indication: FOR HIGH TRIGLYCERIDES 15) KETOCONAZOLE 2% SHAMPOO USE SHAMPOO TO AFFECTED AREA(S) ONCE ACTIVE A DAY (EXTERNAL USE ONLY) (SHAKE WELL) FOR HEAD AND NECK. LATHER FOR 3 MINUTES PRIOR TO RINSING Indication: FOR SEBORRHEIC DERMATITIS 16) LANCET,SOFTCLIX USE LANCET FOR BLOOD TEST ONCE A DAY USE ACTIVE DIRECTED. Indication: FOR BLOOD SUGAR MONITORING 17) LEVOTHYROXINE NA (SYNTHROID) 25MCG TAB TAKE ONE TABLET BY ACTIVE MOUTH EVERY MORNING BEFORE A MEAL TAKE 30 MINUTES BEFORE FOOD. TAKE SEPARATELY FROM ALL OTHER MEDICATIONS. Indication: FOR HYPOTHYROIDISM 18) LISINOPRIL 40MG TAB TAKE ONE TABLET BY MOUTH ONCE A DAY ACTIVE Indication: FOR HIGH BLOOD PRESSURE 19) METFORMIN HCL 1000MG TAB TAKE ONE TABLET BY MOUTH TWICE A ACTIVE DAY WITH MEALS TAKE WITH FOOD. AVOID ALCOHOL. DISCONTINUE BEFORE GETTING XRAY DYE. Indication: FOR DIABETES 20) ROSUVASTATIN CA 40MG TAB TAKE ONE TABLET BY MOUTH EVERY ACTIVE EVENING Indication: FOR HIGH CHOLESTEROL 21) TIOTROPIUM 2.5MCG/ACTUAT 60D ORAL INHL INHALE 2 INHALATIONS ACTIVE ORAL INHALATION ONCE A DAY (ADMINISTER AT SAME TIME EACH DAY) FOR BREATHING. Medication List was provided to the patient/caregiver at the end of the visit. ALLERGIES/ADR: EGGS, SHELLFISH VITALS: BP: 165/91 (08/10/2024 10:01) Pulse: 83 (08/10/2024 09:58) Temp: 98.2 F [36.8 C] (08/10/2024 09:58) RR: 16 (08/10/2024 09:58) Pain: 10 (08/10/2024 09:58) Weight: Measurement DT WEIGHT LB(KG)[BMI] 08/10/2024 09:58 199.9(90.67)[27] 08/05/2024 13:26 198.4(89.99)[27] 04/29/2024 08:48 190.9(86.59)[26] Height: 72 in [182.9 cm] (02/20/2023 10:11) PE: General: patient appears well and is resting comfortably HEENT: CV: RRR, no murmurs or gallops appreciated Pulm: coarse breath sounds auscilatated bilaterally, no crackles, no wheezing Ext: normal hip range of motion bilaterally, DIRT CONTRACTOR and DPA not palpated, monofilament test normal, pt does have thin layer of dry skin on bottom of both feet, no cracks appreciated Neuro: no neural defecits noted Gait: favors right side while ambulated LABS: CMP: CREATININE 0.79 mg/dL 04/29/2024 10:32 GLUCOSE 118 H mg/dL 04/29/2024 10:32 SODIUM 139 mEq/L 04/29/2024 10:32 POTASSIUM 3.9 mEq/L 04/29/2024 10:32 CHLORIDE 107 mEq/L (04/29/24 10:32) CARBON DIOXIDE 23 mEq/L 04/29/2024 10:32 CALCIUM 10.0 mg/dL (04/29/24 10:32) PROTEIN 8.2 g/dL 08/27/2023 13:57 ALBUMIN 4.7 [...] Name Result Units Ref Range 04/29/2024 10:32 BLOOD HGA1C 7.5 H % 4.0 - 6.0 01/07/2024 13:40 BLOOD HGA1C 8.4 H % 4.0 - 6.0 08/15/2023 13:17 BLOOD HGA1C 8.4 H % 4.0 - 6.0 09/26/2022 10:17 BLOOD HGA1C 7.7 H % 4.0 - 6.0 PLT 193 10*3/uL 11/19/2022 10:49 PSA: No PSA EO data found CHOLESTEROL 169 mg/dL 04/29/2024 10:32 HDL: 40 mg/dL (04/29/24 10:32) LDL: DIRECT LDL 60 L mg/dL 04/29/2024 10:32 CALCULATED LDL comment mg/dL 04/29/2024 10:32 Trigs: 361 mg/dL H (04/29/24 10:32) No MICRAL data found VITAMIN D, 25-HYDROXY 63.9 ng/mL 04/29/2024 10:32 B12 595 pg/mL 04/29/2024 10:32 No FOLATE (STL-MA);FOLATE (PB);FOLATE (DC 05-05);FOLATE (DC 05/05) data found TSH 2.116 uIU/mL 08/27/2023 13:57 CHEST X-RAY: Impression for CHEST X-RAY, 2 VIEWS, 11/19/22, case [id number] No evidence of pulmonary consolidation, tumor mass or lymphadenopathy. No interval change since the previous examination dated 03/16/2020. ASSESSMENT AND PLAN: Pt is a 74 yo male pmhx including T2DM, htn, hld, bph, copd, PVD presenting for follow up. He did have an elevated blood pressure reading today however he smoked prior to the appointment. htn- pt on max amlodapine and lisinopril (which he will continue), can go up on chlorthalidone. Pt to follow up with pharm in next month, he was counseled to not smoke prior to the appointment. If blood pressure not at goal (under 140/90) then will increase chlorthalidone dose. Pt also counseled to take blood pressure every morning to monitor. T2DM- last A1c 7.5%, will continue empaglaflozin and metformin. Pt counseled to take glucose levels everyday. BPH- continue finasterid 5 mg COPD- continue spiriva and albuterol, pt states he only needs albuterol 1-2 per month. Offered smoking cessation counseling pt declined further intervention. PVD- aspirin 81 mg. Acitinic keratosis- pt seen by derm, will continue efudex. HLD- pt to recieve labs when visiting pharm, if lipids acceptable then will dc fenofibrate Hip pain- most likley pt pulled a muscle or there is a nerve impingement. Patient will continue tylenol and monitor symptoms. If no improvement this month then will proceed with PT. PREVENTION & HEALTH MAINTENANCE: declined flu vaccine Life Sustaining Treatment Orders RTC: 6 months /judie/ DEYANIRA DUCKWORTH MS4 Signed: 08/10/2024 12:39 /judie/ ALLI CORNELIUS M.D. STAFF PHYSICIAN [facility] Cosigned: 08/10/2024 16:32 DEYANIRA DUCKWORTH [facility] Aug 10, 2024 10:24 AM GERIATRIC MEDICINE NOTE: LOCAL TITLE: GERIATRIC PACT CLINIC [facility] STANDARD TITLE: GERIATRIC MEDICINE NOTE DATE OF NOTE: AUG 10, 2024@10:24 ENTRY DATE: AUG 10, 2024@10:24:13 AUTHOR: ALLI CORNELIUS EXP COSIGNER: URGENCY: STATUS: COMPLETED Date of Visit: 08/10/24 10:00 Patient's SSN:[id number] TAN MERCEDES is a 74 year old WHITE MALE. : Feb Patient seen and examined with [ ]resident [X}medical student. I agree with [ ]his [X}her history, exam, assessment and plan with the following addition: CC:74 MALE with chronic tobacco use hyperlipidemia, hypertension, COPD, type 2 diabetes, malignant melanoma of the face, hypothyroidism who presents today for his scheduled follow-up. sees multiple providers outside the [facility]. SHARI study done at [facility] on June 29, 2024 showed patent left common femoral artery to popliteal bypass. No evidence of stenosis in the left lower extremity or right lower extremity. Right ankle-brachial index is 0.72. Left SHARI 0.96. Right SHARI is consistent with moderate occlusive disease. He saw dermatology on June 09, 2024 for surveillance of malignant melanoma and treatment of actinic keratosis and seborrheic dermatitis. There was no evidence of recurrence of malignant melanoma. He sees clinical pharmacist for management of dyslipidemia, diabetes and hypertension. Most recent A1c is 7.5. Triglyceride 361. [place] reports intermittent left outer hip pain radiating to the left leg up to the ankle. When asked to describe his symptom, states that pain usually starts around the ankle and left leg and goes to the left hip. No thigh pain. He denies any trauma or falls. No heavy lifting. There has been no weakness or numbness. Relaxing his knee when standing or leaning forward eases some of the pain. Took APAP with some relief. Does not wake him up at night. No fever. Pain sometimes affects his mobility. [place] does not use any assistive device. Bowels move regularly. Nocturia x 2. Does not check his blood sugar or blood pressure readings at home. He sees a local primary care provider and vascular surgeon at [facility] for follow-up as well. Denies any memory problems. What matters most: Grandchildren and great-grandchildren. PMH/Problem list: 1) Essential hypertension 2) Mixed hyperlipidemia 3) Nicotine dependence 4) Hearing loss 5) Vitamin D Deficiency ([facility] [id number]) 6) Impaired Fasting Glucose ([facility] [id number]) 7) Peripheral vascular disease 8) Critical lower limb ischaemia 9) Chronic obstructive lung disease 10) Diabetes mellitus 11) Malignant melanoma of skin of face 12) Hypothyroidism 13) Exposure to potentially hazardous substance Mobility: Independent without assistive device PFSH, medications, ROS: Agree with medical student's note. Smokes half a pack of cigarettes per day. Declines assistance with tobacco cessation. Medication Reconciliation Opt STL: I have reviewed the patient's medication list (including active outpatient prescriptions dispensed from this [facility] (local) and dispensed from another [place] or [facility] facility (remote) as well as inpatient orders (local pending and active), local clinic medications, locally documented non-VA medications, and local prescriptions that have or been discontinued in the past 90 days.) with the patient and/or his/her care-account contact associate. Handwritten corrections, additions and/or deletions were made to the list, as appropriate. Corrected Outpatient Medication List was provided to the patient/caregiver. Active Outpatient Medications (including Supplies): Active Outpatient Medications Status 1) ALBUTEROL 90MCG (CFC-F) 200D ORAL INHL INHALE 1 PUFF ORAL ACTIVE INHALATION FOUR TIMES A DAY NEEDED FOR BREATHING. SHAKE WELL. RINSE MOUTHPIECE FREQUENTLY TO PREVENT CLOGGING. Indication: FOR COPD 2) ALCOHOL PREP PAD USE/APPLY PAD TO AFFECTED AREA(S) ONCE A ACTIVE DAY NEEDED Indication: FOR SKIN CLEANSING 3) AMLODIPINE BESYLATE 10MG TAB TAKE ONE TABLET BY MOUTH ONCE A ACTIVE DAY Indication: FOR HIGH BLOOD PRESSURE 4) ASPIRIN 81MG EC TAB TAKE ONE TABLET BY MOUTH ONCE A DAY ACTIVE TAKE WITH FOOD. Indication: FOR CARDIOVASCULAR DISEASE 5) CHLORTHALIDONE 25MG TAB TAKE ONE-HALF TABLET BY MOUTH ONCE A ACTIVE DAY Indication: FOR HIGH BLOOD PRESSURE 6) CHOLECALCIF 50MCG (D3-2,000UNIT) TAB TAKE ONE TABLET BY ACTIVE MOUTH ONCE A DAY Indication: FOR VITAMIN D DEFICIENCY 7) CYANOCOBALAMIN 500MCG TAB TAKE ONE TABLET BY MOUTH ONCE A ACTIVE DAY FOR B12 SUPPLEMENTATION 8) EMPAGLIFLOZIN 25MG TAB TAKE ONE-HALF TABLET BY MOUTH ONCE A ACTIVE DAY Indication: FOR DIABETES 9) FENOFIBRATE 145MG TAB TAKE ONE TABLET BY MOUTH ONCE A DAY - ACTIVE TAKE WITH FOOD Indication: FOR HIGH TRIGLYCERIDES 10) FINASTERIDE 5MG TAB TAKE ONE TABLET BY MOUTH ONCE A DAY ACTIVE SWALLOW WHOLE, DO NOT CRUSH, SPLIT, OR CHEW. Indication: FOR BENIGN PROSTATIC HYPERPLASIA 11) FLUOROURACIL 5% CREAM APPLY THIN FILM TO AFFECTED AREA(S) ACTIVE TWICE A DAY AVOID SUN EXPOSURE. FOLLOW DIRECTIONS CAREFULLY FOR PROPER HANDLING/DISPOSAL.USE FOR 10 DAYS AT A TIME Indication: FOR FOREARMS AND FACE 12) FLUTICAS 250/SALMETEROL 50 INHL DISK 60 INHALE 1 INHALATION ACTIVE BY ORAL INHALATION TWICE A DAY (OPEN DISKUS; CLICK ONLY ONCE; MAY INHALE TWICE TO COMPLETE DOSE; CLOSE WHEN FINISHED) RINSE MOUTH AND SPIT AFTER EACH USE. Indication: FOR COPD 13) HYDROPHILIC (EQV EUCERIN) TOP CREAM APPLY LIBERALLY TO ACTIVE AFFECTED AREA(S) ONCE A DAY NEEDED (EXTERNAL USE ONLY) Indication: FOR DRY SKIN 14) ICOSAPENT ETHYL 1GM CAP TAKE TWO CAPSULES BY MOUTH TWICE A ACTIVE DAY WITH MEALS Indication: FOR HIGH TRIGLYCERIDES 15) KETOCONAZOLE 2% SHAMPOO USE SHAMPOO TO AFFECTED AREA(S) ONCE ACTIVE A DAY (EXTERNAL USE ONLY) (SHAKE WELL) FOR HEAD AND NECK. LATHER FOR 3 MINUTES PRIOR TO RINSING Indication: FOR SEBORRHEIC DERMATITIS 16) LANCET,SOFTCLIX USE LANCET FOR BLOOD TEST ONCE A DAY USE ACTIVE DIRECTED. Indication: FOR BLOOD SUGAR MONITORING 17) LEVOTHYROXINE NA (SYNTHROID) 25MCG TAB TAKE ONE TABLET BY ACTIVE MOUTH EVERY MORNING BEFORE A MEAL TAKE 30 MINUTES BEFORE FOOD. TAKE SEPARATELY FROM ALL OTHER MEDICATIONS. Indication: FOR HYPOTHYROIDISM 18) LISINOPRIL 40MG TAB TAKE ONE TABLET BY MOUTH ONCE A DAY ACTIVE Indication: FOR HIGH BLOOD PRESSURE 19) METFORMIN HCL 1000MG TAB TAKE ONE TABLET BY MOUTH TWICE A ACTIVE DAY WITH MEALS TAKE WITH FOOD. AVOID ALCOHOL. DISCONTINUE BEFORE GETTING XRAY DYE. Indication: FOR DIABETES 20) ROSUVASTATIN CA 40MG TAB TAKE ONE TABLET BY MOUTH EVERY ACTIVE EVENING Indication: FOR HIGH CHOLESTEROL 21) TIOTROPIUM 2.5MCG/ACTUAT 60D ORAL INHL INHALE 2 INHALATIONS ACTIVE ORAL INHALATION ONCE A DAY (ADMINISTER AT SAME TIME EACH DAY) FOR BREATHING. Allergies: EGGS, SHELLFISH Physical Exam: VS:VITAL SIGNS DETAILED DISPLAY Date Vital Measurement Qualifiers 08/10/2024 10:01 BP 165/91 L Arm, Standing, Adult Cuff, Cuff-Automated 08/10/2024 09:58 Temp F (C) 98.2 (36.8) Pulse 83 Respir 16 BP 174/85 Wt lbs (kg)[BMI] 199.9 (90.67)[27] Pain 10 POx (L/Min)(%) 95 08/05/2024 13:26 Temp F (C) 98.2 (36.8) Pulse 96 Respir 18 Wt lbs (kg)[BMI] 198.4 (89.99)[27] Pain 0 POx (L/Min)(%) 95 VITAL SIGNS SELECTED No selection items chosen for this component. 165/91 (08/10/2024 10:01)83 (08/10/2024 09:58)95% (08/10/2024 09:58)16 (08/10/2024 09:58)98.2 F [36.8 C] (08/10/2024 09:58) Measurement DT WEIGHT LB(KG)[BMI] 08/10/2024 09:58 199.9(90.67)[27] 08/05/2024 13:26 198.4(89.99)[27] 04/29/2024 08:48 190.9(86.59)[26] Measurement DT BP 08/10/2024 10:01 165/91 08/10/2024 09:58 174/85--> recheck left arm sitting 160/80. [place] smoked a cigarette just before he came to his appointment. 08/05/2024 13:26 152/72 GS:alert, oriented, not in distress. HEENT:pinkish conjunctivae,no scleral icterus. TMs intact. Neck:no JVD, no bruit. Heart:regular, no gallops. Lungs:clear Abdomen:soft, non distended, non tender. Extremities:no ankle edema. FROM hips and knees. Muscle strength symmetric. Pedal pulse not palpable. Bilateral bunions. Dry, scaly skin. A few superficial fissures noted on the thick skin along the lateral aspect of both feet. No plantar callus or ulcers. Monofilament testing shows intact sensation. Hip flexor and knee extensor strength 5/5 symmetric. Straight leg raising is negative. Some limitation in hip rotation both legs. Toes look pink. Gait:non ataxic, slightly antalgic. Good gait speed. Stood without any assistance. Neuro:grossly non focal. No rigidity or tremors. Labs: Chem 7:SODIUM 139 mEq/L 04/29/2024 10:32 POTASSIUM 3.9 mEq/L 04/29/2024 10:32 CHLORIDE 107 mEq/L 04/29/2024 10:32 UREA NITROGEN 11.3 mg/dL 04/29/2024 10:32 CREATININE 0.79 mg/dL 04/29/2024 10:32 CALCIUM 10.0 mg/dL 04/29/2024 10:32 CARBON DIOXIDE 23 mEq/L 04/29/2024 10:32 GLUCOSE 118 H mg/dL 04/29/2024 10:32 EGFR (CKD-EPI 2020) 92.1 04/29/2024 10:32 CBC: WBC 10.0 10*3/uL 11/19/2022 10:49 RBC [...] 10:49 BASOPHILS, ABSOLUTE 0.07 10*3/uL 11/19/2022 10:49 PSA: No PSA EO data found Cholesterol: CHOLESTEROL 169 mg/dL 04/29/2024 10:32 HDL: 40 mg/dL (04/29/24 10:32) LDL: CALCULATED LDL comment mg/dL 04/29/2024 10:32 Trigs: 361 mg/dL H (04/29/24 10:32) HBA1C: HGA1C 7.5 H % 04/29/2024 10:32 CREATuF: 48.1 (08/15/23 13:26) M/CREAT: 168 (08/15/23 13:26) MICRAL: 81 (08/15/23 13:26) TSH 2.116 uIU/mL 08/27/2023 13:57 B12 595 pg/mL 04/29/2024 10:32 Chest X-ray: Impression for CHEST X-RAY, 2 VIEWS, 11/19/22, case 401 No evidence of pulmonary consolidation, tumor mass or lymphadenopathy. No interval change since the previous examination dated 03/16/2020. Assessment: Pain in left Hip (ICD-10-CM M25.552) (Primary) Essential hypertension ([facility] [id number]) - Essential (primary) hypertension (ICD-10-CM I10.) Mixed hyperlipidemia ([facility] [id number]) - Mixed hyperlipidemia (ICD-10-CM E78.2) Nicotine dependence ([facility] [id number]) - Nicotine dependence, cigarettes, uncomplicated (ICD-10-CM F17.210) Peripheral vascular disease ([facility] [id number]) - Peripheral vascular disease, unspecified (ICD-10-CM I73.9) Chronic obstructive lung disease ([facility] [id number]) - Chronic obstructive pulmonary disease, unspecified (ICD-10-CM J44.9) Diabetes mellitus ([facility] [id number]) - 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 Monitor BP readings at home. Check BP daily for 2 weeks and bring readings for review when he comes to his appointment with Dr. Turner at the end of the month. Target blood pressure reading less than 140/90. declines assistance with smoking cessation. Check TSH, CBC, urine for microalbumin. counseled on footcare and sunscreen use. Patient declines vaccines. Take acetaminophen as needed for hip pain. Suspect possible back or hip strain. Monitor symptoms for now. encouraged to notify us if hip pain persists. Avoid heavy lifting. Offered diclofenac gel but prefers to use a horse liniment for his hip. Patient also declined outpatient physical therapy. Moisturize both feet liberally. voiced agreement with above recommendations and plans. RTC 6 months and as needed. Agree with student's assessment and plan. Type of Evaluation: Geriatric Follow-up WHAT MATTERS What Matters was addressed at this visit. Comment: Grandchildren and great-grandchildren MEDICATION Medications were addressed at this visit. Comment: Medications reconciled MENTATION Depression was addressed at this visit. Comment: No feelings of depression. PHQ 2 on February 11, 2024 was 0. MENTATION Dementia was addressed at this visit. Comment: AD8=0 MOBILITY -------- Mobility was addressed at this visit. Comment: Emelia Huston Gs 7 Sexual Orientation - CP,L,N,P,PH,PS,S,U: The patient thinks of their sexual orientation as: Straight or Heterosexual Influenza Immunization - L,N,P,PH,U: Deferral / Refusal The patient declines to receive the recommended dose of seasonal influenza vaccine. Immunization: INFLUENZA, UNSPECIFIED FORMULATION Refusal Reason: PATIENT DECISION Patient refuses all immunization(s) in the FLU group Date Documented: 08/10/24 11:33 PAVE Foot Check - L,N,P,PH,PO,PT,U: A complete foot check was completed at this encounter. VISUAL INSPECTION: Includes inspection for skin breaks, deformity, erythema, trauma, pallor on elevation, dependent rubor, nail deformities, extensive callus and pitting edema. Visual exam results: Abnormal Observations: Bunions PEDAL PULSES: Includes palpation of dorsalis and posterior tibial pulses and signs/symptoms of vascular compromise like pain, pallor, parasthesia or paralysis. Absent: Comment: has history of peripheral vascular disease. Left SHARI 0.96 right SHARI 0.72. SENSORY CHECK: Includes 10 gram Monofilament ([place]) test of sensation. Intact (Greater than or equal to 80% of sites checked) Abnormal (Less than 80% of sites checked): Intact HIGH-RISK: HIGH RISK INFORMATION PROVIDED: 1. Advised patient that extra depth footwear with soft molded inserts and braces may be required. 2. Advised patient not to walk barefoot. 3. Explained the importance of daily foot checks. 4. Stressed the importance of daily foot hygiene, including bathing, complete drying and thorough inspection for changes. Patient declined referral to Podiatry. Will follow up with Primary Care as scheduled. /judie/ ALLI CORNELIUS M.D. STAFF PHYSICIAN ECRS Signed: 08/10/2024 16:32 Receipt Acknowledged By: 08/11/2024 14:43 /judie/ ELOISE TURNER, JESISCAD, BCACP CLINICAL LAUNCHING PAD MECHANIC ALLI CORNELIUS [facility] Aug 10, 2024 10:05 AM NURSING NOTE: LOCAL TITLE: V15 PACT FACE TO FACE NOTE STL STANDARD TITLE: NURSING NOTE DATE OF NOTE: AUG 10, 2024@10:05 ENTRY DATE: AUG 10, 2024@10:05:48 AUTHOR: KRYSTAL JACKSON COSIGNER: URGENCY: STATUS: COMPLETED Provider Visit: Patient Identifiers : Full Name Date of Reason for visit: Routine visit - pt c/o left hip mpain that radiates to ankle. Established Follow-Up Mode of Arrival: Ambulatory Allergy Review: EGGS, SHELLFISH Allergy list reviewed and remains current. Recent Vital Signs: Temperature: 98.2 F [36.8 C] (08/10/2024 09:58) Pulse: 83 (08/10/2024 09:58) Respiration: 16 (08/10/2024 09:58) B/P: 174/85 (08/10/2024 09:58) Pain: 10 (08/10/2024 09:58) Wt: 199.9 lb [90.67 kg] (08/10/2024 09:58) Ht: 72 in [182.9 cm] (02/20/2023 10:11) BMI: 27.2 POX: 95% (08/10/2024 09:58) Would you like to discuss any personal problem, family problem, alcohol use, drug use, or a mental or emotional illness? No Contact provided Primary Care phone number and encouraged to call if any questions or concerns. Review that after hours nurse line [phone] and emergency room are available 18/02 for patient use. Contact verbalized good understanding. Frail/Elderly Screen: ADL Screen - Sher Index of [place] in Activities of Daily Living Bathing: (3 Points) Receives no assistance (gets in and out of tub by self, if tub is usual means of bathing) Dressing: (3 Points) Gets clothes and gets completely dressed without assistance. Toileting: (3 Points) Goes to toilet room , cleans self, and arranges clothes without assistance (may use object for support such as cane, walker, or wheelchair, and may manage own night bedpan or commode, emptying same next morning) Transferring: (3 Points) Moves in and out of bed and in and out of chair without assistance (may be using object for support, such as cane or walker) Continence: (3 Points) Controls urination and bowel movement completely by self Feeding: (3 Points) Feeds self without assistance Total Score: 18 Points 18 = High (patient independent) 6 = Low (patient very dependent) IADL Screen - [place] Instrumental Activities of Daily Living Scale Ability to use telephone: (1 point) Operates Telephone on own initiative; looks up and dials numbers. Shopping: (1 point) Takes care of all shopping needs independently. Food preparation: (1 point) Plans, prepares, and serves adequate meals independently. Housekeeping: (1 point) Maintains house alone with occasional assistance (heavy work). Laundry: (1 point) Does personal laundry completely. Mode of transportation: (1 point) Travels independently on public transportation or drives own car. Responsibility for own medications: (1 point) Is responsible for taking medications in correct dosages at correct times. Ability to handle finances: (1 point) Manages financial matters independently (budgets, writes checks, pays rent and bills, goes to bank); collects and keeps track of income. Total score: 8 points 8 = High function, independent 0 = Low function, dependent Falls Screen: No falls within the past 12 months. Incontinence Screen No incontinence. COVID-19 Immunization - L,N,P,PH,U: Refused Pfizer Monovalent COVID-19 vaccine Immunization: COVID-19 ([email or web address]), MRNA, LNP-S, PF, RICHIE-SUCROSE, 30 MCG/0.3 ML (AGES 12+ YEARS) Refusal Reason: PATIENT DECISION Patient refuses all immunization(s) in the COVID-19 group Date Documented: 08/10/24 10:08 Influenza Immunization - L,N,P,PH,U: Deferral / Refusal The patient declines to receive the recommended dose of seasonal influenza vaccine. Immunization: INFLUENZA, UNSPECIFIED FORMULATION Refusal Reason: PATIENT DECISION Patient refuses all immunization(s) in the FLU group Date Documented: 08/10/24 10:08 Herpes Zoster (Shingles) Vaccine - L,N,P,PH,U: The patient declines to receive the recommended dose of zoster (shingles) vaccine. Immunization: ZOSTER RECOMBINANT Refusal Reason: PATIENT DECISION Patient refuses all immunization(s) in the ZOSTER group Date Documented: 08/10/24 10:08 Pneumococcal Conjugate Vaccine (PCV15/PCV20) - L,N,P,PH,U: Refuses PCV vaccine Immunization: PNEUMOCOCCAL CONJUGATE, UNSPECIFIED FORMULATION Refusal Reason: PATIENT DECISION Patient refuses all immunization(s) in the PneumoPCV group Date Documented: 08/10/24 10:09 Tdap Immunization - L,N,P,PH,U: The patient declines to receive the recommended dose of Tdap vaccine. Immunization: TDAP Refusal Reason: PATIENT DECISION Patient refuses all immunization(s) in the TDAP group Date Documented: 08/10/24 10:09 [facility] - [facility] MAP: PERSONAL HEALTH PLAN INVENTORY & MAP == [place]'s Response: Kids & Grandchildren /es/ KRYSTAL JACKSON LPN LICENSED PRACTICAL NURSE Signed: 08/10/2024 10:09 KRYSTAL JACKSON [facility]
== END 2024-10-09 12:23 | disposition home or self-care (01) ==
PROVIDERS: Visit Provider Nurse Practitioner Family
DX: M43.06 Spondylolysis, lumbar region (principal)
CPT/HCPCS: 72148

== ENCOUNTER 2025-03-09 07:07 | Outpatient (CLI) | payer OTHER, SELFPAY ==
[2025-03-09 08:02] LABS: Hematocrit 44.4 % (42.0-52.0); Hemoglobin 14.6 g/dL (14.0-18.0); Mean Corpuscular HGB Conc 32.9 g/dl (32-36); Mean Corpuscular Hemoglobin 29.6 pg (26-34); Mean Corpuscular Volume 90.1 fl (80-100); Platelet Count Result 283 k/mm3 (150-375); Red Blood Count 4.93 M/mm3 (4.6-6.20); White Blood Count 20.1 K/mm3 (4.5-10.0)
[2025-03-09 08:18] LABS: Band Neutrophils Percent 0 % (0-6); Basophils Absolute Manual 0.00 K/mm3 (0.0-0.1); Basophils Percent Manual 0 % (0-1); Eosinophils Absolute Manual 0.20 K/mm3 (0.02-0.50); Eosinophils Percent Manual 1 % (0-4); Lymphocytes Absolute Manual 14.47 K/mm3 (1.1-4.5); Lymphocytes Percent Manual 72 % (18-44); Monocytes Absolute Manual 0.80 K/mm3 (0.1-0.90); Monocytes Percent Manual 4 % (3-9); Neutrophils Absolute Manual 4.62 K/mm3 (1.3-6.7); Neutrophils Percent Manual 23 % (46-73); Total Cells Counted 100
[2025-03-09 08:19] LABS: Giant Platelets Present; Schistocytes None Seen
[2025-03-09 08:21] LABS: MALB Creatinine Ratio 12.8 mg/g (0-30)
[2025-03-09 08:22] LABS: Alanine Aminotransferase 26 U/L (6-50); Albumin Level 4.4 g/dL (3.5-5.1); Alkaline Phosphatase 55 U/L (38-126); Anion Gap 7 mmol/L (4-12); Aspartate Amino Transferase 35 U/L (17-59); Bilirubin,Total 0.5 mg/dL (0.2-1.3); Blood Urea Nitrogen 32 mg/dL (9-20); Calcium 9.9 mg/dL (8.4-10.2); Carbon Dioxide 27 mmol/L (22-30); Chloride 104 mmol/L (98-107); Cholesterol 151 mg/dL (0-200); Estimated Glomerular Filt Rate > 60; Glucose 168 mg/dL (65-110); HDL Direct 34 mg/dL; Potassium 3.9 mmol/L (3.4-5.0); Sodium 138 mmol/L (137-145); Total Protein 8.0 g/dL (6.3-8.2); Triglycerides 402 mg/dL (<150)
[2025-03-09 08:23] LABS: Hemoglobin A1C 8.4 % (<5.7)
[2025-03-09 08:58] LABS: Thyroid Stimulating Hormone 2.510 uIU/mL (0.465-4.680)
== END 2025-03-09 07:08 | disposition home or self-care (01) ==
LOC: ANHLAB 07:08
PROVIDERS: PCP Family Medicine; Visit Provider Family Medicine
DX: E78.5 Hyperlipidemia, unspecified (principal); E11.9 Type 2 diabetes mellitus without complications; I10 Essential (primary) hypertension; I73.9 Peripheral vascular disease, unspecified; E78.1 Pure hyperglyceridemia; R97.20 Elevated prostate specific antigen [PSA]; M54.50 Low back pain, unspecified; R53.83 Other fatigue; Z79.899 Other long term (current) drug therapy; Z00.00 Encounter for general adult medical examination without abnormal findings
CPT/HCPCS: 36415; 80053; 80061; 82043; 83036; 84443; 85025

== ENCOUNTER 2025-03-12 06:52 | Outpatient (CLI) | payer OTHER, SELFPAY ==
--- NOTE | 2025-03-12 | CONSULT_PTH ---
PATIENT: Ivan Donato LOC: [facility] #:[id number] AGE/SX: 74/M ROOM: RE03/12/[address]: Ajay Guzman MD : [id number] BED: DIS: 03/12/2025 SPEC #: [id number] RECD: 03/12/25 08:53 STATUS: RAVEN REQ #: [id number] RHEA: 03/12/25 00:[address]: Ajay Guzman DEPT: [facility] Consult RECD BY: Stan Nino MLT Tissues: A - Peripheral Smear Procedures: Hematology Consult
--- OUTSIDE RECORDS SUMMARY | 2025-03-12 06:55 | XMS_ITS | Clinical Summary ---
Author Organization [facility] Address [facility] [place] [address] Care Team Providers Care Hammer Repairer Name Role Phone Unavailable Primary Care Provider [...] Td Vaccines ( 1 - Tdap) 1967 Pneumococcal Vaccine: 50+ Ye ars (1 of 1 - PCV) 1998 Zoster Vaccines (1 of 2) 1998 RSV Immunization or 60+ Years (1 - 1-dose 75+ series) 2023 COVID-19 Vaccine ( - 2023-2 5 season) 2024 Meningococcal B Vaccine Aged Out No l onger eligible based on patient's age to complete this topic Meningococcal Vaccine Aged Out No vanna stanley eligible based on patient's age to complete this topic RSV Immunizations Under 20 Months Aged Out No longer eligible based on patient's age to complete this topic
--- OUTSIDE RECORDS SUMMARY | 2025-03-12 06:55 | XMS_ITS | Encounter Summary ---
Author Name [facility] [place] Organization [facility] [place] Address [address] [place] [address] Care Team Providers Care Senior Court Office Assistant Name Role Phone ALLI CORNELIUS Primary Care [...] PART A Dec 27, 2013 PART A [id number] LINH MERCEDES PATIENT MEDICARE (WNR) MEDICARE (M) PART B Dec 27, 2013 PART B [id number] 33A MERCEDESLINH COLLINS PATIENT MEDICARE (WNR) MEDICARE (M) PART A Dec 27, 2013 PART A [id number] MERCEDESLINH COLLINS MMLewis PATIENT MEDICARE (WNR) MEDICARE (M) PART B Dec 27, 2013 PART B [id number] LINH MERCEDES THOMASLewis PATIENT Selected Encounter This section includes the information on record at [place] for the Encounter. 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 This section includes future appointments and future orders which are active, pending or scheduled. Future Appointments This section includes appointments that were scheduled to occur 6 months from the date of the Encounter, up to a maximum of 20 appointments. The data comes from all [facility]. Appointment Date/Time Appointment Type Appointme nt Facility Name Apr 05, 2025 10:00 AM AMBULATORY - REHAB MEDICIN E [facility] Aug 04, 2025 01:00 PM AMBULATORY [facility] MED[facility]INE [facility] Aug 25, 2025 10:00 AM [facility] Active, Pending, and Scheduled Orders This section includes a listing of several types of active, pending, and scheduled orders, including clinic medications orders, diagnostic test orders, procedure orders and consult orders; where the start date of the order is 45 days before the date of the Encounter or 45 days after the date of theEncounter. The data comes from all [facility]. Test Date/Time Test Type Test Details Facility Name Jan 18, 2025 12:00 AM Laboratory - Chemi stry Order MICRAL/CREAT PROFILE (STL) URINE YELLOW [facility] Feb 08, 2025 12:00 AM Laboratory - Chemi stry Order CBC BLOOD [facility] Vital Signs: All taken on the encounter date This section contains inpatient and outpatient Vital Signs collected on the date of the Encounter. Date/Time Temperature Pulse Blood Pressure Respiratory Rate SP02 Pain Height Weight Body Mass Index Source Mar 01, 2025 11:24 AM 84 /min 115/70 mm[Hg] [facility] Social History: Smoking Status (Most current) and Tobacco Use (All prior to encounter date) This section includes the most current, and the historical, smoking and tobacco- related health factors from the [place] facility where the Encounter took place. Current Smoking Status This section includes the most current smoking, or tobacco-related health factor, from the [place] facility where the Encounter took place. Date/Time Current Smoking Status Comment Facil ity Feb 08, 2025 10:00 AM VA-TOBACCO SCREEN FOLLOW-UP [facility] Tobacco Use History This section includes a history of the smoking, or tobacco-related health factors, that were collected on or before the date of the Encounter. The data comes from the [place] facility where the Encounter took place. 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 Date/Time Encounter Note(s) Provider Source Mar 01, 2025 08:41 AM INTERNAL MEDICINE CLINICAL PHARMACIST MEDICATION MGT NOTE: LOCAL TITLE: CLINICAL PHARMACIST NOTE ST STANDARD TITLE: INTERNAL MEDICINE CLINICAL PHARMACIST MEDICATION DATE OF NOTE: MAR 01, 2025@08:41 ENTRY DATE: MAR 01, 2025@08:41:49 AUTHOR: ELOISE ROJAS COSIGNER: URGENCY: STATUS: COMPLETED CLINICAL PHARMACY FOLLOW-UP Subjective: TAN MERCEDES is a 74 MALE who presents to clinic for follow up on DM/HTN/HLD/med rec. Verified pts full name and PMH: 1) Essential hypertension 2) Mixed hyperlipidemia 3) Nicotine dependence 4) Hearing loss 5) Vitamin D Deficiency (SCT [id number]) 6) Impaired Fasting Glucose (SCT [id number]) 7) Peripheral vascular disease 8) Critical lower limb ischaemia 9) Chronic obstructive lung disease 10) Diabetes mellitus 11) Malignant melanoma of skin of face 12) Hypothyroidism 13) Exposure to potentially hazardous substance During the last contact with vet (02/08/25), the following changes were made: DM: - Contemplating haim (has iphone) - bring glucometer to clinic to download - INCREASE glargine solostar 15 units daily (AM) HLD: - labs: lipid panel once DM control improved HTN: - no changes Med Rec: - bring all pill bottles to every pharmD appt - continue to monitor compliance During current visit: - Pt presented to clinic with dtr to review meds and home readings. Brought home BP machine and sugar log. Dietary/Lifestyle/Social History modifications made:denied changes - drinks: 1 regular soda/day otherwise sugar free crystal light and tomato juice - EtOH: 1 beer/week - tob: 0.5 ppd ROS: DM: (-) hypoglycemia symptoms or values <80 mg/dL (-) hyperglycemia symptoms (-) tingling/numbness HLD:(-) CP (-) muscle pain/cramps HTN:(-) hypotension symptoms or value <90/60 mmHg (-) orthostasis (-) edema (-) cough (-) HTN sxs Objective: Allergies: EGGS, SHELLFISH Medications: Active and [...] CARDIOVASCULAR DISEASE 4) CHLORTHALIDONE 25MG TAB TAKE ONE TABLET BY MOUTH ONCE A DAY ACTIVE Indication: FOR HIGH BLOOD PRESSURE 5) CHOLECALCIF 50MCG (D3-2,000UNIT) TAB TAKE ONE TABLET BY ACTIVE MOUTH ONCE A DAY Indication: FOR VITAMIN D DEFICIENCY 6) EMPAGLIFLOZIN 25MG TAB TAKE ONE TABLET BY MOUTH ONCE A DAY ACTIVE Indication: FOR DIABETES 7) FENOFIBRATE 145MG TAB TAKE ONE TABLET BY MOUTH ONCE A DAY - ACTIVE TAKE WITH FOOD Indication: FOR HIGH TRIGLYCERIDES 8) FINASTERIDE 5MG TAB TAKE ONE TABLET BY MOUTH ONCE A DAY ACTIVE SWALLOW WHOLE, DO NOT CRUSH, SPLIT, OR CHEW. Indication: FOR BENIGN PROSTATIC HYPERPLASIA 9) FLUOROURACIL 5% CREAM APPLY THIN FILM TO AFFECTED AREA(S) ACTIVE TWICE A DAY AVOID SUN EXPOSURE. FOLLOW DIRECTIONS CAREFULLY FOR PROPER HANDLING/DISPOSAL.USE FOR 10 DAYS AT A TIME Indication: FOR FOREARMS AND FACE 10) FLUTICAS 250/SALMETEROL 50 INHL DISK 60 INHALE 1 INHALATION ACTIVE BY ORAL INHALATION TWICE A DAY (OPEN DISKUS; CLICK ONLY ONCE; MAY INHALE TWICE TO COMPLETE DOSE; CLOSE WHEN FINISHED) RINSE MOUTH AND SPIT AFTER EACH USE. Indication: FOR COPD 11) ICOSAPENT ETHYL 1GM CAP TAKE TWO CAPSULES BY MOUTH TWICE A ACTIVE DAY WITH MEALS Indication: FOR HIGH TRIGLYCERIDES -12) INSULIN,GLARGINE 100 UNT/ML 3ML SOLOSTAR INJECT 15 UNITS ACTIVE UNDER THE SKIN ONCE A DAY ADMINISTER AT SAME TIME EACH DAY DIRECTED. DISCARD ANY OPEN CARTRIDGE AFTER 28 DAYS. Indication: FOR DIABETES 13) KETOCONAZOLE 2% SHAMPOO USE SHAMPOO TO AFFECTED AREA(S) ONCE ACTIVE A DAY (EXTERNAL USE ONLY) (SHAKE WELL) FOR HEAD AND NECK. LATHER FOR 3 MINUTES PRIOR TO RINSING Indication: FOR SEBORRHEIC DERMATITIS 14) LEVOTHYROXINE NA 25MCG TAB TAKE ONE TABLET BY MOUTH EVERY ACTIVE MORNING BEFORE A MEAL TAKE 30 MINUTES BEFORE FOOD. TAKE SEPARATELY FROM ALL OTHER MEDICATIONS. Indication: FOR HYPOTHYROIDISM 15) LISINOPRIL 40MG TAB TAKE ONE TABLET BY MOUTH ONCE A DAY ACTIVE (S) Indication: FOR HIGH BLOOD PRESSURE 16) METFORMIN HCL 1000MG TAB TAKE ONE TABLET BY MOUTH TWICE A ACTIVE (S) DAY WITH MEALS TAKE WITH FOOD. AVOID ALCOHOL. DISCONTINUE BEFORE GETTING XRAY DYE. Indication: FOR DIABETES 17) ROSUVASTATIN CA 40MG TAB TAKE ONE TABLET BY MOUTH EVERY ACTIVE EVENING Indication: FOR HIGH CHOLESTEROL 18) TIOTROPIUM 2.5MCG/ACTUAT 60D ORAL INHL INHALE 2 INHALATIONS ACTIVE ORAL INHALATION ONCE A DAY (ADMINISTER AT SAME TIME EACH DAY) FOR BREATHING. Medication reconciliation completed: YES - DM only, declined to review other meds Adherence to above medications: - any med that I was on before, I am still taking - dtr filling pillbox - denied missed doses Labs: HGA1C 10.8 H % 01/19/2025 08:13 SODIUM 139 mEq/L 01/19/2025 08:13 POTASSIUM 4.1 mEq/L 01/19/2025 08:13 CHLORIDE 104 mEq/L 01/19/2025 08:13 CALCIUM 9.8 mg/dL 01/19/2025 08:13 PROTEIN 8.6 g/dL 11/10/2024 10:21 ALBUMIN 3.8 g/dL 11/10/2024 10:21 CARBON DIOXIDE 24 mEq/L 01/19/2025 08:13 GLUCOSE 215 H mg/dL 01/19/2025 08:13 UREA NITROGEN 30.3 H mg/dL 01/19/2025 08:13 CREATININE 0.96 mg/dL 01/19/2025 08:13 EGFR (CKD-EPI 2020) 81.92 01/19/2025 08:13 est CrCl:71.9mL/min ALKALINE PHOSPHATASE 69 U/L 11/10/2024 10:21 ALT/SGPT 34 U/L 11/10/2024 10:21 AST/SGOT 47 H U/L 11/10/2024 10:21 TOTAL BILIRUBIN 0.4 mg/dL 11/10/2024 10:21 TRIGLYCERIDE 570 H mg/dL 01/19/2025 08:13 CHOLESTEROL 150 mg/dL 01/19/2025 08:13 HDL(New) 29 L mg/dL 01/19/2025 08:13 DIRECT LDL 39 mg/dL 01/19/2025 08:13 MICRAL/CR PROFILE: CREATuF: 48.1 (08/15/23 13:26) M/CREAT: 168 (08/15/23 13:26) MICRAL: 81 (08/15/23 13:26) TSH 1.824 uIU/mL 11/10/2024 10:22 VITAMIN D, 25-HYDROXY 17.5 L ng/mL 11/10/2024 10:22 B12 595 pg/mL 04/29/2024 10:32 SMBGs: [facility] 169 268 02/15 168 95 02/16 208 155 02/17 156 172 02/18 190 277 02/19 182 245 02/20 223 156 02/21 166 141 02/22 163 155 02/23 159 207 02/24* 192 126 *felt fatigue, poor appetite 02/25 152 132 02/26 194 167 02/27 424^ 178 ^2 puddings + regular soda overnight 02/28 200 183 03/01 186 BP last visit: 119/69 (02/08/2025 09:44) Pulse last visit: 85 (02/08/2025 09:44) Home Readings: Date BP P 02/12 118/55 81 02/16 02/17 02/18 103/57 83 116/65 80 02/19 116/61 72 02/20 120/66 78 02/21 02/22 02/23 02/24 02/25 153/72 90 162/114 88 136/68 83 8/02/27 123/62 86 Automatic BP seated, rested: 115/70 mmHg Pulse: 84 bpm Assessment/Plan: 1) Diabetes - Goal A1c <8%, FPG 80-160, PPG <210 d/t PVD, albuminuria, neuropathy per VA/DoD guidelines A1c and serum glu elevated. SCr wnl. eGFR appropriate for empagliflozin and metformin. SMBGs mostly elevated with wide variations d/t diet indiscretions per pt. Reported med compliance. Denied ADRs. Reviewed healthy plate method and sources of carbs to help stabilize sugars. Discussed SGLT2i use in PVD and concern for amputation risk with pt and Dr. Cornelius (okay to continue). Pt verbalized understanding of risks and requested to continue SGLT2i. Avoiding GLP1 d/t pancreatitis risk with elevated TGs but may reconsider if TGs continue to improve and glu uncontrolled. Repeat labs in Mar 2025. Will increase glargine today. Pt declined haim x 2. Bring glucometer to endo and pharmD appts. - bring glucometer to clinic to download - metformin IR 1000mg BID - empagliflozin 25mg daily - INCREASE glargine solostar 17 units daily (AM) - check SMBGs 2x/day alternating before meals and bedtime!!! - educated vet on hypoglycemia symptoms and appropriate treatment and when to contact clinic or go to emergency room - labs: uACR today; A1c due Mar 2025 -- DM med SOC: (+)ASA (-)ACEi (+ albuminuria) (+)Statin (-)flu vaccine - declined 08/10/24 (+)pneumo vaccine - 08/15/23 and 09/26/22 (+)Podiatry - 08/10/24 normal monofilament (+)Optho - 12/18/24 no DM retinopathy 2) Lipids - Goal is treatment with moderate-intensity statin per VADoD and ACC/AHA guidelines d/t secondary prevention. Controlled to statin tx goal. LDL 39 (goal<70). TGs much improved (2812 --> 570). Uncontrolled DM and diet likely contributing to elevated TGs. TSH, vit D, and ALT wnl. AST slightly elevated. Reported med compliance. Denied ADRs. Previously denied alcohol intake but today reported 1 beer/week. Discussed limiting alcohol and sugars to help lower TGs. Previously edu on s/s pancreatitis and CV events and when to present to ER. Declined PCSK9i d/t wanting to avoid injections but may revisit now that he takes insulin. Will CCT. Repeat labs when glu control improved. - rosuvastatin 40mg daily - cholecalciferol 2000 units daily (copay exempt) - icosapent ethyl 2000mg BID - fenofibrate 145mg daily - monitor for myalgias and report to CP or PCP if occurs - labs: lipid panel once DM control improved; possibly Mar 2025 3) HTN - Goal BP <130/80 mmHg per ACC/AHA; <140/90 (age>60 with DM) per VA/DoD Clinic BP controlled today. Na, K, and SCr wnl. Home BP readings mostly controlled to goal. Pt suspects he crossed his legs on 02/25 when home BP readings were higher. Reviewed proper home BP technique and timing. Reported med compliance. Denied ADRs and diet/lifestyle changes. Not interested in smoking cessation. Denied alcohol intake. Will CCT. - amlodipine 10mg daily (AM) - lisinopril 40mg daily (PM) - chlorthalidone 25mg daily (AM) - check BP every other day and record - call CP if SBP >160 or DBP >100 sustained - present to ER if SBP >180 or DBP >120 sustained and/or if sxs present 4) Med Rec Declined to review each individual medication today. Denied missed doses. Dtr continues filling pillbox. - bring all pill bottles to every pharmD appt - continue to monitor compliance -Education provided on nonpharmacologic ways to improve DM/HLD/HTN (including lifestyle management/dietary/physical activity) specific for the vet's needs. -[place] verbalized understanding to all plans discussed today. Questions were answered to vet's satisfaction. Time spent with vet: 30 min RTC: 4 weeks f2f PBM PharmD Pharmacotherapy Rem V12: PHARMACIST INTERVENTIONS: HYPERTENSION Medication monitoring, no dosage change required, continue to monitor and assess LIPID MANAGEMENT Medication monitoring, no dosage change required, continue to monitor and assess TYPE 2 DIABETES MELLITUS Medication Intervention(s) Adjust dose or frequency of current medication due to other reason Address adherence Medication reconciliation (changes to active NE and non-[place] medication lists to reconcile differences) No changes to medication lists made (medication review completed, no discrepancies identified) /judie/ JESSICA MID, BCACP CLINICAL SUPERVISOR [employer] Signed: 03/01/2025 11:34 ELOISE ROJAS [facility]
--- OUTSIDE RECORDS SUMMARY | 2025-03-12 06:55 | XMS_ITS | Encounter Summary ---
Author Name Department of [place] [place] Organization [place] Address [address] [place] [address] Care Team Providers Care Pin Drafter Name Role Phone ALLI CORNELIUS Primary Care [...] PART A Dec 27, 2013 PART A [id number] 33A LINH MERCEDES PATIENT MEDICARE (WNR) MEDICARE (M) PART B Dec 27, 2013 PART B [id number] 33A MERCEDESLINH COLLINS PATIENT MEDICARE (WNR) MEDICARE (M) PART A Dec 27, 2013 PART A [id number] MERCEDESLINH PATIENT MEDICARE (WNR) MEDICARE (M) PART B Dec 27, 2013 PART B [id number] LINH MERCEDES THOMASLewis PATIENT Selected Encounter This section includes the information on record at [place] for the Encounter. Date/Time Encounter Type Encounter Description Reason Pro vider Source Mar 01, 2025 07:20 PM Outpatient Encounter GENERAL INTERNAL MEDICINE IHE Encounter Template Text not used by [place] Plan of Treatment: Future Appointments (+ 6 months) and Future Tests (+/- 45 days) The Plan of Treatment section includes future care activities for the patient from all [place] [facility] This section includes future appointments and future orders which are active, pending or scheduled. Future Appointments This section includes appointments that were scheduled to occur 6 months from the date of the Encounter, up to a maximum of 20 appointments. The data comes from all [facility]. Appointment Date/Time Appointment Type Appointme nt Facility Name Apr 05, 2025 10:00 AM AMBULATORY - REHAB MEDICIN E [facility] Aug 04, 2025 01:00 PM AMBULATORY - MEDICINE [facility] Aug 25, 2025 10:00 AM [facility] Active, Pending, and Scheduled Orders This section includes a listing of several types of active, pending, and scheduled orders, including clinic medications orders, diagnostic test orders, procedure orders and consult orders; where the start date of the order is 45 days before the date of the Encounter or 45 days after the date of theEncounter. The data comes from all [facility]. Test Date/Time Test Type Test Details Facility Name Jan 18, 2025 12:00 AM Laboratory - Chemi stry Order MICRAL/CREAT PROFILE (STL) URINE YELLOW [facility] Feb 08, 2025 12:00 AM Laboratory - Chemi stry Order CBC BLOOD [facility] Social History: Smoking Status (Most current) and Tobacco Use (All prior to encounter date) This section includes the most current, and the historical, smoking and tobacco- related health factors from the [place] facility where the Encounter took place. Current Smoking Status This section includes the most current smoking, or tobacco-related health factor, from the [place] facility where the Encounter took place. Date/Time Current Smoking Status Comment Facil ity Feb 05, 2025 02:05 PM VA-TOBACCO USE ZEE RY DAY CIGARETTES [facility] Tobacco Use History This section includes a history of the smoking, or tobacco-related health factors, that were collected on or before the date of the Encounter. The data comes from the [place] facility where the Encounter took place. 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 Date/Time Encounter Note(s) Provider Source Aug 06, 2024 07:20 PM SCANNED NOTE: LOCAL TITLE: NON [place] CARE ST STANDARD TITLE: SCANNED NOTE DATE OF NOTE: AUG 06, 2024@19:20 ENTRY DATE: MAR 01, 2025@19:20:39 AUTHOR: ANGIE AGRAWAL EXP COSIGNER: URGENCY: STATUS: COMPLETED Attached to this note is a scanned copy of [place] medical record consisting of the following document(s): Lab Reports DOS: 08/06/24 From: [facility] To view the scanned document: 1) You must be logged into [facility] 2) Click on Toolbar 3) Sign on to [facility] /es/ ANGIE AGRAWAL Registered Nurse Signed: 03/01/2025 19:28 ANGIE AGRAWAL [facility]
--- OUTSIDE RECORDS SUMMARY | 2025-03-12 06:55 | XMS_ITS | Clinical Summary ---
Author Organization [facility] Address [address] [place] [address] Care Team Providers Care Forest Examiner Name Role Phone Ajay Guzman MD Primary Care Provider [phone] Allergies Active Allergy Reactions Criticality Noted Date [...] mg total) by mouth daily Active omega 3-qsg-pec-fish oil 1,000 mg (120 mg-180 mg) capsule [...] 06/13/2022 Assessment & Plan (06/25/2023 11:42 AM FUEL MANAGER): Impression: Patient is a current everyday smoker smoking 1/2 pack daily. Plan: Discussed with the patient greater than 3 minutes about the importance of smoking cessation and its benefits to the cardiovascular health and to recent vascular intervention. Patient has no interest in quitting quitting at this time. Assessment & Plan (06/13/2022 5:21 PM FUEL MANAGER): Impression: Patient is a current everyday smoker, [...] disease) Assessment & Plan (06/13/2021 2:33 PM FUEL MANAGER): Followed by his PCP and controlled at this time. Assessment & Plan (09/20/2020 9:49 AM FUEL MANAGER): Long history of smoking. Recently quit smoking. Dyspnea on exertion 09/20/2020 Assessment & Plan (09/20/2020 9:50 AM FUEL MANAGER): Will get an echo Doppler study to [...] concerns. Assessment & Plan (06/13/2021 2:32 PM FUEL MANAGER): Patient is doing well since his left [...] his recent lower extremity bypass. 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 Assessment & Plan (06/25/2023 11:40 AM FUEL MANAGER): Impression: Patient has stable non disabling claudication and denies any ischemic rest pain or ulcerations. Left femoral popliteal bypass graft is patent as seen on lower extremity arterial duplex. Plan: Continue ongoing risk factor modifications. -patient to follow-up in 1 year for re-evaluation with repeat lower extremity arterial duplex. Assessment & Plan (06/13/2022 5:22 PM FUEL MANAGER): Impression: Patient is status post left femoral [...] reconstruction. Assessment & Plan (09/20/2020 9:49 AM FUEL MANAGER): Significant claudication. Dr. Merida evaluating. Surgical revascularization planned for the next few weeks. EKG today shows normal sinus rhythm, normal QRS morphology. Atherosclerosis of [place] of left lower extremity with [...] well. Assessment & Plan (09/08/2020 2:58 PM FUEL MANAGER): Patient has atherosclerosis and decreased ABIs with [...] 09/08/2020 Assessment & Plan (08/10/2024 1:32 PM FUEL MANAGER): Impression: Chronic and stable. Plan: Continue atorvastatin and rosuvastatin. Assessment & Plan (06/25/2023 11:42 AM FUEL MANAGER): Impression: Chronic and stable. Plan: Continue atorvastatin and rosuvastatin Assessment & Plan (06/13/2022 5:20 PM FUEL MANAGER): Impression: Chronic stable hyperlipidemia, controlled with statin therapy. Plan: Continue statin therapy as per primary care provider. Assessment & Plan (12/13/2021 10:42 AM CDT): Followed by his PCP and chronic and stable. I recommend he continue his Lipitor for lipid lowering medication. Assessment & Plan (06/13/2021 2:32 PM FUEL MANAGER): Followed by his PCP and on a statin. Assessment & Plan (09/20/2020 9:51 AM FUEL MANAGER): Low-fat low-cholesterol diet. Fish oil. Atorvastatin. Assessment & Plan (09/08/2020 2:55 PM FUEL MANAGER): Followed by his PCP and controlled on a statin at this time. Essential hypertension 09/08/2020 Assessment & Plan (08/10/2024 1:32 PM FUEL MANAGER): Chronic and stable. Plan: Continue amlodipine and lisinopril Assessment & Plan (06/25/2023 11:41 AM FUEL MANAGER): Impression: Chronic and stable. Plan: Continue amlodipine and lisinopril. Assessment & Plan (06/13/2022 5:20 PM FUEL MANAGER): Impression: Chronic hypertension, controlled medications. Blood pressure stable. Plan: Continue blood pressure management as per primary care provider. Assessment & Plan (12/13/2021 10:43 AM CDT): Followed by his PCP and chronic and stable. I recommend he continue his amlodipine and lisinopril for blood pressure control as per his PCP. 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 Assessment & Plan (09/20/2020 9:50 AM FUEL MANAGER): Salt restriction. Amlodipine. Lisinopril. Blood pressure 146/80. Assessment & Plan (09/08/2020 2:55 PM FUEL MANAGER): Followed by his PCP and controlled on his current medication at this time. Surgical History Surgery Date Site/Laterality Comments FEMORAL [...] on file Legal Sex Male 7:34 PM FUEL MANAGER Gender Identity Not on file Sexual Orientation Not on file Obstetrics History Last Filed Vital Signs Vital Sign Reading Time Taken Comments Blood Pressure 175/80 08/10/2024 1:05 PM FUEL MANAGER Pulse 90 08/10/2024 1:05 PM FUEL MANAGER Temperature 36.8 C (98.2 F) 11/07/2020 12:00 PM CDT Respiratory Rate - - Oxygen Saturation 96% 11/07/2020 12:00 PM CDT Inhaled Oxygen Concentration - - Weight 88.5 kg (195 lb) 08/10/2024 1:05 PM FUEL MANAGER Height 182.9 cm (6') 08/10/2024 1:05 PM FUEL MANAGER Body Mass Index 26.45 08/10/2024 1:05 PM FUEL MANAGER Plan of Treatment Health Maintenance Due Date Last Done Comments Depression Screening 1948 Fall Risk Assessment 1948 Hepatitis C Screening 1948 DTaP/Tdap/Td Vaccine (1 - Tdap) 1959 Hepatitis B Screening 1966 Pneumococcal vaccine 65+ (1 of 2 - PCV) 1967 Zoster Vaccine (1 of 2) 1998 Abdominal Aortic Aneurysm (AAA) Screen 2013 Well Visit 65+ 2013 Influenza Vaccine (#1) [address] [facility] Care Teams Forest Examiner Relationship Specialty Start Date End Date Ajay Guzman MD PCP - General Family Practice 06/24/23
--- OUTSIDE RECORDS SUMMARY | 2025-03-12 06:56 | XMS_ITS | Continuity of Care Document ---
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 It does not include entries that were removed or entered in error. Problem Status Onset Date Problem Type Date of Resolution Comments Source Chronic obstructive lung disease Active Condition [facility] Critical lower limb ischaemia Active Condition Feb 11, 2024 Entered By: ALLI CORNELIUS Comment: Femoral arterypopliteal artery bypass graft right October 04, 2020Jul 2023 Entered By: ALLI CORNELIUS Comment: Lower extremity arterial duplex on June 19, 2023 at [facility]: Left ankle-brachial index and right ankle-brachial index is normal. Left common femoral artery to popliteal artery bypass is patent. [facility] Diabetes mellitus Active Condition [facility] Essential hypertension Active Condition [facility] Exposure to potentially hazardous substance Active Condition [facility] Hearing loss Active Condition [facility] Hypothyroidism Active Condition [facility] Impaired Fasting Glucose ([facility] [id number]) Active Condition [facility] Malignant melanoma of skin of face Active Condition [facility] Mixed hyperlipidemia Active Condition [facility] Nicotine dependence Active Condition [facility] Peripheral vascular disease Active Condition [facility] Vitamin D Deficiency ([id number]) Active Condition [facility] Diagnosis: ICD-10-CM 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 [facility] Diagnosis: ICD-10-CM I10 Essential (primary) hypertension Active Diagnosis [facility] Diagnosis: ICD-10-CM E78.2 Mixed hyperlipidemia Active Diagnosis [facility] Diagnosis: ICD-10-CM E11.9 Type 2 diabetes mellitus without complications Active Diagnosis [facility] Diagnosis: ICD-10-CM M25.552 Pain in left hip Active Diagnosis [facility] Diagnosis: ICD-10-CM R91.8 Other nonspecific abnormal finding of lung field Active Diagnosis [facility] Diagnosis: ICD-10-CM Z12.2 Encntr screen for malignant neoplasm of respiratory organs Active Diagnosis [facility] Diagnosis: ICD-10-CM L57.0 Actinic keratosis Active Diagnosis [facility] Medications Combined list of outpatient medications from Department of Defense and [facility] Affairs facilities.Medications provided include 1) outpatient medications [...] . RESPIR ATORY (INHAL ATION) ACTIVE 09/30/2025 [id number] 5 ISAIAS CORNELIUS 2024 2 [facility] ALBUTEROL SO4 90MCG/ACTUA T (CFC-F) INHL,ORAL,8 .5GM INHALE 1 PUFF ORAL INHALATI ON FOUR TIMES A DAY NEEDED FOR BREATHIN G. SHAKE WELL. RINSE MOUTHPIE CE FREQUENT LY TO PREVENT CLOGGING . RESPIR ATORY (INHAL ATION) DISCONT INUED 08/28/2024 [id number] 4 ISAIAS CORNELIUS 2023 1 [facility] AMLODIPINE BESYLATE 10MG TAB TAKE ONE TABLET BY MOUTH ONCE A DAY FOR HIGH BLOOD PRESSURE ORAL ACTIVE 02/09/2026 [id number] 5 ISAIAS CORNELIUS 2024 90 [facility] AMLODIPINE BESYLATE 10MG TAB TAKE ONE TABLET BY MOUTH ONCE A DAY FOR HIGH BLOOD PRESSURE ORAL DISCONT INUED 02/11/2025 [id number] 5 ISAIAS CORNELIUS 2023 90 [facility] AMLODIPINE BESYLATE 10MG TAB TAKE ONE TABLET BY MOUTH ONCE A DAY FOR HIGH BLOOD PRESSURE ORAL DISCONT INUED 08/27/2024 [id number] RC ROJAS 2023 90 [facility] ASPIRIN 81MG TAB,EC TAKE ONE TABLET BY MOUTH ONCE A DAY FOR CARDIOVA SCULAR DISEASE TAKE WITH FOOD. ORAL ACTIVE 02/09/2026 [id number] 5 ISAIAS CORNELIUS 2024 120 [facility] ASPIRIN 81MG TAB,EC TAKE ONE TABLET BY MOUTH ONCE A DAY FOR CARDIOVA SCULAR DISEASE TAKE WITH FOOD. ORAL DISCONT INUED 02/11/2025 [id number] 5 ISAIAS CORNELIUS 2023 120 [facility] ASPIRIN 81MG TAB,EC TAKE ONE TABLET BY MOUTH ONCE A DAY FOR CARDIOVA SCULAR DISEASE TAKE WITH FOOD. ORAL DISCONT INUED 08/27/2024 [id number] RC ROJAS 2023 120 [facility] CHLORTHALID ONE 25MG TAB TAKE ONE TABLET BY MOUTH ONCE A DAY ORAL ACTIVE 12/16/2025 [id number] 5 RC ROJAS 2024 90 [facility] CHLORTHALID ONE 25MG TAB TAKE ONE-HALF TABLET BY MOUTH ONCE A DAY ORAL DISCONT INUED (EDIT) 07/08/2025 [id number] RC ROJAS 2023 45 [facility] CHOLECALCIF MEMO 50MCG (2,000UNIT) TAB TAKE ONE TABLET BY MOUTH ONCE A DAY FOR VITAMIN D DEFICIEN CY ORAL ACTIVE 02/09/2026 [id number] 5 ISAIAS CORNELIUS 2024 100 [facility] CHOLECALCIF EMMO 50MCG (2,000UNIT) TAB TAKE ONE TABLET BY MOUTH ONCE A DAY FOR VITAMIN D DEFICIEN CY ORAL DISCONT INUED 02/11/2025 [id number] 5 ISAIAS CORNELIUS 2023 100 [facility] CHOLECALCIF MEMO 50MCG (2,000UNIT) TAB TAKE ONE TABLET BY MOUTH ONCE A DAY FOR VITAMIN D DEFICIEN CY ORAL DISCONT INUED 08/27/2024 [id number] RC ROJAS 2023 100 [facility] CYANOCOBALA MIN 500MCG TAB TAKE ONE TABLET BY MOUTH ONCE A DAY FOR B12 SUPPLEME NTATION ORAL 10/08/2024 [id number] RC ORJAS 2023 100 [facility] EMPAGLIFLOZ IN 25MG TAB TAKE ONE TABLET BY MOUTH ONCE A DAY FOR DIABETES ORAL ACTIVE 01/19/2026 [id number] 5 RC ROJAS 2024 90 [facility] EMPAGLIFLOZ IN 25MG TAB TAKE ONE TABLET BY MOUTH ONCE A DAY FOR DIABETES ORAL DISCONT INUED 08/26/2025 [id number] RC ROJAS 2024 90 [facility] EMPAGLIFLOZ IN 25MG TAB TAKE ONE-HALF TABLET BY MOUTH ONCE A DAY FOR DIABETES ORAL DISCONT INUED (EDIT) 02/11/2025 [id number] 4 ISAIAS CORNELIUS 2023 45 [facility] EMPAGLIFLOZ IN 25MG TAB TAKE ONE-HALF TABLET BY MOUTH ONCE A DAY FOR DIABETES ORAL DISCONT INUED 08/27/2024 [id number] RC ROJAS 2023 45 [facility] FENOFIBRATE 145MG TAB TAKE ONE TABLET BY MOUTH ONCE A DAY FOR HIGH TRIGLYCE RIDES - TAKE WITH FOOD ORAL ACTIVE 09/30/2025 [id number] 5 RC ROJAS 2024 90 [facility] FENOFIBRATE 145MG TAB TAKE ONE TABLET BY MOUTH ONCE A DAY FOR HIGH TRIGLYCE RIDES - TAKE WITH FOOD ORAL DISCONT INUED 08/30/2024 [id number] GREGORY CASTILLO 2023 90 [facility] FINASTERIDE 5MG TAB TAKE ONE TABLET BY MOUTH ONCE A DAY FOR BENIGN PROSTATI C HYPERPLA JAMEY SWALLOW WHOLE, DO NOT CRUSH, SPLIT, OR CHEW. ORAL ACTIVE 09/30/2025 [id number] 5 ISAIAS CORNELIUS 2024 90 [facility] FINASTERIDE 5MG TAB TAKE ONE TABLET BY MOUTH ONCE A DAY FOR BENIGN PROSTATI C HYPERPLA JAMEY SWALLOW WHOLE, DO NOT CRUSH, SPLIT, OR CHEW. ORAL DISCONT INUED 08/28/2024 [id number] ISAIAS CORNELIUS 2023 90 [facility] FLUOROURACI L 5% CREAM,TOP APPLY THIN FILM TO AFFECTED AREA(S) TWICE A DAY FOR FOREARMS AND FACE AVOID SUN EXPOSURE . FOLLOW DIRECTIO NS CAREFULL Y FOR PROPER HANDLING /DISPOSA L.USE FOR 10 DAYS AT A TIME TOPICA L ACTIVE 06/10/2025 [id number] YASSINE BEATTY U 2023 40 [facility] FLUTICASONE 250MCG/SALM ETEROL 50MCG INHL,ORAL,D ISKUS,60 INHALE 1 INHALATI ON BY ORAL INHALATI ON TWICE A DAY (OPEN DISKUS; CLICK ONLY ONCE; MAY INHALE TWICE TO COMPLETE DOSE; CLOSE WHEN FINISHED ) RINSE MOUTH AND SPIT AFTER EACH USE. RESPIR ATORY (INHAL ATION) ACTIVE 09/30/2025 [id number] 5 ISAIAS CORNELIUS 2024 1 [facility] FLUTICASONE 250MCG/SALM ETEROL 50MCG INHL,ORAL,D ISKUS,60 INHALE 1 INHALATI ON BY ORAL INHALATI ON TWICE A DAY FOR COPD (OPEN DISKUS; CLICK ONLY ONCE; MAY INHALE TWICE TO COMPLETE DOSE; CLOSE WHEN FINISHED ) RINSE MOUTH AND SPIT AFTER EACH USE. RESPIR ATORY (INHAL ATION) DISCONT INUED 04/30/2025 [id number] 4 GABBY MORRIS ICEDEANDRA Tolentino 2023 1 [facility] HYDROPHILIC (EQV EUCERIN) CREAM,TOP APPLY LIBERALL Y TO AFFECTED AREA(S) ONCE A DAY NEEDED FOR DRY SKIN (EXTERNA L USE ONLY) TOPICA L 08/15/2024 [id number] ISAIAS CORNELIUS 2023 454 [facility] ICOSAPENT ETHYL 1GM CAP TAKE TWO CAPSULES BY MOUTH TWICE A DAY WITH MEALS FOR HIGH TRIGLYCE RIDES ORAL ACTIVE 09/30/2025 [id number] RC ROJAS 2024 360 [facility] ICOSAPENT ETHYL 1GM CAP TAKE TWO CAPSULES BY MOUTH TWICE A DAY WITH MEALS FOR HIGH TRIGLYCE RIDES ORAL 08/28/2024 [id number] RC ROJAS 2023 360 [facility] INSULIN,GLA RGINE,HUMAN 100 UNIT/ML INJ,SOLOSTA R,3ML INJECT 17 UNITS UNDER THE SKIN ONCE A DAY ADMINIST ER AT SAME TIME EACH DAY DIRECTED . DISCARD ANY OPEN CARTRIDG E AFTER 28 DAYS. SUBCUT ANEOUS ACTIVE 03/02/2026 [id number] RC ROJAS 2024 10 [facility] INSULIN,GLA RGINE,HUMAN 100 UNIT/ML INJ,SOLOSTA R,3ML INJECT 15 UNITS UNDER THE SKIN ONCE A DAY ADMINIST ER AT SAME TIME EACH DAY DIRECTED . DISCARD ANY OPEN CARTRIDG E AFTER 28 DAYS. SUBCUT ANEOUS DISCONT INUED (EDIT) 02/09/2026 [id number] 5 ISAIAS CORNELIUS 2024 5 [facility] INSULIN,GLA RGINE,HUMAN 100 UNIT/ML INJ,SOLOSTA R,3ML INJECT 11 UNITS UNDER THE SKIN ONCE A DAY ADMINIST ER AT SAME TIME EACH DAY DIRECTED . DISCARD ANY OPEN CARTRIDG E AFTER 28 DAYS. SUBCUT ANEOUS DISCONT INUED (EDIT) 01/05/2026 [id number] Asael LAST 2024 5 [facility] KETOCONAZOL E 2% SHAMPOO USE SHAMPOO TO AFFECTED AREA(S) ONCE A DAY (EXTERNA L USE ONLY) (SHAKE WELL) FOR HEAD AND NECK. LATHER FOR 3 MINUTES PRIOR TO RINSING TOPICA L ACTIVE 06/10/2025 [id number] YASSINE BEATTY NCA U 2023 120 [facility] LEVOTHYROXI NE NA 25MCG TAB TAKE ONE TABLET BY MOUTH EVERY MORNING BEFORE A MEAL FOR HYPOTHYR OIDISM TAKE 30 MINUTES BEFORE FOOD. TAKE SEPARATE LY FROM ALL OTHER MEDICATI ONS. ORAL ACTIVE 02/09/2026 [id number] 5 ISAIAS CORNELIUS 2024 90 [facility] LEVOTHYROXI NE NA 25MCG TAB TAKE ONE TABLET BY MOUTH EVERY MORNING BEFORE A MEAL FOR HYPOTHYR OIDISM TAKE 30 MINUTES BEFORE FOOD. TAKE SEPARATE LY FROM ALL OTHER MEDICATI ONS. ORAL DISCONT INUED 02/11/2025 [id number] 5 ISAIAS CORNELIUS 2023 90 [facility] LEVOTHYROXI NE NA 25MCG TAB (SYNTHROID) TAKE ONE TABLET BY MOUTH EVERY MORNING BEFORE A MEAL FOR HYPOTHYR OIDISM TAKE 30 MINUTES BEFORE FOOD. TAKE SEPARATE LY FROM ALL OTHER MEDICATI ONS. ORAL DISCONT INUED 08/27/2024 [id number] RC ROJAS 2023 90 [facility] LISINOPRIL 40MG TAB TAKE ONE TABLET BY MOUTH ONCE A DAY FOR HIGH BLOOD PRESSURE ORAL SUSPEND ED 01/19/2026 [id number] RC ROJAS R 2024 90 [facility] LISINOPRIL 40MG TAB TAKE ONE TABLET BY MOUTH ONCE A DAY FOR HIGH BLOOD PRESSURE ORAL DISCONT INUED 09/30/2025 [id number] PABLOENHOFF RC R 2024 90 [facility] LISINOPRIL 40MG TAB TAKE ONE TABLET BY MOUTH ONCE A DAY FOR HIGH BLOOD PRESSURE ORAL DISCONT INUED 04/21/2025 [id number] RC ROJAS R 2023 90 [facility] LISINOPRIL 40MG TAB TAKE ONE-HALF TABLET BY MOUTH ONCE A DAY FOR HIGH BLOOD PRESSURE ORAL DISCONT INUED (EDIT) 02/11/2025 [id number] 4 ISAIAS CORNELIUS 2023 45 [facility] LISINOPRIL 40MG TAB TAKE ONE-HALF TABLET BY MOUTH ONCE A DAY FOR HIGH BLOOD PRESSURE ORAL DISCONT INUED 08/27/2024 [id number] RC ROJAS R 2023 45 [facility] METFORMIN HCL 1000MG TAB TAKE ONE TABLET BY MOUTH TWICE A DAY WITH MEALS FOR DIABETES TAKE WITH FOOD. AVOID ALCOHOL. DISCONTI NUE BEFORE GETTING XRAY DYE. ORAL SUSPEND ED 02/09/2026 [id number] 5 ISAIAS CORNELIUS 2024 180 [facility] METFORMIN HCL 1000MG TAB TAKE ONE TABLET BY MOUTH TWICE A DAY WITH MEALS FOR DIABETES TAKE WITH FOOD. AVOID ALCOHOL. DISCONTI NUE BEFORE GETTING XRAY DYE. ORAL DISCONT INUED 09/30/2025 [id number] RC ROJAS 2024 180 [facility] METFORMIN HCL 1000MG TAB TAKE ONE TABLET BY MOUTH TWICE A DAY WITH MEALS FOR DIABETES TAKE WITH FOOD. AVOID ALCOHOL. DISCONTI NUE BEFORE GETTING XRAY DYE. ORAL DISCONT INUED 02/10/2025 [id number] RC ROJAS R 2023 180 [facility] ROSUVASTATI N CA 40MG TAB TAKE ONE TABLET BY MOUTH EVERY EVENING FOR HIGH CHOLESTE ROL ORAL ACTIVE 01/19/2026 [id number] 5 RC ROJAS 2024 90 [facility] ROSUVASTATI N CA 40MG TAB TAKE ONE TABLET BY MOUTH EVERY EVENING FOR HIGH CHOLESTE ROL ORAL DISCONT INUED 02/11/2025 [id number] 5 ISAIAS CORNELIUS 2023 90 [facility] ROSUVASTATI N CA 40MG TAB TAKE ONE TABLET BY MOUTH EVERY EVENING FOR HIGH CHOLESTE ROL ORAL DISCONT INUED 08/27/2024 [id number] RC ROJAS 2023 90 [facility] TIOTROPIUM 2.5MCG/ACTU AT INHL,ORAL,6 0D,4GM INHALE 2 INHALATI ONS ORAL INHALATI ON ONCE A DAY (ADMINIS TER AT SAME TIME EACH DAY) FOR BREATHIN G. RESPIR ATORY (INHAL ATION) ACTIVE 09/30/2025 [id number] 5 ISAIAS CORNELIUS 2024 3 [facility] TIOTROPIUM 2.5MCG/ACTU AT INHL,ORAL,6 0D,4GM INHALE 2 INHALATI ONS ORAL INHALATI ON ONCE A DAY (ADMINIS TER AT SAME TIME EACH DAY) FOR BREATHIN G. RESPIR ATORY (INHAL ATION) DISCONT INUED 08/28/2024 [id number] 4 ISAIAS CORNELIUS 2023 3 [facility] Allergies, Adverse Reactions, Alerts Combined list of allergies from Department [facility] and [facility] facilities. It does not include entries that were removed or entered in error. Substance Category Reaction Severity Reaction type Status Date Reported Comments Source EGGS Propensity to adverse reactions to substance (finding) Urticaria active 7 [facility] SHELLFISH Propensity to adverse reactions to food (finding) Urticaria active 3 [facility] Results Combined list of recent chemistry, hematology and other laboratory results from [facility] and [facility], ranging from 15 months to all on record, depending upon the facility. Order Name Results Value Reference Range Date Interpretation Specimen Comments Source BASIC METABOLIC PANEL CREATININE [MASS/VOLUM E] IN SERUM OR PLASMA 0.96 mg/dL 0.70 - 1.30 01/19 Specimen Type: PLASMA Comment: No hemolysis noted. LDL calculation invalid when Triglycerid e exceeds 250 mg/dl Ordering Provider: Asael ROJAS R Report Released Date/Time: Jan 18, 2025 07:42 AM Reporting Lab: [facility] [place] [address] Performing Lab: [facility] BASIC METABOLIC PANEL UREA NITROGEN [MASS/VOLUM E] IN SERUM OR PLASMA 30.3 mg/dL 9.0 - 25.0 01/19 H Specimen Type: PLASMA Comment: No hemolysis noted. LDL calculation invalid when Triglycerid e exceeds 250 mg/dl Ordering Provider: Asael ROJAS Report Released Date/Time: Jan 18, 2025 07:42 AM Reporting Lab: [facility] [place] [address] Performing Lab: [facility] [address] BASIC METABOLIC PANEL GLUCOSE [MASS/VOLUM E] IN SERUM OR PLASMA 215 mg/dL 72 - 99 01/19 H Specimen Type: PLASMA Comment: No hemolysis noted. LDL calculation invalid when Triglycerid e exceeds 250 mg/dl Ordering Provider: HAGENHOFF,A HANNA R Report Released Date/Time: Jan 18, 2025 07:42 AM Reporting Lab: [facility] [place] [address] Performing Lab: [facility] DIVISION BASIC METABOLIC PANEL SODIUM [MOLES/VOLU ME] IN SERUM OR PLASMA 139 meq/L 136 - 145 01/19 Specimen Type: PLASMA Comment: No hemolysis noted. LDL calculation invalid when Triglycerid e exceeds 250 mg/dl Ordering Provider: Asael ROJAS R Report Released Date/Time: Jan 18, 2025 07:42 AM Reporting Lab: [facility] [place] [address] Performing Lab: [facility] DIVISION BASIC METABOLIC PANEL POTASSIUM [MOLES/VOLU ME] IN SERUM OR PLASMA 4.1 meq/L 3.5 - 5.0 01/19 Specimen Type: PLASMA Comment: No hemolysis noted. LDL calculation invalid when Triglycerid e exceeds 250 mg/dl Ordering Provider: Asael ROJAS Report Released Date/Time: Jan 18, 2025 07:42 AM Reporting Lab: [facility] [place] [address] Performing Lab: [facility] DIVISION BASIC METABOLIC PANEL CHLORIDE [MOLES/VOLU ME] IN SERUM OR PLASMA 104 meq/L 98 - 107 01/19 Specimen Type: PLASMA Comment: No hemolysis noted. LDL calculation invalid when Triglycerid e exceeds 250 mg/dl Ordering Provider: Asael ROJAS R Report Released Date/Time: Jan 18, 2025 07:42 AM Reporting Lab: [facility] [place] [address] Performing Lab: [facility] [place] [facility] BASIC METABOLIC PANEL CARBON DIOXIDE, TOTAL [MOLES/VOLU ME] IN SERUM OR PLASMA 24 meq/L 22 - 31 01/19 Specimen Type: PLASMA Comment: No hemolysis noted. LDL calculation invalid when Triglycerid e exceeds 250 mg/dl Ordering Provider: Asael ROJAS Report Released Date/Time: Jan 18, 2025 07:42 AM Reporting Lab: [facility] [place] [address] Performing Lab: [facility] BASIC METABOLIC PANEL CALCIUM [MASS/VOLUM E] IN SERUM OR PLASMA 9.8 mg/dL 8.4 - 10.4 01/19 Specimen Type: PLASMA Comment: No hemolysis noted. LDL calculation invalid when Triglycerid e exceeds 250 mg/dl Ordering Provider: Asael ROJAS Report Released Date/Time: Jan 18, 2025 07:42 AM Reporting Lab: [facility] [place] [address] Performing Lab: [facility] BASIC METABOLIC PANEL GLOMERULAR FILTRATION RATE/1.73 SQ M.PREDICTED [VOLUME RATE/AREA] IN SERUM, PLASMA OR BLOOD BY CREATININE- BASED FORMULA (CKD-EPI 2020) 81.92 60 01/19 Specimen Type: PLASMA Comment: No hemolysis noted. LDL calculation invalid when Triglycerid e exceeds 250 mg/dl Ordering Provider: Asael ROJAS Report Released Date/Time: Jan 18, 2025 07:42 AM Reporting Lab: [facility] [place] [address] Performing Lab: [facility] DIVISION HGA1C HEMOGLOBIN A1C/HEMOGLO BIN.TOTAL IN BLOOD 10.8 4.0 - 6.0 01/19 H Specimen Type: BLOOD No comment entered. Ordering Provider: Asael ROJAS R Report Released Date/Time: Jan 18, 2025 07:42 AM Reporting Lab: [facility] [place] [address] Performing Lab: [facility] DIVISION LIPID PANEL (STL) CHOLESTEROL [MASS/VOLUM E] IN SERUM OR PLASMA 150 mg/dL 0 - 200 01/19 Specimen Type: PLASMA Comment: No hemolysis noted. LDL calculation invalid when Triglycerid e exceeds 250 mg/dl Ordering Provider: Asael ROJAS Report Released Date/Time: Jan 18, 2025 07:42 AM Reporting Lab: [facility] [place] [address] Performing Lab: [facility] DIVISION LIPID PANEL (STL) TRIGLYCERID E [MASS/VOLUM E] IN SERUM OR PLASMA 570 mg/dL 0 - 150 01/19 H Specimen Type: PLASMA Comment: No hemolysis noted. LDL calculation invalid when Triglycerid e exceeds 250 mg/dl Ordering Provider: Asael ROJAS Report Released Date/Time: Jan 18, 2025 07:42 AM Reporting Lab: [facility] [place] [address] Performing Lab: [facility] LIPID PANEL (STL) CHOLESTEROL IN LDL [MASS/VOLUM E] IN SERUM OR PLASMA BY DIRECT ASSAY 39 mg/dL <100 - 100 01/19 Specimen Type: PLASMA Comment: No hemolysis noted. LDL calculation invalid when Triglycerid e exceeds 250 mg/dl Ordering Provider: Asael ROJAS R Report Released Date/Time: Jan 18, 2025 07:42 AM Reporting Lab: [facility] [place] [address] Performing Lab: [facility] DIVISION LIPID PANEL (STL) CHOLESTEROL IN LDL [MASS/VOLUM E] IN SERUM OR PLASMA BY CALCULATION commen tmg/dL 01/19 Specimen Type: PLASMA Comment: No hemolysis noted. LDL calculation invalid when Triglycerid e exceeds 250 mg/dl Ordering Provider: Asael ROJAS Report Released Date/Time: Jan 18, 2025 07:42 AM Reporting Lab: [facility] [place] [address] Performing Lab: [facility] LIPID PANEL (STL) CHOLESTEROL IN HDL [MASS/VOLUM E] IN SERUM OR PLASMA 29 mg/dL 40 01/19 L Specimen Type: PLASMA Comment: No hemolysis noted. LDL calculation invalid when Triglycerid e exceeds 250 mg/dl Ordering Provider: Asael ROJAS Report Released Date/Time: Jan 18, 2025 07:42 AM Reporting Lab: [facility] [place] [address] Performing Lab: [facility] GLUCOSE,B LOOD-poct (L) GLUCOSE [MASS/VOLUM E] IN BLOOD BY AUTOMATED TEST STRIP 394 mg/dL 72 - 99 12/15 H Specimen Type: BLOOD Comment: Test Performed by: [id number] Meter #: [id number] Ordering Provider: JAIME CORNELIUS Report Released Date/Time: December 15, 2024 11:19 AM Reporting Lab: [facility] [place] [address] Performing Lab: [facility] LIPID PANEL (STL) CHOLESTEROL [MASS/VOLUM E] IN SERUM OR PLASMA 594 mg/dL 0 - 200 11/10 H Specimen Type: PLASMA Comment: Specimen moderately hemolyzed. Aspartate Transaminas e result may show positive bias due to hemolysis. Specimen moderately hemolyzed. K result canceled due to hemolysis. Notified Rc Rojas PharmD at 1228 on 11/10/24 /MRK LDL CALCULATION INVALID WHEN TRIGLYCERID E EXCEEDS 250 MG/DL DLDL NOT VALID WHEN TRIG EXCEEDS 1293 MG/DL Ordering Provider: Asael ROJAS Report Released Date/Time: Nov 10, 2024 10:17 AM Reporting Lab: [facility] [address] [facility] [place] [id number] Performing Lab: [place] [address] [place] [id number] [place] [address] LIPID PANEL (STL) TRIGLYCERID E [MASS/VOLUM E] IN SERUM OR PLASMA 2812 mg/dL 0 - 150 11/10 H Specimen Type: PLASMA Comment: Specimen moderately hemolyzed. Aspartate Transaminas e result may show positive bias due to hemolysis. Specimen moderately hemolyzed. K result canceled due to hemolysis. Notified Rc Rojas PharmD at 1228 on 11/10/24K LDL CALCULATION INVALID WHEN TRIGLYCERID E EXCEEDS 250 MG/DL DLDL NOT VALID WHEN TRIG EXCEEDS 1293 MG/DL Ordering Provider: Asale ROJAS Report Released Date/Time: Nov 10, 2024 10:17 AM Reporting Lab: [facility] [address] [phone] Performing Lab: [place] [address] [phone] [facility] LIPID PANEL (STL) CHOLESTEROL IN LDL [MASS/VOLUM E] IN SERUM OR PLASMA BY CALCULATION commen tmg/dL 11/10 Specimen Type: PLASMA Comment: Specimen moderately hemolyzed. Aspartate Transaminas e result may show positive bias due to hemolysis. Specimen moderately hemolyzed. K result canceled due to hemolysis. Notified Rc Rojas PharmD at 1228 on 11/10/24 /MRK LDL CALCULATION INVALID WHEN TRIGLYCERID E EXCEEDS 250 MG/DL DLDL NOT VALID WHEN TRIG EXCEEDS 1293 MG/DL Ordering Provider: Asael ROJAS R Report Released Date/Time: Nov 10, 2024 10:17 AM Reporting Lab: [facility] [address] [place] [phone] Performing Lab: [facility] [address] [place] [phone] [facility] LIPID PANEL (STL) CHOLESTEROL IN HDL [MASS/VOLUM E] IN SERUM OR PLASMA 22 mg/dL 40 11/10 L Specimen Type: PLASMA Comment: Specimen moderately hemolyzed. Aspartate Transaminas e result may show positive bias due to hemolysis. Specimen moderately hemolyzed. K result canceled due to hemolysis. Notified Rc Rojas PharmD at 1228 on 11/10/24 /MRK LDL CALCULATION INVALID WHEN TRIGLYCERID E EXCEEDS 250 MG/DL DLDL NOT VALID WHEN TRIG EXCEEDS 1293 MG/DL Ordering Provider: Asael ROJAS R Report Released Date/Time: Nov 10, 2024 10:17 AM Reporting Lab: [facility] [address] [facility] [address] Performing Lab: [address] [phone] [place] [address] COMPREHEN SIVE METABOLIC PANEL CREATININE [MASS/VOLUM E] IN SERUM OR PLASMA 0.55 mg/dL 0.70 - 1.30 11/10 L Specimen Type: PLASMA Comment: Specimen moderately hemolyzed. Aspartate Transaminas e result may show positive bias due to hemolysis. Specimen moderately hemolyzed. K result canceled due to hemolysis. Notified Rc Rojas PharmD at 1228 on 11/10/24 /MRK LDL CALCULATION INVALID WHEN TRIGLYCERID E EXCEEDS 250 MG/DL DLDL NOT VALID WHEN TRIG EXCEEDS 1293 MG/DL Ordering Provider: Asael ROJAS R Report Released Date/Time: Nov 10, 2024 10:17 AM Reporting Lab: [facility] [address] [facility] [address] Performing Lab: [address] [phone] [place] [address] COMPREHEN SIVE METABOLIC PANEL UREA NITROGEN [MASS/VOLUM E] IN SERUM OR PLASMA 5.0 mg/dL 9.0 - 25.0 11/10 L Specimen Type: PLASMA Comment: Specimen moderately hemolyzed. Aspartate Transaminas e result may show positive bias due to hemolysis. Specimen moderately hemolyzed. K result canceled due to hemolysis. Notified Rc Rojas PharmD at 1228 on 11/10/24 /MRK LDL CALCULATION INVALID WHEN TRIGLYCERID E EXCEEDS 250 MG/DL DLDL NOT VALID WHEN TRIG EXCEEDS 1293 MG/DL Ordering Provider: Asael ROJAS Report Released Date/Time: Nov 10, 2024 10:17 AM Reporting Lab: [place] [phone] Performing Lab: [address] COMPREHEN SIVE METABOLIC PANEL GLUCOSE [MASS/VOLUM E] IN SERUM OR PLASMA 304 mg/dL 72 - 99 11/10 H Specimen Type: PLASMA Comment: Specimen moderately hemolyzed. Aspartate Transaminas e result may show positive bias due to hemolysis. Specimen moderately hemolyzed. K result canceled due to hemolysis. Notified Rc Rojas PharmD at 1228 on 11/10/24 /MRK LDL CALCULATION INVALID WHEN TRIGLYCERID E EXCEEDS 250 MG/DL DLDL NOT VALID WHEN TRIG EXCEEDS 1293 MG/DL Ordering Provider: Asael ROJAS R Report Released Date/Time: Nov 10, 2024 10:17 AM Reporting Lab: [address] [address] Performing Lab: [place] [phone] COMPREHEN SIVE METABOLIC PANEL SODIUM [MOLES/VOLU ME] IN SERUM OR PLASMA 132 meq/L 136 - 145 11/10 L Specimen Type: PLASMA Comment: Specimen moderately hemolyzed. Aspartate Transaminas e result may show positive bias due to hemolysis. Specimen moderately hemolyzed. K result canceled due to hemolysis. Notified Rc Rojas PharmD at 1228 on 11/10/24 /MRK LDL CALCULATION INVALID WHEN TRIGLYCERID E EXCEEDS 250 MG/DL DLDL NOT VALID WHEN TRIG EXCEEDS 1293 MG/DL Ordering Provider: Asael ROJAS R Report Released Date/Time: Nov 10, 2024 10:17 AM Reporting Lab: [address] [phone] Performing Lab: [place] [address] [facility] [place] [address] [facility] COMPREHEN SIVE METABOLIC PANEL POTASSIUM [MOLES/VOLU ME] IN SERUM OR PLASMA cancme q/L 3.5 - 5.0 11/10 Specimen Type: PLASMA Comment: Specimen moderately hemolyzed. Aspartate Transaminas e result may show positive bias due to hemolysis. Specimen moderately hemolyzed. K result canceled due to hemolysis. Notified Rc Rojas PharmD at 1228 on 11/10/24 /MRK LDL CALCULATION INVALID WHEN TRIGLYCERID E EXCEEDS 250 MG/DL DLDL NOT VALID WHEN TRIG EXCEEDS 1293 MG/DL Ordering Provider: Asael ROJAS Report Released Date/Time: Nov 10, 2024 10:17 AM Reporting Lab: [place] [address] [facility] [place] [address] Performing Lab: [place] [address] [facility] [place] [address] [facility] COMPREHEN SIVE METABOLIC PANEL CHLORIDE [MOLES/VOLU ME] IN SERUM OR PLASMA 101 meq/L 98 - 107 11/10 Specimen Type: PLASMA Comment: Specimen moderately hemolyzed. Aspartate Transaminas e result may show positive bias due to hemolysis. Specimen moderately hemolyzed. K result canceled due to hemolysis. Notified Rc Rojas PharmD at 1228 on 11/10/24 /MRK LDL CALCULATION INVALID WHEN TRIGLYCERID E EXCEEDS 250 MG/DL DLDL NOT VALID WHEN TRIG EXCEEDS 1293 MG/DL Ordering Provider: Asael ROJAS R Report Released Date/Time: Nov 10, 2024 10:17 AM Reporting Lab: [address] [address] Performing Lab: [address] [phone] [place] [address] COMPREHEN SIVE METABOLIC PANEL CARBON DIOXIDE, TOTAL [MOLES/VOLU ME] IN SERUM OR PLASMA 16 meq/L 22 - 31 11/10 L Specimen Type: PLASMA Comment: Specimen moderately hemolyzed. Aspartate Transaminas e result may show positive bias due to hemolysis. Specimen moderately hemolyzed. K result canceled due to hemolysis. Notified Rc Rojas PharmD at 1228 on 11/10/24 /MRK LDL CALCULATION INVALID WHEN TRIGLYCERID E EXCEEDS 250 MG/DL DLDL NOT VALID WHEN TRIG EXCEEDS 1293 MG/DL Ordering Provider: Asael ROJAS R Report Released Date/Time: Nov 10, 2024 10:17 AM Reporting Lab: [address] [address] Performing Lab: [place] [address] [facility] [place] [phone] [place] [address] COMPREHEN SIVE METABOLIC PANEL CALCIUM [MASS/VOLUM E] IN SERUM OR PLASMA 9.2 mg/dL 8.4 - 10.4 11/10 Specimen Type: PLASMA Comment: Specimen moderately hemolyzed. Aspartate Transaminas e result may show positive bias due to hemolysis. Specimen moderately hemolyzed. K result canceled due to hemolysis. Notified Rc Rojas PharmD at 1228 on 11/10/24 /MRK LDL CALCULATION INVALID WHEN TRIGLYCERID E EXCEEDS 250 MG/DL DLDL NOT VALID WHEN TRIG EXCEEDS 1293 MG/DL Ordering Provider: Asael ROJAS R Report Released Date/Time: Nov 10, 2024 10:17 AM Reporting Lab: [address] [address] Performing Lab: [place] [address] [facility] [place] [address] [facility] COMPREHEN SIVE METABOLIC PANEL PROTEIN [MASS/VOLUM E] IN SERUM OR PLASMA 8.6 g/dL 6.0 - 8.6 11/10 Specimen Type: PLASMA Comment: Specimen moderately hemolyzed. Aspartate Transaminas e result may show positive bias due to hemolysis. Specimen moderately hemolyzed. K result canceled due to hemolysis. Notified Rc Rojas PharmD at 1228 on 11/10/24 /K LDL CALCULATION INVALID WHEN TRIGLYCERID E EXCEEDS 250 MG/DL DLDL NOT VALID WHEN TRIG EXCEEDS 1293 MG/DL Ordering Provider: Asael ROJAS R Report Released Date/Time: Nov 10, 2024 10:17 AM Reporting Lab: [place] [address] Performing Lab: [place] [address] COMPREHEN SIVE METABOLIC PANEL ALBUMIN [MASS/VOLUM E] IN SERUM OR PLASMA 3.8 g/dL 3.4 - 5.0 11/10 Specimen Type: PLASMA Comment: Specimen moderately hemolyzed. Aspartate Transaminas e result may show positive bias due to hemolysis. Specimen moderately hemolyzed. K result canceled due to hemolysis. Notified Rc Rojas PharmD at 1228 on 11/10/24 /MRK LDL CALCULATION INVALID WHEN TRIGLYCERID E EXCEEDS 250 MG/DL DLDL NOT VALID WHEN TRIG EXCEEDS 1293 MG/DL Ordering Provider: Asael ROJAS R Report Released Date/Time: Nov 10, 2024 10:17 AM Reporting Lab: [place] [address] [phone] Performing Lab: [place] [address] [address] [place] [phone] [facility] COMPREHEN SIVE METABOLIC PANEL BILIRUBIN.T OTAL [MASS/VOLUM E] IN SERUM OR PLASMA 0.4 mg/dL 0.2 - 1.2 11/10 Specimen Type: PLASMA Comment: Specimen moderately hemolyzed. Aspartate Transaminas e result may show positive bias due to hemolysis. Specimen moderately hemolyzed. K result canceled due to hemolysis. Notified Rc Rojas PharmD at 1228 on 11/10/24 /MRK LDL CALCULATION INVALID WHEN TRIGLYCERID E EXCEEDS 250 MG/DL DLDL NOT VALID WHEN TRIG EXCEEDS 1293 MG/DL Ordering Provider: Asael ROJAS R Report Released Date/Time: Nov 10, 2024 10:17 AM Reporting Lab: [facility] [address] [facility] [place] [address] Performing Lab: [place] [address] [facility] [place] [address] [facility] COMPREHEN SIVE METABOLIC PANEL ALKALINE PHOSPHATASE [ENZYMATIC ACTIVITY/VO LUME] IN SERUM OR PLASMA 69 U/L 40 - 150 11/10 Specimen Type: PLASMA Comment: Specimen moderately hemolyzed. Aspartate Transaminas e result may show positive bias due to hemolysis. Specimen moderately hemolyzed. K result canceled due to hemolysis. Notified Rc Rojas PharmD at 1228 on 11/10/24 /K LDL CALCULATION INVALID WHEN TRIGLYCERID E EXCEEDS 250 MG/DL DLDL NOT VALID WHEN TRIG EXCEEDS 1293 MG/DL Ordering Provider: Asael ROJAS R Report Released Date/Time: Nov 10, 2024 10:17 AM Reporting Lab: [address] [address] Performing Lab: [place] [address] [facility] [place] [address] [facility] COMPREH SIVE METABOLIC PANEL ASPARTATE AMINOTRANSF ERASE [ENZYMATIC ACTIVITY/VO LUME] IN SERUM OR PLASMA 47 U/L 5 - 34 11/10 H Specimen Type: PLASMA Comment: Specimen moderately hemolyzed. Aspartate Transaminas e result may show positive bias due to hemolysis. Specimen moderately hemolyzed. K result canceled due to hemolysis. Notified Rc Rojas PharmD at 1228 on 11/10/24 /MRK LDL CALCULATION INVALID WHEN TRIGLYCERID E EXCEEDS 250 MG/DL DLDL NOT VALID WHEN TRIG EXCEEDS 1293 MG/DL Ordering Provider: Asael ROJAS R Report Released Date/Time: Nov 10, 2024 10:17 AM Reporting Lab: [address] [address] Performing Lab: [address] [address] [facility] COMPREHEN SIVE METABOLIC PANEL ALANINE AMINOTRANSF ERASE [ENZYMATIC ACTIVITY/VO LUME] IN SERUM OR PLASMA 34 U/L 8 - 40 11/10 Specimen Type: PLASMA Comment: Specimen moderately hemolyzed. Aspartate Transaminas e result may show positive bias due to hemolysis. Specimen moderately hemolyzed. K result canceled due to hemolysis. Notified Rc Rojas PharmD at 1228 on 11/10/24 /MRK LDL CALCULATION INVALID WHEN TRIGLYCERID E EXCEEDS 250 MG/DL DLDL NOT VALID WHEN TRIG EXCEEDS 1293 MG/DL Ordering Provider: Asael ROJAS Report Released Date/Time: Nov 10, 2024 10:17 AM Reporting Lab: [address] [address] Performing Lab: [address] [phone] [place] [address] COMPREHEN SIVE METABOLIC PANEL GLOMERULAR FILTRATION RATE/1.73 SQ M.PREDICTED [VOLUME RATE/AREA] IN SERUM, PLASMA OR BLOOD BY CREATININE- BASED FORMULA (CKD-EPI 2020) 102.71 60 11/10 Specimen Type: PLASMA Comment: Specimen moderately hemolyzed. Aspartate Transaminas e result may show positive bias due to hemolysis. Specimen moderately hemolyzed. K result canceled due to hemolysis. Notified Rc Rojas PharmD at 1228 on 11/10/24 /MRK LDL CALCULATION INVALID WHEN TRIGLYCERID E EXCEEDS 250 MG/DL DLDL NOT VALID WHEN TRIG EXCEEDS 1293 MG/DL Ordering Provider: Asael ROJAS Report Released Date/Time: Nov 10, 2024 10:17 AM Reporting Lab: [address] [address] Performing Lab: [address] [address] [facility] VITAMIN D, 25-HYDROX Y 25-HYDROXYV ITAMIN D3 [MASS/VOLUM E] IN SERUM OR PLASMA 17.5 ng/mL 30 - 96 11/10 L Specimen Type: SERUM No comment entered. Ordering Provider: Asael ROJAS R Report Released Date/Time: Nov 10, 2024 10:17 AM Reporting Lab: [facility] [address] [place] [address] Performing Lab: [facility] [address] TSH W/ REFLEX FT4 (L) THYROTROPIN [UNITS/VOLU ME] IN SERUM OR PLASMA 1.824 u[IU]/ mL 0.470 - 5.000 11/10 Specimen Type: PLASMA No comment entered. Ordering Provider: Asael ROJAS Report Released Date/Time: Nov 10, 2024 10:17 AM Reporting Lab: [facility] [address] [place] [address] Performing Lab: [facility] [address] DIVISION HGA1C HEMOGLOBIN A1C/HEMOGLO BIN.TOTAL IN BLOOD 10.9 4.0 - 6.0 11/10 H Specimen Type: BLOOD No comment entered. Ordering Provider: Asael ROJAS Report Released Date/Time: Nov 10, 2024 10:17 AM Reporting Lab: [facility] [address] [place] [address] Performing Lab: [facility] [address] DIVISION GLUCOSE,B LOOD-poct ([facility]) GLUCOSE [MASS/VOLUM E] IN BLOOD BY AUTOMATED TEST STRIP 188 mg/dL 72 - 99 07/07 H Specimen Type: BLOOD Comment: Test Performed by: [id number] Meter #: [id number] Ordering Provider: JAIME CORNELIUS Report Released Date/Time: Jul 07, 2024 11:27 AM Reporting Lab: [facility] [facility] [address] Performing Lab: [facility] [address] [facility] Vital Signs Combined list of inpatient and outpatient Vital Signs from Department of Defense and Veterans Affairs, ranging from 12 months to all on record, depending upon the facility. Vital Sign Value Date Comments Source SYSTOLIC BLOOD PRESSURE 115 03/01/2025 11:24:23 [facility] DIASTOLIC BLOOD PRESSURE 70 03/01/2025 11:24:23 [facility] PULSE 84 03/01/2025 11:24:23 [facility] SYSTOLIC BLOOD PRESSURE 122 02/08/2025 09:44:16 [facility] DIASTOLIC BLOOD PRESSURE 69 02/08/2025 09:44:16 [facility] PULSE OXIMETRY 98 % 02/08/2025 09:44:[address] [facility] WEIGHT 182.4 02/08/2025 09:44:16 [facility] BMI 25 kg/m2 02/08/2025 09:44:16 [facility] PAIN 0 02/08/2025 09:44:16 [facility] HEIGHT 72 02/08/2025 09:44:16 [facility] TEMPERATURE 97.5 02/08/2025 09:44:16 [facility] PULSE 85 02/08/2025 09:44:16 [facility] RESPIRATION 16 02/08/2025 09:44:16 [facility] SYSTOLIC BLOOD PRESSURE 123 01/18/2025 09:30:41 [facility] DIASTOLIC BLOOD PRESSURE 65 01/18/2025 09:30:41 [facility] PULSE 80 01/18/2025 09:30:41 [facility] SYSTOLIC BLOOD PRESSURE 120 01/04/2025 11:08:05 [facility] DIASTOLIC BLOOD PRESSURE 68 01/04/2025 11:08:05 [facility] PULSE OXIMETRY 96 01/04/2025 11:08:05 [facility] WEIGHT 183.3 01/04/2025 11:08:05 [facility] BMI 25 kg/m2 01/04/2025 11:08:05 [facility] TEMPERATURE 98 01/04/2025 11:08:05 [facility] PULSE 90 01/04/2025 11:08:05 [facility] RESPIRATION 18 01/04/2025 11:08:05 [facility] SYSTOLIC BLOOD PRESSURE 170 12/15/2024 11:18:55 [facility] DIASTOLIC BLOOD PRESSURE 84 12/15/2024 11:18:55 [facility] PULSE 77 12/15/2024 11:18:55 [facility] Encounters Combined list of: 1) Encounters from Department of [facility] Affairs facilities going backup to the last 18 months, not all [place] inpatient encounters are included; 2) Encounters from the Department of Defense facilities going backup to 280 months. Location Location Details Encounter Type Encounter Number Reason For Visit Attending Provider ADM Date DC Date Status Disposition Source [facility] OFF/OP EST NOVEMBER X REQ PHY/QHP [id number] Diagnos is: ICD-10- CM 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 Wisam MALIN 09/10 [facility] N [facility] MTMS BY PHARM ADDL 15 MIN [id number] Diagnos is: ICD-10- CM 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 RC ROJAS 09/10 [facility] N [facility] Outpatient Encounter [id number] 10/02 [facility] MTMS BY PHARM ADDL 15 MIN [id number] Diagnos is: ICD-10- CM 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 CRYSTAL, RC R 10/07 [facility] Outpatient Encounter [id number] CRYSTAL RC R 11/04 [facility] OFFICE O/P EST MOD 30 MIN [id number] Diagnos is: ICD-10- CM E11.9 Type 2 diabete s mellitu s without complic ations ANURAG DURNO R 11/10 [facility] Outpatient Encounter [id number] JONH CARIAS 12/15 [facility] MTMS BY PHARM ADDL 15 MIN [id number] Diagnos is: ICD-10- CM 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 PABLOBIJU RC R 01/06 [facility] Outpatient Encounter [id number] SHAKA JACKSON A 01/30 [facility] MTMS BY PHARM ADDL 15 MIN [id number] Diagnos is: ICD-10- CM 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 KEYLAOFF, RC R 02/09 [facility] OFFICE O/P EST HI 40 MIN [id number] Diagnos is: ICD-10- CM I10 Essenti al (primar y) hyperte QUOC Thakkar ICK 02/[address] [facility] OFF/OP CNSLTJ NEW/EST LOW 30 [id number] Diagnos is: ICD-10- CM L57.0 Actinic keratos is Alicia CROWE 03/06 [facility] Outpatient Encounter [id number] Diagnos is: ICD-10- CM Z12.2 Encntr screen for maligna nt neoplas m of respira tory organs ADELIA EDEN Y 03/09 [facility] Outpatient Encounter [id number] 03/25 [facility] Outpatient Encounter [id number] Diagnos is: ICD-10- CM Z12.2 Encntr screen for maligna nt neoplas m of respira tory organs Chela DOUGLAS JR 03/25 [facility] Outpatient Encounter [id number] Diagnos is: ICD-10- CM R91.8 Other nonspec ific abnorma l finding of lung field Asael ROSE NDRFLOYD 03/25 [facility] MTMS BY PHARM ADDL 15 MIN [id number] Diagnos is: ICD-10- CM I10 Essenti al (primar y) hyperte RC Jaimes R 04/20 [facility] OFF/OP CNSLTJ NEW/EST MOD 40 [id number] Diagnos is: ICD-10- CM R91.8 Other nonspec ific abnorma l finding of lung field CHANDU DENSON DT T 04/29 [facility] MTMS BY PHARM ADDL 15 MIN [id number] Diagnos is: ICD-10- CM I10 Essenti al (primar y) ROSALINE YangIS R 05/[address] [facility] OFFICE O/P EST LOW 20 MIN [id number] Diagnos is: ICD-10- CM L57.0 Actinic keratos is CAYLA SHOOK R 06/09 [facility] MTMS BY PHARM ADDL 15 MIN [id number] Diagnos is: ICD-10- CM I10 Essenti al (primar y) ROSALINE YangIS R 07/07 [facility] Outpatient Encounter [id number] 07/15 [facility] Outpatient Encounter [id number] Diagnos is: ICD-10- CM Z12.2 Encntr screen for maligna nt neoplas m of respira tory organs Chela DOUGLAS JR 07/20 [facility] Outpatient Encounter [id number] Diagnos is: ICD-10- CM Z12.2 Encntr screen for maligna nt neoplas m of respira tory organs DIONIERNESTO N 07/21 [facility] Outpatient Encounter [id number] SHAKA JACKSON A 08/04 [facility] OFFICE O/P EST MOD 30 MIN [id number] Diagnos is: ICD-10- CM R91.8 Other nonspec ific abnorma l finding of lung field CHANDU DENSON DT T 08/05 [facility] OFFICE O/P EST HI 40 MIN [id number] Diagnos is: ICD-10- CM M25.552 Pain in left hip QUOC CORNELIUS JORGE 08/10 [facility] Outpatient Encounter [id number] 08/11 [facility] MTMS BY PHARM ADDL 15 MIN [id number] Diagnos is: ICD-10- CM 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 CRYSTAL RC R 08/25 [facility] Outpatient Encounter [id number] 09/08 [facility] MTMS BY PHARM ADDL 15 MIN [id number] Diagnos is: ICD-10- CM 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 HAGENHOFF, RC R 09/29 [facility] NQHP OL DIG ASSMT&MGMT 5-10 [id number] Diagnos is: ICD-10- CM E78.2 Mixed hyperli pidemia KIRSTEN HODGES 09/29 [facility] MTMS BY PHARM ADDL 15 MIN [id number] Diagnos is: ICD-10- CM I10 Essenti al (primar y) hyperte april SHAHDEEPIKAMARCELLA, RC R 11/10 [facility] Outpatient Encounter [id number] QUOC CORNELIUS 11/11 [facility] MTMS BY PHARM ADDL 15 MIN [id number] Diagnos is: ICD-10- CM I10 Essenti al (primar y) hyperte nsjackie SHAHBIJU, RC R 12/15 [facility] OFFICE O/P EST LOW 20 MIN [id number] Diagnos is: ICD-10- CM E11.9 Type 2 diabete s mellitu s without complic ations Jaquan BOYLE NEYMAR DELONG 12/18 [facility] OFF/OP CNSLTJ NEW/EST MOD 40 [id number] Diagnos is: ICD-10- CM E78.2 Mixed hyperli pidemia DIMAS CALDERON OS 01/04 [facility] Outpatient Encounter [id number] QUOC CORNELIUS 01/04 [facility] Outpatient Encounter [id number] 01/05 [facility] MTMS BY PHARM ADDL 15 MIN 96807-4.65 [id number] Diagnos is: ICD-10- CM 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 CRYSTAL, RC R 01/18 [facility] DIAB MANAGE TRN PER INDIV 03732-3.65 [id number] Diagnos is: ICD-10- CM E11.59 Type 2 diabete s mellitu s with oth circula tory complic atJERRI Dumont Codey 01/18 [facility] Outpatient Encounter [id number] 02/03 [facility] Outpatient Encounter [id number] MANUELSHAKA RVENIA A 02/05 [facility] OFFICE O/P EST HI 40 MIN 43184-2.65 [id number] Diagnos is: ICD-10- CM I10 Essenti al (primar y) hyperte nsjackie ADRYANQUOC ICK 02/08 [facility] MTMS BY PHARM ADDL 15 MIN 31838-4.65 [id number] Diagnos is: ICD-10- CM I10 Essenti al (primar y) hyperte nsion CRYSTAL, RC R 02/08 [facility] MTMS BY PHARM ADDL 15 MIN 17334-2.65 [id number] Diagnos is: ICD-10- CM 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 CRYSTAL, RC R 03/01 [facility] Outpatient Encounter [id number] 03/01 [facility] Social History Combined list of available smoking, tobacco, and other social history from Department of Defense and Veterans Affairs facilities. 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 02/08/2025 [facility] History of tobacco use [place]-TOBACCO USE EVERY DAY CIGARETTES 02/05/2025 [facility] History of tobacco use [place]-TOBACCO DOESNT USE WI 30 MIN WAKEUP 02/11/2024 [facility] History of tobacco use VA-TOBACCO USER EVERY DAY 09/26/2022 [facility] History of tobacco use VA-TOBACCO USER EVERY DAY 05/05/2021 [facility] History of tobacco use [place]-TOBACCO USE 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 Additional future care activities may be listed in the Assessment and Plan section. Date/Time Care Activity Care Activity Detail Facili ty 04/05/2025 AMBULATORY - REHAB MEDICINE AMBULATORY - REHAB MEDICINE [facility]
--- OUTSIDE RECORDS SUMMARY | 2025-03-12 06:56 | XMS_ITS | Continuity of Care Document ---
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 [address] [place], [place], [id number] , [place]. tel:[phone] Referring Provider: Domo Carballo, [address] [place], [place], [id number]. tel:[phone] [facility], [address] [place], [id number], [place] tel:[phone] [facility] No Information 3 Haris Oliveros. [address], [address] [place], [id number] , . tel:[phone] OFFICE/OUTPA TIENT VISIT, [facility], [address], [place], [place], [id number], tel:[phone] [facility] HLP (chief complaint) Elevated PSA (chief complaint) Dietary surveillance and counselingOther and unspecified hyperlipidemiaBPHHy pertension, UnspecifiedHEMATURI A NOS 3 Haris Oliveros. [address], [address] [place] [place], [id number] , . tel:[phone] Referring Provider: Reid F[address] [place], [id number]. tel:[phone] OFFICE/OUTPA TIENT VISIT, [facility], [address] [place], [address], tel:[phone] [facility] HTN (chief complaint) HLP (chief complaint) Dietary surveillance and counselingHypertens ion, UnspecifiedOther and unspecified hyperlipidemiaBPH 2 Haris Oliveros. [address], [address], [place], [place], [id number] , . tel:[phone] Referring Provider: Reid Fink [address] [facility] [place], [address]. tel:[phone] Family History Family Member Type Diagnosis Age At Onset Brother Problem (finding) Leukemia Father Problem (finding) old age Mother Problem (finding) old age Payers Payer name Insurance type Covered republican ID Authoriza tion(s) No Information Social History [...] Information Instructions Date Instruction Additional Infor mation Dietary counseling Related to Di etary surveillance counseling Decrease caloric intake Related to Dietary surveillance counseling Dietary counseling Related to Di etary surveillance counseling Decrease caloric intake Related to Dietary surveillance counseling Activity counseling provided Rel ated to Hypertension, Unspecified Dietary counseling provided Rela sanjay to Hypertension, Unspecified Assessments Type Assessment Date No Information Mental Status Date Cognitive Assessment Orientation - [place] ed to time, place, person, situation.
[2025-03-12 07:51] LABS: Hematocrit 44.2 % (42.0-52.0); Hemoglobin 14.1 g/dL (14.0-18.0); Mean Corpuscular HGB Conc 31.9 g/dl (32-36); Mean Corpuscular Hemoglobin 29.3 pg (26-34); Mean Corpuscular Volume 91.7 fl (80-100); Platelet Count Result 269 k/mm3 (150-375); Red Blood Count 4.82 M/mm3 (4.6-6.20); White Blood Count 19.5 K/mm3 (4.5-10.0)
[2025-03-12 07:52] LABS: Add Urine Microscopic? NO; Appearance Urine Clear (Clear); Glucose Urine UA 3+ mg/dL (Negative); Leukocyte Esterase Ur Negative LEU/UL (Negative); Nitrate Urine Negative (Negative); Specific Grav Ur 1.024 (1.001-1.035)
[2025-03-12 08:13] LABS: CRP < 0.5 mg/dL (<1.0)
[2025-03-12 08:48] LABS: Band Neutrophils Percent 0 % (0-6); Eosinophils Absolute Manual 0.78 K/mm3 (0.02-0.50); Eosinophils Percent Manual 4 % (0-4); Lymphocytes Absolute Manual 9.55 K/mm3 (1.1-4.5); Lymphocytes Percent Manual 49 % (18-44); Monocytes Absolute Manual 0.39 K/mm3 (0.1-0.90); Monocytes Percent Manual 2 % (3-9); Neutrophils Absolute Manual 8.77 K/mm3 (1.3-6.7); Neutrophils Percent Manual 45 % (46-73); Smudge Cells MODERATE; Total Cells Counted 100
[2025-03-12 08:49] LABS: Anisocytosis 1+; Ovalocytes 1+; Schistocytes None Seen
== END 2025-03-12 06:53 | disposition home or self-care (01) ==
PROVIDERS: PCP Family Medicine; Visit Provider Family Medicine
DX: E78.1 Pure hyperglyceridemia (principal); D72.829 Elevated white blood cell count, unspecified
CPT/HCPCS: 36415; 81003; 83615; 85025; 85652; 86140

== ENCOUNTER 2025-04-21 08:05 | Outpatient (CLI) | payer OTHER, SELFPAY ==
--- OUTSIDE RECORDS SUMMARY | 2025-04-20 13:30 | XMS_ITS | Encounter Summary ---
Author Organization [facility] Address [address] [place] [address] Care Team Providers Care Pharmacy Resource Tech Name Role Phone Unavailable Primary Care Provider Unavailabl e Reason for Visit * Reason Comments Establish Care * Eval and Treat (Routine) - Authorized Specialty Diagnoses / Procedures Referred By Contac t Referred To Contact Hematology and Oncology Diagnoses Elevated white blood cell count, unspecified Procedures office level 3-5 Ajay Guzman MD [address] [place] [address] Phone: tel: fax: Chang Watson MD [address] [employer] [address] [place] [address] Phone: tel: fax: Referral ID Status Reason Start Date Expiration Date V isits Requested Visits Authorized [id number] Authorized 03/12/2025 03/13/2026 12 12 Encounter Details Date Type Department Care Team (Late st Contact Info) Description 04/20/2025 1:30 PM CDT Office Visit [facility] Oncology and Hematology - [place] [address] [facility] [address] [place] [address] Chang Watson MD [address] [employer] [address] [place] [address] Leukocytosis, unspecified type (Primary Dx) Social History Tobacco Use Types Packs/Day Years Used Date Smoking Tobacco: Every Day Cigars Smokeless Tobacco: Never Tobacco Cessation:Ready to Q uit: Not Asked; Counseling Given: Not Answered Alcohol Use Standard Drinks/Week Comments Not Currently 0 (1 standard drink = 0.6 oz pur e alcohol) Sex and Gender Information Value Date Recorded Sex Assigned at Not on file Legal Sex Male 12:01 PM CDT Gender Identity Not on file Sexual Orientation Not on file documented as of this encounter Last Filed Vital Signs Vital Sign Reading Time Taken Comments Blood Pressure 131/66 04/20/2025 1:17 PM CDT Pulse 85 04/20/2025 1:17 PM CDT Temperature 36.1 C (96.9 F) 04/20/2025 1:17 PM CDT Respiratory Rate 16 04/20/2025 1:17 PM CDT Oxygen Saturation 94% 04/20/2025 1:17 PM CDT Inhaled Oxygen Concentration - - Weight 85.5 kg (188 lb 9.6 oz) 04/20/2025 1:17 P M CDT Height 182.9 cm (6') 04/20/2025 1:17 PM CDT Body Mass Index 25.58 04/20/2025 1:17 PM CDT documented in this encounter Progress Notes * Chang Watson MD - 04/20/2025 1:39 PM CDT Hematology-oncology consult Note Requesting Physician Primary Care Physician No primary care provider on file. Problem list There is no problem list on file for this patient. Previous TREATMENT ? Measurable Disease ? Reason for Visit Ivan Donato is a 75 y.o. male who was referred for consultation for leukocytosis. History of present illness This is a pleasant 75-year-old male with history of type 2 diabetes, hypertension, hyperlipidemia, hypothyroidism, peripheral vascular disease and melanoma involving the left cheek s/p resection 3 years ago referred to me for leukocytosis. Patient had labs done on March 12, 2025 showed WBC of 19.5 with lymphocyte 49%. Hemoglobin and platelets were normal. Has been complaining of tiredness and fatigue. He denies any night sweats fevers and chills. He has lost 30 pound weight. Denies any new lumps bumps and lymphadenopathy. Denies any other new complaints. Past Medical History Past Medical History: Diagnosis Date Asthma Diabetes mellitus (CMS/HCC) Hyperlipidemia Hypertension Malignant neoplasm (CMS/HCC) Surgical History Past Surgical History: Procedure Laterality Date HX BACK SURGERY HX BYPASS Peripheral Artery bypass HX SKIN CANCER EXCISION Medications Current Outpatient Medications Medication Sig Dispense Refill albuterol sulfate HFA 90 mcg/actuation aerosol inhaler Take by inhalation. chlorthalidone (HYGROTON) 25 mg tablet Take 25 mg by mouth daily. empagliflozin (JARDIANCE) 25 mg tablet Take 25 mg by mouth. fenofibrate nanocrystallized (TRICOR) 145 mg tablet Take 145 mg by mouth. finasteride (PROSCAR) 5 mg tablet Take 5 mg by mouth. fluorouraciL (EFUDEX) 5 % Cream Apply to affected area. fluticasone propion-salmeteroL (ADVAIR DISKUS,WIXELA INHUB) 250-50 mcg/dose disk inhaler Take by inhalation. icosapent ethyL (VASCEPA) 1 gram Capsule Take 2 Grams by mouth. insulin glargine (LANTUS) 100 unit/mL pen syringe Inject 17 Units by subcutaneous injection. ketoconazole (NIZORAL) 2 % Shampoo Apply to affected area. tiotropium (SPIRIVA RESPIMAT) 2.5 mcg/actuation Mist Take by inhalation. amLODIPine (NORVASC) 10 mg tablet Take 10 mg by mouth daily. aspirin (ECOTRIN EC) 81 mg Tablet, Delayed Release (E.C.) Take 81 mg by mouth. cholecalciferol 1,250 mcg (50,000 unit) Capsule Take 50,000 Units by mouth. levothyroxine 25 mcg tablet Take 25 mcg by mouth. lisinopriL (PRINIVIL) 40 mg tablet Take 40 mg by mouth. metFORMIN (GLUCOPHAGE) 1,000 mg tablet Take 1,000 mg by mouth 2 times daily with meals. rosuvastatin (CRESTOR) 40 mg tablet Take 40 mg by mouth. No current facility-administered medications for this visit. Allergies Allergies Allergen Reactions Egg Derived Hives and Unknown Shellfish Containing Products Hives Immunizations: There is no immunization history on file for this patient. Family History Family History Problem Relation Name Age of Onset Heart Disease Father Diabetes Father No Known Problems Mother Cancer Brother blood Diabetes Brother No Known Problems Child Skin Cancer Child No Known Problems Child Diabetes Child Social History Social History Tobacco Use Smoking status: Every Day Types: Cigars Smokeless tobacco: Never Substance Use Topics Alcohol use: Not Currently Review of Systems Constitutional: Patient did not mention fever; no night sweats; no anorexia; 30 pound weight loss in 3 years, complain of tiredness and fatigue NEENT: Patient did not mention headache; no change in vision; no change in hearing; no sore throat;no dysphagia Respiratory: Patient did not mention shortness of breath; no pleuritic chest pain; no cough; no hemoptysis Cardiac: Patient did not mention cardiac-like chest pain; no palpitations; no orthopnea; no PND; noDOE GI: Patient did not mention abdominal pain; no nausea; no vomiting; no diarrhea; no hematochezia; no melena : Patient did not mention dysuria; no frequency; no hesitancy; no hematuria ENROLLED AGENT: Musculosketetal: Patient did not mention bone pain; no arthralgia; no joint swelling; no myalgia; Skin: Patient did not mention pruritis; no rash; no petechiae; no ecchymoses Endocrine: Patient did not mention polydipsia; no polyuria; no unusual weight gain Neuro: Patient did not mention headache; no change in vision; no sensory changes; no muscle weakness; no confusion; no seizures Psych: Patient did not mention anxiety; no depression; Physical Exam Vitals: As per nursing note Constitutional: Well developed, well nourished, no acute distress, non-toxic appearance Teeth and gum. No signs of infection or swelling. Eyes: PERRL, conjunctiva normal HEENT: Atraumatic, external ears normal, nose normal, oropharynx moist, no pharyngeal exudates. no sinus tenderness Neck- normal range of motion, no tenderness, supple Cardiovascular: Normal rate, normal rhythm, no murmurs, no gallops, no rubs GI: Soft, nondistended, normal bowel sounds, nontender, no splenomegaly, no hepatomegaly, no mass, no rebound, no guarding : No costovertebral angle tenderness Musculoskeletal: No edema, no tenderness, no deformities. Back- no tenderness Integument: Well hydrated, no rash, Digits and nails inspection normal Lymphatic: No lymphadenopathy noted Neurologic: Alert & oriented x 3, CN 2-12 normal, normal motor function, normal sensory function, no focal deficits noted Psychiatric: Speech and behavior appropriate ? labs No results found for this or any previous visit (from the past 24 hours). Labs from March 12 showed WBC 19.5 hemoglobin 14.1 platelet 269,000 neutrophil 45% lymphocyte 49% Pathology ? Imaging & Other Studies Performance Status? Assessment / Plan: ? Leukocytosis and lymphocytosis. Patient is a pleasant 75-year-old male with history of melanoma of the left cheek skin s/p resection 3 years ago, type 2 diabetes, hypertension, hypothyroidism and hyperlipidemia. He has been complaining of tiredness and fatigue but denies any night sweats fevers and chills. He has lost 30 pound weight in 3 years. On my examination there is no evidence oflymphadenopathy and hepatosplenomegaly. I have reviewed the labs that showed leukocytosis and lymphocytosis. These findings are worrisome for chronic lymphocytic leukemia. I will order the workup that will include CBC with differential, CMP, C-reactive protein, sedimentation rate, LDH and flow cytom etric analysis for leukemia. Based on the result we will decide about imaging studies. I have also discussed the diagnosis and management as well as indication for treatment for CLL in detail. I haveanswered all the questions to patient and the daughter satisfaction. Phone visit with me in 2 weeks. Hypothyroidism. Patient is on levothyroxine. Type 2 diabetes. He is on insulin, metformin and Jardiance. Hyperlipidemia. Patient is on Crestor. Hypertension. He is on amlodipine. Thank you very much for allowing me to participate in Ivan Donato's evaluation and management. Please feel free to contact if I can be of any further assistance in your patient???s care requiring hematology or oncology evaluation. Sincerely, ? ? Chang Watson M.D. cell TOBACCO COUNSELING He is not a tobacco/nicotine user. Chang Watson MD ,04/20/2025 1:40 PM ? Total time spent 60 minutes, two third of the total time spent counseling patient [id number]. CC:? documented in this encounter Plan of Treatment Upcoming Encounters Date Type Department Care Team (Late st Contact Info) Description 05/05/2025 4:35 PM CDT Telephone Check Up [facility] Oncology and Hematology - [place] [address] [place] [address] Chang Watson MD [address] [place] [id number] Scheduled Orders Name Type Priority Associated Diagnoses Orde r Schedule CBC WITH DIFFERENTIAL Lab Stat Leukocytosis, unspecified type Expected: 04/20/2025, Expires: 04/20/2026 COMPREHENSIVE METABOLIC PANEL Lab Stat Leukocytosis, unspecified type Expected: 04/20/2025, Expires: 04/20/2026 C-REACTIVE PROTEIN Lab Routine Leukocytosis, unspecified type Expected: 04/20/2025, Expires: 04/20/2026 FLOW CYTOMETRY PANEL Lab Routine Leukocytosis, unspecified type Expected: 04/20/2025, Expires: 04/20/2026 LACTATE DEHYDROGENASE Lab Routine Leukocytosis, unspecified type Expected: 04/20/2025, Expires: 04/20/2026 SEDIMENTATION RATE Lab Routine Leukocytosis, unspecified type Expected: 04/20/2025, Expires: 04/20/2026 documented as of this encounter Visit Diagnoses Diagnosis Leukocytosis, unspecified type- Primary documented in this encounter
--- OUTSIDE RECORDS SUMMARY | 2025-04-21 08:16 | XMS_ITS | Clinical Summary ---
Author Organization [facility] Justa Sof[facility]arga Address [address] [address] Care Team Providers Care Inhalation Therapist Name Role Phone Unavailable Primary Care Provider Unavailabl e Allergies Active Allergy Reactions Criticality Noted Date Comments Egg Derived Hives,Unknown High 03/05/2017 Shellfish Containing Products Hives High 2022 Medications albuterol sulfate HFA 90 mcg/actuation aerosol inhaler Take by inhalation. 09/30/19 25 Active chlorthalidone (HYGROTON) 25 mg tablet Take 25 mg by mouth daily. 12/16/19 25 Active empagliflozin (JARDIANCE) 25 mg tablet Take 25 mg by mouth. 01/19/20 25 Active fenofibrate nanocrystallized (TRICOR) 145 mg tablet Take 145 mg by mouth. 06/23/20 23 Active finasteride (PROSCAR) 5 mg tablet Take 5 mg by mouth. 09/30/19 25 Active fluorouraciL (EFUDEX) 5 % Cream Apply to affected area. 06/09/20 24 Active fluticasone propion-salmeteroL (ADVAIR DISKUS,WIXELA INHUB) 250-50 mcg/dose disk inhaler Take by inhalation. 04/06/20 25 Active icosapent ethyL (VASCEPA) 1 gram Capsule Take 2 Grams by mouth. 09/30/19 25 Active insulin glargine (LANTUS) 100 unit/mL pen syringe Inject 17 Units by subcutaneous injection. 04/05/20 25 Active ketoconazole (NIZORAL) 2 % Shampoo Apply to affected area. 06/09/20 24 Active tiotropium (SPIRIVA RESPIMAT) 2.5 mcg/actuation Mist Take by inhalation. 09/30/19 25 Active amLODIPine (NORVASC) 10 mg tablet Take 10 mg by mouth daily. 02/09/20 Active aspirin (ECOTRIN EC) 81 mg Tablet, Delayed Release (E.C.) Take 81 mg by mouth. 02/09/20 Active cholecalciferol 1,250 mcg (50,000 unit) Capsule Take 50,000 Units by mouth. 04/11/20 Active levothyroxine 25 mcg tablet Take 25 mcg by mouth. 02/09/20 Active lisinopriL (PRINIVIL) 40 mg tablet Take 40 mg by mouth. 01/19/20 Active metFORMIN (GLUCOPHAGE) 1,000 mg tablet Take 1,000 mg by mouth 2 times daily with meals. 02/09/20 Active rosuvastatin (CRESTOR) 40 mg tablet Take 40 mg by mouth. 01/19/20 Active Active Problems No known active problems Encounters Date Type Department Care Team Description 04/20/2025 1:30 PM CDT Office Visit [facility] Oncology and Hematology [place] [address] [address] [address] Chang Watson MD Leukocytosis, unspecified type (Primary Dx) from Last 3 Months Family History Medical History Relation Name Comments Cancer Brother 1 blood Diabetes Brother 2 No Known Problems Child 1 Skin Cancer Child 2 No Known Problems Child 3 Diabetes Child 4 Diabetes Father Heart Disease Father No Known Problems Mother Relation Name Status Comments Brother 1 Brother 2 Alive Child 1 Alive Child 2 Alive Child 3 Alive Child 4 Alive Father Mother Social History Tobacco Use Types [...] Mass Index 25.58 04/20/2025 1:17 PM CDT Plan of Treatment Upcoming Encounters Date Type Department Care Team (Late st Contact Info) Description 05/05/2025 4:35 PM CDT Telephone Check Up [facility] Oncology and Hematology - [place] [address] [facility] [address] [place] [address] Chang Watson MD [address] [facility] [address] [place] [address] Health Maintenance Due Date Last Done Comments DIABETES ANNUAL FOOT EXAM 1966 DIABETES ANNUAL RETINAL EXAM 1966 DIABETES MICROALBUMIN ANNUAL SCREEN 1966 LDL CHOLESTEROL ANNUAL 1966 DTAP/TDAP/TD VACCINES (1 - Tdap) 1967 PNEUMOCOCCAL VACCINE 50+ YEARS (1 of 2 - PCV) 03/17/19 67 ZOSTER VACCINE (1 of 2) 1998 RSV VACCINE (60+ or ) (1 - 1-dose 75+ series) 2023 INFLUENZA VACCINE (#1) 2025 DIABETES HBA1C Q 6 MONTHS 10/03/2025 04/05/2025 Insurance
--- OUTSIDE RECORDS SUMMARY | 2025-04-21 08:16 | XMS_ITS | Clinical Summary ---
Author Organization [facility] at the [facility] Office Center Address [address] [place] [address] Care Team Providers Care [employer] Name Role Phone Ajay Guzman MD Primary Care Provider [phone] Allergies Active Allergy Reactions Criticality Noted Date [...] mg total) by mouth daily Active omega 7-ylt-ulw-fish oil 1,000 mg (120 mg-180 mg) capsule [...] 06/13/2022 Assessment & Plan (06/25/2023 11:42 AM SECURITY DIRECTOR): Impression: Patient is a current everyday smoker smoking 1/2 pack daily. Plan: Discussed with the patient greater than 3 minutes about the importance of smoking cessation and its benefits to the cardiovascular health and to recent vascular intervention. Patient has no interest in quitting quitting at this time. Assessment & Plan (06/13/2022 5:21 PM SECURITY DIRECTOR): Impression: Patient is a current everyday smoker, [...] disease) Assessment & Plan (06/13/2021 2:33 PM SECURITY DIRECTOR): Followed by his PCP and controlled at this time. Assessment & Plan (09/20/2020 9:49 AM SECURITY DIRECTOR): Long history of smoking. Recently quit smoking. Dyspnea on exertion 09/20/2020 Assessment & Plan (09/20/2020 9:50 AM SECURITY DIRECTOR): Will get an echo Doppler study to [...] concerns. Assessment & Plan (06/13/2021 2:32 PM SECURITY DIRECTOR): Patient is doing well since his left [...] his recent lower extremity bypass. Atherosclerosis of [place] of both lower extremities with intermittent claudication 09/08/2020 Assessment & Plan (08/10/2024 1:32 PM SECURITY DIRECTOR): Impression: Patient is status post left femoral [...] extremity. Assessment & Plan (06/25/2023 11:40 AM SECURITY DIRECTOR): Impression: Patient has stable non disabling claudication and denies any ischemic rest pain or ulcerations. Left femoral popliteal bypass graft is patent as seen on lower extremity arterial duplex. Plan: Continue ongoing risk factor modifications. -patient to follow-up in 1 year for re-evaluation with repeat lower extremity arterial duplex. Assessment & Plan (06/13/2022 5:22 PM SECURITY DIRECTOR): Impression: Patient is status post left femoral [...] reconstruction. Assessment & Plan (09/20/2020 9:49 AM SECURITY DIRECTOR): Significant claudication. Dr. Merida evaluating. Surgical revascularization planned for the next few weeks. EKG today shows normal sinus rhythm, normal QRS morphology. Atherosclerosis of [place] of left lower extremity with [...] well. Assessment & Plan (09/08/2020 2:58 PM SECURITY DIRECTOR): Patient has atherosclerosis and decreased ABIs with [...] 09/08/2020 Assessment & Plan (08/10/2024 1:32 PM SECURITY DIRECTOR): Impression: Chronic and stable. Plan: Continue atorvastatin and rosuvastatin. Assessment & Plan (06/25/2023 11:42 AM SECURITY DIRECTOR): Impression: Chronic and stable. Plan: Continue atorvastatin and rosuvastatin Assessment & Plan (06/13/2022 5:20 PM SECURITY DIRECTOR): Impression: Chronic stable hyperlipidemia, controlled with statin therapy. Plan: Continue statin therapy as per primary care provider. Assessment & Plan (12/13/2021 10:42 AM CDT): Followed by his PCP and chronic and stable. I recommend he continue his Lipitor for lipid lowering medication. Assessment & Plan (06/13/2021 2:32 PM SECURITY DIRECTOR): Followed by his PCP and on a statin. Assessment & Plan (09/20/2020 9:51 AM SECURITY DIRECTOR): Low-fat low-cholesterol diet. Fish oil. Atorvastatin. Assessment & Plan (09/08/2020 2:55 PM SECURITY DIRECTOR): Followed by his PCP and controlled on a statin at this time. Essential hypertension 09/08/2020 Assessment & Plan (08/10/2024 1:32 PM SECURITY DIRECTOR): Chronic and stable. Plan: Continue amlodipine and lisinopril Assessment & Plan (06/25/2023 11:41 AM SECURITY DIRECTOR): Impression: Chronic and stable. Plan: Continue amlodipine and lisinopril. Assessment & Plan (06/13/2022 5:20 PM SECURITY DIRECTOR): Impression: Chronic hypertension, controlled medications. Blood pressure stable. Plan: Continue blood pressure management as per primary care provider. Assessment & Plan (12/13/2021 10:43 AM CDT): Followed by his PCP and chronic and stable. I recommend he continue his amlodipine and lisinopril for blood pressure control as per his PCP. 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 Assessment & Plan (09/20/2020 9:50 AM SECURITY DIRECTOR): Salt restriction. Amlodipine. Lisinopril. Blood pressure 146/80. Assessment & Plan (09/08/2020 2:55 PM SECURITY DIRECTOR): Followed by his PCP and controlled on [...] on file Legal Sex Male 7:34 PM SECURITY DIRECTOR Gender Identity Not on file Sexual Orientation Not on file Obstetrics History Last Filed Vital Signs Vital Sign Reading Time Taken Comments Blood Pressure 175/80 08/10/2024 1:05 PM SECURITY DIRECTOR Pulse 90 08/10/2024 1:05 PM SECURITY DIRECTOR Temperature 36.8 C (98.2 F) 11/07/2020 12:00 PM CDT Respiratory Rate - - Oxygen Saturation 96% 11/07/2020 12:00 PM CDT Inhaled Oxygen Concentration - - Weight 88.5 kg (195 lb) 08/10/2024 1:05 PM SECURITY DIRECTOR Height 182.9 cm (6') 08/10/2024 1:05 PM SECURITY DIRECTOR Body Mass Index 26.45 08/10/2024 1:05 PM SECURITY DIRECTOR Plan of Treatment Health Maintenance Due Date Last Done Comments Depression Screening 1950 Fall Risk Assessment 1950 Hepatitis C Screening 1950 DTaP/Tdap/Td Vaccine (1 - Tdap) 1959 Hepatitis B Screening 1966 Pneumococcal vaccine 65+ (1 of 2 - PCV) 1967 Zoster Vaccine (1 of 2) 1998 Abdominal Aortic Aneurysm (AAA) Screen 2013 Well Visit 65+ 2013 Influenza Vaccine (#1) 2025 Insurance [facility] Care Teams [employer] Relationship Specialty Start Date End Date Ajay Guzman MD PCP - General Family Practice 06/24/23
--- OUTSIDE RECORDS SUMMARY | 2025-04-21 08:16 | XMS_ITS | Clinical Summary ---
Author Organization [facility] Address Pending sale to [facility] [place] [address] Care Team Providers Care Pharmaceutical Engineer Name Role Phone Unavailable Primary Care Provider [...] COVID-19 Vaccine ( - 2023-2 5 season) 2025 Meningococcal B Vaccine Aged Out No l onger eligible based on patient's age to complete this topic Meningococcal Vaccine Aged Out No vanna stanley eligible based on patient's age to complete this topic RSV Immunizations Under 20 Months Aged Out No longer eligible based on patient's age to complete this topic
--- NOTE | 2025-04-21 08:25 | CY_PTH ---
PATIENT: Ivan Donato LOC: [facility]#:[id number] AGE/SX: 75/M ROOM: RE04/21/[address]: Chang Watson MD : 1950 BED: DIS: 04/21/2025 SPEC #: [id number] RECD: 04/21/25 09:43 STATUS: SOUSara REQ #: [id number] RHEA: 04/21/25 08:[address]: Chang Watson DEPT: [facility] Cytology RECD BY: Sky Perez ENTERED: 04/21/25 09:44 SP TYPE: Cytology OTHR DR: Ajay Guzman MD Tissues: A - Peripheral Blood Procedures: Flow Cytometry
[2025-04-21 08:31] LABS: Hematocrit 47.2 % (42.0-52.0); Hemoglobin 15.3 g/dL (14.0-18.0); Immature Granulocyte Percent A 0.2 % (0-0.5); Lymphocytes Absolute Auto 12.64 K/mm3 (0.9-3.2); Mean Corpuscular HGB Conc 32.4 g/dl (32-36); Mean Corpuscular Hemoglobin 29.7 pg (26-34); Mean Corpuscular Volume 91.7 fl (80-100); Nucleated Red Blood Cells Absolute Auto 0.000 K/mm3 (0.0-0.012); Nucleated Red Blood Cells Perc 0.0 % (0.0-0.2); Platelet Count Result 237 k/mm3 (150-375); Red Blood Count 5.15 M/mm3 (4.6-6.20); White Blood Count 18.8 K/mm3 (4.5-10.0)
[2025-04-21 08:40] LABS: Schistocytes None Seen
[2025-04-21 09:34] LABS: Alanine Aminotransferase 25 U/L (6-50); Albumin Level 4.6 g/dL (3.5-5.1); Alkaline Phosphatase 53 U/L (38-126); Anion Gap 9 mmol/L (4-12); Aspartate Amino Transferase 34 U/L (17-59); Bilirubin,Total 0.5 mg/dL (0.2-1.3); Blood Urea Nitrogen 27 mg/dL (9-20); CRP < 0.5 mg/dL (<1.0); Calcium 9.7 mg/dL (8.4-10.2); Carbon Dioxide 28 mmol/L (22-30); Chloride 101 mmol/L (98-107); Estimated Glomerular Filt Rate > 60; Glucose 157 mg/dL (65-110); Potassium 4.0 mmol/L (3.4-5.0); Sodium 138 mmol/L (137-145); Total Protein 8.3 g/dL (6.3-8.2)
== END 2025-04-21 08:06 | disposition home or self-care (01) ==
LOC: ANHLAB 08:06
PROVIDERS: PCP Family Medicine; Visit Provider Internal Medicine Hematology & Oncology
DX: D72.829 Elevated white blood cell count, unspecified (principal)
CPT/HCPCS: 36415; 80053; 83615; 85025; 85652; 86140; 88184